=== PATIENT | male | born 1970 | race Caucasian/White ===

== ENCOUNTER 2019-06-22 22:39 | Emergency (ER) | payer MEDICAID, OTHER ==
[~2019-06-22] VITALS: Ht 180.3 cm; Wt 101.6 kg
[2019-06-22] MEDS ORDERED: LISI10TA2 (23:06)
[2019-06-22] MEDS ORDERED: FURO40TA4 (23:06)
[2019-06-22] MEDS ORDERED: WARF4TAB70 (23:06)
[2019-06-22] MEDS ORDERED: RT-ALBUINH (23:06)
[2019-06-22] MEDS ORDERED: NITR0.4T42 (23:06)
[2019-06-22] MEDS ORDERED: BUPR100T8 (23:06)
[2019-06-22] MEDS ORDERED: GABA-488 (23:06)
[2019-06-22] MEDS ORDERED: ATOR40TA70 (23:06)
[2019-06-22] MEDS ORDERED: fentaNYL INJECTION 100 MCG/2 ML AMP IVP ONE (23:30)
[2019-06-22 23:42] LABS: BILIRUBIN,URINE NEGATIVE (NEGATIVE); CLARITY,URINE VERY CLOUDY; COLOR,URINE YELLOW; GLUCOSE, URINE (UA) 2+ (NEGATIVE); KETONES,URINE 1+ (NEGATIVE); LEUKOCYTE ESTERASE ,URINE 2+ (NEGATIVE); NITRITE,URINE POSITIVE (NEGATIVE); PH,URINE 7 (5-9); PROTEIN,URINE 2+ (NEGATIVE); UROBILINOGEN,URINE NORMAL (NORMAL)
[2019-06-22 23:51] LABS: BACTERIA,URINE LARGE /HPF; RBC,URINE 25-50 /HPF; TRIPLE PHOSPHATE CRYSTAL,UR MODERATE /LPF; WBC,URINE TNTC /HPF
[2019-06-22 23:53] LABS: BASOPHILS % (AUTO) 0 % (0-10); EOSINOPHILS # (AUTO) 0.3 10^3/uL (0.0-0.3); EOSINOPHILS % (AUTO) 3 % (0-10); HEMATOCRIT 43 % (40-54); HEMOGLOBIN 13.9 G/DL (13.3-17.7); LYMPHOCYTES # (AUTO) 1.3 X 10^3 (1.0-4.0); LYMPHOCYTES % (AUTO) 14 % (12-44); MEAN CORPUSCULAR HEMOGLOBIN 32 PG (25-34); MEAN CORPUSCULAR HGB CONC 32 G/DL (32-36); MEAN CORPUSCULAR VOLUME 98 FL (80-99); MEAN PLATELET VOLUME 9.2 FL (7.4-10.4); MONOCYTES # (AUTO) 1.1 X 10^3 (0.0-1.0); MONOCYTES % (AUTO) 12 % (0-12); NEUTROPHILS # (AUTO) 6.7 X 10^3 (1.8-7.8); NEUTROPHILS % (AUTO) 71 % (42-75); PLATELET COUNT 327 10^3/uL (130-400); RED CELL DISTRIBUTION WIDTH 14.8 % (10.0-14.5); WHITE BLOOD COUNT 9.4 10^3/uL (4.3-11.0)
[2019-06-22 23:55] LABS: AMPHETAMINE SCREEN, URINE POSITIVE (NEGATIVE); BARBITURATE SCREEN URINE NEGATIVE (NEGATIVE); BENZODIAZEPINES SCREEN URINE NEGATIVE (NEGATIVE); CANNABINOID SCREEN, URINE NEGATIVE (NEGATIVE); COCAINE SCREEN URINE NEGATIVE (NEGATIVE); METHADONE STAT NEGATIVE (NEGATIVE); METHAMPHETAMINE SCREEN URINE S POSITIVE (NEGATIVE); OPIATE SCREEN URINE NEGATIVE (NEGATIVE); OXYCODONE STAT NEGATIVE (NEGATIVE); PROPOXYPHENE STAT NEGATIVE (NEGATIVE); TRICYCLIC ANTIDEPRESSANTS SCRE NEGATIVE (NEGATIVE)
[2019-06-22 23:57] LABS: INR 1.9 (0.8-1.4)
[2019-06-23 00:04] LABS: ALANINE AMINOTRANSFERASE 23 U/L (0-55); ALKALINE PHOSPHATASE 50 U/L (40-136); BILIRUBIN,TOTAL 0.4 MG/DL (0.1-1.0); BUN/CREATININE RATIO 15; CALCIUM 9.1 MG/DL (8.5-10.1); CARBON DIOXIDE 25 MMOL/L (21-32); CHLORIDE 105 MMOL/L (98-107); CREATININE SERUM 1.26 MG/DL (0.60-1.30); GFR ESTIMATED > 60; GLUCOSE 87 MG/DL (70-105); MAGNESIUM 2.3 MG/DL (1.8-2.4); POTASSIUM 4.2 MMOL/L (3.6-5.0); SODIUM 139 MMOL/L (135-145); TOTAL PROTEIN 7.2 GM/DL (6.4-8.2)
[2019-06-23] MEDS ORDERED: CEPH-507 PO (00:59)
--- NOTE | 2019-06-23 00:59 | ED General ---
General Chief Complaint: Lower Extremity Stated Complaint: R LEG PAIN Nursing Triage Note: right knee pain, no injury Nursing Sepsis Screen: No Definite Risk Source of Information: Patient Exam Limitations: No Limitations History of Present Illness Date Seen by Provider: Jun 22, 2019 Time Seen by Provider: 23:10 Initial Comments This 49-year-old man presents to the emergency room with complaints of pain in the right knee and leg. He has swelling inferior to the right knee. He reports falling earlier today. He is not exactly sure how he fell or if he had a syncopal episode. He reports having a history of syncopal episodes in the past. The incident happened around 18:00. Patient is anticoagulated on warfarin due to mechanical valve. His primary care provider is Todd Henley at [facility] in [facility]. His silver holloware assembler is Dr. Adan Leslie in [place]. Patient denies chest pain or shortness of breath. Patient denies any drug or alcohol use. Allergies and Home Medications Allergies Coded Allergies: No Known Drug Allergies (Unverified , 06/22/19) Home Medications Cephalexin 500 Mg Capsule, 500 MG PO TID Prescribed by: SAYRA GUY on 06/23/19 0059 Patient Home Medication List Home Medication List Reviewed: Yes Review of Systems Review of Systems Constitutional: no symptoms reported EENTM: no symptoms reported Respiratory: no symptoms reported Cardiovascular: see HPI Gastrointestinal: no symptoms reported Genitourinary: no symptoms reported Musculoskeletal: see HPI Skin: no symptoms reported Psychiatric/Neurological: See HPI Hematologic/Lymphatic: No Symptoms Reported Immunological/Allergic: no symptoms reported Past Ykjjded-Oyqwal-Behhfg Hx Patient Social History Alcohol Use: Denies Use Recreational Drug Use: No Smoking Status: Current Everyday Smoker Type Used: Cigarettes 2nd Hand Smoke Exposure: Yes Recent Foreign Travel: No Contact w/Someone Who Travel: No Recent Infectious Disease Expo: No Recent Hopitalizations: No Physical Abuse: No Sexual Abuse: No Mistreated: No Fear: No Immunizations Up To Date Tetanus Booster (TDap): Unknown Seasonal Allergies Seasonal Allergies: No Past Medical History Surgeries: Yes (mitral valve replacement) Cardiac Respiratory: Yes Asthma Cardiac: Yes High Cholesterol, Hypertension Neurological: No Genitourinary: No Gastrointestinal: No Musculoskeletal: Yes Arthritis Endocrine: No HEENT: No Cancer: No Psychosocial: No Integumentary: No Blood Disorders: No Physical Exam Vital Signs Vital Signs - First Documented 06/22/19 22:58 Temp 97.1 Pulse 95 Resp 16 B/P (MAP) 143/94 (110) Pulse Ox 98 O2 Delivery Room Air Capillary Refill : Less Than 3 Seconds Height, Weight, BMI Height: 5'11.00" Weight: 224lbs. oz. [id number]; BMI Method:Stated General Appearance: No Apparent Distress, WD/WN HEENT: PERRL/EOMI, Normal ENT Inspection Neck: Normal Inspection Respiratory: Lungs Clear, Normal Breath Sounds, No Accessory Muscle Use, No Respiratory Distress Cardiovascular: Regular Rate, Rhythm, No Edema, Diastolic Murmur, Other (mechanical valve clicking) Gastrointestinal: Normal Bowel Sounds, Non Tender, Soft Extremity: Other (right lower extremity mildly swollen from the knee to the ankle. There is a very tender area of marketed swelling over the tibial plateau suggestive of hematoma. Pedal pulse, sensation, and capillary refill intact.) Neurologic/Psychiatric: Alert, Oriented x3, No Motor/Sensory Deficits, Normal Mood/Affect Skin: Warm/Dry, Other (scattered excoriations over the lower extremities) Progress/Results/Core Measures Suspected Sepsis Recent Fever Within 48 Hours: No Infection Criteria Present: None New/Unexplained Altered Menta: No Sepsis Screen: No Definite Risk SIRS Temperature:97.1 Pulse: 95 Respiratory Rate: 16 Laboratory Tests 06/22/19 23:35: White Blood Count 9.4 Blood Pressure 143 /94 Mean: 110 Laboratory Tests 06/22/19 23:35: Creatinine 1.26, INR Comment 1.9H, Platelet Count 327, Total Bilirubin 0.4 Results/Orders Lab Results Laboratory Tests Test 06/22/19 23:30 06/22/19 23:35 Range/Units Urine Color YELLOW Urine Clarity VERY CLOUDY H Urine pH 7 5-9 Urine Specific [place] 1.015 L 1.016-1.022 Urine Protein 2+ H NEGATIVE Urine Glucose (UA) 2+ H NEGATIVE Urine Ketones 1+ H NEGATIVE Urine Nitrite POSITIVE H NEGATIVE Urine Bilirubin NEGATIVE NEGATIVE Urine Urobilinogen NORMAL NORMAL MG/DL Urine Leukocyte Esterase 2+ H NEGATIVE Urine RBC (Auto) 3+ H NEGATIVE Urine RBC 25-50 H /HPF Urine WBC TNTC H /HPF Urine Crystals NONE /LPF Urine Triple Phosphate Crystals MODERATE H /LPF Urine Bacteria LARGE H /HPF Urine Casts NONE /LPF Urine Mucus NEGATIVE /LPF Urine Culture Indicated YES Urine Opiates Screen NEGATIVE NEGATIVE Urine Oxycodone Screen NEGATIVE NEGATIVE Urine Methadone Screen NEGATIVE NEGATIVE Urine Propoxyphene Screen NEGATIVE NEGATIVE Urine Barbiturates Screen NEGATIVE NEGATIVE Ur Tricyclic Antidepressants Screen NEGATIVE NEGATIVE Urine Phencyclidine Screen NEGATIVE NEGATIVE Urine Amphetamines Screen POSITIVE H NEGATIVE Urine Methamphetamines Screen POSITIVE H NEGATIVE Urine Benzodiazepines Screen NEGATIVE NEGATIVE Urine Cocaine Screen NEGATIVE NEGATIVE Urine Cannabinoids Screen NEGATIVE NEGATIVE White Blood Count 9.4 4.3-11.0 10^3/uL Red Blood Count 4.41 4.35-5.85 10^6/uL Hemoglobin 13.9 13.3-17.7 G/DL Hematocrit 43 40-54 % Mean Corpuscular Volume 98 80-99 FL Mean Corpuscular Hemoglobin 32 25-34 PG Mean Corpuscular Hemoglobin Concent 32 32-36 G/DL Red Cell Distribution Width 14.8 H 10.0-14.5 % Platelet Count 327 130-400 10^3/uL Mean Platelet Volume 9.2 7.4-10.4 FL Neutrophils (%) (Auto) 71 42-75 % Lymphocytes (%) (Auto) 14 12-44 % Monocytes (%) (Auto) 12 0-12 % Eosinophils (%) (Auto) 3 0-10 % Basophils (%) (Auto) 0 0-10 % Neutrophils # (Auto) 6.7 1.8-7.8 X 10^3 Lymphocytes # (Auto) 1.3 1.0-4.0 X 10^3 Monocytes # (Auto) 1.1 H 0.0-1.0 X 10^3 Eosinophils # (Auto) 0.3 0.0-0.3 10^3/uL Basophils # (Auto) 0.0 0.0-0.1 10^3/uL Prothrombin Time 23.0 H 12.2-14.7 SEC INR Comment 1.9 H 0.8-1.4 Activated Partial Thromboplast Time 36 H 24-35 SEC Sodium Level 139 135-145 MMOL/L Potassium Level 4.2 3.6-5.0 MMOL/L Chloride Level 105 98-107 MMOL/L Carbon Dioxide Level 25 21-32 MMOL/L Anion Gap 9 5-14 MMOL/L Blood Urea Nitrogen 19 H 7-18 MG/DL Creatinine 1.26 0.60-1.30 MG/DL Estimat Glomerular Filtration Rate > 60 BUN/Creatinine Ratio 15 Glucose Level 87 70-105 MG/DL Calcium Level 9.1 8.5-10.1 MG/DL Corrected Calcium 9.1 8.5-10.1 MG/DL Magnesium Level 2.3 1.8-2.4 MG/DL Total Bilirubin 0.4 0.1-1.0 MG/DL Aspartate Amino Transf (AST/SGOT) 21 5-34 U/L Alanine Aminotransferase (ALT/SGPT) 23 0-55 U/L Alkaline Phosphatase 50 40-136 U/L Total Protein 7.2 6.4-8.2 GM/DL Albumin 4.0 3.2-4.5 GM/DL Serum Alcohol < 10 <10 MG/DL My Orders Orders - SAYRA CRAIG MD Alcohol (06/22/19 23:19) Cbc With Automated Diff (06/22/19:19) Comprehensive Metabolic Panel (06/22/19 23:19) Drug Screen Stat (Urine) (06/22/19:19) Magnesium (06/22/19:19) Protime With Inr (06/22/19:) Partial Thromboplastin Time (06/22/19 23:19) Ua Culture If Indicated (06/22/19 23:19) Ed Iv/Invasive Line Start (06/22/19 23:19) Chest 1 View, Ap/Pa Only (06/22/19 23:19) Tibia/Fibula, Right, 2 Views (06/22/19 23:19) Knee, Right, 3 Views (06/22/19 23:19) Ankle, Right, 3 Views (06/22/19 23:19) Fentanyl Injection (Sublimaze Injection (06/22/19 23:30) Ekg Tracing (06/22/19:19) Monitor-Rhythm Ecg Trace Only (06/22/19 23:19) Urine Culture (06/22/19 23:30) Chlamydia Trachomatis Urine (06/23/19 00:51) Neis Jameson Dna Urine Test (06/23/19 00:51) Ceftriaxone For Iv Use (Rocephin For I (06/23/19 01:00) Oxycodone/Apap 5/325mg Tablet (Percocet (06/23/19 01:00) Medications Given in ED Current Medications Medications Dose Ordered Sig/Keely Route Start Time Stop Time Status Last Admin Dose Admin Ceftriaxone Sodium 1000 mg/ Sterile Water 10 ml @ 200 mls/hr ONCE ONCE IV 06/23/19 01:00 06/23/19 01:02 DC 06/23/19 00:59 200 MLS/HR Fentanyl Citrate 50 mcg ONCE ONCE IVP 06/22/19 23:30 06/22/19 23:31 DC 06/22/19 23:34 50 MCG Oxycodone/ Acetaminophen 1 tab ONCE ONCE PO 06/23/19 01:00 06/23/19 01:01 DC 06/23/19 00:59 1 TAB Vital Signs/I&O 06/22/19 06/23/19 06/23/19 22:58 00:59 01:15 Temp 97.1 97.1 97.0 Pulse 95 92 Resp 16 16 B/P (MAP) 143/94 (110) 126/101 (109) Pulse Ox 98 97 O2 Delivery Room Air Room Air Capillary Refill : Less Than 3 Seconds Blood Pressure Mean: 110 Progress Note : Time: 00:56 Progress Note Patient was found to have a urinary tract infection which is being treated with Rocephin. Patient states his urine has sometimes had a milky cloudy appearance. GC and chlamydia urine test were added. Patient's INR is slightly low for her artificial valve therapy. No adjustments to his warfarin are being made at this time as he is starting antibiotics and INR is likely to rise. I advised that he have his INR checked again in a couple of days. Pain was initially treated with fentanyl. Percocet is being given to help him get through the night. He is to discuss further pain management with his primary care provider. The swelling over the right tibial plateau is likely a hematoma. He states it was not present to any extent prior to him falling. X-rays were unremarkable. Patient had a positive drug screen for methamphetamines. He adamantly denies use of methamphetamines. 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 Patient is uncertain if he actually had a syncopal episode or not when he fell. He reports he has had multiple syncopal episodes in the past. His silver holloware assembler is aware of this and he has worn a heart monitor in the past. ECG Initial ECG Impression Date: Jun 23, 2019 Initial ECG Impression Time: 00:05 Initial ECG Rate: 81 Initial ECG Rhythm: Normal Sinus Comment Sinus rhythm with no ST elevation or depression. LVH noted. No abnormal intervals. Diagnostic Imaging Diagonstic Imaging: Xray Plain Films/CT/US/NM/MRI: chest Comments Chest x-ray viewed by me. Report not yet available. No acute abnormalities appreciated. Diagonstic Imaging: Xray Plain Films/CT/US/NM/MRI: leg Comments X-ray of the right tib-fib view by me and report not yet available. No acute abnormalities appreciated. Diagonstic Imaging: Xray Plain Films/CT/US/NM/MRI: other (foot) Comments X-ray of the right foot viewed by me. Report negative available. No acute abnormalities appreciated. Diagonstic Imaging: Xray Plain Films/CT/US/NM/MRI: ankle Comments Right ankle x-ray viewed by me. Report yet available. No acute abnormalities appreciated. Departure Impression Primary Impression: Urinary tract infection Qualified Codes: N39.0 - Urinary tract infection, site not specified Additional Impressions: Fall on same level Qualified Codes: W18.30XA - Fall on same level, unspecified, initial encounter Traumatic hematoma of right knee Qualified Codes: S80.01XA - Contusion of right knee, initial encounter Anticoagulated on warfarin Positive urine drug screen Disposition: HOME, SELF-CARE Condition: Improved Departure-Patient Inst. Decision time for Depature: 00:55 Referrals: NO,LOCAL PHYSICIAN (PCP/Family) Primary Care Physician Patient Instructions: HEMATOMA, Urinary Tract Infections in Adults Add. Discharge Instructions: You may apply ice in 20 minute intervals to your knee to help with pain and s welling. Your INR was 1.9. Please call your primary care provider and discuss warfarin dosing based on this INR. Keep in mind antibiotic use may increase your INR. He should have your INR checked again in a couple of days. Complete your antibiotics as prescribed. Check on urine culture results with your primary care provider in 2 or 3 days. Follow-up with your primary care provider and your silver holloware assembler as soon as possible, preferably within the next 48 hours. Please call tomorrow morning to schedule follow-up appointments. Return to care if you have worsening symptoms. All discharge instructions reviewed with patient and/or family. Voiced understanding. Scripts Cephalexin (Keflex) 500 Mg Capsule 500 MG PO TID, #20 CAP Prov: SAYRA CRAIG MD 06/23/19 Copy Copies To 1: MORE SIMPSON JOSHUA T MD Jun 23, 2019 00:59
[2019-06-23] MEDS ORDERED: oxyCODONE/APAP 5/325MG (PERCOCET 5) TABLET PO ONE (01:00)
[2019-06-23] MEDS ORDERED: cefTRIAXone FOR IV USE 1,000 MG in WATER (STERILE) FOR INJECTION 10 ML IV ONE (01:00)
[2019-06-23 01:15] VITALS: BP 126/101
--- OUTSIDE RECORDS SUMMARY | 2019-06-23 02:23 | XMS REPORT ---
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 Name Role Phone ROSELINE SINGH Unavailable PROBLEMS Type Condition ICD9-CM Code KGA59-PY Code Onset Dates Condition Status SNOMED Code Problem Encounter for therapeutic drug monitoring V58.83 Active 436583428 Problem snf 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.01 Active 396124032 Problem Lumbago with sciatica, right side M54.41 Active 351167809 Problem Hyperlipidemia, unspecified hyperlipidemia type E78.5 Active 51636560 Problem Anxiety F41.9 Active 16090719 Problem Other chronic pain G89.29 Active 26025464 Problem Attention-deficit hyperactivity disorder, predominantly hyperactive type F90.1 Active 294277032 Problem Chronic congestive heart failure, unspecified congestive heart failure type I50.9 Active 84711105 Problem Chronic obstructive pulmonary disease, unspecified COPD type J44.9 Active 04549760 ALLERGIES No Known Allergies ENCOUNTERS Encounter Location Date Diagnosis [id number] [place] [address] [id number] Jan, Chronic congestive heart failure, unspecified congestive heart failure type I50.9 ; Chronic obstructive pulmonary disease, unspecified COPD type J44.9 ; Anxiety F41.9 and Hyperlipidemia, unspecified hyperlipidemia type E78.[address] [place] [address] [id number] Jan, snf 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.[address] [place] [address] [id number] Aug, 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 ; Chronic obstructive pulmonary disease, unspecified COPD type J44.9 ; Hyperlipidemia, unspecified hyperlipidemia type E78.5 ; Anxiety F41.9 ; Exposure to hepatitis C Z20.5 ; Chronic congestive heart failure, unspecified congestive heart failure type I50.9 and Lumbago with sciatica, right side M54.41 [facility] [place] [address] [id number] [id number] Jun, snf 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.01 [place] [id number] [id number] April, Anxiety F41.9 ; 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 [address] [place] [address] [id number] Oct, Other chronic pain G89.29 [address] [id number] Sep, [address] [place] [address] [id number] Aug, [place] [id number] [place] [address] [id number] Aug, Other chronic pain G89.29 ; Chronic obstructive pulmonary disease, unspecified COPD type J44.9 ; Encounter for immunization Z23 and 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 [facility] [place] [id number] [id number] Aug, Anxiety F41.9 ; Hyperlipidemia, unspecified hyperlipidemia type E78.5 and Lumbago with sciatica, right side M54.41 [facility] [place] [address]00565100[place] [id number] Jul, [facility] [place] [id number] [place] [address] [id number] Jul, Chronic obstructive pulmonary disease, unspecified COPD type J44.9 ; Anxiety F41.9 ; Lumbago with sciatica, right side M54.41 and snf 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.01 [facility] [place] [id number] [place] [address] [id number] Jul, 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 [facility] [address] [place] [address] [id number] Jun, Lumbago with sciatica, right side M54.41 ; Chronic obstructive pulmonary disease, unspecified COPD type J44.9 ; Anxiety F41.9 and Encounter for immunization Z23 [facility] [address] [id number] [place] [address] Jun, Lumbago with sciatica, right side M54.41 [facility] [address] [place] [address] [id number] Jun, 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 [facility] [address]65100[place] [id number] May, [facility] [address] [place] [address] [id number] May, Lumbago with sciatica, right side M54.41 [facility] [address] [place] [address] [id number] May, Abscess L02.91 [facility] [address]00565100[place] [address] April, Chronic obstructive pulmonary disease, unspecified COPD type J44.9 [facility] [address] [place] [address] [id number] April, Chronic obstructive pulmonary disease, unspecified COPD type J44.9 ; Lumbago with sciatica, right side M54.41 ; Chronic congestive heart failure, unspecified congestive heart failure type I50.9 ; Anxiety F41.9 and 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 [facility] [id number][place] [id number] April, Lumbago with sciatica, right side M54.41 [facility] [address] [place] [id number] [place] [address] [id number] Mar, snf 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.01 ; Chronic obstructive pulmonary disease, unspecified COPD type J44.9 ; Chronic congestive heart failure, unspecified congestive heart failure type I50.9 ; Lumbago with sciatica, right side M54.41 ; Acute upper respiratory infection, unspecified J06.9 and Hyperlipidemia, unspecified hyperlipidemia type E78.5 [facility] [address] [place] [address] [id number] Mar, [facility] [address] [place] [id number] [place] [address] [id number] Jan, 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 ; Lumbago with sciatica, right side M54.41 ; Anxiety F41.9 ; Hyperlipidemia, unspecified hyperlipidemia type E78.5 and Chronic congestive heart failure, unspecified congestive heart failure type I50.9 [facility] [address]65100[place] [id number] Dec, Anxiety F41.9 and snf 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.01 [facility] [address]00565100[place] [address] Dec, [facility] [address]00565100[place] [id number] Dec, [address] [place] [address] [id number] Nov, Chronic obstructive pulmonary disease, unspecified COPD type J44.9 [address]100[place] [id number] Nov, 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 ; Lumbago with sciatica, right side M54.41 and Anxiety F41.9 [facility] [place] [address] [place] [id number] [place] [address] [id number] Nov, [facility] [place] [address] [place] [id number] [place] [address] [id number] Oct, [facility] [place] [address] [place] [id number] [place] [address] [id number] Oct, snf 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.01 [facility] [place] [address] [place] [id number] [place] [address] [id number] Sep, Hyperlipidemia, unspecified hyperlipidemia type E78.5 ; 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 and Lumbago with sciatica, right side M54.41 [facility] [address] [place] [id number] [place] [address] [id number] Aug, [place] [address] [place] [id number] [place] [address] [id number] Aug, snf 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.01 [facility] [place] [address] [place] [id number] [place] [address] [id number] Aug, snf 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.01 [facility] [place] [address] [address] [place] [id number] [place] [address] [id number] Aug, [facility] [place] [address] [place] [id number] [place] [address] [id number] Aug, [facility] [address] [place] [id number] [place] [address] [id number] Jun, Lumbago with sciatica, right side M54.41 ; Chronic obstructive pulmonary disease, unspecified COPD type J44.9 ; Attention-deficit hyperactivity disorder, predominantly hyperactive type F90.1 and snf 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.01 [facility] [place] [id number] [place] [address] [id number] Jun, [facility] [place] [address] [place] [id number] [place] [address] [id number] May, Lumbago with sciatica, right side M54.41 ; Hyperlipidemia, unspecified hyperlipidemia type E78.5 and 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 [place] [id number] [place] [address] [id number] May, Hyperlipidemia, unspecified hyperlipidemia type E78.[address] [id number] April, Chronic congestive heart failure, unspecified congestive heart failure type I50.9 ; Lumbago with sciatica, right side M54.41 ; Other chronic pain G89.29 ; Chronic obstructive pulmonary disease, unspecified COPD type J44.9 ; Attention- deficit hyperactivity disorder, predominantly hyperactive type F90.1 and snf 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.01 [place] [id number] [place] [address] [id number] Mar, [address] [id number] Mar, snf 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.[address] [id number] Jan, 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 [id number] Jan, Other chronic pain G89.[address] [id number] Jan, snf 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.01 and Other chronic pain G89.29 [place] [address] [place] [address] [id number] Dec, [address] [id number] Dec, snf 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.01 [place] [address] [place] [address] [id number] Nov, Other chronic pain G89.[address] [id number] Nov, Other chronic pain G89.29 ; Hx of mechanical aortic valve replacement Z95.2 ; 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 helper (current) use of 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s Z79.01 and Long-term use of high-risk medication Z79.[address] [place] [id number] Oct, Other chronic pain G89.29 ; snf 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.01 ; Bronchitis J40 and Penile discharge R36.9 [place] [id number] [place] [address] [id number] Sep, [place] [id number] [place] [address] [id number] Sep, [address] [id number] Sep, snf 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.01 [place] [id number] [place] [address] [id number] Aug, 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 therapy V58.61 [facility] [id number] [id number] Aug, [facility] [address] [id number] [id number] Aug, [place] [id number] [place] [address] [id number] Aug, 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 therapy V58.61 [place] [id number] [place] [address] [id number] Jul, snf 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 therapy V58.61 [place] [id number] [place] [address] [id number] Jul, Congestive heart failure, unspecified 428.0 [place] [address] [place] [address] [id number] Jul, 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 therapy V58.61 [place] [id number] [place] [address] [id number] Jun, Other chronic pain 338.29 and Encounter for therapeutic drug monitoring V58.83 [place] [id number] [place] [address] [id number] May, Congestive heart failure, unspecified 428.0 and Encounter for long-term (current) use of other medications V58.69 [place] [id number] [place] [address] [id number] May, Congestive heart failure, unspecified 428.0 [facility] [place] [id number], [place] [id number] April, Congestive heart failure, unspecified 428.0 [facility] [place] [id number], [place] [id number] April, Congestive heart failure, unspecified 428.0 ; Other chronic pain 338.29 and Encounter for long-term (current) use of other medications V58.69 [facility] [place] [id number], [place] [id number] April, [facility] [address]005[address], [place] [address] Mar, [facility] [place] [facility] [address] [place] [id number] [place] [address] Mar, [facility] [address] [place] [id number] [place] [address] Jan, [facility] [place] [id number], [place] [id number] Jan, [facility] [place] [facility] [address] [place] [id number], [place] [address] Jan, [facility] [place] [facility] [address] [place] [id number], [place] [address] Jan, [facility] [place] [id number], [place] [id number] Jan, [facility] [place] [facility] [address]005[address], [place] [address] Jan, [facility] [place] [facility] [address], [place] [address] Dec, [facility] [place] [facility] [address] [place] [id number], [place] [address] Dec, [facility] [place] [address] [place] [id number], [place] [id number] Dec, [facility] [address] [id number] Nov, [facility] [address] [id number] [place] [address] Nov, [facility] [place] [facility] [address] [id number] [place] [address] Nov, [facility] [place] [facility] [address] [facility] [id number] [place] [address] Nov, [facility] [place] [facility] [address] [facility] [id number] [place] [address] Oct, [facility] [address] [id number] [place] [id number] Oct, [facility] [address] [facility] [id number] [place] [id number] Oct, [facility] [place] [facility] [address] [facility] [id number] [place] [address] Oct, [facility] [place] [facility] [address] [place] [id number] [address] Sep, [facility] [address] [facility] [id number][place] [id number] Sep, [facility] [place] [facility] [address] [facility] [id number], [place] [address] Sep, [facility] [address] [facility] [id number] [id number] Aug, [facility] [place] [facility] [address] [facility] [id number][place] [address] Aug, [facility] [place] [facility] [address] [facility] [id number], [place] [address] Aug, [facility] [place] [address] [facility] [id number] [id number] Aug, [facility] [place] [facility] [address] [facility] [id number], [place] [address] Aug, [facility] [place] [facility] [address] [facility] [id number], [place] [address] Aug, [facility] [place] [facility] [address] [place] [id number], [place] [address] Aug, [facility] [address]005[address], [place] [address] Aug, [facility] [id number], [place] [id number] Jul, [facility] [address]00565100[place], [place] [address] Jul, [facility] [id number], [place] [id number] Jun, [facility] [address]00565100[place], [place] [address] Jun, [facility] [id number], [place] [id number] May, [facility] [address], [place] [address] May, [facility] [address]100[place], [place] [id number] May, [facility] [address] [place] [id number], [place] [address] May, IMMUNIZATIONS No Known Immunizations SOCIAL HISTORY Never Assessed REASON FOR VISIT Med follow up Veronica OTERO PLAN OF CARE Activity Details Follow Up ,,4 Weeks,,6 Months Reason:INR, COPD VITAL SIGNS Height 71 in 2019-01-27 Weight 204 lbs 2019-01-27 Temperature 98.3 degrees Fahrenheit 2019-01-27 Heart Rate 98 bpm 2019-01-27 Respiratory Rate 18 2019-01-27 BMI 28.45 kg/m2 2019-01-27 Blood pressure systolic 134 mmHg 2019-01-27 Blood pressure diastolic 88 mmHg 2019-01-27 MEDICATIONS Medication Instructions Dosage Frequency Start Date End Date Duration Status Lisinopril 10 mg 1 tablet Once a day Orally 30 Active Furosemide 40 mg 1 tablet Once a day Orally 30 Active TENS Unit device Use as directed Jun, Active BuPROPion HCl ER (SR) 100 mg TAKE ONE TABLET BY MOUTH TWICE DAILY Active Spiriva HandiHaler 18 MCG Inhalation Once a day 1 capsule 24h May, Active Warfarin Sodium 4 MG Orally Once a day 2 tab qod 2.5 tab qod 24h April, Active Atorvastatin Calcium 40 MG by oral route Once a day TAKE 1 TABLET 24h 30 Active Oxygen 2 L/NC Active Albuterol Sulfate HFA 108 (90 Base) mcg/act Inhalation every 4 hrs 2 puffs as needed 4h Active Aspir-81 81 MG Orally Once a day 1 tablet 24h Active Serevent Diskus 50 MCG/DOSE Inhalation Twice a day 1 puff 12h May, Active Gabapentin 300 mg Orally 2 times a day 1 capsule 12h 0 days Active Nitroglycerin 0.4 MG Sublingual PRN 1 tab prn cp q 5 m x 3 if needed 7 Active RESULTS No Results PROCEDURES No Known procedures INSTRUCTIONS MEDICATIONS ADMINISTERED No Known Medications MEDICAL (GENERAL) HISTORY Type Description Date Medical History attention deficit hyperactivity disorder Medical History depression Medical History Congestive heart failure, unspecified Medical History COPD, on oxygen Medical History chronic lumbar pain s/p fall off roof 2007 Surgical History mitral valve replacement s/p bacterial endocarditis 03/2013 Hospitalization History surgery 2012 Hospitalization History [facility] for [facility] pains 03/11/17
--- OUTSIDE RECORDS SUMMARY | 2019-06-23 02:24 | XMS REPORT ---
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 Name Role Phone APOLONIA Manning Unavailable PROBLEMS Type Condition ICD9-CM Code PYV90-BA Code Onset Dates Condition Status SNOMED Code Problem Encounter for therapeutic drug monitoring V58.83 Active 847467238 Problem FDC 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.01 Active 608729685 Problem Lumbago with sciatica, right side M54.41 Active 873875255 Problem Hyperlipidemia, unspecified hyperlipidemia type E78.5 Active 26198653 Problem Anxiety F41.9 Active 80333844 Problem Other chronic pain G89.29 Active 88509479 Problem Attention-deficit hyperactivity disorder, predominantly hyperactive type F90.1 Active 308596304 Problem Chronic congestive heart failure, unspecified congestive heart failure type I50.9 Active 50664744 Problem Chronic obstructive pulmonary disease, unspecified COPD type J44.9 Active 75054390 ALLERGIES No Information ENCOUNTERS Encounter Location Date Diagnosis [id number] [place] [address] [id number] Jan, Chronic congestive heart failure, unspecified congestive heart failure type I50.9 ; Chronic obstructive pulmonary disease, unspecified COPD type J44.9 ; Anxiety F41.9 and Hyperlipidemia, unspecified hyperlipidemia type E78.5 [address] [place] [address] [id number] Jan, FDC 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.01 [address] [place] [address] [id number] Aug, FDC 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.01 ; Chronic obstructive pulmonary disease, unspecified COPD type J44.9 ; Hyperlipidemia, unspecified hyperlipidemia type E78.5 ; Anxiety F41.9 ; Exposure to hepatitis C Z20.5 ; Chronic congestive heart failure, unspecified congestive heart failure type I50.9 and Lumbago with sciatica, right side M54.41 [facility] [address] [id number] [place] [id number] Jun, FDC 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.01 [facility] [place] [id number] [place] [address] [id number] April, Anxiety F41.9 ; FDC 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.01 ; Chronic obstructive pulmonary disease, unspecified COPD type J44.9 ; Chronic congestive heart failure, unspecified congestive heart failure type I50.9 and Other chronic pain G89.29 [facility] [address] [place] [address] [id number] Mar, Closed fracture of right hand, initial encounter S62.91XA ; Chronic obstructive pulmonary disease, unspecified COPD type J44.9 ; FDC 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.01 and Other chronic pain G89.29 [facility] [address] [id number] [place] [id number] Mar, Other chronic pain G89.29 ; Chronic obstructive pulmonary disease, unspecified COPD type J44.9 and Anxiety F41.9 [address] [place] [address] [id number] Nov, Chronic obstructive pulmonary disease, unspecified COPD type J44.9 [facility] [address] [place] [address] [id number] Nov, FDC 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.01 [facility] [address] [place] [address] [id number] Oct, Other chronic pain G89.29 [facility] [address] [place] [address] [id number] Sep, [facility] [place] [id number] [place] [address] [id number] Aug, [facility] [place] [id number] [place] [address] [id number] Aug, Other chronic pain G89.29 ; Chronic obstructive pulmonary disease, unspecified COPD type J44.9 ; Encounter for immunization Z23 and 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 card tender 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.01 [facility] [place] [id number][place] [id number] Aug, Anxiety F41.9 ; Hyperlipidemia, unspecified hyperlipidemia type E78.5 and Lumbago with sciatica, right side M54.41 [facility] [id number], [place] [id number] Jul, [facility] [place] [address] [place] [id number] [place] [address] [id number] Jul, Chronic obstructive pulmonary disease, unspecified COPD type J44.9 ; Anxiety F41.9 ; Lumbago with sciatica, right side M54.41 and 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 card tender 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.01 [facility] [place] [address] [address] [place] [id number] [place] [address] [id number] Jul, FDC 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.01 [facility] [address] [place] [address] [id number] Jun, Lumbago with sciatica, right side M54.41 ; Chronic obstructive pulmonary disease, unspecified COPD type J44.9 ; Anxiety F41.9 and Encounter for immunization Z23 [facility] [id number] [address] Jun, Lumbago with sciatica, right side M54.41 [facility] [address] [place] [address] [id number] Jun, FDC 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.01 [facility] [id number][place] [id number] May, [facility] [address] [place] [address] [id number] May, Lumbago with sciatica, right side M54.41 [facility] [address] [place] [address] [id number] May, Abscess L02.91 [facility] [address]00565[address] [address] April, Chronic obstructive pulmonary disease, unspecified COPD type J44.9 [facility] [place] [id number] [place] [address] [id number] April, Chronic obstructive pulmonary disease, unspecified COPD type J44.9 ; Lumbago with sciatica, right side M54.41 ; Chronic congestive heart failure, unspecified congestive heart failure type I50.9 ; Anxiety F41.9 and 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 card tender 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.01 [facility] [id number], [place] [id number] April, Lumbago with sciatica, right side M54.41 [place] [address] [id number] [place] [address] [id number] Mar, FDC 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.01 ; Chronic obstructive pulmonary disease, unspecified COPD type J44.9 ; Chronic congestive heart failure, unspecified congestive heart failure type I50.9 ; Lumbago with sciatica, right side M54.41 ; Acute upper respiratory infection, unspecified J06.9 and Hyperlipidemia, unspecified hyperlipidemia type E78.5 [address] [place] [address] [id number] Mar, [facility] [address] [place] [address] [id number] Jan, FDC 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.01 ; Lumbago with sciatica, right side M54.41 ; Anxiety F41.9 ; Hyperlipidemia, unspecified hyperlipidemia type E78.5 and Chronic congestive heart failure, unspecified congestive heart failure type I50.9 [facility] [address] [id number] Dec, Anxiety F41.9 and FDC 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.01 [facility] [address]00565100[place] [address] Dec, [address]005[address]100[place] [id number] Dec, [address] [place] [address] [id number] Nov, Chronic obstructive pulmonary disease, unspecified COPD type J44.9 [address]00565100[place] [id number] Nov, 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 card tender 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.01 ; Lumbago with sciatica, right side M54.41 and Anxiety F41.9 [facility] [id number] [place] [address] [id number] Nov, [facility] [address] [id number] [place] [id number] Oct, [facility] [address] [id number] [place] [id number] Oct, [facility]DC 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.01 [facility] [id number] [place] [address] [id number] Sep, Hyperlipidemia, unspecified hyperlipidemia type E78.5 ; FDC 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.01 and Lumbago with sciatica, right side M54.41 [facility] [id number] [place] [address] [id number] Aug, [facility] [address] [id number] [place] [id number] Aug, FDC 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.01 [facility] [id number] [place] [address] [id number] Aug, 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 card tender 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.01 [facility] [address] [id number] [place] [id number] Aug, [facility] [id number] [place] [address] [id number] Aug, [facility] [address] [id number] [place] [id number] Jun, Lumbago with sciatica, right side M54.41 ; Chronic obstructive pulmonary disease, unspecified COPD type J44.9 ; Attention-deficit hyperactivity disorder, predominantly hyperactive type F90.1 and 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 card tender 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.01 [facility] [address] [id number] [place] [id number] Jun, [facility] [address] [id number] [place] [id number] May, Lumbago with sciatica, right side M54.41 ; Hyperlipidemia, unspecified hyperlipidemia type E78.5 and FDC 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.01 [place] [id number] [place] [address] [id number] May, Hyperlipidemia, unspecified hyperlipidemia type E78.5 [place] [id number] [place] [address] [id number] April, Chronic congestive heart failure, unspecified congestive heart failure type I50.9 ; Lumbago with sciatica, right side M54.41 ; Other chronic pain G89.29 ; Chronic obstructive pulmonary disease, unspecified COPD type J44.9 ; Attention- deficit hyperactivity disorder, predominantly hyperactive type F90.1 and FDC 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.01 [place] [address] [place] [id number] [place] [address] [id number] Mar, [address] [id number] Mar, 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 card tender 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.01 [place] [id number] [place] [address] [id number] Jan, 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 card tender 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.01 [place] [address] [place] [id number] [place] [address] [id number] Jan, Other chronic pain G89.29 [place] [id number] [place] [address] [id number] Jan, FDC 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.01 and Other chronic pain G89.29 [place] [id number] [place] [address] [id number] Dec, [place] [id number] [place] [address] [id number] Dec, FDC 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.01 [place] [id number] [place] [address] [id number] Nov, Other chronic pain G89.29 [place] [id number] [place] [address] [id number] Nov, Other chronic pain G89.29 ; Hx of mechanical aortic valve replacement Z95.2 ; 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 card tender (current) use of 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s Z79.01 and Long-term use of high-risk medication Z79.899 [address] [id number] Oct, Other chronic pain G89.29 ; 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 card tender 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.01 ; Bronchitis J40 and Penile discharge R36.9 [place] [id number] [place] [address] [id number] Sep, [place] [id number] [place] [address] [id number] Sep, [place] [id number] [place] [address] [id number] Sep, 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 card tender 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.01 [place] [id number] [place] [address] [id number] Aug, 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 card tender 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 therapy V58.61 [facility] [address] [id number] [place] [id number] Aug, [facility] [address] [id number] [place] [id number] Aug, [address] [place] [address] [id number] Aug, FDC 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 therapy V58.61 [place] [id number] [place] [address] [id number] Jul, 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 card tender 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 therapy V58.61 [address] [place] [address] [id number] Jul, Congestive heart failure, unspecified 428.0 [address] [place] [address] [id number] Jul, [facility]DC 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 therapy V58.61 [address] [place] [address] [id number] Jun, Other chronic pain 338.29 and Encounter for therapeutic drug monitoring V58.83 [place] [id number] [place] [address] [id number] May, Congestive heart failure, unspecified 428.0 and Encounter for long-term (current) use of other medications V58.69 [place] [id number] [place] [address] [place] [id number] May, Congestive heart failure, unspecified 428.0 [facility] [place] [id number][place] [id number] April, Congestive heart failure, unspecified 428.0 [facility] [id number], [place] [id number] April, Congestive heart failure, unspecified 428.0 ; Other chronic pain 338.29 and Encounter for long-term (current) use of other medications V58.69 [facility] [id number], [place] [id number] April, [facility] [address] [address] Mar, [facility] [place] [address] [place] [id number] [place] [address] Mar, [facility] [address] [place] [id number] [address] Jan, [facility] [place] [id number], [place] [id number] Jan, [facility] [address]005[address]100[place] [address] Jan, [facility] [address]005[address]100[place] [address] Jan, [facility] [address] [place] [id number], [place] [id number] Jan, [facility] [place] [facility] [address]005[address]100[place] [address] Jan, [facility] [address]00565100[place] [address] Dec, [facility] [address]005[address] [address] Dec, [facility] [address] [place] [id number][place] [id number] Dec, [facility] [address]00565100[place], [place] [id number] Nov, [facility] [address] [facility] [id number] [place] [address] Nov, [facility] [address] [facility] [id number] [address] Nov, [facility] [address] [facility] [id number] [place] [address] Nov, [facility] [place] [facility] [address] [facility] [id number] [place] [address] Oct, [facility] [address] [facility] [id number][place] [id number] Oct, [facility] [address] [facility] [id number], [place] [id number] Oct, [facility] [address] [facility] [id number] [place] [address] Oct, [facility] [place] [facility] [address] [facility] [id number] [place] [address] Sep, [facility] [address] [facility] [id number], [place] [id number] Sep, [facility] [place] [facility] [address] [facility] [id number] [place] [address] Sep, [facility] [address] [facility] [id number], [place] [id number] Aug, [facility] [place] [facility] [address] [facility] [id number] [place] [address] Aug, [facility] [place] [facility] [address] [facility] [id number] [place] [address] Aug, [facility] [address] [facility] [id number], [place] [id number] Aug, [facility] [place] [facility] [address] [facility] [id number] [place] [address] Aug, [facility] [place] [facility] [address] [facility] [id number] [place] [address] Aug, [facility] [place] [facility] [address] [facility] [id number] [place] [address] Aug, [facility] [address] [facility] [id number] [place] [address] Aug, [facility] [address] [facility] [id number], [place] [id number] Jul, [facility] [address] [facility] [id number] [place] [address] Jul, [facility] [address] [facility] [id number], [place] [id number] Jun, [facility] [address] [facility] [id number] [place] [address] Jun, [facility] [address] [place] [id number], [place] [id number] May, [facility] [address] [facility] [id number] [place] [address] May, [facility] 120 [facility] [id number][place] [id number] May, [facility] [address] [facility] [id number] [place] [address] May, IMMUNIZATIONS No Known Immunizations SOCIAL HISTORY Never Assessed REASON FOR VISIT PLAN OF CARE VITAL SIGNS Height 71 in 2014-12-22 Weight 222 lbs 2014-12-22 Temperature 98.2 degrees Fahrenheit 2014-12-22 Heart Rate 74 bpm 2014-12-22 Respiratory Rate 20 2014-12-22 Blood pressure systolic 150 mmHg 2014-12-22 Blood pressure diastolic 110 mmHg 2014-12-22 MEDICATIONS No Known Medications RESULTS No Results PROCEDURES Procedure Date Ordered Result Body Site MEASURE BLOOD OXYGEN LEVEL Dec 22, 2014 CHYLMD TRACH, DNA, AMP PROBE Dec 22, 2014 URINALYSIS, AUTO W/SCOPE Dec 22, 2014 URINALYSIS, AUTO, W/O SCOPE Dec 22, 2014 INSTRUCTIONS MEDICATIONS ADMINISTERED No Known Medications MEDICAL (GENERAL) HISTORY Type Description Date Medical History attention deficit hyperactivity disorder Medical History depression Medical History Congestive heart failure, unspecified Medical History COPD, on oxygen Medical History chronic lumbar pain s/p fall off roof 2007 Surgical History mitral valve replacement 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
--- OUTSIDE RECORDS SUMMARY | 2019-06-23 02:24 | XMS REPORT ---
Author Author APOLONIA Manning [facility] Address [address] [place] [address] Care Team Providers Care Hand Button Splitter Name Role Phone APOLONIA Manning Unavailable PROBLEMS Type Condition ICD9-CM Code BIZ26-MJ Code Onset Dates Condition Status SNOMED Code Problem Encounter for therapeutic drug monitoring V58.83 Active 862721797 Problem prison 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.01 Active 795263442 Problem Lumbago with sciatica, right side M54.41 Active 371396799 Problem Hyperlipidemia, unspecified hyperlipidemia type E78.5 Active 59845748 Problem Anxiety F41.9 Active 42189896 Problem Other chronic pain G89.29 Active 91758422 Problem Attention-deficit hyperactivity disorder, predominantly hyperactive type F90.1 Active 871739438 Problem Chronic congestive heart failure, unspecified congestive heart failure type I50.9 Active 10878351 Problem Chronic obstructive pulmonary disease, unspecified COPD type J44.9 Active 05512897 ALLERGIES No Information ENCOUNTERS Encounter Location Date Diagnosis [id number] [place] [address] [id number] Jan, Chronic congestive heart failure, unspecified congestive heart failure type I50.9 ; Chronic obstructive pulmonary disease, unspecified COPD type J44.9 ; Anxiety F41.9 and Hyperlipidemia, unspecified hyperlipidemia type E78.5 [address] [place] [address] [id number] Jan, prison 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.01 [address] [place] [address] [id number] Aug, prison 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.01 ; Chronic obstructive pulmonary disease, unspecified COPD type J44.9 ; Hyperlipidemia, unspecified hyperlipidemia type E78.5 ; Anxiety F41.9 ; Exposure to hepatitis C Z20.5 ; Chronic congestive heart failure, unspecified congestive heart failure type I50.9 and Lumbago with sciatica, right side M54.41 [facility] [address] [facility] [address] [id number] [id number] Jun, prison 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.01 [facility] [place] [address] [id number] [place] [address] [id number] April, Anxiety F41.9 ; prison 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.01 ; Chronic obstructive pulmonary disease, unspecified COPD type J44.9 ; Chronic congestive heart failure, unspecified congestive heart failure type I50.9 and Other chronic pain G89.29 [facility] [address] [place] [address] [id number] Mar, Closed fracture of right hand, initial encounter S62.91XA ; Chronic obstructive pulmonary disease, unspecified COPD type J44.9 ; prison 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.01 and Other chronic pain G89.29 [facility] [address] [id number] [id number] Mar, Other chronic pain G89.29 ; Chronic obstructive pulmonary disease, unspecified COPD type J44.9 and Anxiety F41.9 [address] [place] [address] [id number] Nov, Chronic obstructive pulmonary disease, unspecified COPD type J44.9 [facility] [address] [place] [address] [id number] Nov, prison 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.01 [facility] [address] [place] [address] [id number] Oct, Other chronic pain G89.29 [facility] [address] [place] [address] [id number] Sep, [facility] [place] [id number] [place] [address] [id number] Aug, [facility] [place] [id number] [place] [address] [id number] Aug, Other chronic pain G89.29 ; Chronic obstructive pulmonary disease, unspecified COPD type J44.9 ; Encounter for immunization Z23 and car sander 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.01 [facility] [place] [id number] [place] [id number] Aug, Anxiety F41.9 ; Hyperlipidemia, unspecified hyperlipidemia type E78.5 and Lumbago with sciatica, right side M54.41 [facility] [id number] [place] [id number] Jul, [facility] [place] [address] [place] [id number] [place] [address] [id number] Jul, Chronic obstructive pulmonary disease, unspecified COPD type J44.9 ; Anxiety F41.9 ; Lumbago with sciatica, right side M54.41 and car sander 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.01 [facility] [place] [address] [address] [place] [id number] [place] [address] [id number] Jul, prison 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.01 [facility] [address] [place] [address] [id number] Jun, Lumbago with sciatica, right side M54.41 ; Chronic obstructive pulmonary disease, unspecified COPD type J44.9 ; Anxiety F41.9 and Encounter for immunization Z23 [facility] [id number] [address] Jun, Lumbago with sciatica, right side M54.41 [facility] [address] [place] [address] [id number] Jun, prison 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.01 [facility] [place] [id number] [place] [id number] May, [facility] [place] [address] [place] [address] [id number] May, Lumbago with sciatica, right side M54.41 [facility] [address] [place] [address] [id number] May, Abscess L02.91 [facility] [address]00565100[place] [address] April, Chronic obstructive pulmonary disease, unspecified COPD type J44.9 [facility] [place] [id number] [place] [address] [id number] April, Chronic obstructive pulmonary disease, unspecified COPD type J44.9 ; Lumbago with sciatica, right side M54.41 ; Chronic congestive heart failure, unspecified congestive heart failure type I50.9 ; Anxiety F41.9 and car sander 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.01 [facility] [id number] [place] [id number] April, Lumbago with sciatica, right side M54.41 [place] [address] [id number] [place] [address] [id number] Mar, prison 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.01 ; Chronic obstructive pulmonary disease, unspecified COPD type J44.9 ; Chronic congestive heart failure, unspecified congestive heart failure type I50.9 ; Lumbago with sciatica, right side M54.41 ; Acute upper respiratory infection, unspecified J06.9 and Hyperlipidemia, unspecified hyperlipidemia type E78.5 [address] [place] [address] [id number] Mar, [facility] [address] [place] [address] [id number] Jan, car sander 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.01 ; Lumbago with sciatica, right side M54.41 ; Anxiety F41.9 ; Hyperlipidemia, unspecified hyperlipidemia type E78.5 and Chronic congestive heart failure, unspecified congestive heart failure type I50.9 [facility] [address]00565100[place] [id number] Dec, Anxiety F41.9 and prison 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.01 [facility] [address]00565100[place] [address] Dec, [address]005[address]100[place] [id number] Dec, [address] [place] [address] [id number] Nov, Chronic obstructive pulmonary disease, unspecified COPD type J44.9 [address]005[address]100[place] [id number] Nov, car sander 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.01 ; Lumbago with sciatica, right side M54.41 and Anxiety F41.9 [facility] [place] [id number] [place] [address] [id number] Nov, [facility] [place] [address] [id number] [place] [id number] Oct, [facility] [place] [address] [id number] [place] [id number] Oct, prison 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.01 [facility] [place] [id number] [place] [address] [id number] Sep, Hyperlipidemia, unspecified hyperlipidemia type E78.5 ; prison 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.01 and Lumbago with sciatica, right side M54.41 [facility] [place] [id number] [place] [address] [id number] Aug, [facility] [address] [id number] [place] [id number] Aug, prison 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.01 [facility] [place] [id number] [place] [address] [id number] Aug, car sander 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.01 [facility] [address] [id number] [place] [id number] Aug, [facility] [place] [id number] [place] [address] [id number] Aug, [facility] [place] [address] [id number] [place] [id number] Jun, Lumbago with sciatica, right side M54.41 ; Chronic obstructive pulmonary disease, unspecified COPD type J44.9 ; Attention-deficit hyperactivity disorder, predominantly hyperactive type F90.1 and car sander 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.01 [facility] [place] [address] [id number] [place] [id number] Jun, [facility] [place] [address] [id number] [place] [id number] May, Lumbago with sciatica, right side M54.41 ; Hyperlipidemia, unspecified hyperlipidemia type E78.5 and prison 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.01 [place] [address] [id number] [place] [address] [id number] May, Hyperlipidemia, unspecified hyperlipidemia type E78.5 [place] [id number] [place] [address] [id number] April, Chronic congestive heart failure, unspecified congestive heart failure type I50.9 ; Lumbago with sciatica, right side M54.41 ; Other chronic pain G89.29 ; Chronic obstructive pulmonary disease, unspecified COPD type J44.9 ; Attention- deficit hyperactivity disorder, predominantly hyperactive type F90.1 and prison 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.01 [place] [address] [address] [place] [id number] [place] [address] [id number] Mar, [address] [id number] Mar, car sander 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.01 [place] [id number] [place] [address] [id number] Jan, car sander 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.01 [place] [address] [address] [place] [id number] [place] [address] [id number] Jan, Other chronic pain G89.29 [place] [id number] [place] [address] [id number] Jan, prison 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.01 and Other chronic pain G89.29 [place] [id number] [place] [address] [id number] Dec, [place] [id number] [place] [address] [id number] Dec, prison 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.01 [place] [id number] [place] [address] [id number] Nov, Other chronic pain G89.29 [place] [address] [place] [address] [id number] Nov, Other chronic pain G89.29 ; Hx of mechanical aortic valve replacement Z95.2 ; car sander (current) use of 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s Z79.01 and Long-term use of high-risk medication Z79.899 [address]005[address] [id number] Oct, Other chronic pain G89.29 ; car sander 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.01 ; Bronchitis J40 and Penile discharge R36.9 [place] [address] [id number] [place] [address] [id number] Sep, [place] [id number] [place] [address] [id number] Sep, [place] [address] [place] [address] [id number] Sep, car sander 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.01 [place] [id number] [place] [address] [id number] Aug, car sander 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 therapy V58.61 [facility] [address] [id number] [id number] Aug, [facility] [address] [id number] [id number] Aug, [address] [place] [address] [id number] Aug, prison 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 therapy V58.61 [place] [id number] [place] [address] [id number] Jul, car sander 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 therapy V58.61 [address] [place] [address] [id number] Jul, Congestive heart failure, unspecified 428.0 [address] [place] [address] [id number] Jul, prison 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 therapy V58.61 [address] [place] [address] [id number] Jun, Other chronic pain 338.29 and Encounter for therapeutic drug monitoring V58.83 [place] [id number] [place] [address] [id number] May, Congestive heart failure, unspecified 428.0 and Encounter for long-term (current) use of other medications V58.69 [place] [id number] [place] [address] [place] [id number] May, Congestive heart failure, unspecified 428.0 [facility] [place] [id number] [place] [id number] April, Congestive heart failure, unspecified 428.0 [facility] [place] [id number] [place] [id number] April, Congestive heart failure, unspecified 428.0 ; Other chronic pain 338.29 and Encounter for long-term (current) use of other medications V58.69 [facility] [place] [id number] [place] [id number] April, [facility] [address]00565100[place] [address] Mar, [facility] [address] [place] [id number] [place] [address] Mar, [facility] [address] [place] [id number] [address] Jan, [facility] [place] [id number] [place] [id number] Jan, [facility] [address]00565100[place] [address] Jan, [facility] [address]00565100[place] [address] Jan, [facility] [place] [address] [place] [id number] [place] [id number] Jan, [facility] [place] [facility] [address]00565100[place] [address] Jan, [facility] [address]00565100[place] [address] Dec, [facility] [address]00565100[place] [address] Dec, [facility] [place] [address] [place] [id number] [place] [id number] Dec, [facility] [place] [address]00565100[place] [id number] Nov, [facility] [address] [facility] [id number] [place] [address] Nov, [facility] [address] [facility] [id number] [place] [address] Nov, [facility] [address] [facility] [id number] [place] [address] Nov, [facility] [place] [facility] [address] [facility] [id number] [place] [address] Oct, [facility] [address] [facility] [id number] [place] [id number] Oct, [facility] [address] [facility] [id number] [place] [id number] Oct, [facility] [address] [facility] [id number] [place] [address] Oct, [facility] [place] [facility] [address] [facility] [id number] [place] [address] Sep, [facility] [address] [facility] [id number] [place] [id number] Sep, [facility] [place] [facility] [address] [facility] [id number] [place] [address] Sep, [facility] [address] [facility] [id number] [place] [id number] Aug, [facility] [place] [facility] [address] [facility] [id number] [place] [address] Aug, [facility] [place] [facility] [address] [facility] [id number] [place] [address] Aug, [facility] [address] [facility] [id number] [place] [id number] Aug, [facility] [place] [facility] [address] [facility] [id number] [place] [address] Aug, [facility] [place] [facility] [address] [facility] [id number] [place] [address] Aug, [facility] [place] [facility] [address] [facility] [id number] [place] [address] Aug, [facility] [address] [facility] [id number] [place] [address] Aug, [facility] [address] [facility] [id number] [place] [id number] Jul, [facility] [address] [facility] [id number] [place] [address] Jul, [facility] [address] [facility] [id number] [place] [id number] Jun, [facility] [address] [facility] [id number] [place] [address] Jun, [facility] [address] [facility] [id number] [place] [id number] May, [facility] [address] [facility] [id number] [place] [address] May, [facility] [address] [facility] [id number] [place] [id number] May, [facility] [address] [facility] [id number] [place] [address] May, IMMUNIZATIONS No Known Immunizations SOCIAL HISTORY Never Assessed REASON FOR VISIT PLAN OF CARE VITAL SIGNS Height 71 in 2015-02-02 Weight 223 lbs 2015-02-02 Temperature 98.6 degrees Fahrenheit 2015-02-02 Heart Rate 96 bpm 2015-02-02 Respiratory Rate 20 2015-02-02 Blood pressure systolic 128 mmHg 2015-02-02 Blood pressure diastolic 70 mmHg 2015-02-02 MEDICATIONS No Known Medications RESULTS No Results PROCEDURES Procedure Date Ordered Result Body Site URINE CULTURE/COLONY COUNT February 02, 2015 PROTHROMBIN TIME February 02, 2015 URINALYSIS, AUTO, W/O SCOPE February 02, 2015 INSTRUCTIONS MEDICATIONS ADMINISTERED No Known Medications MEDICAL (GENERAL) HISTORY Type Description Date Medical History attention deficit hyperactivity disorder Medical History depression Medical History Congestive heart failure, unspecified Medical History COPD, on oxygen Medical History chronic lumbar pain s/p fall off roof 2007 Surgical History mitral valve replacement s/p 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
--- OUTSIDE RECORDS SUMMARY | 2019-06-23 02:24 | XMS REPORT ---
Author Author APOLONIA Manning [facility] Address [address] [place] [address] Care Team Providers Care Investigator Fraud Name Role Phone APOLONIA Manning Unavailable PROBLEMS Type Condition ICD9-CM Code WPW89-NM Code Onset Dates Condition Status SNOMED Code Problem Encounter for therapeutic drug monitoring V58.83 Active 928531870 Problem group home 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.01 Active 644258493 Problem Lumbago with sciatica, right side M54.41 Active 823813151 Problem Hyperlipidemia, unspecified hyperlipidemia type E78.5 Active 43872501 Problem Anxiety F41.9 Active 83814576 Problem Other chronic pain G89.29 Active 31778781 Problem Attention-deficit hyperactivity disorder, predominantly hyperactive type F90.1 Active 077744310 Problem Chronic congestive heart failure, unspecified congestive heart failure type I50.9 Active 09760939 Problem Chronic obstructive pulmonary disease, unspecified COPD type J44.9 Active 92648637 ALLERGIES No Information ENCOUNTERS Encounter Location Date Diagnosis [id number] [place] [address] [id number] Jan, Chronic congestive heart failure, unspecified congestive heart failure type I50.9 ; Chronic obstructive pulmonary disease, unspecified COPD type J44.9 ; Anxiety F41.9 and Hyperlipidemia, unspecified hyperlipidemia type E78.[address] [place] [address] [id number] Jan, group home 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.[address] [place] [address] [id number] Aug, group home 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.01 ; Chronic obstructive pulmonary disease, unspecified COPD type J44.9 ; Hyperlipidemia, unspecified hyperlipidemia type E78.5 ; Anxiety F41.9 ; Exposure to hepatitis C Z20.5 ; Chronic congestive heart failure, unspecified congestive heart failure type I50.9 and Lumbago with sciatica, right side M54.41 [facility] [address] [id number][place] [id number] Jun, group home 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.01 [facility] [place] [id number] [place] [address] [id number] April, Anxiety F41.9 ; group home 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.01 ; Chronic obstructive pulmonary disease, unspecified COPD type J44.9 ; Chronic congestive heart failure, unspecified congestive heart failure type I50.9 and Other chronic pain G89.29 [facility] [address] [place] [address] [id number] Mar, Closed fracture of right hand, initial encounter S62.91XA ; Chronic obstructive pulmonary disease, unspecified COPD type J44.9 ; group home 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.01 and Other chronic pain G89.29 [facility] SystemsTER [address] [id number][place] [id number] Mar, Other chronic pain G89.29 ; Chronic obstructive pulmonary disease, unspecified COPD type J44.9 and Anxiety F41.9 [address] [place] [address] [id number] Nov, Chronic obstructive pulmonary disease, unspecified COPD type J44.9 [facility] [address] [place] [address] [id number] Nov, group home 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.01 [facility] [address] [place] [address] [id number] Oct, Other chronic pain G89.29 [facility] [address] [place] [address] [id number] Sep, [facility] [place] [id number] [place] [address] [id number] Aug, [facility] [place] [id number] [place] [address] [id number] Aug, Other chronic pain G89.29 ; Chronic obstructive pulmonary disease, unspecified COPD type J44.9 ; Encounter for immunization Z23 and buttermaker 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.01 [facility] [place] [id number], [place] [id number] Aug, Anxiety F41.9 ; Hyperlipidemia, unspecified hyperlipidemia type E78.5 and Lumbago with sciatica, right side M54.41 [facility] [id number], [place] [id number] Jul, [facility] [place] [address] [place] [id number] [place] [address] [id number] Jul, Chronic obstructive pulmonary disease, unspecified COPD type J44.9 ; Anxiety F41.9 ; Lumbago with sciatica, right side M54.41 and buttermaker 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.01 [facility] [place] [address] [address] [place] [id number] [place] [address] [id number] Jul, group home 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.01 [facility] [address] [place] [address] [id number] Jun, Lumbago with sciatica, right side M54.41 ; Chronic obstructive pulmonary disease, unspecified COPD type J44.9 ; Anxiety F41.9 and Encounter for immunization Z23 [facility] [place] [id number] [address] Jun, Lumbago with sciatica, right side M54.41 [facility] [address] [place] [address] [id number] Jun, group home 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.01 [facility] [place] [id number], [place] [id number] May, [facility] [place] [address] [place] [address] [id number] May, Lumbago with sciatica, right side M54.41 [facility] [address] [place] [address] [id number] May, Abscess L02.91 [facility] [address]005[address]100[place] [address] April, Chronic obstructive pulmonary disease, unspecified COPD type J44.9 [facility] [place] [id number] [place] [address] [id number] April, Chronic obstructive pulmonary disease, unspecified COPD type J44.9 ; Lumbago with sciatica, right side M54.41 ; Chronic congestive heart failure, unspecified congestive heart failure type I50.9 ; Anxiety F41.9 and buttermaker 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.01 [facility] [id number], [place] [id number] April, Lumbago with sciatica, right side M54.41 [place] [id number] [place] [address] [id number] Mar, group home 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.01 ; Chronic obstructive pulmonary disease, unspecified COPD type J44.9 ; Chronic congestive heart failure, unspecified congestive heart failure type I50.9 ; Lumbago with sciatica, right side M54.41 ; Acute upper respiratory infection, unspecified J06.9 and Hyperlipidemia, unspecified hyperlipidemia type E78.5 [address] [place] [address] [id number] Mar, [facility] [address] [place] [address] [id number] Jan, group home 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.01 ; Lumbago with sciatica, right side M54.41 ; Anxiety F41.9 ; Hyperlipidemia, unspecified hyperlipidemia type E78.5 and Chronic congestive heart failure, unspecified congestive heart failure type I50.9 [facility] [address]00565100[place] [id number] Dec, Anxiety F41.9 and group home 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.01 [facility] [address]00565100[place] [address] Dec, [address] [id number] Dec, [address] [place] [address] [id number] Nov, Chronic obstructive pulmonary disease, unspecified COPD type J44.9 [address]100[place] [id number] Nov, buttermaker 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.01 ; Lumbago with sciatica, right side M54.41 and Anxiety F41.9 [facility] [place] [id number] [place] [address] [id number] Nov, [facility] [place] [address] [id number] [place] [id number] Oct, [facility] [place] [address] [id number] [place] [id number] Oct, group home 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.01 [facility] [place] [id number] [place] [address] [id number] Sep, Hyperlipidemia, unspecified hyperlipidemia type E78.5 ; group home 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.01 and Lumbago with sciatica, right side M54.41 [facility] [place] [id number] [place] [address] [id number] Aug, [facility] [place] [address] [id number] [place] [id number] Aug, group home 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.01 [facility] [place] [id number] [place] [address] [id number] Aug, buttermaker 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.01 [facility] [place] [address] [id number] [place] [id number] Aug, [facility] [place] [id number] [place] [address] [id number] Aug, [facility] [place] [address] [id number] [place] [id number] Jun, Lumbago with sciatica, right side M54.41 ; Chronic obstructive pulmonary disease, unspecified COPD type J44.9 ; Attention-deficit hyperactivity disorder, predominantly hyperactive type F90.1 and buttermaker 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.01 [facility] [place] [address] [id number] [place] [id number] Jun, [facility] [place] [address] [id number] [place] [id number] May, Lumbago with sciatica, right side M54.41 ; Hyperlipidemia, unspecified hyperlipidemia type E78.5 and group home 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.01 [place] [id number] [place] [address] [id number] May, Hyperlipidemia, unspecified hyperlipidemia type E78.5 [place] [id number] [place] [address] [id number] April, Chronic congestive heart failure, unspecified congestive heart failure type I50.9 ; Lumbago with sciatica, right side M54.41 ; Other chronic pain G89.29 ; Chronic obstructive pulmonary disease, unspecified COPD type J44.9 ; Attention- deficit hyperactivity disorder, predominantly hyperactive type F90.1 and group home 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.01 [place] [address] [place] [id number] [place] [address] [id number] Mar, [address] [id number] Mar, buttermaker 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.01 [place] [id number] [place] [address] [id number] Jan, buttermaker 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.01 [place] [address] [place] [id number] [place] [address] [id number] Jan, Other chronic pain G89.29 [place] [address] [place] [address] [id number] Jan, group home 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.01 and Other chronic pain G89.29 [place] [address] [place] [address] [id number] Dec, [place] [id number] [place] [address] [id number] Dec, group home 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.01 [place] [id number] [place] [address] [id number] Nov, Other chronic pain G89.29 [place] [address] [place] [address] [id number] Nov, Other chronic pain G89.29 ; Hx of mechanical aortic valve replacement Z95.2 ; buttermaker (current) use of 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s Z79.01 and Long-term use of high-risk medication Z79.899 [address] [id number] Oct, Other chronic pain G89.29 ; buttermaker 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.01 ; Bronchitis J40 and Penile discharge R36.9 [place] [id number] [place] [address] [id number] Sep, [place] [id number] [place] [address] [id number] Sep, [place] [address] [place] [address] [id number] Sep, buttermaker 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.01 [place] [id number] [place] [address] [id number] Aug, buttermaker 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 therapy V58.[address] [facility] [address] [id number], [place] [id number] Aug, [facility] [address] [id number][place] [id number] Aug, [address] [place] [address] [id number] Aug, group home 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 therapy V58.61 [place] [id number] [place] [address] [id number] Jul, buttermaker 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 therapy V58.61 [address] [place] [address] [id number] Jul, Congestive heart failure, unspecified 428.[address] [place] [address] [id number] Jul, group home 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 therapy V58.61 [address] [place] [address] [id number] Jun, Other chronic pain 338.29 and Encounter for therapeutic drug monitoring V58.83 [place] [id number] [place] [address] [id number] May, Congestive heart failure, unspecified 428.0 and Encounter for long-term (current) use of other medications V58.69 [place] [id number] [place] [address] [place] [id number] May, Congestive heart failure, unspecified 428.0 [facility] [place] [id number], [place] [id number] April, Congestive heart failure, unspecified 428.0 [facility] [place] [id number], [place] [id number] April, Congestive heart failure, unspecified 428.0 ; Other chronic pain 338.29 and Encounter for long-term (current) use of other medications V58.69 [facility] [place] [id number], [place] [id number] April, [facility] [address]005[address]100[place] [address] Mar, [facility] [address] [place] [id number] [place] [address] Mar, [facility] [address] [place] [id number] [address] Jan, [facility] [place] [id number], [place] [id number] Jan, [facility] [address]00565100[place] [address] Jan, [facility] [address]005[address] [address] Jan, [facility] [place] [address] [place] [id number], [place] [id number] Jan, [facility] [place] [facility] [address]00565100[place] [address] Jan, [facility] [address]005[address]100[place] [address] Dec, [facility] [address]005[address]100[place] [address] Dec, [facility] [place] [address] [place] [id number], [place] [id number] Dec, [facility] [place] [address]00565100[place], [place] [id number] Nov, [facility] [address] [facility] [id number] [place] [address] Nov, [facility] [address] [facility] [id number] [place] [address] Nov, [facility] [address] [facility] [id number] [place] [address] Nov, [facility] [place] [facility] [address] [facility] [id number] [place] [address] Oct, [facility] [address] [facility] [id number], [place] [id number] Oct, [facility] [address] [facility] [id number], [place] [id number] Oct, [facility] [address] [facility] [id number] [place] [address] Oct, [facility] [place] [facility] [address] [facility] [id number] [place] [address] Sep, [facility] [address] [facility] [id number], [place] [id number] Sep, [facility] [place] [facility] [address] [facility] [id number] [place] [address] Sep, [facility] [address] [facility] [id number], [place] [id number] Aug, [facility] [place] [facility] [address] [facility] [id number] [place] [address] Aug, [facility] [place] [facility] [address] [facility] [id number] [place] [address] Aug, [facility] [address] [facility] [id number], [place] [id number] Aug, [facility] [place] [facility] [address] [facility] [id number] [place] [address] Aug, [facility] [place] [facility] [address] [facility] [id number] [place] [address] Aug, [facility] [place] [facility] [address] [facility] [id number] [place] [address] Aug, [facility] [address] [facility] [id number] [place] [address] Aug, [facility] [address] [facility] [id number], [place] [id number] Jul, [facility] [address] [facility] [id number] [place] [address] Jul, [facility] [address] [facility] [id number], [place] [id number] Jun, [facility] [address] [facility] [id number] [place] [address] Jun, [facility] [address] [place] [id number], [place] [id number] May, [facility] [address] [facility] [id number] [place] [address] May, [facility] [address] [place] [id number], [place] [id number] May, [facility] [address] [facility] [id number] [place] [address] May, IMMUNIZATIONS No Known Immunizations SOCIAL HISTORY Never Assessed REASON FOR VISIT PLAN OF CARE VITAL SIGNS MEDICATIONS No Known Medications RESULTS No Results PROCEDURES No Known procedures [...] History surgery 2012 Hospitalization History [facility] for chest pains 03/11/17
--- OUTSIDE RECORDS SUMMARY | 2019-06-23 02:25 | XMS REPORT ---
Author Author ROSELINE SINGH [facility] Address [address] [place] [address] Care Team Providers Care Cash Posting Specialist Name Role Phone ROSELINE SINGH Unavailable PROBLEMS Type Condition ICD9-CM Code KXI99-AE Code Onset Dates Condition Status SNOMED Code Problem Encounter for therapeutic drug monitoring V58.83 Active 724038851 Problem USP 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.01 Active 532735640 Problem Lumbago with sciatica, right side M54.41 Active 001230929 Problem Hyperlipidemia, unspecified hyperlipidemia type E78.5 Active 28501458 Problem Anxiety F41.9 Active 39140427 Problem Other chronic pain G89.29 Active 13614818 Problem Attention-deficit hyperactivity disorder, predominantly hyperactive type F90.1 Active 637206917 Problem Chronic congestive heart failure, unspecified congestive heart failure type I50.9 Active 03248405 Problem Chronic obstructive pulmonary disease, unspecified COPD type J44.9 Active 87385484 ALLERGIES No Information ENCOUNTERS Encounter Location Date Diagnosis [id number] [place] [address] [id number] Jan, Chronic congestive heart failure, unspecified congestive heart failure type I50.9 ; Chronic obstructive pulmonary disease, unspecified COPD type J44.9 ; Anxiety F41.9 and Hyperlipidemia, unspecified hyperlipidemia type E78.[address] [place] [address] [id number] Jan, 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 [place] [address] [id number] Aug, USP 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.01 ; Chronic obstructive pulmonary disease, unspecified COPD type J44.9 ; Hyperlipidemia, unspecified hyperlipidemia type E78.5 ; Anxiety F41.9 ; Exposure to hepatitis C Z20.5 ; Chronic congestive heart failure, unspecified congestive heart failure type I50.9 and Lumbago with sciatica, right side M54.41 [facility] [address] [id number] [place] [id number] Jun, 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 [place] [id number] [id number] April, Anxiety F41.9 ; USP 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.01 ; Chronic obstructive pulmonary disease, unspecified COPD type J44.9 ; Chronic congestive heart failure, unspecified congestive heart failure type I50.9 and Other chronic pain G89.29 [address] [place] [address] [id number] Mar, Closed fracture of right hand, initial encounter S62.91XA ; Chronic obstructive pulmonary disease, unspecified COPD type J44.9 ; USP 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.01 and Other chronic pain G89.29 [facility] [address] [id number] [place] [id number] Mar, Other chronic pain G89.29 ; Chronic obstructive pulmonary disease, unspecified COPD type J44.9 and Anxiety F41.[address] [place] [address] [id number] Nov, Chronic obstructive pulmonary disease, unspecified COPD type J44.9 [address] [place] [address] [id number] Nov, USP 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.01 [address] [place] [address] [id number] Oct, Other chronic pain G89.29 [facility] [address] [id number] Sep, [address] [place] [address] [id number] Aug, [facility] [place] [id number] [place] [address] [id number] Aug, Other chronic pain G89.29 ; Chronic obstructive pulmonary disease, unspecified COPD type J44.9 ; Encounter for immunization Z23 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 [facility] [place] [id number][place] [id number] Aug, Anxiety F41.9 ; Hyperlipidemia, unspecified hyperlipidemia type E78.5 and Lumbago with sciatica, right side M54.41 [facility] [id number], [place] [id number] Jul, [facility] [place] [id number] [place] [address] [id number] Jul, Chronic obstructive pulmonary disease, unspecified COPD type J44.9 ; Anxiety F41.9 ; Lumbago with sciatica, right side M54.41 and USP 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.01 [facility] [place] [id number] [place] [address] [id number] Jul, 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 [facility] [place] [id number] [place] [address] [id number] Jun, Lumbago with sciatica, right side M54.41 ; Chronic obstructive pulmonary disease, unspecified COPD type J44.9 ; Anxiety F41.9 and Encounter for immunization Z23 [facility] [id number] [address] Jun, Lumbago with sciatica, right side M54.41 [facility] [address] [place] [address] [id number] Jun, 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 [facility] [address]005[address] [id number] May, [facility] [place] [id number] [place] [address] [id number] May, Lumbago with sciatica, right side M54.41 [facility] [address] [place] [address] [id number] May, Abscess L02.91 [facility] [address]00565100[place], [place] [address] April, Chronic obstructive pulmonary disease, unspecified COPD type J44.9 [facility] [address] [place] [address] [id number] April, Chronic obstructive pulmonary disease, unspecified COPD type J44.9 ; Lumbago with sciatica, right side M54.41 ; Chronic congestive heart failure, unspecified congestive heart failure type I50.9 ; Anxiety F41.9 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 [facility] [id number], [place] [id number] April, Lumbago with sciatica, right side M54.41 [facility] [address] [place] [id number] [place] [address] [id number] Mar, USP 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.01 ; Chronic obstructive pulmonary disease, unspecified COPD type J44.9 ; Chronic congestive heart failure, unspecified congestive heart failure type I50.9 ; Lumbago with sciatica, right side M54.41 ; Acute upper respiratory infection, unspecified J06.9 and Hyperlipidemia, unspecified hyperlipidemia type E78.5 [address] [place] [address] [id number] Mar, [place] [id number] [place] [address] [id number] Jan, USP 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.01 ; Lumbago with sciatica, right side M54.41 ; Anxiety F41.9 ; Hyperlipidemia, unspecified hyperlipidemia type E78.5 and Chronic congestive heart failure, unspecified congestive heart failure type I50.9 [facility] [address]00565100[place] [id number] Dec, Anxiety F41.9 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 [facility] [address]00565100[place], [place] [address] Dec, [facility] [address]00565100[place], [place] [id number] Dec, [address] [place] [address] [id number] Nov, Chronic obstructive pulmonary disease, unspecified COPD type J44.9 [address]65100[place] [id number] Nov, USP 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.01 ; Lumbago with sciatica, right side M54.41 and Anxiety F41.9 [facility] [place] [id number] [place] [address] [id number] Nov, [facility] [place] [address] [place] [id number] [place] [address] [id number] Oct, [facility] [place] [address] [place] [id number] [place] [address] [id number] Oct, USP 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.01 [facility] [place] [address] [place] [id number] [place] [address] [id number] Sep, Hyperlipidemia, unspecified hyperlipidemia type E78.5 ; 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 and Lumbago with sciatica, right side M54.41 [facility] [address] [place] [id number] [place] [address] [id number] Aug, [facility] [place] [address] [place] [id number] [place] [address] [id number] Aug, 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 [facility] [place] [address] [place] [id number] [place] [address] [id number] Aug, 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 [facility] [place] [address] [place] [id number] [place] [address] [id number] Aug, [facility] [place] [address] [place] [id number] [place] [address] [id number] Aug, [facility] [address] [place] [id number] [place] [address] [id number] Jun, Lumbago with sciatica, right side M54.41 ; Chronic obstructive pulmonary disease, unspecified COPD type J44.9 ; Attention-deficit hyperactivity disorder, predominantly hyperactive type F90.1 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 [facility] [address] [id number] [id number] Jun, [facility] [place] [address] [place] [id number] [place] [address] [id number] May, Lumbago with sciatica, right side M54.41 ; Hyperlipidemia, unspecified hyperlipidemia type E78.5 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 [facility] [id number] [place] [address] [id number] May, Hyperlipidemia, unspecified hyperlipidemia type E78.[address] [id number] April, Chronic congestive heart failure, unspecified congestive heart failure type I50.9 ; Lumbago with sciatica, right side M54.41 ; Other chronic pain G89.29 ; Chronic obstructive pulmonary disease, unspecified COPD type J44.9 ; Attention- deficit hyperactivity disorder, predominantly hyperactive type F90.1 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 [place] [id number] [place] [address] [id number] Mar, [address] [id number] Mar, USP 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.[address] [id number] Jan, USP 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.01 [place] [id number] [place] [address] [id number] Jan, Other chronic pain G89.29 [place] [id number] [place] [address] [id number] Jan, USP 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.01 and Other chronic pain G89.29 [place] [id number] [place] [address] [id number] Dec, [place] [id number] [place] [address] [id number] Dec, USP 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.01 [address] [place] [address] [id number] Nov, Other chronic pain G89.[address] [id number] Nov, Other chronic pain G89.29 ; Hx of mechanical aortic valve replacement Z95.2 ; 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 Z79.01 and Long-term use of high-risk medication Z79.[address] [id number] Oct, Other chronic pain G89.29 ; 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 ; Bronchitis J40 and Penile discharge R36.9 [address] [place] [address] [id number] Sep, [place] [id number] [place] [address] [id number] Sep, [address] [id number] Sep, 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 [place] [id number] [place] [address] [id number] Aug, USP 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 therapy V58.61 [facility] [address] [id number] [place] [id number] Aug, [facility] [address] [id number] [place] [id number] Aug, [place] [id number] [place] [address] [id number] Aug, 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 [place] [id number] [place] [address] [id number] Jul, 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 [place] [id number] [place] [address] [id number] Jul, Congestive heart failure, unspecified 428.0 [place] [id number] [place] [address] [id number] Jul, USP 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 therapy V58.61 [address] [place] [address] [id number] Jun, Other chronic pain 338.29 and Encounter for therapeutic drug monitoring V58.83 [place] [id number] [place] [address] [id number] May, Congestive heart failure, unspecified 428.0 and Encounter for long-term (current) use of other medications V58.69 [place] [id number] [place] [address] [id number] May, Congestive heart failure, unspecified 428.0 [facility] [id number], [place] [id number] April, Congestive heart failure, unspecified 428.0 [facility] [id number], [place] [id number] April, Congestive heart failure, unspecified 428.0 ; Other chronic pain 338.29 and Encounter for long-term (current) use of other medications V58.69 [facility] [id number], [place] [id number] April, [facility] [address]00565100[place], [place] [address] Mar, [facility] [place] [facility] [address] [place] [id number] [place] [address] Mar, [facility] [place] [facility] [address] [place] [id number] [place] [address] Jan, [facility] [id number], [place] [id number] Jan, [facility] [place] [facility] [address]00565100[place], [place] [address] Jan, [facility] [place] [facility] [address]00565100[place], [place] [address] Jan, [facility] [address] [place] [id number], [place] [id number] Jan, [facility] [place] [facility] [address]00565100[place], [place] [address] Jan, [facility] [place] [facility] [address]00565100[place], [place] [address] Dec, [facility] [place] [facility] [address] [place] [id number], [place] [address] Dec, [facility] [address] [place] [id number], [place] [id number] Dec, [facility] [address]00565100[place] [id number] Nov, [facility] [address] [id number], [place] [address] Nov, [facility] [place] [facility] [address] [id number] [place] [address] Nov, [facility] [address] [facility] [id number] [place] [address] Nov, [facility] [place] [facility] [address] [id number], [place] [address] Oct, [facility] [address] [id number], [place] [id number] Oct, [facility] [address] [facility] [address] [id number] [place] [id number] Oct, [facility] [address] [facility] [id number], [place] [address] Oct, [facility] [place] [facility] [address] [place] [id number], [place] [address] Sep, [facility] [address] [facility] [id number][place] [id number] Sep, [facility] [place] [facility] [address] [facility] [id number], [place] [address] Sep, [facility] [address] [facility] [id number][place] [id number] Aug, [facility] [place] [facility] [address] [facility] [id number], [place] [address] Aug, [facility] [place] [facility] [address] [id number], [place] [address] Aug, [facility] [address] [facility] [id number], [place] [id number] Aug, [facility] [place] [facility] [address] [facility] [id number], [place] [address] Aug, [facility] [place] [facility] [address] [facility] [id number], [place] [address] Aug, [facility] [place] [facility] [address] [facility] [id number], [place] [address] Aug, [facility] [address] [facility] [id number], [place] [address] Aug, [facility] [address] [place] [id number][place] [id number] Jul, [facility] [address] [place] [id number], [place] [address] Jul, [facility] [address] [place] [id number], [place] [id number] Jun, [facility] [address]00565100[place], [place] [address] Jun, [facility] [address] [place] [id number], [place] [id number] May, [facility] [address] [place] [id number], [place] [address] May, [facility] [address] [place] [id number], [place] [id number] May, [facility] [address] [facility] [id number], [place] [address] May, IMMUNIZATIONS No Known Immunizations SOCIAL HISTORY Never Assessed REASON FOR VISIT INR Veronica OTERO PLAN OF CARE VITAL SIGNS MEDICATIONS No Known Medications RESULTS Name Result Date Reference Range INR (IN HOUSE) 2019-01-22 INR 2.0 1.10 - 3.30 PREVIOUS INR 3.7 CURRENT COUMADIN DOSE 8mg/10mg every other day NEW COUMADIN DOSE continue Lot # [id number] Exp date 03/01/20 PROCEDURES Procedure Date Ordered Result Body Site PROTHROMBIN TIME Jan 22, 2019 INSTRUCTIONS MEDICATIONS ADMINISTERED No Known Medications MEDICAL (GENERAL) HISTORY Type Description Date Medical History attention deficit hyperactivity disorder Medical History depression Medical History Congestive heart failure, unspecified Medical History COPD, on oxygen Medical History chronic lumbar pain s/p fall off roof 2007 Surgical History mitral valve replacement 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
--- OUTSIDE RECORDS SUMMARY | 2019-06-23 02:25 | XMS REPORT ---
Author Author Migration, Doctor Organization [facility] Address Unknown Phone Unavailable Care Team Providers Care Time Study Technologist Name Role Phone Migration, Doctor Unavailable Unavailable PROBLEMS Type Condition ICD9-CM Code RTV76-PD Code Onset Dates Condition Status SNOMED Code Problem Encounter for therapeutic drug monitoring V58.83 Active 061558507 Problem assisted 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.01 Active 671892668 Problem Lumbago with sciatica, right side M54.41 Active 630909421 Problem Hyperlipidemia, unspecified hyperlipidemia type E78.5 Active 52316561 Problem Anxiety F41.9 Active 13495700 Problem Other chronic pain G89.29 Active 00151058 Problem Attention-deficit hyperactivity disorder, predominantly hyperactive type F90.1 Active 958278885 Problem Chronic congestive heart failure, unspecified congestive heart failure type I50.9 Active 26549826 Problem Chronic obstructive pulmonary disease, unspecified COPD type J44.9 Active 54668596 ALLERGIES No Information ENCOUNTERS Encounter Location Date Diagnosis [address] [id number] [place] [id number] Jan, Chronic congestive heart failure, unspecified congestive heart failure type I50.9 ; Chronic obstructive pulmonary disease, unspecified COPD type J44.9 ; Anxiety F41.9 and Hyperlipidemia, unspecified hyperlipidemia type E78.[address] [id number] [place] [id number] Jan, assisted 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.[address] [id number] [place] [id number] Aug, assisted 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.01 ; Chronic obstructive pulmonary disease, unspecified COPD type J44.9 ; Hyperlipidemia, unspecified hyperlipidemia type E78.5 ; Anxiety F41.9 ; Exposure to hepatitis C Z20.5 ; Chronic congestive heart failure, unspecified congestive heart failure type I50.9 and Lumbago with sciatica, right side M54.[address] [facility] [address] [id number] [id number] Jun, assisted 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.01 [facility] [address] [place] [address] [id number] April, Anxiety F41.9 ; assisted 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.01 ; Chronic obstructive pulmonary disease, unspecified COPD type J44.9 ; Chronic congestive heart failure, unspecified congestive heart failure type I50.9 and Other chronic pain G89.29 [facility] [place] [id number] [place] [address] [id number] Mar, Closed fracture of right hand, initial encounter S62.91XA ; Chronic obstructive pulmonary disease, unspecified COPD type J44.9 ; terminal gauger 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.01 and Other chronic pain G89.29 [facility] [address] [id number][place] [id number] Mar, Other chronic pain G89.29 ; Chronic obstructive pulmonary disease, unspecified COPD type J44.9 and Anxiety F41.9 [facility] [address] [place] [address] [id number] Nov, Chronic obstructive pulmonary disease, unspecified COPD type J44.9 [facility] [place] [id number] [place] [address] [id number] Nov, assisted 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.01 [facility] [address] [place] [address] [id number] 14 Oct, 2017 Other chronic pain G89.29 [facility] [address] [place] [address] [id number] Sep, [facility] [address] [place] [address] [id number] Aug, [facility] [place] [id number] [place] [address] [id number] Aug, Other chronic pain G89.29 ; Chronic obstructive pulmonary disease, unspecified COPD type J44.9 ; Encounter for immunization Z23 and assisted 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.01 [facility] [address] [place] [address] [id number] Aug, Anxiety F41.9 ; Hyperlipidemia, unspecified hyperlipidemia type E78.5 and Lumbago with sciatica, right side M54.41 [facility] [address] [place] [address] [id number] Jul, [facility] [place] [id number] [place] [address] [id number] Jul, Chronic obstructive pulmonary disease, unspecified COPD type J44.9 ; Anxiety F41.9 ; Lumbago with sciatica, right side M54.41 and assisted 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.01 [facility] [place] [id number] [place] [address] [id number] Jul, terminal gauger 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.01 [facility] [place] [id number] [place] [address] [id number] Jun, Lumbago with sciatica, right side M54.41 ; Chronic obstructive pulmonary disease, unspecified COPD type J44.9 ; Anxiety F41.9 and Encounter for immunization Z23 [facility] [address] [id number] [place] [address] Jun, Lumbago with sciatica, right side M54.41 [address] [place] [address] [id number] Jun, assisted 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.01 [address] [place] [address] [id number] May, [facility] [address] [place] [address] [id number] May, Lumbago with sciatica, right side M54.41 [facility] [address]100[place] [id number] May, Abscess L02.91 [facility] [address]00565100[place] [address] April, Chronic obstructive pulmonary disease, unspecified COPD type J44.9 [facility] [address] [place] [address] [id number] April, Chronic obstructive pulmonary disease, unspecified COPD type J44.9 ; Lumbago with sciatica, right side M54.41 ; Chronic congestive heart failure, unspecified congestive heart failure type I50.9 ; Anxiety F41.9 and terminal gauger 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.01 [facility] [id number] [place] [id number] April, Lumbago with sciatica, right side M54.41 [facility] [id number] [place] [id number] Mar, assisted 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.01 ; Chronic obstructive pulmonary disease, unspecified COPD type J44.9 ; Chronic congestive heart failure, unspecified congestive heart failure type I50.9 ; Lumbago with sciatica, right side M54.41 ; Acute upper respiratory infection, unspecified J06.9 and Hyperlipidemia, unspecified hyperlipidemia type E78.5 [facility] [id number] [place] [id number] Mar, [facility] [address] [place] [id number] [place] [address] [id number] Jan, assisted 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.01 ; Lumbago with sciatica, right side M54.41 ; Anxiety F41.9 ; Hyperlipidemia, unspecified hyperlipidemia type E78.5 and Chronic congestive heart failure, unspecified congestive heart failure type I50.9 [facility] [id number] [place] [id number] Dec, Anxiety F41.9 and terminal gauger 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.01 [facility] [address]00565100[place], [place] [address] Dec, [facility] [id number] [place] [id number] Dec, [facility] [id number] [place] [id number] Nov, Chronic obstructive pulmonary disease, unspecified COPD type J44.9 [facility] [id number] [place] [id number] Nov, assisted 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.01 ; Lumbago with sciatica, right side M54.41 and Anxiety F41.9 [facility] [address] [id number] [place] [id number] Nov, [facility] [place] [id number] [place] [address] [id number] Oct, [facility] [id number] [place] [address] [id number] Oct, terminal gauger 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.01 [facility] [place] [address] [id number] [place] [address] [id number] Sep, Hyperlipidemia, unspecified hyperlipidemia type E78.5 ; terminal gauger 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.01 and Lumbago with sciatica, right side M54.41 [facility] [id number] [place] [address] [id number] Aug, [facility] [address] [id number] [place] [address] [id number] Aug, assisted 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.01 [facility] [place] [address] [place] [id number] [place] [address] [id number] Aug, assisted 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.01 [facility] [place] [id number] [place] [address] [id number] Aug, [facility] [address] [place] [id number] [place] [address] [id number] Aug, [facility] [id number] [place] [address] [id number] Jun, Lumbago with sciatica, right side M54.41 ; Chronic obstructive pulmonary disease, unspecified COPD type J44.9 ; Attention-deficit hyperactivity disorder, predominantly hyperactive type F90.1 and terminal gauger 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.01 [facility] [address] [id number] [place] [id number] Jun, [facility] [address] [place] [id number] [place] [address] [id number] May, Lumbago with sciatica, right side M54.41 ; Hyperlipidemia, unspecified hyperlipidemia type E78.5 and assisted 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.01 [facility] [id number] [place] [address] [id number] May, Hyperlipidemia, unspecified hyperlipidemia type E78.5 [address] [place] [address] [id number] April, Chronic congestive heart failure, unspecified congestive heart failure type I50.9 ; Lumbago with sciatica, right side M54.41 ; Other chronic pain G89.29 ; Chronic obstructive pulmonary disease, unspecified COPD type J44.9 ; Attention- deficit hyperactivity disorder, predominantly hyperactive type F90.1 and terminal gauger 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.01 [place] [id number] [place] [address] [id number] Mar, [address] [id number] Mar, terminal gauger 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.[address] [id number] Jan, assisted 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.[address] [id number] Jan, Other chronic pain G89.[address] [id number] Jan, terminal gauger 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.01 and Other chronic pain G89.29 [place] [id number] [place] [address] [id number] Dec, [address] [id number] Dec, terminal gauger 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.01 [place] [id number] [place] [address] [id number] Nov, Other chronic pain G89.[address] [id number] Nov, Other chronic pain G89.29 ; Hx of mechanical aortic valve replacement Z95.2 ; assisted (current) use of 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s Z79.01 and Long-term use of high-risk medication Z79.899 [place] [id number] [place] [address] [id number] Oct, Other chronic pain G89.29 ; terminal gauger 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.01 ; Bronchitis J40 and Penile discharge R36.9 [address] [place] [address] [id number] Sep, [place] [id number] [place] [address] [id number] Sep, [place] [id number] [place] [address] [id number] Sep, terminal gauger 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.01 [place] [id number] [place] [address] [id number] Aug, assisted 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 therapy V58.[address] [facility] [address] [id number], [place] [id number] Aug, [facility] [id number] [place] [address] [id number] Aug, [place] [id number] [place] [address] [id number] Aug, assisted 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 therapy V58.61 [place] [id number] [place] [address] [id number] Jul, assisted 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 therapy V58.61 [place] [id number] [place] [address] [id number] Jul, Congestive heart failure, unspecified 428.0 [place] [id number] [place] [address] [id number] Jul, assisted 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 therapy V58.61 [place] [id number] [place] [address] [id number] Jun, Other chronic pain 338.29 and Encounter for therapeutic drug monitoring V58.83 [place] [id number] [place] [address] [id number] May, Congestive heart failure, unspecified 428.0 and Encounter for long-term (current) use of other medications V58.69 [address] [place] [address] [id number] May, Congestive heart failure, unspecified 428.0 [place] [id number] [id number] April, Congestive heart failure, unspecified 428.0 [facility] [place] [id number] [place] [address] [id number] April, Congestive heart failure, unspecified 428.0 ; Other chronic pain 338.29 and Encounter for long-term (current) use of other medications V58.69 [facility] [place] [id number] [place] [id number] April, [facility] [address] [place] [id number], [place] [address] Mar, [facility] [address] [place] [id number] [place] [address] Mar, [facility] [address] [place] [id number] [place] [address] Jan, [facility] [id number] [place] [id number] Jan, [facility] [address] [place] [id number], [place] [address] Jan, [facility] [address] [place] [id number] [place] [address] Jan, [facility] [place] [id number] [place] [id number] Jan, [facility] [address]00565100[place], [place] [address] Jan, [facility] [address]00565100[place], [place] [address] Dec, [facility] [address]00565100[place], [place] [address] Dec, [facility] [place] [address]00565100[place] [id number] Dec, [facility] [place] [address] [place] [id number] [place] [id number] Nov, [facility] [address] [place] [id number], [place] [address] Nov, [facility] [address] [facility] [id number], [place] [address] Nov, [facility] [address] [facility] [id number], [place] [address] Nov, [facility] [address] [facility] [id number], [place] [address] Oct, [facility] [address] [facility] [id number] [place] [id number] Oct, [facility] [address] [facility] [id number] [place] [id number] Oct, [facility] [address] [facility] [id number], [place] [address] Oct, [facility] [address] [facility] [id number], [place] [address] Sep, [facility] [address] [facility] [id number] [place] [id number] Sep, [facility] [address] [facility] [id number], [place] [address] Sep, [facility] [address] [facility] [id number] [place] [id number] Aug, [facility] [address] [facility] [id number], [place] [address] Aug, [facility] [address] [facility] [id number], [place] [address] Aug, [facility] [address] [facility] [id number] [place] [id number] Aug, [facility] [address] [facility] [id number], [place] [address] Aug, [facility] [address] [facility] [id number], [place] [address] Aug, [facility] [address] [facility] [id number], [place] [address] Aug, [facility] [address] [place] [id number], [place] [address] Aug, [facility] [address] [place] [id number] [place] [id number] Jul, [facility] [address]00565100[place], [place] [address] Jul, [facility] [address] [place] [id number] [place] [id number] Jun, [facility] [address]00565100[place], [place] [address] Jun, [facility] [address]00565100[place] [id number] May, [facility] [address]00565100[place], [place] [address] May, [facility] [address] [place] [id number] [place] [id number] May, [facility] [address] [place] [id number], [place] [address] May, IMMUNIZATIONS No Known Immunizations SOCIAL HISTORY Never Assessed REASON FOR VISIT [place] [place] VITAL SIGNS MEDICATIONS No [...] 03/2013 Hospitalization History surgery 2012 [address]ization History [facility] for chest pains 03/11/17
--- OUTSIDE RECORDS SUMMARY | 2019-06-23 02:26 | XMS REPORT ---
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 Name Role Phone Migration, Doctor Unavailable Unavailable PROBLEMS Type Condition ICD9-CM Code SVV33-NA Code Onset Dates Condition Status SNOMED Code Problem Encounter for therapeutic drug monitoring V58.83 Active 602154745 Problem senior living 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.01 Active 972558034 Problem Lumbago with sciatica, right side M54.41 Active 011846068 Problem Hyperlipidemia, unspecified hyperlipidemia type E78.5 Active 90282526 Problem Anxiety F41.9 Active 34270970 Problem Other chronic pain G89.29 Active 96456589 Problem Attention-deficit hyperactivity disorder, predominantly hyperactive type F90.1 Active 664372078 Problem Chronic congestive heart failure, unspecified congestive heart failure type I50.9 Active 72743829 Problem Chronic obstructive pulmonary disease, unspecified COPD type J44.9 Active 33866482 ALLERGIES No Information ENCOUNTERS Encounter Location Date Diagnosis [address] [id number] [id number] Jan, Chronic congestive heart failure, unspecified congestive heart failure type I50.9 ; Chronic obstructive pulmonary disease, unspecified COPD type J44.9 ; Anxiety F41.9 and Hyperlipidemia, unspecified hyperlipidemia type E78.[address] [id number], [place] [id number] Jan, senior living 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.[address] [id number], [place] [id number] Aug, senior living 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.01 ; Chronic obstructive pulmonary disease, unspecified COPD type J44.9 ; Hyperlipidemia, unspecified hyperlipidemia type E78.5 ; Anxiety F41.9 ; Exposure to hepatitis C Z20.5 ; Chronic congestive heart failure, unspecified congestive heart failure type I50.9 and Lumbago with sciatica, right side M54.[address] [facility] [address] [id number] [id number] Jun, senior living 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.01 [facility] [address] [place] [address] [id number] April, Anxiety F41.9 ; senior living 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.01 ; Chronic obstructive pulmonary disease, unspecified COPD type J44.9 ; Chronic congestive heart failure, unspecified congestive heart failure type I50.9 and Other chronic pain G89.29 [facility] [place] [address] [id number] [place] [address] [id number] Mar, Closed fracture of right hand, initial encounter S62.91XA ; Chronic obstructive pulmonary disease, unspecified COPD type J44.9 ; 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 and Other chronic pain G89.29 [facility] [address] [facility] [address] [id number][place] [id number] Mar, Other chronic pain G89.29 ; Chronic obstructive pulmonary disease, unspecified COPD type J44.9 and Anxiety F41.9 [facility] [address] [place] [address] [id number] Nov, Chronic obstructive pulmonary disease, unspecified COPD type J44.9 [facility] [place] [id number] [place] [address] [id number] Nov, senior living 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.01 [facility] [id number] [place] [address] [id number] 14 Oct, 2017 Other chronic pain G89.29 [facility] [address] [place] [address] [id number] Sep, [facility] [address] [place] [address] [id number] Aug, [facility] [place] [id number] [place] [address] [id number] Aug, Other chronic pain G89.29 ; Chronic obstructive pulmonary disease, unspecified COPD type J44.9 ; Encounter for immunization Z23 and senior living 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.01 [facility] [address] [place] [address] [id number] Aug, Anxiety F41.9 ; Hyperlipidemia, unspecified hyperlipidemia type E78.5 and Lumbago with sciatica, right side M54.41 [facility] [address] [place] [address] [id number] Jul, [facility] [place] [id number] [place] [address] [id number] Jul, Chronic obstructive pulmonary disease, unspecified COPD type J44.9 ; Anxiety F41.9 ; Lumbago with sciatica, right side M54.41 and senior living 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.01 [facility] [place] [address] [id number] [place] [address] [id number] Jul, 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 [facility] [place] [id number] [place] [address] [id number] Jun, Lumbago with sciatica, right side M54.41 ; Chronic obstructive pulmonary disease, unspecified COPD type J44.9 ; Anxiety F41.9 and Encounter for immunization Z23 [facility] [address] [id number] [place] [address] Jun, Lumbago with sciatica, right side M54.41 [address] [place] [address] [id number] Jun, senior living 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.[address] [place] [address] [id number] May, [facility] [address] [place] [address] [id number] May, Lumbago with sciatica, right side M54.41 [facility] [address] [id number] May, Abscess L02.91 [facility] [address] [address] April, Chronic obstructive pulmonary disease, unspecified COPD type J44.9 [facility] [address] [place] [address] [id number] April, Chronic obstructive pulmonary disease, unspecified COPD type J44.9 ; Lumbago with sciatica, right side M54.41 ; Chronic congestive heart failure, unspecified congestive heart failure type I50.9 ; Anxiety F41.9 and 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 [facility] [id number], [place] [id number] April, Lumbago with sciatica, right side M54.41 [facility] [id number], [place] [id number] Mar, senior living 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.01 ; Chronic obstructive pulmonary disease, unspecified COPD type J44.9 ; Chronic congestive heart failure, unspecified congestive heart failure type I50.9 ; Lumbago with sciatica, right side M54.41 ; Acute upper respiratory infection, unspecified J06.9 and Hyperlipidemia, unspecified hyperlipidemia type E78.5 [facility] [id number], [place] [id number] Mar, [facility] [address] [place] [id number] [place] [address] [id number] Jan, senior living 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.01 ; Lumbago with sciatica, right side M54.41 ; Anxiety F41.9 ; Hyperlipidemia, unspecified hyperlipidemia type E78.5 and Chronic congestive heart failure, unspecified congestive heart failure type I50.9 [facility] [id number], [place] [id number] Dec, Anxiety F41.9 and 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 [facility] [address] [address] Dec, [facility] [id number], [place] [id number] Dec, [facility] [id number], [place] [id number] Nov, Chronic obstructive pulmonary disease, unspecified COPD type J44.9 [facility] [id number], [place] [id number] Nov, senior living 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.01 ; Lumbago with sciatica, right side M54.41 and Anxiety F41.9 [facility] [address] [id number], [place] [id number] Nov, [facility] [place] [id number] [place] [address] [id number] Oct, [facility] [place] [id number] [place] [address] [id number] Oct, 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 [facility] [place] [id number] [place] [address] [id number] Sep, Hyperlipidemia, unspecified hyperlipidemia type E78.5 ; 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 and Lumbago with sciatica, right side M54.41 [facility] [place] [id number] [place] [address] [id number] Aug, [facility] [place] [id number] [place] [address] [id number] Aug, senior living 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.01 [facility] [place] [address] [place] [id number] [place] [address] [id number] Aug, senior living 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.01 [facility] [place] [id number] [place] [address] [id number] Aug, [facility] [place] [address] [place] [id number] [place] [address] [id number] Aug, [facility] [id number] [place] [address] [id number] Jun, Lumbago with sciatica, right side M54.41 ; Chronic obstructive pulmonary disease, unspecified COPD type J44.9 ; Attention-deficit hyperactivity disorder, predominantly hyperactive type F90.1 and 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 [facility] [address] [id number], [place] [id number] Jun, [facility] [address] [place] [id number] [place] [address] [id number] May, Lumbago with sciatica, right side M54.41 ; Hyperlipidemia, unspecified hyperlipidemia type E78.5 and senior living 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.01 [facility] [id number] [place] [address] [id number] May, Hyperlipidemia, unspecified hyperlipidemia type E78.5 [address] [place] [address] [id number] April, Chronic congestive heart failure, unspecified congestive heart failure type I50.9 ; Lumbago with sciatica, right side M54.41 ; Other chronic pain G89.29 ; Chronic obstructive pulmonary disease, unspecified COPD type J44.9 ; Attention- deficit hyperactivity disorder, predominantly hyperactive type F90.1 and 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 [place] [id number] [place] [address] [id number] Mar, [address] [id number] Mar, 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 [id number] Jan, senior living 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.[address] [id number] Jan, Other chronic pain G89.[address] [id number] Jan, 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 and Other chronic pain G89.29 [place] [id number] [place] [address] [id number] Dec, [address] [id number] Dec, 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 [place] [id number] [place] [address] [id number] Nov, Other chronic pain G89.[address] [id number] Nov, Other chronic pain G89.29 ; Hx of mechanical aortic valve replacement Z95.2 ; senior living (current) use of anticoagulants Z79.01 and Long-term use of high-risk medication Z79.899 [place] [id number] [place] [address] [id number] Oct, Other chronic pain G89.29 ; 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 ; Bronchitis J40 and Penile discharge R36.9 [address] [place] [address] [id number] Sep, [place] [id number] [place] [address] [id number] Sep, [place] [id number] [place] [address] [id number] Sep, 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 [place] [id number] [place] [address] [id number] Aug, senior living current use of anticoagulant therapy V58.[address] [facility] [address] [id number], [place] [id number] Aug, [facility] [address] [id number] [place] [address] [id number] Aug, [place] [id number] [place] [address] [id number] Aug, senior living current use of anticoagulant therapy V58.61 [place] [id number] [place] [address] [id number] Jul, senior living current use of anticoagulant therapy V58.61 [place] [id number] [place] [address] [id number] Jul, Congestive heart failure, unspecified 428.0 [place] [id number] [place] [address] [id number] Jul, senior living current use of anticoagulant therapy V58.61 [place] [id number] [place] [address] [id number] Jun, Other chronic pain 338.29 and Encounter for therapeutic drug monitoring V58.83 [place] [id number] [place] [address] [id number] May, Congestive heart failure, unspecified 428.0 and Encounter for long-term (current) use of other medications V58.69 [address] [place] [address] [id number] May, Congestive heart failure, unspecified 428.0 [id number] [id number] April, Congestive heart failure, unspecified 428.0 [facility] [place] [id number] [place] [address] [id number] April, Congestive heart failure, unspecified 428.0 ; Other chronic pain 338.29 and Encounter for long-term (current) use of other medications V58.69 [facility] [place] [id number], [place] [id number] April, [facility] [address] [place] [id number] [address] Mar, [facility] [address] [place] [id number] [place] [address] Mar, [facility] [address] [place] [id number] [place] [address] Jan, [facility] [id number], [place] [id number] Jan, [facility] [address] [place] [id number] [address] Jan, [facility] [address] [place] [id number] [place] [address] Jan, [facility] [place] [id number], [place] [id number] Jan, [facility] [address]00565100[place] [address] Jan, [facility] [address]00565100[place], [place] [address] Dec, [facility] [address]00565100[place], [place] [address] Dec, [facility] [place] [address]00565100[place], [place] [id number] Dec, [facility] [place] [address] [place] [id number], [place] [id number] Nov, [facility] [address] [place] [id number] [address] Nov, [facility] [address] [facility] [id number], [place] [address] Nov, [facility] [address] [facility] [id number], [place] [address] Nov, [facility] [address] [facility] [id number], [place] [address] Oct, [facility] [address] [facility] [id number], [place] [id number] Oct, [facility] [address] [facility] [id number], [place] [id number] Oct, [facility] [address] [facility] [id number], [place] [address] Oct, [facility] [address] [facility] [id number], [place] [address] Sep, [facility] [address] [facility] [id number], [place] [id number] Sep, [facility] [address] [facility] [id number], [place] [address] Sep, [facility] [address] [facility] [id number], [place] [id number] Aug, [facility] [address] [facility] [id number], [place] [address] Aug, [facility] [address] [facility] [id number], [place] [address] Aug, [facility] [address] [facility] [id number], [place] [id number] Aug, [facility] [address] [facility] [id number], [place] [address] Aug, [facility] [address] [facility] [id number], [place] [address] Aug, [facility] [address] [facility] [id number], [place] [address] Aug, [facility] [address] [place] [address] [id number] [address] Aug, [facility] [address] [place] [id number], [place] [id number] Jul, [facility] [address]00565[address], [place] [address] Jul, [facility] [address] [place] [id number], [place] [id number] Jun, [facility] [address]005[address], [place] [address] Jun, [facility] [address]65100[place], [place] [id number] May, [facility] [address]005[address]100[place], [place] [address] May, [facility] [address] [place] [id number], [place] [id number] May, [facility] [address] [place] [address] [id number], [place] [address] May, IMMUNIZATIONS No Known Immunizations SOCIAL HISTORY Never Assessed [place]AS[place] [place] VITAL SIGNS MEDICATIONS No [...] 03/2013 Hospitalization History surgery 2012 Hospitalization History [facility] for chest pains 03/11/17
--- OUTSIDE RECORDS SUMMARY | 2019-06-23 02:26 | XMS REPORT ---
Author Author Migration, Doctor Organization [facility] Address Unknown Phone Unavailable Care Team Providers Care Public Opinion Survey Taker Name Role Phone Migration, Doctor Unavailable Unavailable PROBLEMS Type Condition ICD9-CM Code KVP68-SD Code Onset Dates Condition Status SNOMED Code Problem Encounter for therapeutic drug monitoring V58.83 Active 502545966 Problem retirement current use of anticoagulant Z79.01 Active 560789241 Problem Lumbago with sciatica, right side M54.41 Active 919051398 Problem Hyperlipidemia, unspecified hyperlipidemia type E78.5 Active 69863680 Problem Anxiety F41.9 Active 38995164 Problem Other chronic pain G89.29 Active 47723347 Problem Attention-deficit hyperactivity disorder, predominantly hyperactive type F90.1 Active 153258555 Problem Chronic congestive heart failure, unspecified congestive heart failure type I50.9 Active 16978669 Problem Chronic obstructive pulmonary disease, unspecified COPD type J44.9 Active 68017272 ALLERGIES No Information ENCOUNTERS Encounter Location Date Diagnosis [address] [id number] [id number] Jan, Chronic congestive heart failure, unspecified congestive heart failure type I50.9 ; Chronic obstructive pulmonary disease, unspecified COPD type J44.9 ; Anxiety F41.9 and Hyperlipidemia, unspecified hyperlipidemia type E78.[address] [id number] [id number] Jan, retirement current use of anticoagulant Z79.[address] [id number] [id number] Aug, retirement current use of anticoagulant Z79.01 ; Chronic obstructive pulmonary disease, unspecified COPD type J44.9 ; Hyperlipidemia, unspecified hyperlipidemia type E78.5 ; Anxiety F41.9 ; Exposure to hepatitis C Z20.5 ; Chronic congestive heart failure, unspecified congestive heart failure type I50.9 and Lumbago with sciatica, right side M54.41 [facility] [address] [id number] [id number] Jun, retirement current use of anticoagulant Z79.01 [facility] [address] [place] [address] [id number] April, Anxiety F41.9 ; retirement current use of anticoagulant Z79.01 ; Chronic obstructive pulmonary disease, unspecified COPD type J44.9 ; Chronic congestive heart failure, unspecified congestive heart failure type I50.9 and Other chronic pain G89.29 [facility] [place] [id number] [place] [address] [id number] Mar, Closed fracture of right hand, initial encounter S62.91XA ; Chronic obstructive pulmonary disease, unspecified COPD type J44.9 ; manager terminal current use of anticoagulant Z79.01 and Other chronic pain G89.29 [facility] [place] [address] [facility] [address] [id number] [id number] Mar, Other chronic pain G89.29 ; Chronic obstructive pulmonary disease, unspecified COPD type J44.9 and Anxiety F41.9 [facility] [address] [place] [address] [id number] Nov, Chronic obstructive pulmonary disease, unspecified COPD type J44.9 [facility] [place] [id number] [place] [address] [id number] Nov, retirement current use of anticoagulant Z79.01 [facility] [id number] [place] [address] [id number] 14 Oct, 2017 Other chronic pain G89.29 [facility] [address] [place] [address] [id number] Sep, [facility] [address] [place] [address] [id number] Aug, [facility] [place] [id number] [place] [address] [id number] Aug, Other chronic pain G89.29 ; Chronic obstructive pulmonary disease, unspecified COPD type J44.9 ; Encounter for immunization Z23 and retirement current use of anticoagulant Z79.01 [facility] [address] [place] [address] [id number] Aug, Anxiety F41.9 ; Hyperlipidemia, unspecified hyperlipidemia type E78.5 and Lumbago with sciatica, right side M54.41 [facility] [address] [place] [address] [id number] Jul, [facility] [place] [id number] [place] [address] [id number] Jul, Chronic obstructive pulmonary disease, unspecified COPD type J44.9 ; Anxiety F41.9 ; Lumbago with sciatica, right side M54.41 and retirement current use of anticoagulant Z79.01 [facility] [place] [id number] [place] [address] [id number] Jul, manager terminal current use of anticoagulant Z79.01 [facility] [place] [id number] [place] [address] [id number] Jun, Lumbago with sciatica, right side M54.41 ; Chronic obstructive pulmonary disease, unspecified COPD type J44.9 ; Anxiety F41.9 and Encounter for immunization Z23 [facility] [address] [id number] [place] [address] Jun, Lumbago with sciatica, right side M54.41 [address] [place] [address] [id number] Jun, retirement current use of anticoagulant Z79.01 [address] [place] [address] [id number] May, [facility] [address] [place] [address] [id number] May, Lumbago with sciatica, right side M54.41 [facility] [address] [id number] May, Abscess L02.91 [facility] [address]00565100[place] [address] April, Chronic obstructive pulmonary disease, unspecified COPD type J44.9 [facility] [address] [place] [address] [id number] April, Chronic obstructive pulmonary disease, unspecified COPD type J44.9 ; Lumbago with sciatica, right side M54.41 ; Chronic congestive heart failure, unspecified congestive heart failure type I50.9 ; Anxiety F41.9 and manager terminal current use of anticoagulant Z79.01 [facility] [id number] [id number] April, Lumbago with sciatica, right side M54.41 [facility] [id number], [place] [id number] Mar, retirement current use of anticoagulant Z79.01 ; Chronic obstructive pulmonary disease, unspecified COPD type J44.9 ; Chronic congestive heart failure, unspecified congestive heart failure type I50.9 ; Lumbago with sciatica, right side M54.41 ; Acute upper respiratory infection, unspecified J06.9 and Hyperlipidemia, unspecified hyperlipidemia type E78.5 [facility] [id number], [place] [id number] Mar, [facility] [address] [place] [id number] [place] [address] [id number] Jan, retirement current use of anticoagulant Z79.01 ; Lumbago with sciatica, right side M54.41 ; Anxiety F41.9 ; Hyperlipidemia, unspecified hyperlipidemia type E78.5 and Chronic congestive heart failure, unspecified congestive heart failure type I50.9 [facility] [id number], [place] [id number] Dec, Anxiety F41.9 and manager terminal current use of anticoagulant Z79.01 [facility] [address]100[place] [address] Dec, [facility] [id number], [place] [id number] Dec, [facility] [id number], [place] [id number] Nov, Chronic obstructive pulmonary disease, unspecified COPD type J44.9 [facility] [id number], [place] [id number] Nov, retirement current use of anticoagulant Z79.01 ; Lumbago with sciatica, right side M54.41 and Anxiety F41.9 [facility] [address] [id number][place] [id number] Nov, [facility] [place] [id number] [place] [address] [id number] Oct, [facility] [id number] [place] [address] [id number] Oct, manager terminal current use of anticoagulant Z79.01 [facility] [place] [id number] [place] [address] [id number] Sep, Hyperlipidemia, unspecified hyperlipidemia type E78.5 ; manager terminal current use of anticoagulant Z79.01 and Lumbago with sciatica, right side M54.41 [facility] [id number] [place] [address] [id number] Aug, [facility] [address] [id number] [place] [address] [id number] Aug, retirement current use of anticoagulant Z79.01 [facility] [place] [address] [place] [id number] [place] [address] [id number] Aug, retirement current use of anticoagulant Z79.01 [facility] [place] [id number] [place] [address] [id number] Aug, [facility] [place] [address] [place] [id number] [place] [address] [id number] Aug, [facility] [id number] [place] [address] [id number] Jun, Lumbago with sciatica, right side M54.41 ; Chronic obstructive pulmonary disease, unspecified COPD type J44.9 ; Attention-deficit hyperactivity disorder, predominantly hyperactive type F90.1 and manager terminal current use of anticoagulant Z79.01 [facility] [address] [id number][place] [id number] Jun, [facility] [address] [place] [id number] [place] [address] [id number] May, Lumbago with sciatica, right side M54.41 ; Hyperlipidemia, unspecified hyperlipidemia type E78.5 and retirement current use of anticoagulant Z79.01 [facility] [id number] [place] [address] [id number] May, Hyperlipidemia, unspecified hyperlipidemia type E78.5 [address] [place] [address] [id number] April, Chronic congestive heart failure, unspecified congestive heart failure type I50.9 ; Lumbago with sciatica, right side M54.41 ; Other chronic pain G89.29 ; Chronic obstructive pulmonary disease, unspecified COPD type J44.9 ; Attention- deficit hyperactivity disorder, predominantly hyperactive type F90.1 and manager terminal current use of anticoagulant Z79.01 [place] [id number] [place] [address] [id number] Mar, [address] [id number] Mar, manager terminal current use of anticoagulant Z79.[address] [id number] Jan, retirement current use of anticoagulant Z79.[address] [id number] Jan, Other chronic pain G89.[address] [id number] Jan, manager terminal current use of anticoagulant Z79.01 and Other chronic pain G89.29 [place] [id number] [place] [address] [id number] Dec, [address] [id number] Dec, manager terminal current use of anticoagulant Z79.01 [place] [id number] [place] [address] [id number] Nov, Other chronic pain G89.[address] [id number] Nov, Other chronic pain G89.29 ; Hx of mechanical aortic valve replacement Z95.2 ; retirement (current) use of anticoagulants Z79.01 and Long-term use of high-risk medication Z79.899 [place] [id number] [place] [address] [id number] Oct, Other chronic pain G89.29 ; manager terminal current use of anticoagulant Z79.01 ; Bronchitis J40 and Penile discharge R36.9 [address] [place] [address] [id number] Sep, [place] [id number] [place] [address] [id number] Sep, [place] [id number] [place] [address] [id number] Sep, manager terminal current use of anticoagulant Z79.01 [place] [id number] [place] [address] [id number] Aug, retirement current use of anticoagulant therapy V58.[address] [facility] [address] [id number] [place] [id number] Aug, [facility] [id number] [place] [address] [id number] Aug, [place] [id number] [place] [address] [id number] Aug, retirement current use of anticoagulant therapy V58.61 [place] [id number] [place] [address] [id number] Jul, retirement current use of anticoagulant therapy V58.61 [place] [id number] [place] [address] [id number] Jul, Congestive heart failure, unspecified 428.0 [place] [id number] [place] [address] [id number] Jul, retirement current use of anticoagulant therapy V58.61 [place] [id number] [place] [address] [id number] Jun, Other chronic pain 338.29 and Encounter for therapeutic drug monitoring V58.83 [place] [id number] [place] [address] [id number] May, Congestive heart failure, unspecified 428.0 and Encounter for long-term (current) use of other medications V58.69 [address] [place] [address] [id number] May, Congestive heart failure, unspecified 428.0 [place] [id number] [id number] April, Congestive heart failure, unspecified 428.0 [facility] [place] [id number] [place] [address] [id number] April, Congestive heart failure, unspecified 428.0 ; Other chronic pain 338.29 and Encounter for long-term (current) use of other medications V58.69 [facility] [place] [id number], [place] [id number] April, [facility] [address] [place] [id number] [address] Mar, [facility] [address] [place] [id number] [place] [phone] Mar, [facility] [address] [place] [id number] [place] [phone] Jan, [facility] [id number], [place] [id number] Jan, [facility] [address] [place] [id number] [address] Jan, [facility] [address] [place] [id number] [place] [phone] Jan, [facility] [place] [id number], [place] [id number] Jan, [facility] [address]00565100[place] [address] Jan, [facility] [address]00565100[place] [address] Dec, [facility] [address]00565100[place] [address] Dec, [facility] [place] [address]00565100[place] [id number] Dec, [facility] [place] [address] [place] [id number], [place] [id number] Nov, [facility] [address] [place] [id number] [address] Nov, [facility] [address] [facility] [id number] [place] [address] Nov, [facility] [address] [facility] [id number] [place] [address] Nov, [facility] [address] [facility] [id number] [place] [address] Oct, [facility] [address] [facility] [id number][place] [id number] Oct, [facility] [address] [facility] [id number][place] [id number] Oct, [facility] [address] [facility] [id number] [place] [address] Oct, [facility] [address] [facility] [id number] [place] [address] Sep, [facility] [address] [facility] [id number][place] [id number] Sep, [facility] [address] [facility] [id number] [place] [address] Sep, [facility] [address] [facility] [id number], [place] [id number] Aug, [facility] [address] [facility] [id number] [place] [address] Aug, [facility] [address] [facility] [id number] [place] [address] Aug, [facility] [address] [facility] [id number], [place] [id number] Aug, [facility] [address] [facility] [id number] [place] [address] Aug, [facility] [address] [facility] [id number] [place] [address] Aug, [facility] [address] [facility] [id number] [place] [address] Aug, [facility] [address] [place] [id number] [address] Aug, [facility] [address] [place] [id number], [place] [id number] Jul, [facility] [address]00565100[place] [address] Jul, [facility] [address] [place] [id number], [place] [id number] Jun, [facility] [address]00565100[place] [address] Jun, [facility] [address]100[place] [id number] May, [facility] [address]00565100[place] [address] May, [facility] [address] [place] [id number], [place] [id number] May, [facility] [address] [place] [id number] [address] May, IMMUNIZATIONS No Known Immunizations SOCIAL HISTORY Never Assessed REASON FOR VISIT EMR-[facility] PLAN OF CARE VITAL SIGNS MEDICATIONS No [...] 03/2013 Hospitalization History surgery 2012 Hospitalization History [facility] for chest pains 03/11/17
--- OUTSIDE RECORDS SUMMARY | 2019-06-23 02:26 | XMS REPORT ---
Author Author Migration, Doctor Organization [facility] Address Unknown Phone Unavailable Care Team Providers Care Glaze Sprayer Name Role Phone Migration, Doctor Unavailable Unavailable PROBLEMS Type Condition ICD9-CM Code TWM12-UD Code Onset Dates Condition Status SNOMED Code Problem Encounter for therapeutic drug monitoring V58.83 Active 467329653 Problem FPC current use of anticoagulant Z79.01 Active 439029539 Problem Lumbago with sciatica, right side M54.41 Active 124775054 Problem Hyperlipidemia, unspecified hyperlipidemia type E78.5 Active 15042050 Problem Anxiety F41.9 Active 78079249 Problem Other chronic pain G89.29 Active 38231428 Problem Attention-deficit hyperactivity disorder, predominantly hyperactive type F90.1 Active 161892368 Problem Chronic congestive heart failure, unspecified congestive heart failure type I50.9 Active 18340251 Problem Chronic obstructive pulmonary disease, unspecified COPD type J44.9 Active 35480281 ALLERGIES No Information ENCOUNTERS Encounter Location Date Diagnosis [address] [id number] [id number] Jan, Chronic congestive heart failure, unspecified congestive heart failure type I50.9 ; Chronic obstructive pulmonary disease, unspecified COPD type J44.9 ; Anxiety F41.9 and Hyperlipidemia, unspecified hyperlipidemia type E78.[address] [id number], [place] [id number] Jan, FPC current use of anticoagulant Z79.[address] [id number], [place] [id number] Aug, FPC current use of anticoagulant Z79.01 ; Chronic obstructive pulmonary disease, unspecified COPD type J44.9 ; Hyperlipidemia, unspecified hyperlipidemia type E78.5 ; Anxiety F41.9 ; Exposure to hepatitis C Z20.5 ; Chronic congestive heart failure, unspecified congestive heart failure type I50.9 and Lumbago with sciatica, right side M54.41 [facility] [address] [id number][place] [id number] Jun, FPC current use of anticoagulant Z79.01 [facility] [address] [place] [address] [id number] April, Anxiety F41.9 ; FPC current use of anticoagulant Z79.01 ; Chronic obstructive pulmonary disease, unspecified COPD type J44.9 ; Chronic congestive heart failure, unspecified congestive heart failure type I50.9 and Other chronic pain G89.29 [facility] [place] [id number] [place] [address] [id number] Mar, Closed fracture of right hand, initial encounter S62.91XA ; Chronic obstructive pulmonary disease, unspecified COPD type J44.9 ; 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.01 and Other chronic pain G89.29 [facility] [address] [address] [id number][place] [id number] Mar, Other chronic pain G89.29 ; Chronic obstructive pulmonary disease, unspecified COPD type J44.9 and Anxiety F41.9 [facility] [address] [place] [address] [id number] Nov, Chronic obstructive pulmonary disease, unspecified COPD type J44.9 [facility] [place] [id number] [place] [address] [id number] Nov, FPC current use of anticoagulant Z79.01 [facility] [address] [place] [address] [id number] 14 Oct, 2017 Other chronic pain G89.29 [facility] [address] [place] [address] [id number] Sep, [facility] [address] [place] [address] [id number] Aug, [facility] [place] [id number] [place] [address] [id number] Aug, Other chronic pain G89.29 ; Chronic obstructive pulmonary disease, unspecified COPD type J44.9 ; Encounter for immunization Z23 and FPC current use of anticoagulant Z79.01 [facility] [address] [place] [address] [id number] Aug, Anxiety F41.9 ; Hyperlipidemia, unspecified hyperlipidemia type E78.5 and Lumbago with sciatica, right side M54.41 [facility] [address] [place] [address] [id number] Jul, [facility] [place] [id number] [place] [address] [id number] Jul, Chronic obstructive pulmonary disease, unspecified COPD type J44.9 ; Anxiety F41.9 ; Lumbago with sciatica, right side M54.41 and FPC current use of anticoagulant Z79.01 [facility] [place] [id number] [place] [address] [id number] Jul, 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.01 [facility] [place] [id number] [place] [address] [id number] Jun, Lumbago with sciatica, right side M54.41 ; Chronic obstructive pulmonary disease, unspecified COPD type J44.9 ; Anxiety F41.9 and Encounter for immunization Z23 [facility] [address] [id number] [place] [address] Jun, Lumbago with sciatica, right side M54.41 [address] [place] [address] [id number] Jun, FPC current use of anticoagulant Z79.01 [address] [place] [address] [id number] May, [facility] [address] [place] [address] [id number] May, Lumbago with sciatica, right side M54.41 [facility] [address] [id number] May, Abscess L02.91 [facility] [address]00565100[place] [address] April, Chronic obstructive pulmonary disease, unspecified COPD type J44.9 [facility] [address] [place] [address] [id number] April, Chronic obstructive pulmonary disease, unspecified COPD type J44.9 ; Lumbago with sciatica, right side M54.41 ; Chronic congestive heart failure, unspecified congestive heart failure type I50.9 ; Anxiety F41.9 and 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.01 [facility] [id number], [place] [id number] April, Lumbago with sciatica, right side M54.41 [facility] [id number], [place] [id number] Mar, FPC current use of anticoagulant Z79.01 ; Chronic obstructive pulmonary disease, unspecified COPD type J44.9 ; Chronic congestive heart failure, unspecified congestive heart failure type I50.9 ; Lumbago with sciatica, right side M54.41 ; Acute upper respiratory infection, unspecified J06.9 and Hyperlipidemia, unspecified hyperlipidemia type E78.5 [facility] [id number], [place] [id number] Mar, [facility] [address] [place] [id number] [place] [address] [id number] Jan, FPC current use of anticoagulant Z79.01 ; Lumbago with sciatica, right side M54.41 ; Anxiety F41.9 ; Hyperlipidemia, unspecified hyperlipidemia type E78.5 and Chronic congestive heart failure, unspecified congestive heart failure type I50.9 [facility] [id number], [place] [id number] Dec, Anxiety F41.9 and 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.01 [facility] [address]00565100[place] [address] Dec, [facility] [id number], [place] [id number] Dec, [facility] [id number], [place] [id number] Nov, Chronic obstructive pulmonary disease, unspecified COPD type J44.9 [facility] [id number], [place] [id number] Nov, FPC current use of anticoagulant Z79.01 ; Lumbago with sciatica, right side M54.41 and Anxiety F41.9 [facility] [address] [id number], [place] [id number] Nov, [facility] [id number] [place] [address] [id number] Oct, [facility] [id number] [place] [address] [id number] Oct, 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.01 [facility] [place] [id number] [place] [address] [id number] Sep, Hyperlipidemia, unspecified hyperlipidemia type E78.5 ; 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.01 and Lumbago with sciatica, right side M54.41 [facility] [id number] [place] [address] [id number] Aug, [facility] [id number] [place] [address] [id number] Aug, [facility]PC current use of anticoagulant Z79.01 [facility] [place] [address] [place] [id number] [place] [address] [id number] Aug, FPC current use of anticoagulant Z79.01 [facility] [place] [id number] [place] [address] [id number] Aug, [facility] [address] [place] [id number] [place] [address] [id number] Aug, [facility] [id number] [place] [address] [id number] Jun, Lumbago with sciatica, right side M54.41 ; Chronic obstructive pulmonary disease, unspecified COPD type J44.9 ; Attention-deficit hyperactivity disorder, predominantly hyperactive type F90.1 and 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.01 [facility] [address] [id number], [place] [id number] Jun, [facility] [address] [place] [id number] [place] [address] [id number] May, Lumbago with sciatica, right side M54.41 ; Hyperlipidemia, unspecified hyperlipidemia type E78.5 and FPC current use of anticoagulant Z79.01 [facility] [id number] [place] [address] [id number] May, Hyperlipidemia, unspecified hyperlipidemia type E78.5 [address] [place] [address] [id number] April, Chronic congestive heart failure, unspecified congestive heart failure type I50.9 ; Lumbago with sciatica, right side M54.41 ; Other chronic pain G89.29 ; Chronic obstructive pulmonary disease, unspecified COPD type J44.9 ; Attention- deficit hyperactivity disorder, predominantly hyperactive type F90.1 and 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.01 [place] [id number] [place] [address] [id number] Mar, [address] [id number] Mar, 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.[address] [id number] Jan, FPC current use of anticoagulant Z79.[address] [id number] Jan, Other chronic pain G89.[address] [id number] Jan, 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.01 and Other chronic pain G89.29 [place] [id number] [place] [address] [id number] Dec, [address] [id number] Dec, 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.01 [place] [id number] [place] [address] [id number] Nov, Other chronic pain G89.[address] [id number] Nov, Other chronic pain G89.29 ; Hx of mechanical aortic valve replacement Z95.2 ; FPC (current) use of anticoagulants Z79.01 and Long-term use of high-risk medication Z79.899 [place] [id number] [place] [address] [id number] Oct, Other chronic pain G89.29 ; 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.01 ; Bronchitis J40 and Penile discharge R36.9 [address] [place] [address] [id number] Sep, [place] [id number] [place] [address] [id number] Sep, [place] [id number] [place] [address] [id number] Sep, 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.01 [place] [id number] [place] [address] [id number] Aug, FPC current use of anticoagulant therapy V58.61 [facility] [address] [id number], [place] [id number] Aug, [facility] [id number] [place] [address] [id number] Aug, [place] [id number] [place] [address] [id number] Aug, FPC current use of anticoagulant therapy V58.61 [place] [id number] [place] [address] [id number] Jul, FPC current use of anticoagulant therapy V58.61 [place] [id number] [place] [address] [id number] Jul, Congestive heart failure, unspecified 428.0 [place] [address] [place] [address] [id number] Jul, FPC current use of anticoagulant therapy V58.61 [place] [id number] [place] [address] [id number] Jun, Other chronic pain 338.29 and Encounter for therapeutic drug monitoring V58.83 [place] [id number] [place] [address] [id number] May, Congestive heart failure, unspecified 428.0 and Encounter for long-term (current) use of other medications V58.69 [address] [place] [address] [id number] May, Congestive heart failure, unspecified 428.0 [place] [id number] [id number] April, Congestive heart failure, unspecified 428.0 [facility] [place] [id number] [place] [address] [id number] April, Congestive heart failure, unspecified 428.0 ; Other chronic pain 338.29 and Encounter for long-term (current) use of other medications V58.69 [facility] [place] [id number], [place] [id number] April, [facility] [address] [place] [id number] [address] Mar, [facility] [address] [place] [id number] [place] [address] Mar, [facility] [address] [place] [id number] [place] [address] Jan, [facility] [id number], [place] [id number] Jan, [facility] [address] [place] [id number] [address] Jan, [facility] [address] [place] [id number] [place] [address] Jan, [facility] [place] [id number], [place] [id number] Jan, [facility] [address]00565100[place] [address] Jan, [facility] [address]00565100[place] [address] Dec, [facility] [address]00565100[place] [address] Dec, [facility] [place] [address]00565100[place], [place] [id number] Dec, [facility] [place] [address] [place] [id number], [place] [id number] Nov, [facility] [address] [place] [id number] [address] Nov, [facility] [address] [facility] [id number] [address] Nov, [facility] [address] [facility] [id number] [place] [address] Nov, [facility] [address] [facility] [id number] [place] [address] Oct, [facility] [address] [facility] [id number][place] [id number] Oct, [facility] [address] [facility] [id number], [place] [id number] Oct, [facility] [address] [facility] [id number] [place] [address] Oct, [facility] [address] [facility] [id number] [place] [address] Sep, [facility] [address] [facility] [id number], [place] [id number] Sep, [facility] [address] [facility] [id number] [place] [address] Sep, [facility] [address] [facility] [id number], [place] [id number] Aug, [facility] [address] [facility] [id number] [place] [address] Aug, [facility] [address] [facility] [id number] [place] [address] Aug, [facility] [address] [facility] [id number], [place] [id number] Aug, [facility] [address] [facility] [id number] [place] [address] Aug, [facility] [address] [facility] [id number] [place] [address] Aug, [facility] [address] [facility] [id number] [place] [address] Aug, [facility] [address] [facility] [id number] [place] [address] Aug, [facility] [id number], [place] [id number] Jul, [facility] [address]00565100[place] [address] Jul, [facility] [address] [place] [id number], [place] [id number] Jun, [facility] [address]00565100[place] [address] Jun, [facility] [address] [place] [address] [id number] May, [facility] [address]00565[address] [address] May, [facility] [address]00565100[place], [place] [id number] May, [facility] [address]00565100[place] [address] May, IMMUNIZATIONS No Known Immunizations SOCIAL HISTORY Never Assessed REASON FOR VISIT EMR-[facility] PLAN OF CARE VITAL SIGNS MEDICATIONS Medication Instructions Dosage Frequency Start Date End Date Duration Status Gabapentin 300 mg 1 capsule by Oral route 1 time per day at bedtime Sep, Active Nitroglycerin 0.[address] 1 tablet (0.4 mg) by buccal route at the first sign of an attack; no more than 3 tabs are recommended within a 15 minute period. May, Active Spironolactone 25 mg take 1 tablet (25 mg) by oral route once daily Nov, Active Omeprazole 20 mg take 1 capsules by Oral route before meals 2 times per day Aug, Active Furosemide 40 mg take 1 tablet (40 mg) by oral route once daily Nov, Active ProAir HFA 90 mcg/actuation inhale 2 puffs by Inhalation route every 4 hours as needed PRN shortness of breath/cough Dec, Active Potassium Chloride 10 mEq with food Jun, Active Nitrofurantoin Macrocrystal 100 mg 1 capsule by Oral route 2 times per day for 7 day(s) Aug, Active Azithromycin 250 mg 2 Tablet by Oral route on day 1 then take 1 daily for 4 days Dec, Active BuPROPion HCl 100 mg take 1 tablet (100 mg) by oral route 2 times per day Nov, Active Aspirin 81 mg 1 Tablet by Oral route 1 time per day May, Active Docusate Sodium 100 mg take 1 capsule (100 mg) by oral route once daily as needed Aug, Active Oxycodone-Acetaminophen 7.5-325 mg take 1 tablet by Oral route as needed 3 times per day PRN Jan, Active warfarin 5 mg take 2 tablets by Oral route 1 time per day 12.5mg Mon and 10mg all other days Jan, Active RESULTS No Results PROCEDURES No Known procedures INSTRUCTIONS MEDICATIONS ADMINISTERED No Known Medications MEDICAL (GENERAL) HISTORY Type Description Date Medical History attention deficit hyperactivity disorder Medical History depression Medical History Congestive heart failure, unspecified Medical History COPD, on oxygen Medical History chronic lumbar pain s/p fall off roof 2007 Surgical History mitral valve replacement 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
--- OUTSIDE RECORDS SUMMARY | 2019-06-23 02:27 | XMS REPORT ---
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.01 Active 021565557 Problem Anxiety F41.9 Active 12367091 Problem Hyperlipidemia, unspecified hyperlipidemia type E78.5 Active 98008370 Problem Attention-deficit hyperactivity disorder, predominantly hyperactive type F90.1 Active 823806240 Problem Other chronic pain G89.29 Active 11023673 Problem Chronic obstructive pulmonary disease, unspecified COPD type J44.9 Active 61797211 Problem Chronic congestive heart failure, unspecified congestive heart failure type I50.9 Active 54144630 ALLERGIES No Information ENCOUNTERS Encounter Location Date Diagnosis [address] [id number] Aug, [address] [id number] [id number] Jun, 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 Z79.[address] [place] [address] [id number] April, Anxiety F41.9 ; 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 Z79.01 ; Chronic obstructive pulmonary disease, unspecified COPD type J44.9 ; Chronic congestive heart failure, unspecified congestive heart failure type I50.9 and Other chronic pain G89.[address] [id number], [place] [id number] Mar, Closed fracture of right hand, initial encounter S62.91XA ; Chronic obstructive pulmonary disease, unspecified COPD type J44.9 ; USP current use of anticoagulant Z79.01 and Other chronic pain G89.29 [facility] [address] [id number] [facility] [id number] [id number] Mar, Other chronic pain G89.29 ; Chronic obstructive pulmonary disease, unspecified COPD type J44.9 and Anxiety F41.9 [facility] [id number] [id number] Nov, Chronic obstructive pulmonary disease, unspecified COPD type J44.9 [facility] [place] [id number] [place] [address] [id number] Nov, 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 Z79.01 [facility] [place] [id number] [place] [address] [id number] Oct, Other chronic pain G89.29 [facility] [place] [id number][place] [id number] Sep, [facility] [place] [id number] [place] [address] [id number] Aug, [facility] [place] [id number] [place] [address] [id number] Aug, Other chronic pain G89.29 ; Chronic obstructive pulmonary disease, unspecified COPD type J44.9 ; Encounter for immunization Z23 and 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 Z79.01 [facility] [id number], [place] [id number] Aug, Anxiety F41.9 ; Hyperlipidemia, unspecified hyperlipidemia type E78.5 and Lumbago with sciatica, right side M54.41 [facility] [place] [address] [id number], [place] [id number] Jul, [facility] [place] [id number], [place] [id number] Jul, Chronic obstructive pulmonary disease, unspecified COPD type J44.9 ; Anxiety F41.9 ; Lumbago with sciatica, right side M54.41 and 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 Z79.01 [facility] [place] [id number], [place] [id number] Jul, 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 Z79.01 [facility] [address]00565100[place] [id number] Jun, Lumbago with sciatica, right side M54.41 ; Chronic obstructive pulmonary disease, unspecified COPD type J44.9 ; Anxiety F41.9 and Encounter for immunization Z23 [facility] [address] [id number] [place] [address] Jun, Lumbago with sciatica, right side M54.41 [facility] [address]00565100[place] [id number] Jun, 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 [address]00565100[place], [place] [address] April, Chronic obstructive pulmonary disease, unspecified COPD type J44.9 [address]100[place], [place] [id number] April, Chronic obstructive pulmonary disease, unspecified COPD type J44.9 ; Lumbago with sciatica, right side M54.41 ; Chronic congestive heart failure, unspecified congestive heart failure type I50.9 ; Anxiety F41.9 and USP current use of anticoagulant Z79.01 [facility] [place] [address]00565100[place], [place] [id number] April, Lumbago with sciatica, right side M54.41 [address]00565100[place] [id number] Mar, 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 Z79.01 ; Chronic obstructive pulmonary disease, unspecified COPD type J44.9 ; Chronic congestive heart failure, unspecified congestive heart failure type I50.9 ; Lumbago with sciatica, right side M54.41 ; Acute upper respiratory infection, unspecified J06.9 and Hyperlipidemia, unspecified hyperlipidemia type E78.5 [facility] [id number], [place] [id number] Mar, [place] [id number] [place] [address] [id number] Jan, USP current use of anticoagulant Z79.01 ; Lumbago with sciatica, right side M54.41 ; Anxiety F41.9 ; Hyperlipidemia, unspecified hyperlipidemia type E78.5 and Chronic congestive heart failure, unspecified congestive heart failure type I50.9 [facility] [address]00565100[place], [place] [id number] Dec, Anxiety F41.9 and USP current use of anticoagulant Z79.01 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 Z79.01 ; Lumbago with sciatica, right side M54.41 and Anxiety F41.9 [address]00565100[place] [id number] Nov, [address] [place] [address] [id number] Oct, [address] [place] [address] [id number] Oct, 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 Z79.01 [place] [id number] [place] [address] [id number] Sep, Hyperlipidemia, unspecified hyperlipidemia type E78.5 ; USP current use of anticoagulant Z79.01 and Lumbago with sciatica, right side M54.41 [address] [place] [address] [id number] Aug, [facility] [id number], [place] [id number] Aug, USP current use of anticoagulant Z79.01 [facility] [place] [id number] [place] [address] [id number] Aug, USP current use of anticoagulant Z79.01 [facility] [place] [address] [id number], [place] [id number] Aug, [facility] [place] [id number] [place] [address] [id number] Aug, [facility] [id number] [place] [address] [id number] Jun, Lumbago with sciatica, right side M54.41 ; Chronic obstructive pulmonary disease, unspecified COPD type J44.9 ; Attention-deficit hyperactivity disorder, predominantly hyperactive type F90.1 and 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 Z79.01 [facility] [id number], [place] [id number] Jun, [facility] [id number] [place] [address] [id number] May, Lumbago with sciatica, right side M54.41 ; Hyperlipidemia, unspecified hyperlipidemia type E78.5 and USP current use of anticoagulant Z79.01 [facility] [id number], [place] [id number] May, Hyperlipidemia, unspecified hyperlipidemia type E78.5 [place] [id number], [place] [id number] April, Chronic congestive heart failure, unspecified congestive heart failure type I50.9 ; Lumbago with sciatica, right side M54.41 ; Other chronic pain G89.29 ; Chronic obstructive pulmonary disease, unspecified COPD type J44.9 ; Attention- deficit hyperactivity disorder, predominantly hyperactive type F90.1 and 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 Z79.01 [facility] [place] [address] [id number], [place] [id number] Mar, [facility] [address] [id number], [place] [id number] Mar, USP current use of anticoagulant Z79.01 [place] [id number], [place] [id number] Jan, USP current use of anticoagulant Z79.01 [place] [id number] [place] [address] [id number] Jan, Other chronic pain G89.29 [place] [id number] [place] [address] [id number] Jan, USP current use of anticoagulant Z79.01 and Other chronic pain G89.29 [place] [id number] [place] [address] [id number] Dec, [address] [id number] Dec, 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 Z79.01 [place] [id number] [place] [address] [id number] Nov, Other chronic pain G89.[address] [id number] Nov, Other chronic pain G89.29 ; Hx of mechanical aortic valve replacement Z95.2 ; 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 (current) use of anticoagulants Z79.01 and Long-term use of high-risk medication Z79.899 [place] [address] [place] [address] [id number] Oct, Other chronic pain G89.29 ; 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 Z79.01 ; Bronchitis J40 and Penile discharge R36.9 [address] [place] [address] [id number] Sep, [address] [place] [address] [id number] Sep, [address] [place] [address] [id number] Sep, 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 Z79.[address] [place] [address] [id number] Aug, USP current use of anticoagulant therapy V58.61 [facility] [id number] [place] [address] [id number] Aug, [facility] [address] [id number], [place] [id number] Aug, [facility] [id number] [place] [address] [id number] Aug, USP current use of anticoagulant therapy V58.61 [facility] [id number] [place] [address] [id number] Jul, USP current use of anticoagulant therapy V58.61 [facility] [place] [id number] [place] [address] [id number] Jul, Congestive heart failure, unspecified 428.0 [place] [id number] [place] [address] [id number] Jul, 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 therapy V58.61 [facility] [id number] [place] [address] [id number] Jun, Other chronic pain 338.29 and Encounter for therapeutic drug monitoring V58.83 [facility] [place] [id number] [place] [address] [id number] May, Congestive heart failure, unspecified 428.0 and Encounter for long-term (current) use of other medications V58.69 [facility] [place] [id number] [place] [address] [id number] May, Congestive heart failure, unspecified 428.0 [facility] [id number] [place] [address] [id number] April, Congestive heart failure, unspecified 428.0 [facility] [address] [place] [address] [id number] April, Congestive heart failure, unspecified 428.0 ; Other chronic pain 338.29 and Encounter for long-term (current) use of other medications V58.69 [facility] [address] [place] [address] [id number] April, [facility] [id number] [place] [address] Mar, [facility] [id number] [place] [address] Mar, [facility] [place] [facility] [address] [id number] [place] [address] Jan, [facility] [address] [id number], [place] [id number] Jan, [facility] [place] [facility] [address] [facility] [id number] [place] [address] Jan, [facility] [place] [facility] [address] [id number], [place] [address] Jan, [facility] [address] [id number] [place] [id number] Jan, [facility] [place] [facility] [address] [id number] [place] [address] Jan, [facility] [place] [facility] [address] [facility] [id number], [place] [address] Dec, [facility] [place] [facility] [address] [facility] [id number], [place] [address] Dec, [facility] [address] [id number], [place] [phone] Dec, [facility] [address] [facility] [id number], [place] [id number] Nov, [facility] [place] [facility] [address] [facility] [id number], [place] [address] Nov, [facility] [place] [facility] [address] [facility] [id number], [place] [address] Nov, [facility] [place] [facility] [address] [facility] [id number], [place] [address] Nov, [facility] [place] [facility] [address] [id number], [place] [address] Oct, [facility] [address] [id number], [place] [id number] Oct, [facility] [address] [facility] [id number], [place] [id number] Oct, [facility] [place] [facility] [address] [facility] [id number], [place] [address] Oct, [facility] [place] [facility] [address] [facility] [id number] [place] [address] Sep, [facility] [address] [facility] [id number], [place] [id number] Sep, [facility] [place] [facility] [address] [facility] [id number], [place] [address] Sep, [facility] [address] [facility] [id number], [place] [id number] Aug, [facility] [place] [facility] [address] [facility] [id number] [place] [address] Aug, [facility] [place] [facility] [address] [facility] [id number] [place] [address] Aug, [facility] [address] [facility] [id number], [place] [id number] Aug, [facility] [place] [facility] [address] [facility] [id number], [place] [address] Aug, [facility] [place] [facility] [address] [facility] [id number] [place] [address] Aug, [facility] [place] [facility] [address] [facility] [id number] [place] [address] Aug, [facility] [place] [facility] [address] [facility] [id number], [place] [address] Aug, [facility] [address] [facility] [id number], [place] [id number] Jul, [facility] [place] [facility] [address] [facility] [id number] [place] [address] Jul, [facility] [address] [facility] [id number], [place] [id number] Jun, [facility] [place] [facility] [address] [facility] [id number], [place] [address] Jun, [facility] [address] [facility] [id number], [place] [id number] May, [facility] [address] [facility] [id number] [place] [address] May, [facility] [address] [facility] [id number] [place] [id number] May, [facility] [address] [facility] [id number] [place] [address] May, IMMUNIZATIONS No Known Immunizations SOCIAL HISTORY Never Assessed REASON FOR VISIT Lab (walk-in). INR. Ellie soriano PLAN OF CARE VITAL SIGNS MEDICATIONS Unknown Medications RESULTS Name Result Date Reference Range INR (IN HOUSE) 2018-06-16 INR 3.7 1.10 - 3.30 PREVIOUS INR 2.5 CURRENT COUMADIN DOSE 8mg/10mg every other day NEW COUMADIN DOSE Lot # [id number] Exp date 05/01/2019 PROCEDURES Procedure Date Ordered Result Body Site PROTHROMBIN TIME June 16, 2018 INSTRUCTIONS MEDICATIONS ADMINISTERED No Known Medications MEDICAL (GENERAL) HISTORY Type Description Date Medical History attention deficit hyperactivity disorder Medical History depression Medical History Congestive heart failure, unspecified Medical History COPD, on oxygen Medical History chronic lumbar pain s/p fall off roof 2007 Surgical History mitral valve replacement 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
--- OUTSIDE RECORDS SUMMARY | 2019-06-23 02:27 | XMS REPORT ---
Author Author ROSELINE SINGH [facility] Address [address] [place] [address] Care Team Providers Care Piano Technician Name Role Phone ROSELINE SINGH Unavailable PROBLEMS Type Condition ICD9-CM Code VVA84-FC Code Onset Dates Condition Status SNOMED Code Problem Encounter for therapeutic drug monitoring V58.83 Active 970491694 Problem Lumbago with sciatica, right side M54.41 Active 203653748 Problem long term care social worker current use of anticoagulant Z79.01 Active 638979567 Problem Anxiety F41.9 Active 56138506 Problem Hyperlipidemia, unspecified hyperlipidemia type E78.5 Active 31382669 Problem Attention-deficit hyperactivity disorder, predominantly hyperactive type F90.1 Active 122146034 Problem Other chronic pain G89.29 Active 95324950 Problem Chronic obstructive pulmonary disease, unspecified COPD type J44.9 Active 45134458 Problem Chronic congestive heart failure, unspecified congestive heart failure type I50.9 Active 45397123 ALLERGIES No Known Allergies ENCOUNTERS Encounter Location Date Diagnosis [address] [id number] [phone] Aug, group home current use of anticoagulant Z79.01 ; Chronic obstructive pulmonary disease, unspecified COPD type J44.9 ; Hyperlipidemia, unspecified hyperlipidemia type E78.5 ; Anxiety F41.9 ; Exposure to hepatitis C Z20.5 ; Chronic congestive heart failure, unspecified congestive heart failure type I50.9 and Lumbago with sciatica, right side M54.41 [facility] [id number] [place] [id number] Jun, long term care social worker current use of anticoagulant Z79.[address] [id number] [id number] April, Anxiety F41.9 ; long term care social worker current use of anticoagulant Z79.01 ; Chronic obstructive pulmonary disease, unspecified COPD type J44.9 ; Chronic congestive heart failure, unspecified congestive heart failure type I50.9 and Other chronic pain G89.29 [facility] [place] [id number] [place] [address] [id number] Mar, Closed fracture of right hand, initial encounter S62.91XA ; Chronic obstructive pulmonary disease, unspecified COPD type J44.9 ; long term care social worker current use of anticoagulant Z79.01 and Other chronic pain G89.29 [facility] [address] [id number] Mar, Other chronic pain G89.29 ; Chronic obstructive pulmonary disease, unspecified COPD type J44.9 and Anxiety F41.9 [facility] [place] [id number] [place] [address] [id number] Nov, Chronic obstructive pulmonary disease, unspecified COPD type J44.9 [facility] [id number] [place] [address] [id number] Nov, long term care social worker current use of anticoagulant Z79.01 [place] [id number] [place] [address] [id number] Oct, Other chronic pain G89.29 [facility] [id number] [place] [address] [id number] Sep, [facility] [place] [id number] [place] [address] [id number] Aug, [facility] [place] [id number] [place] [address] [id number] Aug, Other chronic pain G89.29 ; Chronic obstructive pulmonary disease, unspecified COPD type J44.9 ; Encounter for immunization Z23 and long term care social worker current use of anticoagulant Z79.01 [facility] [place] [id number] [place] [address] [id number] Aug, Anxiety F41.9 ; Hyperlipidemia, unspecified hyperlipidemia type E78.5 and Lumbago with sciatica, right side M54.41 [facility] [place] [id number] [place] [address] [id number] Jul, [facility] [id number] [place] [address] [id number] Jul, Chronic obstructive pulmonary disease, unspecified COPD type J44.9 ; Anxiety F41.9 ; Lumbago with sciatica, right side M54.41 and group home current use of anticoagulant Z79.01 [facility] [address] [id number] [place] [address] [id number] Jul, group home current use of anticoagulant Z79.01 [facility] [address] [place] [address] [id number] Jun, Lumbago with sciatica, right side M54.41 ; Chronic obstructive pulmonary disease, unspecified COPD type J44.9 ; Anxiety F41.9 and Encounter for immunization Z23 [facility] [id number] [place] [address] Jun, Lumbago with sciatica, right side M54.41 [facility] [address] [place] [address] [id number] Jun, long term care social worker current use of anticoagulant Z79.01 [facility] [place] [id number] [place] [address] [id number] May, [facility] [place] [id number] [place] [address] [id number] May, Lumbago with sciatica, right side M54.41 [facility] [place] [id number] [place] [address] [id number] May, Abscess L02.91 [facility] [address] [id number], [place] [address] April, Chronic obstructive pulmonary disease, unspecified COPD type J44.9 [facility] [place] [id number] [place] [address] [id number] April, Chronic obstructive pulmonary disease, unspecified COPD type J44.9 ; Lumbago with sciatica, right side M54.41 ; Chronic congestive heart failure, unspecified congestive heart failure type I50.9 ; Anxiety F41.9 and long term care social worker current use of anticoagulant Z79.01 [facility] [place] [id number][place] [id number] April, Lumbago with sciatica, right side M54.41 [facility] [address] [address] [id number] [place] [address] [id number] Mar, long term care social worker current use of anticoagulant Z79.01 ; Chronic obstructive pulmonary disease, unspecified COPD type J44.9 ; Chronic congestive heart failure, unspecified congestive heart failure type I50.9 ; Lumbago with sciatica, right side M54.41 ; Acute upper respiratory infection, unspecified J06.9 and Hyperlipidemia, unspecified hyperlipidemia type E78.5 [facility] [id number] [place] [address] [id number] Mar, [facility] [id number] [place] [address] [id number] Jan, group home current use of anticoagulant Z79.01 ; Lumbago with sciatica, right side M54.41 ; Anxiety F41.9 ; Hyperlipidemia, unspecified hyperlipidemia type E78.5 and Chronic congestive heart failure, unspecified congestive heart failure type I50.9 [address] [place] [address] [id number] Dec, Anxiety F41.9 and group home current use of anticoagulant Z79.01 [facility] [address] [id number], [place] [address] Dec, [facility] [address] [place] [address] [id number] Dec, [place] [id number] [place] [address] [id number] Nov, Chronic obstructive pulmonary disease, unspecified COPD type J44.9 [address] [place] [address] [id number] Nov, long term care social worker current use of anticoagulant Z79.01 ; Lumbago with sciatica, right side M54.41 and Anxiety F41.9 [place] [id number] [place] [address] [id number] Nov, [facility] [id number] [place] [address] [id number] Oct, [place] [id number] [place] [address] [id number] Oct, group home current use of anticoagulant Z79.01 [facility] [address] [id number] [id number] Sep, Hyperlipidemia, unspecified hyperlipidemia type E78.5 ; long term care social worker current use of anticoagulant Z79.01 and Lumbago with sciatica, right side M54.41 [facility] [place] [id number] [place] [address] [id number] Aug, [facility] [id number] [place] [address] [id number] Aug, group home current use of anticoagulant Z79.01 [facility] [place] [address] [id number] [place] [id number] Aug, long term care social worker current use of anticoagulant Z79.01 [facility] [place] [address] [id number] [place] [id number] Aug, [facility] [id number] [place] [address] [id number] Aug, [facility] [place] [address] [id number] [place] [address] [id number] Jun, Lumbago with sciatica, right side M54.41 ; Chronic obstructive pulmonary disease, unspecified COPD type J44.9 ; Attention-deficit hyperactivity disorder, predominantly hyperactive type F90.1 and group home current use of anticoagulant Z79.01 [facility] [place] [id number] [place] [address] [id number] Jun, [facility] [place] [id number] [place] [address] [id number] May, Lumbago with sciatica, right side M54.41 ; Hyperlipidemia, unspecified hyperlipidemia type E78.5 and group home current use of anticoagulant Z79.01 [facility] [place] [address] [id number][place] [id number] May, Hyperlipidemia, unspecified hyperlipidemia type E78.5 [facility] [id number] [place] [address] [id number] April, Chronic congestive heart failure, unspecified congestive heart failure type I50.9 ; Lumbago with sciatica, right side M54.41 ; Other chronic pain G89.29 ; Chronic obstructive pulmonary disease, unspecified COPD type J44.9 ; Attention- deficit hyperactivity disorder, predominantly hyperactive type F90.1 and group home current use of anticoagulant Z79.01 [place] [id number] [place] [address] [id number] Mar, [address] [id number] Mar, group home current use of anticoagulant Z79.[address] [id number] Jan, group home current use of anticoagulant Z79.[address] [id number] Jan, Other chronic pain G89.[address] [id number] Jan, long term care social worker current use of anticoagulant Z79.01 and Other chronic pain G89.[address] [id number] Dec, [address] [id number] Dec, long term care social worker current use of anticoagulant Z79.01 [place] [id number] [place] [address] [id number] Nov, Other chronic pain G89.[address] [id number] Nov, Other chronic pain G89.29 ; Hx of mechanical aortic valve replacement Z95.2 ; group home (current) use of anticoagulants Z79.01 and Long-term use of high-risk medication Z79.899 [address] [id number] [place] [address] [id number] Oct, Other chronic pain G89.29 ; long term care social worker current use of anticoagulant Z79.01 ; Bronchitis J40 and Penile discharge R36.[address] [id number] Sep, [address] [id number] Sep, [address] [id number] Sep, group home current use of anticoagulant Z79.01 [facility] [place] [id number][place] [id number] Aug, long term care social worker current use of anticoagulant therapy V58.61 [facility] [address] [id number] [id number] Aug, [facility] [address] [id number] [id number] Aug, [facility] [id number][place] [id number] Aug, long term care social worker current use of anticoagulant therapy V58.61 [facility] [place] [id number] [place] [address] [id number] Jul, long term care social worker current use of anticoagulant therapy V58.61 [facility] [place] [id number] [place] [address] [id number] Jul, Congestive heart failure, unspecified 428.0 [facility] [place] [id number] [place] [address] [id number] Jul, long term care social worker current use of anticoagulant therapy V58.61 [facility] [place] [id number] [place] [address] [id number] Jun, Other chronic pain 338.29 and Encounter for therapeutic drug monitoring V58.83 [facility] [id number] [place] [address] [id number] May, Congestive heart failure, unspecified 428.0 and Encounter for long-term (current) use of other medications V58.69 [facility] [address] [id number][place] [id number] May, Congestive heart failure, unspecified 428.0 [facility] [place] [id number] [place] [address] [id number] April, Congestive heart failure, unspecified 428.0 [facility] [place] [id number] [place] [address] [id number] April, Congestive heart failure, unspecified 428.0 ; Other chronic pain 338.29 and Encounter for long-term (current) use of other medications V58.69 [facility] [address] [id number][place] [id number] April, [facility] [address] [id number] [place] [address] Mar, [facility] [place] [facility] [address] [facility] [id number] [place] [address] Mar, [facility] [place] [facility] [address] [facility] [id number] [place] [address] Jan, [facility] [place] [address] [facility] [id number], [place] [id number] Jan, [facility] [address] [facility] [id number] [place] [address] Jan, [facility] [place] [facility] [address] [facility] [id number] [place] [address] Jan, [facility] [place] [address] [facility] [id number][place] [id number] Jan, [facility] [place] [facility] [address] [facility] [id number], [place] [address] Jan, [facility] [place] [facility] [address] [facility] [id number], [place] [address] Dec, [facility] [place] [facility] [address] [facility] [id number], [place] [address] Dec, [facility] [place] [address] [facility] [id number], [place] [id number] Dec, [facility] [place] [address] [facility] [id number][place] [id number] Nov, [facility] [place] [facility] [address] [facility] [id number] [place] [address] Nov, [facility] [place] [facility] [address] [facility] [id number] [place] [address] Nov, [facility] [place] [facility] [address] [facility] [id number] [place] [address] Nov, [facility] [place] [facility] [address] [facility] [id number], [place] [address] Oct, [facility] [address] [id number] [place] [id number] Oct, [facility] [address] [facility] [id number] [place] [id number] Oct, [facility] [place] [facility] [address] [facility] [id number] [place] [address] Oct, [facility] [place] [facility] [address] [facility] [id number] [place] [address] Sep, [facility] [address] [facility] [id number] [place] [id number] Sep, [facility] [place] [facility] [address] [facility] [id number], [place] [address] Sep, [facility] [address] [facility] [id number] [place] [id number] Aug, [facility] [place] [facility] [address] [facility] [id number], [place] [address] Aug, [facility] [place] [facility] [address] [facility] [id number], [place] [address] Aug, [facility] [address] [facility] [id number], [place] [id number] Aug, [facility] [place] [facility] [address] [facility] [id number], [place] [address] Aug, [facility] [place] [facility] [address] [facility] [id number], [place] [address] Aug, [facility] [place] [facility] [address] [facility] [id number], [place] [address] Aug, [facility] [place] [facility] [address] [facility] [id number], [place] [address] Aug, [facility] [address] [facility] [id number] [place] [id number] Jul, [facility] [place] [facility] [address] [facility] [id number], [place] [address] Jul, [facility] [address] [facility] [id number], [place] [id number] Jun, [facility] [address]005[address]100[place], [place] [address] Jun, [facility] [address] [id number], [place] [id number] May, [facility] [address] [facility] [id number], [place] [address] May, [facility] [address] [id number], [place] [id number] May, [facility] [address] [facility] [id number], [place] [address] May, IMMUNIZATIONS No Known Immunizations SOCIAL HISTORY Never Assessed REASON FOR VISIT COPD Veronica OTERO PLAN OF CARE Activity Details Follow Up 1 Week Reason:lab results inr VITAL SIGNS Height 71 in 2018-08-26 Weight 210.6 lbs 2018-08-26 Temperature 97.7 degrees Fahrenheit 2018-08-26 Heart Rate 86 bpm 2018-08-26 Respiratory Rate 18 2018-08-26 BMI 29.37 kg/m2 2018-08-26 Blood pressure systolic 122 mmHg 2018-08-26 Blood pressure diastolic 70 mmHg 2018-08-26 MEDICATIONS Medication Instructions Dosage Frequency Start Date End Date Duration Status Atorvastatin Calcium 20 mg 1 tablet Once a day Orally Active Furosemide 40 mg 1 tablet Once a day Orally Active Nitroglycerin 0.4 MG Sublingual PRN 1 tab prn cp q 5 m x 3 if needed Active Oxygen 2 L/NC Active BuPROPion HCl ER (SR) 100 mg TAKE ONE TABLET BY MOUTH TWICE DAILY Active TENS Unit device Use as directed Jun, Active Serevent Diskus 50 MCG/DOSE Inhalation Twice a day 1 puff 12h May, Active Warfarin Sodium 4 MG Orally Once a day 2 tab qod 2.5 tab qod 24h April, Active Albuterol Sulfate HFA 108 (90 Base) mcg/act Inhalation every 4 hrs 2 puffs as needed 4h Active Aspir-81 81 MG Orally Once a day 1 tablet 24h Active Lisinopril 10 mg 1 tablet Once a day Orally Active Gabapentin 300 mg Orally 2 times a day 1 capsule 12h 0 days Active Spiriva HandiHaler 18 MCG Inhalation Once a day 1 capsule 24h May, Active RESULTS No Results PROCEDURES Procedure Date Ordered Result Body Site PROTHROMBIN TIME Aug 26, 2018 LAB NOT BILLED BY [facility] Aug 26, 2018 VENIPUNCT, ROUTINE* Aug 26, 2018 INSTRUCTIONS MEDICATIONS ADMINISTERED No Known Medications MEDICAL (GENERAL) HISTORY Type Description Date Medical History attention deficit hyperactivity disorder Medical History depression Medical History Congestive heart failure, unspecified Medical History COPD, on oxygen Medical History chronic lumbar pain s/p fall off roof 2007 Surgical History mitral valve replacement 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
--- OUTSIDE RECORDS SUMMARY | 2019-06-23 02:27 | XMS REPORT ---
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 Active 933373626 Problem Anxiety F41.9 Active 58143727 Problem Hyperlipidemia, unspecified hyperlipidemia type E78.5 Active 16249677 Problem Attention-deficit hyperactivity disorder, predominantly hyperactive type F90.1 Active 667533788 Problem Other chronic pain G89.29 Active 03193909 Problem Chronic obstructive pulmonary disease, unspecified COPD type J44.9 Active 62866201 Problem Chronic congestive heart failure, unspecified congestive heart failure type I50.9 Active 62191310 ALLERGIES No Known Allergies ENCOUNTERS Encounter Location Date Diagnosis [facility] [place] [address] [id number] [place] [id number] Jun, detention current use of anticoagulant Z79.[address] [id number] [place] [id number] April, Anxiety F41.9 ; 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 ; Chronic obstructive pulmonary disease, unspecified COPD type J44.9 ; Chronic congestive heart failure, unspecified congestive heart failure type I50.9 and Other chronic pain G89.[address] [id number] [place]INGS[place] [id number] Mar, Closed fracture of right hand, initial encounter S62.91XA ; Chronic obstructive pulmonary disease, unspecified COPD type J44.9 ; detention current use of anticoagulant Z79.01 and Other chronic pain G89.29 [place] [address] [place] [address] [id number] [id number] Mar, Other chronic pain G89.29 ; Chronic obstructive pulmonary disease, unspecified COPD type J44.9 and Anxiety F41.9 [address]00565100[place] [id number] Nov, Chronic obstructive pulmonary disease, unspecified COPD type J44.9 [address]00565100[place] [id number] Nov, 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 [facility] [place] [id number] [place] [id number] Oct, Other chronic pain G89.29 [address] [place] [address] [id number] Sep, [address]00565100[place] [id number] Aug, [place] [id number] [place] [address] [id number] Aug, Other chronic pain G89.29 ; Chronic obstructive pulmonary disease, unspecified COPD type J44.9 ; Encounter for immunization Z23 and 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 [place] [address] [id number] Aug, Anxiety F41.9 ; Hyperlipidemia, unspecified hyperlipidemia type E78.5 and Lumbago with sciatica, right side M54.41 [address]00565100[place] [id number] Jul, [address]00565100[place] [id number] Jul, Chronic obstructive pulmonary disease, unspecified COPD type J44.9 ; Anxiety F41.9 ; Lumbago with sciatica, right side M54.41 and 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 [facility] [place] [id number] [place] [id number] Jul, detention current use of anticoagulant Z79.01 [place] [id number] [place] [id number] Jun, Lumbago with sciatica, right side M54.41 ; Chronic obstructive pulmonary disease, unspecified COPD type J44.9 ; Anxiety F41.9 and Encounter for immunization Z23 [facility] [address] [id number] [place] [address] Jun, Lumbago with sciatica, right side M54.41 [facility] [address]00565100[place] [id number] Jun, detention current use of anticoagulant Z79.01 [facility] [place] [address]00565100[place] [id number] May, [facility] [address] [place] [address] [id number] May, Lumbago with sciatica, right side M54.41 [address] [place] [address] [id number] May, Abscess L02.91 [facility] [address]00565100[place], [place] [address] April, Chronic obstructive pulmonary disease, unspecified COPD type J44.9 [address]00565100[place] [id number] April, Chronic obstructive pulmonary disease, unspecified COPD type J44.9 ; Lumbago with sciatica, right side M54.41 ; Chronic congestive heart failure, unspecified congestive heart failure type I50.9 ; Anxiety F41.9 and detention current use of anticoagulant Z79.01 [facility] [address]00565100[place] [id number] April, Lumbago with sciatica, right side M54.41 [facility] [address]00565100[place] [id number] Mar, detention current use of anticoagulant Z79.01 ; Chronic obstructive pulmonary disease, unspecified COPD type J44.9 ; Chronic congestive heart failure, unspecified congestive heart failure type I50.9 ; Lumbago with sciatica, right side M54.41 ; Acute upper respiratory infection, unspecified J06.9 and Hyperlipidemia, unspecified hyperlipidemia type E78.5 [facility] [address]00565100[place] [id number] Mar, [facility] [id number] [place] [id number] Jan, 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 ; Lumbago with sciatica, right side M54.41 ; Anxiety F41.9 ; Hyperlipidemia, unspecified hyperlipidemia type E78.5 and Chronic congestive heart failure, unspecified congestive heart failure type I50.9 [facility] [place] [address] [place] [id number] [place] [address] [id number] Dec, Anxiety F41.9 and detention current use of anticoagulant Z79.01 [facility] [address] [id number], [place] [address] Dec, [facility] [address] [id number] [place] [address] [id number] Dec, [facility] [address] [place] [id number] [place] [address] [id number] Nov, Chronic obstructive pulmonary disease, unspecified COPD type J44.9 [facility] [id number] [place] [address] [id number] Nov, 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 ; Lumbago with sciatica, right side M54.41 and Anxiety F41.9 [facility] [place] [id number] [place] [id number] Nov, [facility] [place] [id number] [place] [id number] Oct, [facility] [place] [address] [place] [id number] [place] [address] [id number] Oct, detention current use of anticoagulant Z79.01 [facility] [place] [id number] [place] [address] Sep, Hyperlipidemia, unspecified hyperlipidemia type E78.5 ; detention current use of anticoagulant Z79.01 and Lumbago with sciatica, right side M54.41 [facility] [place] [id number] [place] [id number] Aug, [facility] [place] [address] [place] [id number] [place] [address] [id number] Aug, 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 [facility] [place] [address] [id number] SPR[place] [id number] Aug, detention current use of anticoagulant Z79.01 [facility] [place] [id number] [place] [address] [id number] Aug, [facility] [place] [id number] [place] [address] [id number] Aug, [facility] [place] [id number] [place] [address] [id number] Jun, Lumbago with sciatica, right side M54.41 ; Chronic obstructive pulmonary disease, unspecified COPD type J44.9 ; Attention-deficit hyperactivity disorder, predominantly hyperactive type F90.1 and detention current use of anticoagulant Z79.01 [facility] [place] [id number] [place] [address] [id number] Jun, [facility] [place] [address] [place] [id number] [place] [address] [id number] May, Lumbago with sciatica, right side M54.41 ; Hyperlipidemia, unspecified hyperlipidemia type E78.5 and detention current use of anticoagulant Z79.01 [facility] [place] [id number] [place] [address] [id number] May, Hyperlipidemia, unspecified hyperlipidemia type E78.5 [facility] [place] [id number] [place] [address] [id number] April, Chronic congestive heart failure, unspecified congestive heart failure type I50.9 ; Lumbago with sciatica, right side M54.41 ; Other chronic pain G89.29 ; Chronic obstructive pulmonary disease, unspecified COPD type J44.9 ; Attention- deficit hyperactivity disorder, predominantly hyperactive type F90.1 and 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 [facility] [place] [id number] [place] [address] [id number] Mar, [facility] [place] [id number] [place] [address] [id number] Mar, detention current use of anticoagulant Z79.01 [facility] [place] [id number] [place] [address] [id number] Jan, detention current use of anticoagulant Z79.01 [place] [id number] [place] [id number] Jan, Other chronic pain G89.29 [place] [address] [place] [id number] [place] [address] [id number] Jan, detention current use of anticoagulant Z79.01 and Other chronic pain G89.29 [place] [id number] [place] [address] [id number] Dec, [place] [id number] [place] [address] [id number] Dec, detention current use of anticoagulant Z79.01 [place] [id number] [place] [address] [id number] Nov, Other chronic pain G89.29 [place] [id number] [place] [address] [id number] Nov, Other chronic pain G89.29 ; Hx of mechanical aortic valve replacement Z95.2 ; detention (current) use of anticoagulants Z79.01 and Long-term use of high-risk medication Z79.899 [place] [id number] [place] [address] [id number] Oct, Other chronic pain G89.29 ; detention current use of anticoagulant Z79.01 ; Bronchitis J40 and Penile discharge R36.[address] [place] [address] [id number] Sep, [address] [place] [address] [id number] Sep, [address]00565100[place] [id number] Sep, detention current use of anticoagulant Z79.01 [place] [id number] [place] [address] [id number] Aug, 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 therapy V58.61 [facility] [address] [id number], [place] [id number] Aug, [facility] [address] [id number], [place] [id number] Aug, [facility] [place] [address] [place] [id number] [place] [id number] Aug, detention current use of anticoagulant therapy V58.61 [facility] [place] [id number] [place] [id number] Jul, 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 therapy V58.61 [facility] [place] [id number] [place] [id number] Jul, Congestive heart failure, unspecified 428.0 [facility] [place] [id number] [place] [address] [id number] Jul, detention current use of anticoagulant therapy V58.61 [facility] [place] [id number] [place] [address] [id number] Jun, Other chronic pain 338.29 and Encounter for therapeutic drug monitoring V58.83 [facility] [id number] [place] [address] [id number] May, Congestive heart failure, unspecified 428.0 and Encounter for long-term (current) use of other medications V58.69 [facility] [place] [id number] [place] [id number] May, Congestive heart failure, unspecified 428.0 [facility] [place] [id number] [place] [address] [id number] April, Congestive heart failure, unspecified 428.0 [facility] [place] [id number] [place] [id number] April, Congestive heart failure, unspecified 428.0 ; Other chronic pain 338.29 and Encounter for long-term (current) use of other medications V58.69 [facility] [address] [place] [id number] [place] [id number] April, [facility] [address] [id number] [place] [address] Mar, [facility] [address]00565100[place], [place] [address] Mar, [facility] [address] [place] [address] [id number] [place] [address] [place] [address] Jan, [facility] [address] [facility] [id number] [place] [id number] Jan, [facility] [place] [facility] [address] [facility] [id number], [place] [address] Jan, [facility] [place] [facility] [address] [facility] [id number], [place] [address] Jan, [facility] [address] [facility] [id number] [place] [id number] Jan, [facility] [place] [facility] [address] [id number] [place] [address] Jan, [facility] [place] [facility] [address] [facility] [id number] [place] [address] Dec, [facility] [place] [facility] [address] [place] [id number], [place] [address] Dec, [facility] [address] [facility] [id number] [place] [id number] Dec, [facility] [address] [facility] [id number] [place] [id number] Nov, [facility] [place] [facility] [address] [facility] [id number], [place] [address] Nov, [facility] [place] [facility] [address] [facility] [id number], [place] [address] Nov, [facility] [place] [facility] [address] [facility] [id number], [place] [address] Nov, [facility] [place] [facility] [address] [id number], [place] [address] Oct, [facility] [address] [facility] [id number] [place] [id number] Oct, [facility] [address] [facility] [id number] [place] [id number] Oct, [facility] [place] [facility] [address] [facility] [id number], [place] [address] Oct, [facility] [place] [facility] [address] [facility] [id number], [place] [address] Sep, [facility] [address] [facility] [id number] [place] [id number] Sep, [facility] [place] [facility] [address] [facility] [id number], [place] [address] Sep, [facility] [address] [facility] [id number] [place] [id number] Aug, [facility] [place] [facility] [address] [facility] [id number], [place] [address] Aug, [facility] [place] [facility] [address] [facility] [id number], [place] [address] Aug, [facility] [address] [facility] [id number] [place] [id number] Aug, [facility] [place] [facility] [address]00565100[place], [place] [address] Aug, [facility] [place] [facility] [address] [facility] [id number], [place] [address] Aug, [facility] [place] [facility] [address] [facility] [id number], [place] [address] Aug, [facility] [place] [facility] [address] [facility] [id number], [place] [address] Aug, [facility] [address] [facility] [id number] [place] [id number] Jul, [facility] [place] [facility] [address] [facility] [id number], [place] [address] Jul, [facility] [address] [facility] [id number] [place] [id number] Jun, [facility] [place] [facility] [address] [facility] [id number], [place] [address] Jun, [facility] [address] [facility] [id number] [place]INGS[place] [id number] May, [facility] [place] [facility] [address] [facility] [id number], [place] [address] May, [facility] [address] [id number] [place] [id number] May, [facility] [address] [facility] [id number] [place] [address] May, IMMUNIZATIONS No Known Immunizations SOCIAL HISTORY Never Assessed REASON FOR VISIT htn copd Veronica RN PLAN OF CARE Activity Details Follow Up 3 Months Reason:copd VITAL SIGNS Height 71 in 2018-04-17 Weight 212.4 lbs 2018-04-17 Temperature 97.6 degrees Fahrenheit 2018-04-17 Heart Rate 70 bpm 2018-04-17 Respiratory Rate 18 2018-04-17 BMI 29.62 kg/m2 2018-04-17 Blood pressure systolic 120 mmHg 2018-04-17 Blood pressure diastolic 80 mmHg 2018-04-17 MEDICATIONS Medication Instructions Dosage Frequency Start Date End Date Duration Status Warfarin Sodium 4 MG Orally Once a day 2 tab qod 2.5 tab qod 24h April, Active TENS Unit device Use as directed Jun, Active Oxygen 2 L/NC Active Albuterol Sulfate HFA 108 (90 Base) mcg/act Inhalation every 4 hrs 2 puffs as needed 4h Active Atorvastatin Calcium 20 mg 1 tablet Once a day Orally Active Aspir-81 81 MG Orally Once a day 1 tablet 24h Active BuPROPion HCl ER (SR) 100 mg TAKE ONE TABLET BY MOUTH TWICE DAILY 30 Active Spiriva HandiHaler 18 MCG Inhalation Once a day 1 capsule 24h May, Active Serevent Diskus 50 MCG/DOSE Inhalation Twice a day 1 puff 12h May, Active Furosemide 40 mg 1 tablet Once a day Orally Active Nitroglycerin 0.4 MG Sublingual PRN 1 tab prn cp q 5 m x 3 if needed Active Gabapentin 300 mg Orally 2 times a day 1 capsule 12h 0 days Active Lisinopril 10 mg .5-1 tablet Once a day Orally Active RESULTS Name Result Date Reference Range INR (IN HOUSE) 2018-04-17 INR 2.5 1.10 - 3.30 PREVIOUS INR 2.8 CURRENT COUMADIN DOSE 8mg/10mg every other day NEW COUMADIN DOSE same dose recheck in 1 month Lot # [id number] Exp date 03/01/19 PROCEDURES Procedure Date Ordered Result Body Site PROTHROMBIN TIME April 17, 2018 INSTRUCTIONS MEDICATIONS ADMINISTERED No Known Medications MEDICAL (GENERAL) HISTORY Type Description Date Medical History attention deficit hyperactivity disorder Medical History depression Medical History Congestive heart failure, unspecified Medical History COPD, on oxygen Medical History chronic lumbar pain s/p fall off roof 2007 Surgical History mitral valve replacement 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
--- OUTSIDE RECORDS SUMMARY | 2019-06-23 02:28 | XMS REPORT ---
Author Author APOLONIA LOPEZ [facility] Address Unknown Phone Unavailable Care Team Providers Care Gis Programmer Name Role Phone APOLONIA LOPEZ CP Unavailable Allergies, Adverse Reactions, Alerts Substance Reaction Event Type N.K.D.A. 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 Z79.01 Active Problem Other chronic pain 338.29 Active Assessment Other chronic pain G89.29 Active Medications Medication Code System Code Instructions Start Date End Date Status Dosage Oxycodone-Acetaminophen [facility] [address]-26 7.5-325 MG Orally 3 times a day take 1 tablet Furosemide [facility] [address]-92 40 MG Orally Once a day 1 tablet Warfarin Sodium [facility] [address]-04 5 MG Orally Once a day 1 tablet Spironolactone [facility] [address]-59 25 MG Orally Once a day 1 tablet Doc-Q-Lace NDC 0 orally Once a day 1 capsule Warfarin Sodium [facility] [address]-54 4 MG Orally Once a day 1 tablet Procedures Procedure Coding System Code Date PROTHROMBIN TIME CPT-4 78301 Nov 02, 2015 Office Visit, Est Pt., Level 3 CPT-4 51078 Nov 02, 2015 Vital Signs Date/Time: Nov 02, 2015 Temperature 98.5 F Weight 214.2 lbs Height 71 in BMI 29.87 Index Blood Pressure Diastolic 90 mmHg Blood Pressure Systolic 130 mmHg Cardiac Monitoring Heart Rate 80 bpm Results No Known Results Summary Purpose eClinicalWorks Submission
--- OUTSIDE RECORDS SUMMARY | 2019-06-23 02:28 | XMS REPORT ---
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 659350689 Problem Anxiety F41.9 Active 72871401 Problem Hyperlipidemia, unspecified hyperlipidemia type E78.5 Active 28920232 Problem Attention-deficit hyperactivity disorder, predominantly hyperactive type F90.1 Active 813489308 Problem Other chronic pain G89.29 Active 01951870 Problem Chronic obstructive pulmonary disease, unspecified COPD type J44.9 Active 76759100 Problem Chronic congestive heart failure, unspecified congestive heart failure type I50.9 Active 08795201 ALLERGIES No Known Allergies ENCOUNTERS Encounter Location Date Diagnosis [facility] [place] [address] [id number] [id number] Jun, nursing home current use of anticoagulant Z79.[address] [id number][place] [id number] April, Anxiety F41.9 ; 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 ; Chronic obstructive pulmonary disease, unspecified COPD type J44.9 ; Chronic congestive heart failure, unspecified congestive heart failure type I50.9 and Other chronic pain G89.[address] [id number][place] [id number] Mar, Closed fracture of right hand, initial encounter S62.91XA ; Chronic obstructive pulmonary disease, unspecified COPD type J44.9 ; nursing home current use of anticoagulant Z79.01 and Other chronic pain G89.29 [place] [id number] [place] [address] [id number] [id number] Mar, Other chronic pain G89.29 ; Chronic obstructive pulmonary disease, unspecified COPD type J44.9 and Anxiety F41.9 [address] [id number] Nov, Chronic obstructive pulmonary disease, unspecified COPD type J44.9 [address]65100[place] [id number] Nov, 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 [facility] [place] [id number], [place] [id number] Oct, Other chronic pain G89.29 [address] [place] [id number] Sep, [address]65100[place] [id number] Aug, [place] [id number] [place] [address] [id number] Aug, Other chronic pain G89.29 ; Chronic obstructive pulmonary disease, unspecified COPD type J44.9 ; Encounter for immunization Z23 and 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 [place] [address] [id number] Aug, Anxiety F41.9 ; Hyperlipidemia, unspecified hyperlipidemia type E78.5 and Lumbago with sciatica, right side M54.41 [address]65[address] [id number] Jul, [address]100[place] [id number] Jul, Chronic obstructive pulmonary disease, unspecified COPD type J44.9 ; Anxiety F41.9 ; Lumbago with sciatica, right side M54.41 and 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 [facility] [place] [id number], [place] [id number] Jul, nursing home current use of anticoagulant Z79.01 [place] [id number], [place] [id number] Jun, Lumbago with sciatica, right side M54.41 ; Chronic obstructive pulmonary disease, unspecified COPD type J44.9 ; Anxiety F41.9 and Encounter for immunization Z23 [facility] [address] [id number] [place] [address] Jun, Lumbago with sciatica, right side M54.41 [facility] [address]00565100[place] [id number] Jun, nursing home current use of anticoagulant Z79.01 [facility] [address]00565100[place] [id number] May, [facility] [address] [place] [address] [id number] May, Lumbago with sciatica, right side M54.41 [address] [place] [address] [id number] May, Abscess L02.91 [facility] [address]00565100[place] [address] April, Chronic obstructive pulmonary disease, unspecified COPD type J44.9 [address]100[place] [id number] April, Chronic obstructive pulmonary disease, unspecified COPD type J44.9 ; Lumbago with sciatica, right side M54.41 ; Chronic congestive heart failure, unspecified congestive heart failure type I50.9 ; Anxiety F41.9 and nursing home current use of anticoagulant Z79.01 [facility] [address]00565100[place] [id number] April, Lumbago with sciatica, right side M54.41 [facility] [address]005[address]100[place] [id number] Mar, nursing home current use of anticoagulant Z79.01 ; Chronic obstructive pulmonary disease, unspecified COPD type J44.9 ; Chronic congestive heart failure, unspecified congestive heart failure type I50.9 ; Lumbago with sciatica, right side M54.41 ; Acute upper respiratory infection, unspecified J06.9 and Hyperlipidemia, unspecified hyperlipidemia type E78.5 [facility] [address]00565100[place] [id number] Mar, [facility] [id number], [place] [id number] Jan, 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 ; Lumbago with sciatica, right side M54.41 ; Anxiety F41.9 ; Hyperlipidemia, unspecified hyperlipidemia type E78.5 and Chronic congestive heart failure, unspecified congestive heart failure type I50.9 [facility] [id number] [place] [id number] Dec, Anxiety F41.9 and nursing home current use of anticoagulant Z79.01 [facility] [address] [id number] [address] Dec, [facility] [id number] [place] [address] [id number] Dec, [facility] [address] [address] [id number] [place] [address] [id number] Nov, Chronic obstructive pulmonary disease, unspecified COPD type J44.9 [facility] [id number] [place] [address] [id number] Nov, 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 ; Lumbago with sciatica, right side M54.41 and Anxiety F41.9 [facility] [id number], [place] [id number] Nov, [facility] [id number], [place] [id number] Oct, [facility] [address] [place] [id number] [place] [address] [id number] Oct, nursing home current use of anticoagulant Z79.01 [facility] [id number], [place] [id number] Sep, Hyperlipidemia, unspecified hyperlipidemia type E78.5 ; nursing home current use of anticoagulant Z79.01 and Lumbago with sciatica, right side M54.41 [facility] [id number], [place] [id number] Aug, [facility] [address] [place] [id number] [place] [address] [phone] Aug, 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 [facility] [address] [id number][place] [id number] Aug, nursing home current use of anticoagulant Z79.01 [facility] [id number] [place] [address] [id number] Aug, [facility] [id number] [place] [address] [id number] Aug, [facility] [id number] [place] [address] [id number] Jun, Lumbago with sciatica, right side M54.41 ; Chronic obstructive pulmonary disease, unspecified COPD type J44.9 ; Attention-deficit hyperactivity disorder, predominantly hyperactive type F90.1 and nursing home current use of anticoagulant Z79.01 [facility] [id number] [place] [address] [id number] Jun, [facility] [place] [address] [place] [id number] [place] [address] [id number] May, Lumbago with sciatica, right side M54.41 ; Hyperlipidemia, unspecified hyperlipidemia type E78.5 and nursing home current use of anticoagulant Z79.01 [facility] [place] [id number] [place] [address] [id number] May, Hyperlipidemia, unspecified hyperlipidemia type E78.5 [facility] [address] [id number] [place] [address] [id number] April, Chronic congestive heart failure, unspecified congestive heart failure type I50.9 ; Lumbago with sciatica, right side M54.41 ; Other chronic pain G89.29 ; Chronic obstructive pulmonary disease, unspecified COPD type J44.9 ; Attention- deficit hyperactivity disorder, predominantly hyperactive type F90.1 and 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 [facility] [id number] [place] [address] [phone] Mar, [facility] [address] [id number] [place] [address] [id number] Mar, nursing home current use of anticoagulant Z79.01 [facility] [id number] [place] [address] [id number] Jan, nursing home current use of anticoagulant Z79.01 [place] [id number], [place] [id number] Jan, Other chronic pain G89.29 [place] [address] [place] [id number] [place] [address] [id number] Jan, nursing home current use of anticoagulant Z79.01 and Other chronic pain G89.29 [place] [id number] [place] [address] [id number] Dec, [place] [id number] [place] [address] [id number] Dec, nursing home current use of anticoagulant Z79.01 [place] [id number] [place] [address] [id number] Nov, Other chronic pain G89.29 [place] [id number] [place] [address] [id number] Nov, Other chronic pain G89.29 ; Hx of mechanical aortic valve replacement Z95.2 ; nursing home (current) use of anticoagulants Z79.01 and Long-term use of high-risk medication Z79.899 [place] [id number] [place] [address] [id number] Oct, Other chronic pain G89.29 ; nursing home current use of anticoagulant Z79.01 ; Bronchitis J40 and Penile discharge R36.[address] [place] [address] [id number] Sep, [address] [place] [address] [id number] Sep, [address]00565100[place], [place] [id number] Sep, nursing home current use of anticoagulant Z79.01 [place] [id number] [place] [address] [phone] Aug, 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 [facility] [address] [id number] [place] [id number] Aug, [facility] [address] [id number] [place] [id number] Aug, [facility] [address] [place] [id number] [id number] Aug, nursing home current use of anticoagulant therapy V58.61 [facility] [id number], [place] [id number] Jul, 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 [facility] [id number], [place] [id number] Jul, Congestive heart failure, unspecified 428.0 [facility] [id number] [place] [address] [id number] Jul, nursing home current use of anticoagulant therapy V58.61 [facility] [id number] [place] [address] [id number] Jun, Other chronic pain 338.29 and Encounter for therapeutic drug monitoring V58.83 [facility] [id number] [place] [address] [id number] May, Congestive heart failure, unspecified 428.0 and Encounter for long-term (current) use of other medications V58.69 [facility] [id number], [place] [id number] May, Congestive heart failure, unspecified 428.0 [facility] [id number] [place] [address] [id number] April, Congestive heart failure, unspecified 428.0 [facility] [id number], [place] [id number] April, Congestive heart failure, unspecified 428.0 ; Other chronic pain 338.29 and Encounter for long-term (current) use of other medications V58.69 [facility] [address] [place] [id number], [place] [id number] April, [facility] [address] [place] [id number] [place] [address] Mar, [facility] [address]00565100[place], [place] [address] Mar, [facility] [address] [place] [id number] [place] [address] [place] [address] Jan, [facility] [address] [facility][1] [id number] [place] [id number] Jan, [facility] [place] [facility] [address] [facility] [id number] [address] Jan, [facility] [place] [facility] [address] [facility] [id number], [place] [address] Jan, [facility] [address] [facility][1] [id number] [id number] Jan, [facility] [place] [facility] [address] [id number] [place] [address] Jan, [facility] [place] [facility] [address] [facility] [id number] [place] [address] Dec, [facility] [place] [facility] [address] [place] [id number], [place] [address] Dec, [facility] [address] [facility][1] [id number], [place] [id number] Dec, [facility] [address] [facility][1] [id number], [place] [id number] Nov, [facility] [place] [facility] [address] [facility] [id number] [address] Nov, [facility] [place] [facility] [address] [facility] [id number][place] [address] Nov, [facility] [place] [facility] [address] [facility] [id number][place] [address] Nov, [facility] [place] [facility] [address] [id number][place] [address] Oct, [facility] [address] [facility][1] [id number], [place] [id number] Oct, [facility] [address] [facility][1] [id number], [place] [id number] Oct, [facility] [place] [facility] [address] [facility] [id number][place] [address] Oct, [facility] [place] [facility] [address] [facility] [id number][place] [address] Sep, [facility] [address] [facility][1] [id number], [place] [id number] Sep, [facility] [place] [facility] [address] [facility] [id number], [place] [address] Sep, [facility] [address] [facility][1] [id number], [place] [id number] Aug, [facility] [place] [facility] [address] [facility] [id number][place] [address] Aug, [facility] [place] [facility] [address] [facility] [id number], [place] [address] Aug, [facility] [address] [facility][1] [id number], [place] [id number] Aug, [facility] [place] [facility] [address]00565100[place], [place] [address] Aug, [facility] [place] [facility] [address] [facility] [id number][place] [address] Aug, [facility] [place] [facility] [address] [facility] [id number][place] [address] Aug, [facility] [place] [facility] [address] [facility] [id number][place] [address] Aug, [facility] [address] [facility][1] [id number], [place] [id number] Jul, [facility] [place] [facility] [address] [facility] [id number][place] [address] Jul, [facility] [address] [facility][1] [id number], [place] [id number] Jun, [facility] [place] [facility] [address] [facility] [id number][place] [address] Jun, [facility] [address] [facility][1] [id number], [place] [id number] May, [facility] [place] [facility] [address] [facility] [id number][place] [address] May, [facility] [address] [facility][1] [id number] [place] [id number] May, [facility] [address] [facility] [id number] [place] [address] May, IMMUNIZATIONS No Known Immunizations SOCIAL HISTORY Never Assessed REASON FOR VISIT Medication Follow up Whit NIELSON PLAN OF CARE Activity Details Follow Up 4 Weeks Reason:htn copd VITAL SIGNS Height 71 in 2018-03-20 Weight 213.1 lbs 2018-03-20 Temperature 98.5 degrees Fahrenheit 2018-03-20 Heart Rate 90 bpm 2018-03-20 Respiratory Rate 16 2018-03-20 BMI 29.72 kg/m2 2018-03-20 Blood pressure systolic 122 mmHg 2018-03-20 Blood pressure diastolic 68 mmHg 2018-03-20 MEDICATIONS Medication Instructions Dosage Frequency Start Date End Date Duration Status Gabapentin 300 mg Orally 2 times a day 1 capsule 12h 0 days Active Spiriva HandiHaler 18 MCG Inhalation Once a day 1 capsule 24h May, Active Serevent Diskus 50 MCG/DOSE Inhalation Twice a day 1 puff 12h May, Active Albuterol Sulfate HFA 108 (90 Base) mcg/act Inhalation every 4 hrs 2 puffs as needed 4h Active Furosemide 40 mg 1 tablet Once a day Orally Active TENS Unit device Use as directed Jun, Active Warfarin Sodium 4 MG Orally Once a day 2 tablets 24h Active Oxygen 2 L/NC Active Lisinopril 10 mg .5-1 tablet Once a day Orally Active Nitroglycerin 0.4 MG Sublingual PRN 1 tab prn cp q 5 m x 3 if needed Active BuPROPion HCl ER (SR) 100 MG TAKE ONE TABLET BY MOUTH TWICE DAILY 30 Active Atorvastatin Calcium 20 mg 1 tablet Once a day Orally Active RESULTS Name Result Date Reference Range INR (IN HOUSE) 2018-03-20 INR 2.8 1.10 - 3.30 PREVIOUS INR 2.4 CURRENT COUMADIN DOSE NEW COUMADIN DOSE 8mg 3 days a week and 10mg AOD Lot # [id number] Exp date 08/31/2018 PROCEDURES Procedure Date Ordered Result Body Site SPLINT SHORT ARM 2018-03-20 N/A PROTHROMBIN TIME March 20, 2018 APPLY FOREARM SPLINT March 20, 2018 INSTRUCTIONS MEDICATIONS ADMINISTERED No Known Medications MEDICAL (GENERAL) HISTORY Type Description Date Medical History attention deficit hyperactivity disorder Medical History depression Medical History Congestive heart failure, unspecified Medical History COPD, on oxygen Medical History chronic lumbar pain s/p fall off roof 2007 Surgical History mitral valve replacement s/p 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
--- OUTSIDE RECORDS SUMMARY | 2019-06-23 02:28 | XMS REPORT ---
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 Active 378493034 Problem Anxiety F41.9 Active 90151721 Problem Hyperlipidemia, unspecified hyperlipidemia type E78.5 Active 00455686 Problem Attention-deficit hyperactivity disorder, predominantly hyperactive type F90.1 Active 492242844 Problem Other chronic pain G89.29 Active 98018622 Problem Chronic obstructive pulmonary disease, unspecified COPD type J44.9 Active 55680849 Problem Chronic congestive heart failure, unspecified congestive heart failure type I50.9 Active 36886831 ALLERGIES No Information ENCOUNTERS Encounter Location Date Diagnosis [facility] [address] [id number] [place] [id number] Jun, longterm current use of anticoagulant Z79.[address] [id number] [id number] April, Anxiety F41.9 ; longterm current use of anticoagulant Z79.01 ; Chronic obstructive pulmonary disease, unspecified COPD type J44.9 ; Chronic congestive heart failure, unspecified congestive heart failure type I50.9 and Other chronic pain G89.[address] [id number], [place] [id number] Mar, Closed fracture of right hand, initial encounter S62.91XA ; Chronic obstructive pulmonary disease, unspecified COPD type J44.9 ; 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 and Other chronic pain G89.29 [facility] [address] [id number] [place] [id number] Mar, Other chronic pain G89.29 ; Chronic obstructive pulmonary disease, unspecified COPD type J44.9 and Anxiety F41.9 [facility] [place] [id number], [place] [id number] Nov, Chronic obstructive pulmonary disease, unspecified COPD type J44.9 [address]005[address] [id number] Nov, 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 [facility] [place] [id number], [place] [id number] Oct, Other chronic pain G89.29 [address] [place] [id number] Sep, [address]00565100[place] [id number] Aug, [address] [place] [address] [id number] Aug, Other chronic pain G89.29 ; Chronic obstructive pulmonary disease, unspecified COPD type J44.9 ; Encounter for immunization Z23 and 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 [place] [address] [id number] Aug, Anxiety F41.9 ; Hyperlipidemia, unspecified hyperlipidemia type E78.5 and Lumbago with sciatica, right side M54.41 [address]00565100[place] [address] Jul, [address]00565100[place] [id number] Jul, Chronic obstructive pulmonary disease, unspecified COPD type J44.9 ; Anxiety F41.9 ; Lumbago with sciatica, right side M54.41 and 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 [facility] [place] [address] [id number], [place] [id number] Jul, 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 [facility] [place] [address] [id number], [place] [id number] Jun, Lumbago with sciatica, right side M54.41 ; Chronic obstructive pulmonary disease, unspecified COPD type J44.9 ; Anxiety F41.9 and Encounter for immunization Z23 [facility] [address] [id number] [place] [address] Jun, Lumbago with sciatica, right side M54.41 [facility] [address]00565100[place] [id number] Jun, 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 [facility] [address]00565100[place] [id number] May, [facility] [address] [place] [address] [id number] May, Lumbago with sciatica, right side M54.41 [address] [place] [address] [id number] May, Abscess L02.91 [facility] [address]00565100[place], [place] [address] April, Chronic obstructive pulmonary disease, unspecified COPD type J44.9 [address]00565100[place] [id number] April, Chronic obstructive pulmonary disease, unspecified COPD type J44.9 ; Lumbago with sciatica, right side M54.41 ; Chronic congestive heart failure, unspecified congestive heart failure type I50.9 ; Anxiety F41.9 and longterm current use of anticoagulant Z79.01 [facility] [address]00565100[place] [id number] April, Lumbago with sciatica, right side M54.41 [facility] [place] [id number] [id number] Mar, 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 ; Chronic obstructive pulmonary disease, unspecified COPD type J44.9 ; Chronic congestive heart failure, unspecified congestive heart failure type I50.9 ; Lumbago with sciatica, right side M54.41 ; Acute upper respiratory infection, unspecified J06.9 and Hyperlipidemia, unspecified hyperlipidemia type E78.5 [facility] [address]00565100[place] [id number] Mar, [facility] [place] [id number], [place] [id number] Jan, longterm current use of anticoagulant Z79.01 ; Lumbago with sciatica, right side M54.41 ; Anxiety F41.9 ; Hyperlipidemia, unspecified hyperlipidemia type E78.5 and Chronic congestive heart failure, unspecified congestive heart failure type I50.9 [facility] [place] [address] [place] [id number] [place] [id number] Dec, Anxiety F41.9 and 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 [facility] [address] [id number] [place] [address] Dec, [facility] [place] [address] [place] [address] [id number] [place] [address] [id number] Dec, [facility] [address] [place] [address] [id number] [place] [address] [id number] Nov, Chronic obstructive pulmonary disease, unspecified COPD type J44.9 [facility] [place] [address] [place] [id number] [place] [address] [id number] Nov, 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 ; Lumbago with sciatica, right side M54.41 and Anxiety F41.9 [facility] [place] [id number], [place] [id number] Nov, [facility] [place] [id number], [place] [id number] Oct, [facility] [place] [address] [place] [id number] [place] [address] [id number] Oct, 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 [facility] [place] [id number], [place] [id number] Sep, Hyperlipidemia, unspecified hyperlipidemia type E78.5 ; longterm current use of anticoagulant Z79.01 and Lumbago with sciatica, right side M54.41 [facility] [id number], [place] [id number] Aug, [facility] [place] [address] [place] [id number] [place] [address] [id number] Aug, longterm current use of anticoagulant Z79.01 [facility] [place] [id number], [place] [id number] Aug, 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 [facility] [place] [address] [place] [id number] [place] [address] [id number] Aug, [facility] [place] [id number] [place] [address] [id number] Aug, [facility] [place] [address] [place] [id number] [place] [address] [id number] Jun, Lumbago with sciatica, right side M54.41 ; Chronic obstructive pulmonary disease, unspecified COPD type J44.9 ; Attention-deficit hyperactivity disorder, predominantly hyperactive type F90.1 and 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 [facility] [place] [address] [place] [id number] [place] [address] [id number] Jun, [facility] [place] [address] [address] [place] [id number] [place] [address] [id number] May, Lumbago with sciatica, right side M54.41 ; Hyperlipidemia, unspecified hyperlipidemia type E78.5 and longterm current use of anticoagulant Z79.01 [facility] [place] [address] [id number] [place] [address] [id number] May, Hyperlipidemia, unspecified hyperlipidemia type E78.5 [facility] [place] [id number] [place] [address] [id number] April, Chronic congestive heart failure, unspecified congestive heart failure type I50.9 ; Lumbago with sciatica, right side M54.41 ; Other chronic pain G89.29 ; Chronic obstructive pulmonary disease, unspecified COPD type J44.9 ; Attention- deficit hyperactivity disorder, predominantly hyperactive type F90.1 and 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 [facility] [place] [id number] [place] [address] [id number] Mar, [facility] [place] [address] [place] [id number] [place] [address] [id number] Mar, 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 [facility] [place] [id number] [place] [address] [id number] Jan, longterm current use of anticoagulant Z79.01 [place] [address] [id number], [place] [id number] Jan, Other chronic pain G89.29 [place] [address] [id number] [place] [address] [id number] Jan, longterm current use of anticoagulant Z79.01 and Other chronic pain G89.29 [place] [id number] [place] [address] [id number] Dec, [place] [id number] [place] [address] [id number] Dec, 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 [place] [id number] [place] [address] [id number] Nov, Other chronic pain G89.29 [place] [id number] [place] [address] [id number] Nov, Other chronic pain G89.29 ; Hx of mechanical aortic valve replacement Z95.2 ; 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 accountant (current) use of anticoagulants Z79.01 and Long-term use of high-risk medication Z79.899 [place] [id number] [place] [address] [id number] Oct, Other chronic pain G89.29 ; longterm current use of anticoagulant Z79.01 ; Bronchitis J40 and Penile discharge R36.9 [address] [place] [address] [id number] Sep, [address] [place] [address] [id number] Sep, [address]00565100[place] [id number] Sep, 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 [place] [id number] [place] [address] [id number] Aug, longterm current use of anticoagulant therapy V58.61 [facility] [address] [id number], [place] [id number] Aug, [facility] [address] [id number], [place] [id number] Aug, [facility] [id number], [place] [id number] Aug, 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 accountant current use of anticoagulant therapy V58.61 [facility] [place] [id number], [place] [id number] Jul, longterm current use of anticoagulant therapy V58.61 [facility] [id number], [place] [id number] Jul, Congestive heart failure, unspecified 428.0 [facility] [place] [id number] [place] [address] [id number] Jul, longterm current use of anticoagulant therapy V58.61 [facility] [place] [id number] [place] [address] [id number] Jun, Other chronic pain 338.29 and Encounter for therapeutic drug monitoring V58.83 [facility] [place] [id number] [place] [address] [id number] May, Congestive heart failure, unspecified 428.0 and Encounter for long-term (current) use of other medications V58.69 [facility] [place] [id number], [place] [id number] May, Congestive heart failure, unspecified 428.0 [facility] [place] [id number] [place] [address] [id number] April, Congestive heart failure, unspecified 428.0 [facility] [place] [id number], [place] [id number] April, Congestive heart failure, unspecified 428.0 ; Other chronic pain 338.29 and Encounter for long-term (current) use of other medications V58.69 [facility] [id number], [place] [id number] April, [facility] [address] [id number] [place] [address] Mar, [facility] [address]00565100[place], [place] [address] Mar, [facility] [address] [id number] [place] [address] Jan, [facility] [address] [facility] [id number] [place] [id number] Jan, [facility] [place] [facility] [address] [facility] [id number] [place] [address] Jan, [facility] [place] [facility] [address] [facility] [id number], [place] [address] Jan, [facility] [address] [facility] [id number], [place] [id number] Jan, [facility] [place] [facility] [address] [facility] [id number] [place] [address] Jan, [facility] [place] [facility] [address] [facility] [id number] [place] [address] Dec, [facility] [place] [facility] [address] [place] [id number] [address] Dec, [facility] [address] [place] [id number], [place] [id number] Dec, [facility] [address] [place] [id number], [place] [id number] Nov, [facility] [place] [facility] [address] [place] [id number], [place] [address] Nov, [facility] [place] [facility] [address] [facility] [id number], [place] [address] Nov, [facility] [place] [facility] [address] [facility] [id number], [place] [address] Nov, [facility] [place] [facility] [address] [facility] [id number], [place] [address] Oct, [facility] [address] [facility] [id number], [place] [id number] Oct, [facility] [address] [facility] [id number], [place] [id number] Oct, [facility] [place] [facility] [address] [facility] [id number], [place] [address] Oct, [facility] [place] [facility] [address] [facility] [id number], [place] [address] Sep, [facility] [address] [facility] [id number] [place] [id number] Sep, [facility] [place] [facility] [address] [facility] [id number] [place] [address] Sep, [facility] [address] [facility] [id number] [place] [id number] Aug, [facility] [place] [facility] [address] [facility] [id number], [place] [address] Aug, [facility] [place] [facility] [address] [facility] [id number], [place] [address] Aug, [facility] [address] [facility] [id number], [place] [id number] Aug, [facility] [place] [facility] [address]00565100[place], [place] [address] Aug, [facility] [place] [facility] [address] [facility] [id number], [place] [address] Aug, [facility] [place] [facility] [address]00565100[place], [place] [address] Aug, [facility] [place] [facility] [address] [facility] [id number], [place] [address] Aug, [facility] [address] [facility] [id number], [place] [id number] Jul, [facility] [place] [facility] [address] [facility] [id number], [place] [address] Jul, [facility] [address] [facility] [id number], [place] [id number] Jun, [facility] [place] [facility] [address] [facility] [id number], [place] [address] Jun, [facility] [address] [facility] [id number], [place] [id number] May, [facility] [place] [facility] [address] [facility] [id number], [place] [address] May, [facility] [address] [id number] [place] [id number] May, [facility] [address] [facility] [id number] [place] [address] May, IMMUNIZATIONS No Known Immunizations SOCIAL HISTORY Never Assessed REASON FOR VISIT med refill PLAN OF CARE VITAL SIGNS MEDICATIONS Medication Instructions Dosage Frequency Start Date End Date Duration Status Gabapentin 300 mg Orally 2 times a day 1 capsule 12h 0 days Active Atorvastatin Calcium 20 mg 1 tablet Once a day Orally Active Spiriva HandiHaler 18 MCG Inhalation Once a day 1 capsule 24h May, Active Wellbutrin 100 mg Orally Twice a day 1 tablet 12h Active Lisinopril 10 mg .5-1 tablet Once a day Orally Active Furosemide 40 mg 1 tablet Once a day Orally Active RESULTS No Results PROCEDURES No Known [...]
--- OUTSIDE RECORDS SUMMARY | 2019-06-23 02:29 | XMS REPORT ---
Author Author ROSELINE SINGH [facility] Address [address] [place] [address] Care Team Providers Care Exhaust Equipment Operator Name Role Phone ROSELINE SINGH Unavailable PROBLEMS Type Condition ICD9-CM Code ERA33-RI Code Onset Dates Condition Status SNOMED Code Problem Congestive heart failure, unspecified 428.0 Active 82361936 Problem snf current use of anticoagulant Z79.01 Active 647474228 Problem Encounter for therapeutic drug monitoring V58.83 Active 113362520 Problem Other chronic pain 338.29 Active 56834029 Problem Encounter for long-term (current) use of other medications V58.69 Active 934134714 Problem Hyperlipidemia, unspecified hyperlipidemia type E78.5 Active 80458223 Problem Chronic congestive heart failure, unspecified congestive heart failure type I50.9 Active 00197158 Problem Chronic obstructive pulmonary disease, unspecified COPD type J44.9 Active 96844730 Problem Attention-deficit hyperactivity disorder, predominantly hyperactive type F90.1 Active 013379326 Problem Lumbago with sciatica, right side M54.41 Active 667524077 Problem Other chronic pain G89.29 Active 41872725 ALLERGIES Unknown Allergies SOCIAL HISTORY No smoking Hx information available PLAN OF CARE VITAL SIGNS MEDICATIONS Medication Instructions Dosage Frequency Start Date End Date Duration Status Warfarin Sodium 4 MG Orally Once a day 2 tablets 24h Active RESULTS No Results PROCEDURES No Known procedures IMMUNIZATIONS No Known Immunizations
--- OUTSIDE RECORDS SUMMARY | 2019-06-23 02:29 | XMS REPORT ---
Author Author ROSELINE SINGH Organization [employer] Address Unknown Phone Unavailable Care Team Providers Care Ventilating Equipment Installer Name Role Phone ROSELINE SINGH CP Unavailable Allergies No Known Allergies Problems Problem Type Condition Code Onset Dates Condition Status Problem Encounter for long-term (current) use of other medications V58.69 Active Problem Encounter for therapeutic drug monitoring V58.83 Active Problem Congestive heart failure, unspecified 428.0 Active Problem Other chronic pain 338.29 Active Problem Chronic congestive heart failure, unspecified congestive heart failure type I50.9 Active Problem Lumbago with sciatica, right side M54.41 Active Problem Hyperlipidemia, unspecified hyperlipidemia type E78.5 Active Problem Attention-deficit hyperactivity disorder, predominantly hyperactive type F90.1 Active 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
--- OUTSIDE RECORDS SUMMARY | 2019-06-23 02:29 | XMS REPORT ---
Author Author ROSELINE SINGH [facility] [place] eClinicalWorks Address Unknown Phone Unavailable Care Team Providers Care Head Of History Name Role Phone ROSELINE SINGH CP Unavailable Allergies, Adverse Reactions, Alerts Substance Reaction Event Type N.K.D.A. Info Not Available Non Drug Allergy Problems Problem Type Condition Code Onset Dates Condition Status Problem Encounter for long-term (current) use of other medications V58.69 Active Problem Encounter for therapeutic drug monitoring V58.83 Active Problem Congestive heart failure, unspecified 428.0 Active Problem Chronic congestive heart failure, unspecified congestive heart failure type I50.9 Active Problem Lumbago with sciatica, right side M54.41 Active Problem Hyperlipidemia, unspecified hyperlipidemia type E78.5 Active Problem Attention-deficit hyperactivity disorder, predominantly hyperactive type F90.1 Active 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.01 Active Problem Other chronic pain G89.29 Active Problem Chronic obstructive pulmonary disease, unspecified COPD type J44.9 Active Assessment Attention-deficit hyperactivity disorder, predominantly hyperactive type F90.1 Active Assessment Chronic obstructive pulmonary disease, unspecified COPD type J44.9 Active Assessment Lumbago with sciatica, right side M54.41 Active Assessment correction current use of anticoagulant Z79.01 Active Problem Other chronic pain 338.29 Active Medications Medication Code System Code Instructions Start Date End Date Status Dosage Doc-Q-Lace NDC 0 orally Once a day 1 capsule Stiolto Respimat [facility] [address]-80 2.5-2.5 MCG/ACT Inhalation Once a day 2 puffs Warfarin Sodium [facility] [address]-64 5 MG Orally Once a day 1 tablet Furosemide [facility] [address]-70 40 MG Orally Once a day 1 tablet Nitroglycerin [facility] [address]-77 0.4 MG Sublingual not defined Wellbutrin [facility] [address]-12 100 MG Orally Twice a day 1 tablet Albuterol Sulfate HFA [facility] [address]-19 108 (90 Base) MCG/ACT Inhalation every 4 hrs 2 puffs as needed Oxycodone-Acetaminophen [facility] [address]-86 7.5-325 MG Orally 3 times a day take 1 tablet Spironolactone [facility] [address]-88 25 MG Orally Once a day 1 tablet Oxygen ND 0 2 L/NC not defined Warfarin Sodium [facility] [address]-30 4 MG Orally Once a day 2 tablets Atorvastatin Calcium [facility] [address]-40 20 mg Orally Once a day May 03, 2016 1 tablet Procedures Procedure Coding System Code Date PROTHROMBIN TIME CPT-4 06210 June 20, 2016 Office Visit, Est Pt., Level 3 CPT-4 78280 June 20, 2016 Vital Signs Date/Time: June 20, 2016 Cardiac Monitoring Heart Rate 76 bpm Weight 207 lbs Height 71 in BMI 28.87 Index Blood Pressure Diastolic 80 mmHg Blood Pressure Systolic 146 mmHg Results No Known Results Summary Purpose eClinicalWorks Submission
--- OUTSIDE RECORDS SUMMARY | 2019-06-23 02:29 | XMS REPORT ---
Author Author APOLONIA LOPEZ [facility] eClinicalWorks Address Unknown Phone Unavailable Care Team Providers Care Lpn Cma Name Role Phone APOLONIA LOPEZ Unavailable Allergies No Known Allergies Problems Problem Type Condition ICD-9 Code Onset Dates Condition Status Problem Congestive heart failure, unspecified 428.0 Active Problem Encounter for long-term (current) use of other medications V58.69 Active Problem Encounter for therapeutic drug monitoring V58.83 Active Problem Other chronic pain 338.29 Active Assessment alf current use of anticoagulant therapy V58.61 Active Medications No Known Medications Procedures Procedure Coding System Code Date PROTHROMBIN TIME CPT-4 77401 Jul 22, 2015 Results Name Result Date Reference Range Unit Abnormality Flag INR (IN HOUSE) Summary Purpose eClinicalWorks Submission
--- OUTSIDE RECORDS SUMMARY | 2019-06-23 02:29 | XMS REPORT ---
Author Author APOLONIA LOPEZ eClinicalWorks Address Unknown Phone Unavailable Care Team Providers Care Pressroom Foreman Name Role Phone APOLONIA LOPEZ Unavailable Allergies No Known Allergies Problems Problem Type Condition Code Onset Dates Condition Status Problem Encounter for therapeutic drug monitoring V58.83 Active Problem Congestive heart failure, unspecified 428.0 Active Problem shelter current use of anticoagulant Z79.01 Active Assessment shelter current use of anticoagulant Z79.01 Active Problem Encounter for long-term (current) use of other medications V58.69 Active Problem Other chronic pain 338.29 Active Medications Medication Code System Code Instructions Start Date End Date Status Dosage Spironolactone [facility] [address]-97 25 MG Orally Once a day 1 tablet Oxycodone-Acetaminophen [facility] [address]-91 7.5-325 MG Orally 3 times a day take 1 tablet Oxygen NDC 0 2 L/NC not defined Warfarin Sodium [facility] [address]-85 5 MG Orally Once a day 1 tablet Furosemide [facility] [address]-42 40 MG Orally Once a day 1 tablet Warfarin Sodium [facility] [address]-60 4 MG Orally Once a day 2 tablets Doc-Q-Lace NDC 0 orally Once a day 1 capsule Procedures Procedure Coding System Code Date PROTHROMBIN TIME CPT-4 91067 Dec 21, 2015 Results Name Result Date Reference Range Unit Abnormality Flag INR (IN HOUSE) ----Exp date 20151221 ----Lot # [id number] 20151221 ----INR 2.8 20151221 1.10 - 3.30 ----PREVIOUS INR 2.4 20151221 ----CURRENT COUMADIN DOSE 9mg Mon and Thurs, 8mg AOD 20151221 ----NEW COUMADIN DOSE no change 20151221 Summary Purpose eClinicalWorks Submission
--- OUTSIDE RECORDS SUMMARY | 2019-06-23 02:29 | XMS REPORT ---
Author Author APOLONIA LOPEZ [facility] eClinicalWorks Address Unknown Phone Unavailable Care Team Providers Care Leather Patcher Name Role Phone APOLONIA LOPEZ Unavailable Allergies No Known Allergies Problems Problem Type Condition Code Onset Dates Condition Status Problem Congestive heart failure, unspecified 428.0 Active Problem Encounter for long-term (current) use of other medications V58.69 Active Problem Encounter for therapeutic drug monitoring V58.83 Active Problem Other chronic pain 338.29 Active Medications No Known Medications Results No Known Results Summary Purpose eClinicalWorks Submission
--- OUTSIDE RECORDS SUMMARY | 2019-06-23 02:29 | XMS REPORT ---
Author Author APOLONIA LOPEZ [facility] eClinicalWorks Address Unknown Phone Unavailable Care Team Providers Care Automat Watcher Name Role Phone APOLONIA LOPEZ CP Unavailable Allergies, Adverse Reactions, Alerts Substance Reaction Event Type N.K.D.A. 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 Z79.01 Active Assessment Bronchitis J40 Active Problem Other chronic pain 338.29 Active Assessment Other chronic pain G89.29 Active Medications Medication Code System Code Instructions Start Date End Date Status Dosage Warfarin Sodium [facility] [address]-53 5 MG Orally Once a day 1 tablet Warfarin Sodium [facility] [address]-05 4 MG Orally Once a day 1 tablet Azithromycin [facility] [address]-21 250 MG Orally Once a day 2 tablets on the first day, then 1 tablet daily for 4 days Oxycodone-Acetaminophen [facility] [address]-71 7.5-325 MG Orally 3 times a day take 1 tablet Procedures Procedure Coding System Code Date CULTURE, BACTERIA, OTHER CPT-4 31019 Oct 03, 2015 URINE CULTURE/COLONY COUNT CPT-4 85156 Oct 03, 2015 PROTHROMBIN TIME CPT-4 07498 Oct 03, 2015 Office Visit, Est Pt., Level 3 CPT-4 98835 Oct 03, 2015 URINALYSIS, AUTO W/SCOPE CPT-4 23853 Oct 03, 2015 Vital Signs Date/Time: Oct 03, 2015 Temperature 97 F Weight 220 lbs Height 71 in BMI 30.68 Index Blood Pressure Diastolic 70 mmHg Blood Pressure Systolic 130 mmHg Cardiac Monitoring Heart Rate 80 bpm Results No Known Results Summary Purpose eClinicalWorks Submission
--- OUTSIDE RECORDS SUMMARY | 2019-06-23 02:29 | XMS REPORT ---
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 Z79.01 Active 291160914 Problem Anxiety F41.9 Active 88546697 Problem Hyperlipidemia, unspecified hyperlipidemia type E78.5 Active 70517365 Problem Attention-deficit hyperactivity disorder, predominantly hyperactive type F90.1 Active 848061698 Problem Other chronic pain G89.29 Active 37708272 Problem Chronic obstructive pulmonary disease, unspecified COPD type J44.9 Active 83196244 Problem Chronic congestive heart failure, unspecified congestive heart failure type I50.9 Active 13071416 ALLERGIES No Known Allergies ENCOUNTERS Encounter Location Date Diagnosis [id number] [place] [address] [id number] Nov, Chronic obstructive pulmonary disease, unspecified COPD type J44.[id number] [place] [address] [id number] Nov, terminal gauger current use of anticoagulant Z79.[id number] [place] [address] [id number] Oct, Other chronic pain G89.29 [id number] [place] [address] [id number] Sep, [place] [id number] [place] [address] [id number] Aug, [id number] [place] [address] [id number] Aug, Other chronic pain G89.29 ; Chronic obstructive pulmonary disease, unspecified COPD type J44.9 ; Encounter for immunization Z23 and 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 current use of anticoagulant Z79.01 [facility] [address] [place] [address] [id number] Aug, Anxiety F41.9 ; Hyperlipidemia, unspecified hyperlipidemia type E78.5 and Lumbago with sciatica, right side M54.41 [facility] [id number] [place] [address] [id number] Jul, [facility] [place] [id number] [place] [address] [id number] Jul, Chronic obstructive pulmonary disease, unspecified COPD type J44.9 ; Anxiety F41.9 ; Lumbago with sciatica, right side M54.41 and terminal gauger current use of anticoagulant Z79.01 [facility] [address] [place] [address] [id number] Jul, terminal gauger current use of anticoagulant Z79.01 [facility] [place] [id number] [place] [address] [id number] Jun, Lumbago with sciatica, right side M54.41 ; Chronic obstructive pulmonary disease, unspecified COPD type J44.9 ; Anxiety F41.9 and Encounter for immunization Z23 [facility] [address] [id number] [address] Jun, Lumbago with sciatica, right side M54.41 [address] [id number] Jun, terminal gauger current use of anticoagulant Z79.01 [facility] [address] [place] [address] [id number] May, [facility] [address] [place] [address] [id number] May, Lumbago with sciatica, right side M54.41 [address] [place] [address] [id number] May, Abscess L02.91 [facility] [place] [address] [address] April, Chronic obstructive pulmonary disease, unspecified COPD type J44.9 [facility] [id number] [id number] April, Chronic obstructive pulmonary disease, unspecified COPD type J44.9 ; Lumbago with sciatica, right side M54.41 ; Chronic congestive heart failure, unspecified congestive heart failure type I50.9 ; Anxiety F41.9 and terminal gauger current use of anticoagulant Z79.01 [facility] [id number] [place] [address] [id number] April, Lumbago with sciatica, right side M54.41 [facility] [id number] [id number] Mar, 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 current use of anticoagulant Z79.01 ; Chronic obstructive pulmonary disease, unspecified COPD type J44.9 ; Chronic congestive heart failure, unspecified congestive heart failure type I50.9 ; Lumbago with sciatica, right side M54.41 ; Acute upper respiratory infection, unspecified J06.9 and Hyperlipidemia, unspecified hyperlipidemia type E78.5 [facility] [address] [place] [address] [id number] Mar, [address] [place] [address] [id number] Jan, terminal gauger current use of anticoagulant Z79.01 ; Lumbago with sciatica, right side M54.41 ; Anxiety F41.9 ; Hyperlipidemia, unspecified hyperlipidemia type E78.5 and Chronic congestive heart failure, unspecified congestive heart failure type I50.9 [facility] [address] [id number] Dec, Anxiety F41.9 and 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 current use of anticoagulant Z79.01 [facility] [place] [address] [address] Dec, [id number] [place] [address] [id number] Dec, [id number] [place] [address] [id number] Nov, Chronic obstructive pulmonary disease, unspecified COPD type J44.9 [place] [id number] [place] [address] [id number] Nov, 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 current use of anticoagulant Z79.01 ; Lumbago with sciatica, right side M54.41 and Anxiety F41.9 [facility] [place] [id number] [place] [address] [id number] Nov, [facility] [address] [place] [id number] [place] [address] [id number] Oct, [facility] [address] [place] [address] [id number] Oct, terminal gauger current use of anticoagulant Z79.01 [facility] [place] [id number] [place] [address] [id number] Sep, Hyperlipidemia, unspecified hyperlipidemia type E78.5 ; 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 current use of anticoagulant Z79.01 and Lumbago with sciatica, right side M54.41 [facility] [id number] [place] [address] [id number] Aug, [facility] [id number] [place] [address] [id number] Aug, terminal gauger current use of anticoagulant Z79.01 [facility] [id number] [place] [address] [id number] Aug, 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 current use of anticoagulant Z79.01 [facility] [id number] [place] [address] [id number] Aug, [facility] [id number] [place] [address] [id number] Aug, [facility] [id number] [place] [address] [id number] Jun, Lumbago with sciatica, right side M54.41 ; Chronic obstructive pulmonary disease, unspecified COPD type J44.9 ; Attention-deficit hyperactivity disorder, predominantly hyperactive type F90.1 and 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 current use of anticoagulant Z79.01 [facility] [place] [id number] [place] [address] [id number] Jun, [facility] [id number] [place] [address] [id number] May, Lumbago with sciatica, right side M54.41 ; Hyperlipidemia, unspecified hyperlipidemia type E78.5 and terminal gauger current use of anticoagulant Z79.01 [facility] [id number] [place] [address] [id number] May, Hyperlipidemia, unspecified hyperlipidemia type E78.5 [facility] [id number] [place] [address] [id number] April, Chronic congestive heart failure, unspecified congestive heart failure type I50.9 ; Lumbago with sciatica, right side M54.41 ; Other chronic pain G89.29 ; Chronic obstructive pulmonary disease, unspecified COPD type J44.9 ; Attention- deficit hyperactivity disorder, predominantly hyperactive type F90.1 and terminal gauger current use of anticoagulant Z79.01 [place] [address] [id number] Mar, [place] [address] [id number] Mar, terminal gauger current use of anticoagulant Z79.[address] [id number] Jan, 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 current use of anticoagulant Z79.01 [place] [address] [address] [id number] [place] [address] [id number] Jan, Other chronic pain G89.29 [facility] [place] [address] [id number] Jan, 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 current use of anticoagulant Z79.01 and Other chronic pain G89.29 [place] [id number] [place] [address] [id number] Dec, [facility] [place] [address] [id number] Dec, 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 current use of anticoagulant Z79.[address] [id number] Nov, Other chronic pain G89.29 [facility] [address] [id number] Nov, Other chronic pain G89.29 ; Hx of mechanical aortic valve replacement Z95.2 ; terminal gauger (current) use of anticoagulants Z79.01 and Long-term use of high-risk medication Z79.899 [address] [place] [address] [id number] Oct, Other chronic pain G89.29 ; 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 current use of anticoagulant Z79.01 ; Bronchitis J40 and Penile discharge R36.9 [id number] [place] [address] [id number] Sep, [place] [id number] [place] [address] [id number] Sep, [place] [id number] [place] [address] [id number] Sep, 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 current use of anticoagulant Z79.01 [place] [id number] [place] [address] [id number] Aug, 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 current use of anticoagulant therapy V58.[address] [facility] [address] [id number] [phone] Aug, [facility] [address] [id number] [phone] Aug, [id number] [place] [address] [id number] Aug, terminal gauger current use of anticoagulant therapy V58.61 [address] [place] [address] [id number] Jul, terminal gauger current use of anticoagulant therapy V58.61 [address] [place] [address] [id number] Jul, Congestive heart failure, unspecified 428.[address] [place] [address] [id number] Jul, terminal gauger current use of anticoagulant therapy V58.61 [place] [id number] [place] [address] [id number] Jun, Other chronic pain 338.29 and Encounter for therapeutic drug monitoring V58.83 [address] [place] [address] [id number] May, Congestive heart failure, unspecified 428.0 and Encounter for long-term (current) use of other medications V58.69 [facility] [address] [facility] [id number] [id number] May, Congestive heart failure, unspecified 428.0 [facility] [address] [facility] [id number][place] [id number] April, Congestive heart failure, unspecified 428.0 [facility] [place] [id number] [id number] April, Congestive heart failure, unspecified 428.0 ; Other chronic pain 338.29 and Encounter for long-term (current) use of other medications V58.69 [facility] [id number], [place] [id number] April, [facility] [address] [place] [id number] [place] [address] Mar, [facility] [id number], [place] [address] Mar, [facility] [address] [place] [id number] [place] [phone] Jan, [facility] [id number], [place] [id number] Jan, [facility] [address] [place] [address] Jan, [facility] [address], [place] [address] Jan, [facility] [id number], [place] [id number] Jan, [facility] [place] [facility] [address], [place] [address] Jan, [facility] [place] [facility] [address] [place] [id number] [place] [address] Dec, [facility] [place] [facility] [address] [place] [id number], [place] [address] Dec, [facility] [id number], [place] [id number] Dec, [facility] [address] [id number] [phone] Nov, [facility] [place] [facility] [address] [facility] [id number] [place] [address] Nov, [facility] [place] [facility] [address] [facility] [id number], [place] [address] Nov, [facility] [place] [facility] [address] [place] [id number] [place] [address] Nov, [facility] [place] [facility] [address] [facility] [id number], [place] [address] Oct, [facility] [address] [id number] [place] [id number] Oct, [facility] [address] [facility] [id number][place] [id number] Oct, [facility] [place] [facility] [address], [place] [address] Oct, [facility] [place] [facility] [address] [facility] [id number], [place] [address] Sep, [facility] [address] [facility] [id number], [place] [id number] Sep, [facility] [place] [facility] [address], [place] [address] Sep, [facility] [id number], [place] [id number] Aug, [facility] [place] [facility] [address] [facility] [id number], [place] [address] Aug, [facility] [place] [facility] [address] [facility] [id number], [place] [address] Aug, [facility] [address] [facility] [id number], [place] [id number] Aug, [facility] [place] [facility] [address], [place] [address] Aug, [facility] [place] [facility] [address], [place] [address] Aug, [facility] [place] [address], [place] [address] Aug, [facility] [place] [address], [place] [address] Aug, [facility] [id number], [place] [id number] Jul, [facility] [place] [address], [place] [address] Jul, [facility] [address] [place] [address] [id number] Jun, [facility] [place] [address], [place] [address] Jun, [facility] [address] [place] [address] [id number] May, [facility] [place] [address], [place] [address] May, [facility] [address] [id number] May, [facility] [place] [address], [place] [address] May, IMMUNIZATIONS No Known Immunizations SOCIAL HISTORY Never Assessed REASON FOR VISIT Pain management (chronic) and INR [facility] PLAN OF CARE Activity Details Follow Up 4 Weeks Reason:htn VITAL SIGNS Height 71 in 2017-04-30 Weight 206.4 lbs 2017-04-30 Temperature 98.9 degrees Fahrenheit 2017-04-30 Heart Rate 90 bpm 2017-04-30 Respiratory Rate 18 2017-04-30 BMI 28.78 kg/m2 2017-04-30 Blood pressure systolic 138 mmHg 2017-04-30 Blood pressure diastolic 80 mmHg 2017-04-30 MEDICATIONS Medication Instructions Dosage Frequency Start Date End Date Duration Status Lisinopril 10 mg Orally Once a day .5-1 tablet 24h Active Albuterol Sulfate HFA 108 (90 Base) MCG/ACT Inhalation every 4 hrs 2 puffs as needed 4h 0 days Active Nitroglycerin 0.4 MG Sublingual PRN 1 tab prn cp q 5 m x 3 if needed Active Furosemide 40 mg Orally Once a day 1 tablet 24h Active Gabapentin 300 mg Orally 2 times a day 1 tablet 12h 0 days Active Doc-Q-Lace orally Once a day 1 capsule 24h Active Oxycodone-Acetaminophen 7.5-325 MG Orally 3 times a day, must last one month take 1 -2 tablet Active Spironolactone 25 MG Orally Once a day 1 tablet 24h Active Warfarin Sodium 4 MG Orally Once a day 2 tablets 24h Active Stiolto Respimat 2.5-2.5 MCG/ACT Inhalation Once a day 2 puffs 24h Active Oxygen 2 L/NC Active Wellbutrin 100 mg Orally Twice a day 1 tablet 12h Active Atorvastatin Calcium 20 mg Orally Once a day 1 tablet 24h May, Active RESULTS Name Result Date Reference Range INR (IN HOUSE) 2017-04-30 INR 2.9 1.10 - 3.30 PREVIOUS INR 2.9 CURRENT COUMADIN DOSE 8mg daily NEW COUMADIN DOSE no change, recheck in 1 month Lot # [id number] Exp date 12/2017 PROCEDURES Procedure Date Ordered Result Body Site PROTHROMBIN TIME April 30, 2017 INSTRUCTIONS MEDICATIONS ADMINISTERED No Known Medications MEDICAL (GENERAL) HISTORY Type Description Date Medical History attention deficit hyperactivity disorder Medical History depression Medical History Congestive heart failure, unspecified Medical History COPD, on oxygen Medical History chronic lumbar pain s/p fall off roof 2007 Surgical History mitral valve replacement 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
--- OUTSIDE RECORDS SUMMARY | 2019-06-23 02:29 | XMS REPORT ---
Author Author ROSELINE SINGH [facility] Address [address] [place] [address] Care Team Providers Care Rack Pusher Name Role Phone ROSELINE SINGH Unavailable PROBLEMS Type Condition ICD9-CM Code [id number] Code Onset Dates Condition Status SNOMED Code Problem Congestive heart failure, unspecified 428.0 Active 02144432 Problem group home current use of anticoagulant Z79.01 Active 718327076 Problem Encounter for therapeutic drug monitoring V58.83 Active 366104028 Problem Other chronic pain 338.29 Active 71051682 Problem Encounter for long-term (current) use of other medications V58.69 Active 795228151 Problem Hyperlipidemia, unspecified hyperlipidemia type E78.5 Active 93377315 Problem Chronic congestive heart failure, unspecified congestive heart failure type I50.9 Active 07272307 Problem Chronic obstructive pulmonary disease, unspecified COPD type J44.9 Active 53745367 Problem Attention-deficit hyperactivity disorder, predominantly hyperactive type F90.1 Active 917233217 Problem Lumbago with sciatica, right side M54.41 Active 167672156 Problem Other chronic pain G89.29 Active 01101556 ALLERGIES Unknown Allergies SOCIAL HISTORY No smoking Hx information available PLAN OF CARE VITAL SIGNS MEDICATIONS Medication Instructions Dosage Frequency Start Date End Date Duration Status Warfarin Sodium 5 mg Orally Once a day 1 tablet 24h Active Atorvastatin Calcium 20 mg Orally Once a day 1 tablet 24h May, Active RESULTS No Results PROCEDURES No Known procedures IMMUNIZATIONS No Known Immunizations
--- OUTSIDE RECORDS SUMMARY | 2019-06-23 02:30 | XMS REPORT ---
Author Author APOLONIA LOPEZ [facility] [place] [employer] Address Unknown Phone Unavailable Care Team Providers Care Manager Retention Name Role Phone APOLONIA LOPEZ Unavailable Allergies [...]
--- OUTSIDE RECORDS SUMMARY | 2019-06-23 02:30 | XMS REPORT ---
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.01 Active 642223339 Problem Anxiety F41.9 Active 97844319 Problem Hyperlipidemia, unspecified hyperlipidemia type E78.5 Active 47382828 Problem Attention-deficit hyperactivity disorder, predominantly hyperactive type F90.1 Active 327330462 Problem Other chronic pain G89.29 Active 44585665 Problem Chronic obstructive pulmonary disease, unspecified COPD type J44.9 Active 02549552 Problem Chronic congestive heart failure, unspecified congestive heart failure type I50.9 Active 50877215 ALLERGIES No Known Allergies SOCIAL HISTORY Never Assessed PLAN OF CARE Activity Details Follow Up 4 Weeks Reason:back pain VITAL SIGNS Height 71 in 2017-01-07 Weight 216.2 lbs 2017-01-07 Temperature 97.5 degrees Fahrenheit 2017-01-07 Heart Rate 82 bpm 2017-01-07 Respiratory Rate 16 2017-01-07 BMI 30.15 kg/m2 2017-01-07 Blood pressure systolic 122 mmHg 2017-01-07 Blood pressure diastolic 70 mmHg 2017-01-07 MEDICATIONS Medication Instructions Dosage Frequency Start Date End Date Duration Status Furosemide 40 mg Orally Once a day 1 tablet 24h Active Oxygen 2 L/NC Active Oxycodone-Acetaminophen 7.5-325 MG Orally 3 times a day, must last one month DO NOT FILL TILL 12/07/16 take 1 -2 tablet Active Lisinopril 2.5 MG Orally Once a day 1 tablet 24h Active Atorvastatin Calcium 20 mg Orally Once a day 1 tablet 24h May, Active Warfarin Sodium 5 mg Orally Once a day 1 tablet 24h Active Gabapentin 300 MG Orally Once a day at bedtime 1 tablet 0 days Active Spironolactone 25 MG Orally Once a day 1 tablet 24h Active Stiolto Respimat 2.5-2.5 MCG/ACT Inhalation Once a day 2 puffs 24h Active Doc-Q-Lace orally Once a day 1 capsule 24h Active Albuterol Sulfate HFA 108 (90 Base) MCG/ACT Inhalation every 4 hrs 2 puffs as needed 4h 0 days Active Warfarin Sodium 4 MG Orally Once a day 2 tablets 24h Active Nitroglycerin 0.4 MG Active Wellbutrin 100 MG Orally Twice a day 1 tablet 12h Active RESULTS Name Result Date Reference Range INR (IN HOUSE) 2017-01-07 INR 2.9 1.10 - 3.30 PREVIOUS INR 2.5 CURRENT COUMADIN DOSE 6mg wed, 8mg all other days NEW COUMADIN DOSE 6mg wed, 8mg all other days recheck in 2 weeks Lot # [id number] Exp date 08/20 [employer] 2017-01-07 PROCEDURES Procedure Date Ordered Result Body Site PROTHROMBIN TIME Jan 07, 2017 No Charge Jan 07, 2017 IMMUNIZATIONS No Known Immunizations MEDICAL (GENERAL) HISTORY Type Description Date Medical History attention deficit hyperactivity disorder Medical History depression Medical History Congestive heart failure, unspecified Medical History COPD, on oxygen Medical History chronic lumbar pain s/p fall off roof 2007 Surgical History mitral valve replacement 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
--- OUTSIDE RECORDS SUMMARY | 2019-06-23 02:30 | XMS REPORT ---
Author Author ROSELINE SINGH [facility] Address [address] [place] [address] Care Team Providers Care Seo Team Lead Name Role Phone ROSELINE SINGH Unavailable PROBLEMS Type Condition ICD9-CM Code KDE38-KG Code Onset Dates Condition Status SNOMED Code Problem Encounter for therapeutic drug monitoring V58.83 Active 650607087 Problem Lumbago with sciatica, right side M54.41 Active 871188209 Problem assisted current use of anticoagulant Z79.01 Active 791979175 Problem Anxiety F41.9 Active 62082090 Problem Hyperlipidemia, unspecified hyperlipidemia type E78.5 Active 78220111 Problem Attention-deficit hyperactivity disorder, predominantly hyperactive type F90.1 Active 241376793 Problem Other chronic pain G89.29 Active 69757743 Problem Chronic obstructive pulmonary disease, unspecified COPD type J44.9 Active 01636017 Problem Chronic congestive heart failure, unspecified congestive heart failure type I50.9 Active 01964557 ALLERGIES Unknown Allergies SOCIAL HISTORY No smoking Hx information available PLAN OF CARE VITAL SIGNS MEDICATIONS Unknown Medications RESULTS No Results PROCEDURES No Known procedures IMMUNIZATIONS No Known Immunizations
--- OUTSIDE RECORDS SUMMARY | 2019-06-23 02:30 | XMS REPORT ---
Author Author APOLONIA LOPEZ [facility] eClinicalWorks Address Unknown Phone Unavailable Care Team Providers Care Nuclear Equipment Sales Engineer Name Role Phone APOLONIA LOPEZ Unavailable Allergies [...]
--- OUTSIDE RECORDS SUMMARY | 2019-06-23 02:30 | XMS REPORT ---
Author Author ROSELINE SINGH [facility] Address [address] [place] [address] Care Team Providers Care Inverform Machine Operator Name Role Phone ROSELINE SINGH Unavailable PROBLEMS Type Condition ICD9-CM Code EET02-XO Code Onset Dates Condition Status SNOMED Code Problem Congestive heart failure, unspecified 428.0 Active 27383605 Problem long-term current use of anticoagulant Z79.01 Active 131177780 Problem Encounter for therapeutic drug monitoring V58.83 Active 833084471 Problem Other chronic pain 338.29 Active 62622454 Problem Encounter for long-term (current) use of other medications V58.69 Active 447947960 Problem Hyperlipidemia, unspecified hyperlipidemia type E78.5 Active 34307759 Problem Chronic congestive heart failure, unspecified congestive heart failure type I50.9 Active 15517241 Problem Chronic obstructive pulmonary disease, unspecified COPD type J44.9 Active 53892729 Problem Attention-deficit hyperactivity disorder, predominantly hyperactive type F90.1 Active 804795684 Problem Lumbago with sciatica, right side M54.41 Active 308675148 Problem Other chronic pain G89.29 Active 05369101 ALLERGIES Unknown Allergies SOCIAL HISTORY No smoking Hx information available PLAN OF CARE VITAL SIGNS MEDICATIONS Medication Instructions Dosage Frequency Start Date End Date Duration Status Oxycodone-Acetaminophen 7.5-325 MG Orally 3 times a day take 1 tablet 8h Active RESULTS No Results PROCEDURES No Known procedures IMMUNIZATIONS No Known Immunizations
--- OUTSIDE RECORDS SUMMARY | 2019-06-23 02:30 | XMS REPORT ---
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 Active 625765198 Problem Anxiety F41.9 Active 28478206 Problem Hyperlipidemia, unspecified hyperlipidemia type E78.5 Active 31817698 Problem Attention-deficit hyperactivity disorder, predominantly hyperactive type F90.1 Active 428382442 Problem Other chronic pain G89.29 Active 11923798 Problem Chronic obstructive pulmonary disease, unspecified COPD type J44.9 Active 33810693 Problem Chronic congestive heart failure, unspecified congestive heart failure type I50.9 Active 15262953 ALLERGIES No Known Allergies SOCIAL HISTORY Never Assessed PLAN OF CARE Activity Details Follow Up 4 Weeks Reason:chronic pain VITAL SIGNS Height 71 in 2017-03-22 Weight 209.2 lbs 2017-03-22 Temperature 98.2 degrees Fahrenheit 2017-03-22 Heart Rate 78 bpm 2017-03-22 Respiratory Rate 18 2017-03-22 BMI 29.17 kg/m2 2017-03-22 Blood pressure systolic 110 mmHg 2017-03-22 Blood pressure diastolic 62 mmHg 2017-03-22 MEDICATIONS Medication Instructions Dosage Frequency Start Date End Date Duration Status Oxycodone-Acetaminophen 7.5-325 MG Orally 3 times a day, must last one month DO NOT FILL TILL 12/07/16 take 1 -2 tablet Active Lisinopril 2.5 MG Orally Once a day 1 tablet 24h Active Doc-Q-Lace orally Once a day 1 capsule 24h Active Wellbutrin 100 MG Orally Twice a day 1 tablet 12h Active Nitroglycerin 0.4 MG Active Albuterol Sulfate HFA 108 (90 Base) MCG/ACT Inhalation every 4 hrs 2 puffs as needed 4h 0 days Active Spironolactone 25 MG Orally Once a day 1 tablet 24h Active Warfarin Sodium 4 MG Orally Once a day 2 tablets 24h Active Atorvastatin Calcium 20 mg Orally Once a day 1 tablet 24h May, Active Oxygen 2 L/NC Active Furosemide 40 mg Orally Once a day 1 tablet 24h Active Gabapentin 300 mg Orally 2 times a day 1 tablet 12h 0 days Active Stiolto Respimat 2.5-2.5 MCG/ACT Inhalation Once a day 2 puffs 24h Active RESULTS No Results PROCEDURES Procedure Date Ordered Result Body Site PROTHROMBIN TIME March 22, 2017 IMMUNIZATIONS No Known Immunizations MEDICAL (GENERAL) HISTORY Type Description Date Medical History attention deficit hyperactivity disorder Medical History depression Medical History Congestive heart failure, unspecified Medical History COPD, on oxygen Medical History chronic lumbar pain s/p fall off roof 2007 Surgical History mitral valve replacement s/p bacterial endocarditis 03/2013 Hospitalization History surgery 2012 Hospitalization History [facility] for chest pains 03/11/17
--- OUTSIDE RECORDS SUMMARY | 2019-06-23 02:30 | XMS REPORT ---
Author Author ROSELINE SINGH [facility] Address [address] [place] [address] Care Team Providers Care Trap Puller Name Role Phone FRANCISCO ROSELINE Unavailable PROBLEMS Type Condition ICD9-CM Code [id number]-AQ Code Onset Dates Condition Status SNOMED Code Problem Congestive heart failure, unspecified 428.0 Active 42065803 Problem halfway current use of anticoagulant Z79.01 Active 865466093 Problem Encounter for therapeutic drug monitoring V58.83 Active 475740630 Assessment halfway current use of anticoagulant Z79.01 Aug, Active 826080778 Problem Other chronic pain 338.29 Active 34993066 Problem Encounter for long-term (current) use of other medications V58.69 Active 995346936 Problem Hyperlipidemia, unspecified hyperlipidemia type E78.5 Active 19860959 Problem Chronic congestive heart failure, unspecified congestive heart failure type I50.9 Active 93982959 Problem Chronic obstructive pulmonary disease, unspecified COPD type J44.9 Active 23306988 Problem Attention-deficit hyperactivity disorder, predominantly hyperactive type F90.1 Active 839895541 Problem Lumbago with sciatica, right side M54.41 Active 220036363 Problem Other chronic pain G89.29 Active 91943804 ALLERGIES Unknown Allergies SOCIAL HISTORY No smoking Hx information available PLAN OF CARE VITAL SIGNS MEDICATIONS Unknown Medications RESULTS Name Result Date Reference Range INR (IN HOUSE) 2016-08-16 INR 3.4 1.10 - 3.30 PREVIOUS INR 3.1 CURRENT COUMADIN DOSE 9 mg on Mon & Th, 8 mg AOD NEW COUMADIN DOSE change to 9 mg on & 8 mg AOD Lot # [id number] Exp date 02/15 PROCEDURES Procedure Date Ordered Related Diagnosis Body Site PROTHROMBIN TIME Aug 16, 2016 IMMUNIZATIONS No Known Immunizations
--- OUTSIDE RECORDS SUMMARY | 2019-06-23 02:30 | XMS REPORT ---
Author Author APOLONIA LOPEZ [facility] eClinicalWorks Address Unknown Phone Unavailable Care Team Providers Care General Merchandise Salesperson Name Role Phone APOLONIA LOPEZ Unavailable Allergies [...] Date End Date Status Dosage Warfarin Sodium [facility] [place] [address]-40 4 MG Orally Once a day 2 tablets Oxycodone-Acetaminophen [facility] [address]-04 7.5-325 MG Orally 3 times a day take 1 tablet Results No Known Results Summary Purpose eClinicalWorks Submission
--- OUTSIDE RECORDS SUMMARY | 2019-06-23 02:30 | XMS REPORT ---
Author Author ROSELINE SINGH Organization [employer] Address Unknown Phone Unavailable Care Team Providers Care Auto Engine Mechanic Name Role Phone ROSELINE SINGH CP Unavailable Allergies No Known Allergies Problems Problem Type Condition Code Onset Dates Condition Status Problem Encounter for long-term (current) use of other medications V58.69 Active Problem Encounter for therapeutic drug monitoring V58.83 Active Problem Congestive heart failure, unspecified 428.0 Active Assessment [facility] current use of anticoagulant Z79.01 Active Problem Other chronic pain 338.29 Active Problem Chronic congestive heart failure, unspecified congestive heart failure type I50.9 Active Problem Lumbago with sciatica, right side M54.41 Active Problem Hyperlipidemia, unspecified hyperlipidemia type E78.5 Active Problem Attention-deficit hyperactivity disorder, predominantly hyperactive type F90.1 Active 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
--- OUTSIDE RECORDS SUMMARY | 2019-06-23 02:30 | XMS REPORT ---
Author Author APOLONIA LOPEZ [facility] eClinicalWorks Address Unknown Phone Unavailable Care Team Providers Care Stucco Mason Name Role Phone APOLONIA LOPEZ Unavailable Allergies No Known Allergies Problems Problem Type Condition ICD-9 Code Onset Dates Condition Status Problem Congestive heart failure, unspecified 428.0 Active Problem Encounter for long-term (current) use of other medications V58.69 Active Problem Encounter for therapeutic drug monitoring V58.83 Active Problem Other chronic pain 338.29 Active Assessment [facility] current use of anticoagulant therapy V58.61 Active Medications Medication Code System Code Instructions Start Date End Date Status Dosage Warfarin Sodium [facility] [address]-30 4 MG Orally Once a day Aug 04, 2015 1-2 tablets Results No Known Results Summary Purpose eClinicalWorks Submission
--- OUTSIDE RECORDS SUMMARY | 2019-06-23 02:30 | XMS REPORT ---
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 Aug, Active 079713048 Problem Other chronic pain 338.29 Active 87523089 Problem Encounter for long-term (current) use of other medications V58.69 Active 818400134 Problem Hyperlipidemia, unspecified hyperlipidemia type E78.5 Active 37702782 Problem Chronic congestive heart failure, unspecified congestive heart failure type I50.9 Active 90333624 Problem Chronic obstructive pulmonary disease, unspecified COPD type J44.9 Active 40305388 Problem Attention-deficit hyperactivity disorder, predominantly hyperactive type F90.1 Active 581244151 Problem Lumbago with sciatica, right side M54.41 Active 118184353 Problem Other chronic pain G89.29 Active 96253150 ALLERGIES Unknown Allergies SOCIAL HISTORY No smoking Hx information available PLAN OF CARE VITAL SIGNS MEDICATIONS Unknown Medications RESULTS Name Result Date Reference Range INR (IN HOUSE) 2016-08-29 INR 3.1 1.10 - 3.30 PREVIOUS INR 3.4 CURRENT COUMADIN DOSE 9mg Mon, 8mg all other days NEW COUMADIN DOSE No change, rpt 1 mo Lot # [id number] Exp date 02/15 PROCEDURES Procedure Date Ordered Related Diagnosis Body Site PROTHROMBIN TIME Aug 29, 2016 IMMUNIZATIONS No Known Immunizations
--- OUTSIDE RECORDS SUMMARY | 2019-06-23 02:30 | XMS REPORT ---
Author Author APOLONIA LOPEZ [employer] Address Unknown Phone Unavailable Care Team Providers Care Hat Brim And Crown Laminating Operator Name Role Phone APOLONIA LOPEZ Unavailable Allergies No Known Allergies Problems Problem Type Condition Code Onset Dates Condition Status Problem Encounter for therapeutic drug monitoring V58.83 Active Problem Congestive heart failure, unspecified 428.0 Active Problem residential current use of anticoagulant Z79.01 Active Assessment residential current use of anticoagulant Z79.01 Active Problem Encounter for long-term (current) use of other medications V58.69 Active Problem Other chronic pain 338.29 Active Medications No Known Medications Procedures Procedure Coding System Code Date PROTHROMBIN TIME CPT-4 05651 March 15, 2016 Results Name Result Date Reference Range Unit Abnormality Flag INR (IN HOUSE) ----Exp date [id number] ----Lot # [id number] ----INR 3.0 20160315 1.10 - 3.30 ----PREVIOUS INR 2.4 20160315 ----CURRENT COUMADIN DOSE 9 mg Sat, Thur, 8 mg AOD 20160315 ----NEW COUMADIN DOSE no change, recheck in 1 month [id number] Summary Purpose eClinicalWorks Submission
--- OUTSIDE RECORDS SUMMARY | 2019-06-23 02:30 | XMS REPORT ---
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 Active 898253635 Problem Anxiety F41.9 Active 73176152 Problem Hyperlipidemia, unspecified hyperlipidemia type E78.5 Active 40149331 Problem Attention-deficit hyperactivity disorder, predominantly hyperactive type F90.1 Active 900858452 Problem Other chronic pain G89.29 Active 82971061 Problem Chronic obstructive pulmonary disease, unspecified COPD type J44.9 Active 37586763 Problem Chronic congestive heart failure, unspecified congestive heart failure type I50.9 Active 55056771 ALLERGIES No Information ENCOUNTERS Encounter Location Date Diagnosis [address] [id number] [id number] April, Anxiety F41.9 ; 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 ; Chronic obstructive pulmonary disease, unspecified COPD type J44.9 ; Chronic congestive heart failure, unspecified congestive heart failure type I50.9 and Other chronic pain G89.[address] [id number] [place] [id number] Mar, Closed fracture of right hand, initial encounter S62.91XA ; Chronic obstructive pulmonary disease, unspecified COPD type J44.9 ; [facility] current use of anticoagulant Z79.01 and Other chronic pain G89.29 [facility] [address] [id number] [place] [id number] Mar, Other chronic pain G89.29 ; Chronic obstructive pulmonary disease, unspecified COPD type J44.9 and Anxiety F41.9 [facility] [id number] [place] [id number] Nov, Chronic obstructive pulmonary disease, unspecified COPD type J44.9 [facility] [id number] [place]REEK[place] [id number] Nov, 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 [facility] [place] [id number] [place] [address] [id number] Oct, Other chronic pain G89.29 [facility] [id number] [place] [address] [id number] Sep, [facility] [place] [id number] [place] [address] [id number] Aug, [facility] [place] [id number] [place] [address] [id number] Aug, Other chronic pain G89.29 ; Chronic obstructive pulmonary disease, unspecified COPD type J44.9 ; Encounter for immunization Z23 and 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 [facility] [address]00565100[place] [id number] Aug, Anxiety F41.9 ; Hyperlipidemia, unspecified hyperlipidemia type E78.5 and Lumbago with sciatica, right side M54.41 [facility] [address]00565100[place] [id number] Jul, [facility] [address] [place] [address] [id number] Jul, Chronic obstructive pulmonary disease, unspecified COPD type J44.9 ; Anxiety F41.9 ; Lumbago with sciatica, right side M54.41 and 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 [facility] [place] [address] [place] [id number] [place] [id number] Jul, 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 [facility] [place] [id number] [place]REEK[place] [id number] Jun, Lumbago with sciatica, right side M54.41 ; Chronic obstructive pulmonary disease, unspecified COPD type J44.9 ; Anxiety F41.9 and Encounter for immunization Z23 [facility] [address] [id number] [place] [address] Jun, Lumbago with sciatica, right side M54.41 [address]00565100[place] [id number] Jun, [facility] current use of anticoagulant Z79.01 [place] [id number] [id number] May, [place] [id number] [place] [address] [id number] May, Lumbago with sciatica, right side M54.41 [address]00565100[place] [id number] May, Abscess L02.91 [facility] [address]00565100[place] [address] April, Chronic obstructive pulmonary disease, unspecified COPD type J44.9 [address]00565100[place] [id number] April, Chronic obstructive pulmonary disease, unspecified COPD type J44.9 ; Lumbago with sciatica, right side M54.41 ; Chronic congestive heart failure, unspecified congestive heart failure type I50.9 ; Anxiety F41.9 and [facility] current use of anticoagulant Z79.01 [address]00565100[place] [id number] April, Lumbago with sciatica, right side M54.41 [address]00565100[place] [id number] Mar, [facility] current use of anticoagulant Z79.01 ; Chronic obstructive pulmonary disease, unspecified COPD type J44.9 ; Chronic congestive heart failure, unspecified congestive heart failure type I50.9 ; Lumbago with sciatica, right side M54.41 ; Acute upper respiratory infection, unspecified J06.9 and Hyperlipidemia, unspecified hyperlipidemia type E78.5 [address]00565100[place] [id number] Mar, [address]00565100[place] [id number] Jan, 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 ; Lumbago with sciatica, right side M54.41 ; Anxiety F41.9 ; Hyperlipidemia, unspecified hyperlipidemia type E78.5 and Chronic congestive heart failure, unspecified congestive heart failure type I50.9 [facility] [id number] [place] [id number] Dec, Anxiety F41.9 and [facility] current use of anticoagulant Z79.01 [facility] [address] [place] [id number] [address] Dec, [facility] [id number] [place] [address] [id number] Dec, [facility] [address] [place] [id number] [place] [address] [id number] Nov, Chronic obstructive pulmonary disease, unspecified COPD type J44.9 [facility] [address] [place] [id number] [place] [address] [id number] Nov, 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 ; Lumbago with sciatica, right side M54.41 and Anxiety F41.9 [facility] [id number] [place] [id number] Nov, [facility] [address] [place] [id number] [place] [address] [id number] Oct, [facility] [address] [place] [address] [id number] [place] [address] [id number] Oct, [facility] current use of anticoagulant Z79.01 [facility] [id number] [place] [address] [id number] Sep, Hyperlipidemia, unspecified hyperlipidemia type E78.5 ; [facility] current use of anticoagulant Z79.01 and Lumbago with sciatica, right side M54.41 [facility] [id number] [place] [address] [id number] Aug, [facility] [place] [address] [place] [id number] [place] [address] [id number] Aug, 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 [facility] [address] [place] [address] [id number] [place] [address] [id number] Aug, [facility] current use of anticoagulant Z79.01 [facility] [place] [address] [id number] [place] [phone] Aug, [facility] [id number] [place] [address] [phone] Aug, [facility] [address] [id number] [place]REEK[place] [phone] Jun, Lumbago with sciatica, right side M54.41 ; Chronic obstructive pulmonary disease, unspecified COPD type J44.9 ; Attention-deficit hyperactivity disorder, predominantly hyperactive type F90.1 and 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 [facility] [id number] [place] [address] [id number] Jun, [facility] [address] [place] [id number] [place] [address] [id number] May, Lumbago with sciatica, right side M54.41 ; Hyperlipidemia, unspecified hyperlipidemia type E78.5 and [facility] current use of anticoagulant Z79.01 [facility] [place] [address] [id number] [place] [id number] May, Hyperlipidemia, unspecified hyperlipidemia type E78.5 [facility] [id number] [place] [address] [id number] April, Chronic congestive heart failure, unspecified congestive heart failure type I50.9 ; Lumbago with sciatica, right side M54.41 ; Other chronic pain G89.29 ; Chronic obstructive pulmonary disease, unspecified COPD type J44.9 ; Attention- deficit hyperactivity disorder, predominantly hyperactive type F90.1 and 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 [facility] [address] [id number] [place] [id number] Mar, [facility] [address] [id number] [place] [address] [id number] Mar, [facility] current use of anticoagulant Z79.01 [facility] [place] [address] [id number] [place] [address] [id number] Jan, 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 [facility] [address] [place] [address] [id number] [place] [address] [id number] Jan, Other chronic pain G89.29 [address]00565100[place] [id number] Jan, [facility] current use of anticoagulant Z79.01 and Other chronic pain G89.29 [address] [place] [address] [id number] Dec, [place] [id number] [place] [address] [id number] Dec, [facility] current use of anticoagulant Z79.01 [place] [id number] [place] [address] [id number] Nov, Other chronic pain G89.[address] [id number] Nov, Other chronic pain G89.29 ; Hx of mechanical aortic valve replacement Z95.2 ; [facility] (current) use of anticoagulants Z79.01 and Long-term use of high-risk medication Z79.899 [place] [id number] [place] [address] [phone] Oct, Other chronic pain G89.29 ; [facility] current use of anticoagulant Z79.01 ; Bronchitis J40 and Penile discharge R36.9 [place] [id number] [place] [address] [id number] Sep, [place] [id number] [place] [address] [id number] Sep, [address] [place] [address] [id number] Sep, [facility] current use of anticoagulant Z79.01 [address] [place] [address] [id number] Aug, [facility] current use of anticoagulant therapy V58.61 [facility] [address] [id number] [place] [id number] Aug, [facility] [address] [id number] [place] [id number] Aug, [place] [id number] [place] [address] [phone] Aug, 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 V58.61 [facility] [place] [id number] [place] [id number] Jul, 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 V58.61 [facility] [place] [address] [place] [id number] [place] [id number] Jul, Congestive heart failure, unspecified 428.0 [facility] [place] [address] [place] [id number] [place] [address] [id number] Jul, [facility] current use of anticoagulant therapy V58.61 [facility] [id number] [place] [address] [phone] Jun, Other chronic pain 338.29 and Encounter for therapeutic drug monitoring V58.83 [facility] [address] [place] [address] [id number] [place] [address] [id number] May, Congestive heart failure, unspecified 428.0 and Encounter for long-term (current) use of other medications V58.69 [facility] [place] [id number] [place] [address] [id number] May, Congestive heart failure, unspecified 428.0 [facility] [place] [id number] [place] [address] [id number] April, Congestive heart failure, unspecified 428.0 [facility] [address] [place] [id number] [place] [address] [id number] April, Congestive heart failure, unspecified 428.0 ; Other chronic pain 338.29 and Encounter for long-term (current) use of other medications V58.69 [facility] [id number] [place] [id number] April, [facility] [address] [place] [id number] [place] [address] Mar, [facility] [address] [place] [id number] [place] [address] Mar, [facility] [address] [place] [address] Jan, [facility] [address] [place] [address] [phone] Jan, [facility] [place] [facility] [address] [id number] [place] [address] Jan, [facility] [place] [facility] [address] [id number] [place] [address] Jan, [facility] [address] [id number] [place] [id number] Jan, [facility] [place] [facility] [address] [id number] [place] [address] Jan, [facility] [place] [facility] [address] [id number] [place] [address] Dec, [facility] [place] [facility] [address] [id number] [place] [address] Dec, [facility] [address] [id number] [place] [id number] Dec, [facility] [address] [id number] [place] [id number] Nov, [facility] [place] [facility] [address] [id number] [place] [address] Nov, [facility] [place] [facility] [address] [id number] [place] [address] Nov, [facility] [place] [facility] [address] [facility] [id number] [place] [address] Nov, [facility] [place] [facility] [address] [id number] [place] [address] Oct, [facility] [address] [id number] [place] [id number] Oct, [facility] [address] [id number] [place] [phone] Oct, [facility] [place] [facility] [address] [id number] [place] [address] Oct, [facility] [place] [facility] [address] [id number] [place] [address] Sep, [facility] [address] [id number] [place] [id number] Sep, [facility] [place] [facility] [address] [id number] [place] [address] Sep, [facility] [address] [facility] [id number] [place] [id number] Aug, [facility] [place] [facility] [address] [facility] [id number] [address] Aug, [facility] [place] [facility] [address] [id number], [place] [address] Aug, [facility] [address] [facility] [id number] [place] [id number] Aug, [facility] [place] [facility] [address] [facility] [id number], [place] [address] Aug, [facility] [place] [facility] [address]00565100[place], [place] [address] Aug, [facility] [place] [facility] [address] [facility] [id number], [place] [address] Aug, [facility] [place] [facility] [address] [facility] [id number], [place] [address] Aug, [facility] [address] [facility] [id number] [place] [id number] Jul, [facility] [place] [facility] [address] [facility] [id number], [place] [address] Jul, [facility] [address] [facility] [id number] [place] [id number] Jun, [facility] [place] [facility] [address] [facility] [id number], [place] [address] Jun, [facility] [address] [facility] [id number] [place] [id number] May, [facility] [place] [facility] [address] [id number], [place] [address] May, [facility] [address] [facility] [id number] [place] [id number] May, [facility] [place] [facility] [address] [facility] [id number] [place] [address] May, IMMUNIZATIONS No Known Immunizations SOCIAL HISTORY Never Assessed REASON FOR VISIT Lab (walk-in) Whit NIELSON PLAN OF CARE VITAL SIGNS MEDICATIONS No Known Medications RESULTS Name Result Date Reference Range INR (IN HOUSE) 2017-11-05 INR 2.4 1.10 - 3.30 PREVIOUS INR 2.2 CURRENT COUMADIN DOSE 10mg 4 days a week and 8mg 3 days a week, changed by ER NEW COUMADIN DOSE no change to dose, recheck in 2 weeks Lot # [id number] Exp date 01/29/2018 PROCEDURES Procedure Date Ordered Result Body Site PROTHROMBIN TIME Nov 05, 2017 INSTRUCTIONS MEDICATIONS ADMINISTERED No Known Medications MEDICAL (GENERAL) HISTORY Type Description Date Medical History attention deficit hyperactivity disorder Medical History depression Medical History Congestive heart failure, unspecified Medical History COPD, on oxygen Medical History chronic lumbar pain s/p fall off roof 2007 Surgical History mitral valve replacement 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
--- OUTSIDE RECORDS SUMMARY | 2019-06-23 02:31 | XMS REPORT ---
Author Author APOLONIA LOPEZ [facility] eClinical[employer] Address Unknown Phone Unavailable Care Team Providers Care Data Entry Coordinator Name Role Phone APOLONIA LOPEZ Unavailable Allergies [...] Date End Date Status Dosage Warfarin Sodium [facility] [address]-66 4 MG Orally Once a day Aug 04, 2015 1 tablet Oxycodone-Acetaminophen [facility] [address]-21 7.5-325 MG Orally 3 times a day take 1 tablet Procedures Procedure Coding System Code Date PROTHROMBIN TIME CPT-4 08880 Aug 04, 2015 Results Name Result Date Reference Range Unit Abnormality Flag INR (IN HOUSE) Summary Purpose eClinicalWorks Submission
--- OUTSIDE RECORDS SUMMARY | 2019-06-23 02:31 | XMS REPORT ---
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 Z79.01 Active 858152074 Problem Anxiety F41.9 Active 67292481 Problem Hyperlipidemia, unspecified hyperlipidemia type E78.5 Active 44949284 Problem Attention-deficit hyperactivity disorder, predominantly hyperactive type F90.1 Active 113502919 Problem Other chronic pain G89.29 Active 73076512 Problem Chronic obstructive pulmonary disease, unspecified COPD type J44.9 Active 87322020 Problem Chronic congestive heart failure, unspecified congestive heart failure type I50.9 Active 12037519 ALLERGIES Unknown Allergies SOCIAL HISTORY No smoking Hx information available PLAN OF CARE VITAL SIGNS MEDICATIONS Medication Instructions Dosage Frequency Start Date End Date Duration Status Warfarin Sodium 4 MG Orally Once a day 2 tablets 24h Active Clonazepam 0.5 MG Orally Twice a day if needed for anxiety .5-1 tablet Nov, 0 days Active Oxycodone-Acetaminophen 7.5-325 MG Orally 3 times a day, must last one month DO NOT FILL TILL 12/07/16 take 1 -2 tablet Active Albuterol Sulfate HFA 108 (90 Base) MCG/ACT Inhalation every 4 hrs 2 puffs as needed 4h 0 days Active Spironolactone 25 MG Orally Once a day 1 tablet 24h Active Stiolto Respimat 2.5-2.5 MCG/ACT Inhalation Once a day 2 puffs 24h Active Oxygen 2 L/NC Active Lisinopril 2.5 MG Orally Once a day 1 tablet 24h Active Gabapentin 300 MG Orally Once a day at bedtime 1 tablet 0 days Active Furosemide 40 MG Orally Once a day 1 tablet 24h Active Doc-Q-Lace orally Once a day 1 capsule 24h Active Warfarin Sodium 5 mg Orally Once a day 1 tablet 24h Active Atorvastatin Calcium 20 mg Orally Once a day 1 tablet 24h May, Active Wellbutrin 100 MG Orally Twice a day 1 tablet 12h Active Nitroglycerin 0.4 MG Active RESULTS Name Result Date Reference Range INR (IN HOUSE) 2016-12-24 INR 2.5 1.10 - 3.30 PREVIOUS INR 3.1 CURRENT COUMADIN DOSE 6mg wed. 8mg rest of days NEW COUMADIN DOSE same dose recheck in 2 weeks Lot # [id number] Exp date 08/20 PROCEDURES Procedure Date Ordered Related Diagnosis Body Site PROTHROMBIN TIME Dec 24, 2016 IMMUNIZATIONS No Known Immunizations
--- OUTSIDE RECORDS SUMMARY | 2019-06-23 02:31 | XMS REPORT ---
Author Author APOLONIA LOPEZ [facility] eClinicalWorks Address Unknown Phone Unavailable Care Team Providers Care Criminal Intelligence Specialist Name Role Phone APOLONIA LOPEZ Unavailable Allergies No Known Allergies Problems Problem Type Condition Code Onset Dates Condition Status Problem Encounter for therapeutic drug monitoring V58.83 Active Problem Congestive heart failure, unspecified 428.0 Active Problem [facility] current use of anticoagulant Z79.01 Active Problem Encounter for long-term (current) use of other medications V58.69 Active Problem Other chronic pain 338.29 Active Medications Medication Code System Code Instructions Start Date End Date Status Dosage Oxycodone-Acetaminophen [facility] [address]-29 7.5-325 MG Orally 3 times a day ( may not fill until 03/30/16) take 1 tablet Results No Known Results Summary Purpose eClinicalWorks Submission
--- OUTSIDE RECORDS SUMMARY | 2019-06-23 02:31 | XMS REPORT ---
Author Author ROSELINE SINGH [facility] Address [address] [place] [address] Care Team Providers Care Black Topper Name Role Phone ROSELINE SINGH Unavailable PROBLEMS Type Condition ICD9-CM Code BRU88-LD Code Onset Dates Condition Status SNOMED Code Problem Congestive heart failure, unspecified 428.0 Active 82955179 Problem assisted current use of anticoagulant Z79.01 Active 340454966 Problem Encounter for therapeutic drug monitoring V58.83 Active 060361792 Problem Other chronic pain 338.29 Active 19007544 Problem Encounter for long-term (current) use of other medications V58.69 Active 414528855 Problem Hyperlipidemia, unspecified hyperlipidemia type E78.5 Active 13702189 Problem Chronic congestive heart failure, unspecified congestive heart failure type I50.9 Active 86094053 Problem Chronic obstructive pulmonary disease, unspecified COPD type J44.9 Active 36985632 Problem Attention-deficit hyperactivity disorder, predominantly hyperactive type F90.1 Active 248556182 Problem Lumbago with sciatica, right side M54.41 Active 511467374 Problem Other chronic pain G89.29 Active 21579073 ALLERGIES Unknown Allergies SOCIAL HISTORY No smoking Hx information available PLAN OF CARE VITAL SIGNS MEDICATIONS Medication Instructions Dosage Frequency Start Date End Date Duration Status Oxycodone-Acetaminophen 7.5-325 MG Orally 3 times a day, must last one month take 1 -2 tablet Active RESULTS No Results PROCEDURES No Known procedures IMMUNIZATIONS No Known Immunizations
--- OUTSIDE RECORDS SUMMARY | 2019-06-23 02:31 | XMS REPORT ---
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 Active 492513639 Problem Anxiety F41.9 Active 82975808 Problem Hyperlipidemia, unspecified hyperlipidemia type E78.5 Active 40832085 Problem Attention-deficit hyperactivity disorder, predominantly hyperactive type F90.1 Active 361553531 Problem Other chronic pain G89.29 Active 02821824 Problem Chronic obstructive pulmonary disease, unspecified COPD type J44.9 Active 17514854 Problem Chronic congestive heart failure, unspecified congestive heart failure type I50.9 Active 88982824 ALLERGIES No Information ENCOUNTERS Encounter Location Date Diagnosis [address] [id number] April, [address] [id number] Mar, Closed fracture of right hand, initial encounter S62.91XA ; Chronic obstructive pulmonary disease, unspecified COPD type J44.9 ; senior living current use of anticoagulant Z79.01 and Other chronic pain G89.29 [facility] [address] [id number] [id number] Mar, Other chronic pain G89.29 ; Chronic obstructive pulmonary disease, unspecified COPD type J44.9 and Anxiety F41.[address] [id number] [id number] Nov, Chronic obstructive pulmonary disease, unspecified COPD type J44.9 [address] [id number] Nov, senior living current use of anticoagulant Z79.01 [facility] [place] [id number], [place] [id number] 14 Oct, 2017 Other chronic pain G89.29 [facility] [place] [id number], [place] [id number] Sep, [facility] [place] [id number], [place] [id number] Aug, [facility] [place] [id number], [place] [id number] Aug, Other chronic pain G89.29 ; Chronic obstructive pulmonary disease, unspecified COPD type J44.9 ; Encounter for immunization Z23 and 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 [facility] [place] [id number], [place] [id number] Aug, Anxiety F41.9 ; Hyperlipidemia, unspecified hyperlipidemia type E78.5 and Lumbago with sciatica, right side M54.41 [facility] [place] [id number], [place] [id number] Jul, [facility] [place] [id number], [place] [id number] Jul, Chronic obstructive pulmonary disease, unspecified COPD type J44.9 ; Anxiety F41.9 ; Lumbago with sciatica, right side M54.41 and senior living current use of anticoagulant Z79.01 [facility] [place] [address] [place] [address] [id number], [place] [id number] Jul, senior living current use of anticoagulant Z79.01 [facility] [place] [address] [place] [id number], [place] [id number] Jun, Lumbago with sciatica, right side M54.41 ; Chronic obstructive pulmonary disease, unspecified COPD type J44.9 ; Anxiety F41.9 and Encounter for immunization Z23 [facility] [address] [id number] [place] [address] Jun, Lumbago with sciatica, right side M54.41 [facility] [place] [address] [place] [id number], [place] [id number] Jun, 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 [facility] [address] [place] [id number], [place] [id number] May, [address] [id number] May, Lumbago with sciatica, right side M54.41 [facility] [address], [place] [id number] May, Abscess L02.91 [facility] [place] [address]005[address]100[place] [address] April, Chronic obstructive pulmonary disease, unspecified COPD type J44.9 [address] [place] [id number] April, Chronic obstructive pulmonary disease, unspecified COPD type J44.9 ; Lumbago with sciatica, right side M54.41 ; Chronic congestive heart failure, unspecified congestive heart failure type I50.9 ; Anxiety F41.9 and 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 [place] [id number] [id number] April, Lumbago with sciatica, right side M54.41 [address] [id number] Mar, 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 ; Chronic obstructive pulmonary disease, unspecified COPD type J44.9 ; Chronic congestive heart failure, unspecified congestive heart failure type I50.9 ; Lumbago with sciatica, right side M54.41 ; Acute upper respiratory infection, unspecified J06.9 and Hyperlipidemia, unspecified hyperlipidemia type E78.5 [place] [id number] [id number] Mar, [address] [id number] Jan, senior living current use of anticoagulant Z79.01 ; Lumbago with sciatica, right side M54.41 ; Anxiety F41.9 ; Hyperlipidemia, unspecified hyperlipidemia type E78.5 and Chronic congestive heart failure, unspecified congestive heart failure type I50.9 [facility] [id number], [place] [id number] Dec, Anxiety F41.9 and senior living current use of anticoagulant Z79.01 [facility] [place] [address]005[address] [address] Dec, [facility] [id number] [place] [address] [id number] Dec, [facility] [address] [place] [id number] [place] [address] [id number] Nov, Chronic obstructive pulmonary disease, unspecified COPD type J44.9 [facility] [address] [place] [id number] [place] [address] [id number] Nov, 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 ; Lumbago with sciatica, right side M54.41 and Anxiety F41.9 [facility] [address] [place] [address] [id number] Nov, [facility] [address] [place] [id number] [place] [address] [id number] Oct, [facility] [address] [place] [id number] [place] [address] [id number] Oct, senior living current use of anticoagulant Z79.01 [place] [address] [place] [id number] [place] [address] [id number] Sep, Hyperlipidemia, unspecified hyperlipidemia type E78.5 ; senior living current use of anticoagulant Z79.01 and Lumbago with sciatica, right side M54.41 [facility] [id number], [place] [id number] Aug, [facility] [id number], [place] [id number] Aug, 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 [facility] [place] [id number] [place] [id number] Aug, senior living current use of anticoagulant Z79.01 [facility] [id number], [place] [id number] Aug, [facility] [address] [place] [id number] [place] [address] [id number] Aug, [facility] [id number], [place] [id number] Jun, Lumbago with sciatica, right side M54.41 ; Chronic obstructive pulmonary disease, unspecified COPD type J44.9 ; Attention-deficit hyperactivity disorder, predominantly hyperactive type F90.1 and senior living current use of anticoagulant Z79.01 [facility] [address] [place] [id number] [place] [address] [id number] Jun, [facility] [address] [place] [id number] [place] [address] [id number] May, Lumbago with sciatica, right side M54.41 ; Hyperlipidemia, unspecified hyperlipidemia type E78.5 and senior living current use of anticoagulant Z79.01 [place] [id number] [place] [address] [id number] May, Hyperlipidemia, unspecified hyperlipidemia type E78.5 [place] [id number] [place] [address] [id number] April, Chronic congestive heart failure, unspecified congestive heart failure type I50.9 ; Lumbago with sciatica, right side M54.41 ; Other chronic pain G89.29 ; Chronic obstructive pulmonary disease, unspecified COPD type J44.9 ; Attention- deficit hyperactivity disorder, predominantly hyperactive type F90.1 and senior living current use of anticoagulant Z79.01 [place] [id number] [place] [address] [id number] Mar, [place] [address] [place] [id number] [place] [address] [id number] Mar, 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 [place] [id number] [place] [address] [id number] Jan, 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 [place] [address] [place] [id number] [place] [address] [id number] Jan, Other chronic pain G89.29 [address] [place] [address] [id number] Jan, 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 and Other chronic pain G89.29 [address] [id number] Dec, [place] [id number] [place] [address] [id number] Dec, 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 [place] [id number] [place] [address] [id number] Nov, Other chronic pain G89.[address] [id number] Nov, Other chronic pain G89.29 ; Hx of mechanical aortic valve replacement Z95.2 ; salvage determiner (current) use of anticoagulants Z79.01 and Long-term use of high-risk medication Z79.899 [place] [id number] [place] [address] [id number] Oct, Other chronic pain G89.29 ; 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 ; Bronchitis J40 and Penile discharge R36.9 [place] [id number] [place] [address] [id number] Sep, [place] [id number] [place] [id number] Sep, [address] [id number] Sep, 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 [place] [id number] [place] [address] [id number] Aug, senior living current use of anticoagulant therapy V58.61 [facility] [address] [id number] [id number] Aug, [facility] [address] [id number][place] [id number] Aug, [place] [id number] [place] [address] [id number] Aug, 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 therapy V58.61 [address] [place] [address] [id number] Jul, 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 therapy V58.61 [place] [id number] [id number] Jul, Congestive heart failure, unspecified 428.0 [facility] [place] [id number] [place] [address] [id number] Jul, senior living current use of anticoagulant therapy V58.61 [facility] [place] [id number], [place] [id number] Jun, Other chronic pain 338.29 and Encounter for therapeutic drug monitoring V58.83 [facility] [place] [id number] [place] [address] [id number] May, Congestive heart failure, unspecified 428.0 and Encounter for long-term (current) use of other medications V58.69 [facility] [place] [id number] [place] [address] [id number] May, Congestive heart failure, unspecified 428.0 [facility] [place] [address] [place] [id number] [place] [address] [id number] April, Congestive heart failure, unspecified 428.0 [facility] [place] [address] [place] [id number] [place] [address] [id number] April, Congestive heart failure, unspecified 428.0 ; Other chronic pain 338.29 and Encounter for long-term (current) use of other medications V58.69 [facility] [place] [id number] [place] [address] [id number] April, [facility] [place] [address] [place] [id number] [place] [address] Mar, [facility] [place] [address] [place] [id number] [place] [address] Mar, [facility] [place] [address] [place] [id number] [place] [address] Jan, [facility] [address] [place] [address] [id number] Jan, [facility] [place] [address] [place] [id number] [place] [address] Jan, [facility] [place] [address] [place] [id number] [place] [address] Jan, [facility] [address] [id number] [place] [id number] Jan, [facility] [place] [facility] [address] [id number] [address] Jan, [facility] [place] [facility] [address] [facility] [id number] [address] Dec, [facility] [place] [facility] [address] [id number] [place] [address] Dec, [facility] [address] [id number] [place] [phone] Dec, [facility] [address] [facility] [id number] [place] [id number] Nov, [facility] [place] [facility] [address] [facility] [id number] [place] [address] Nov, [facility] [place] [facility] [address] [facility] [id number] [place] [address] Nov, [facility] [place] [facility] [address] [facility] [id number] [place] [address] Nov, [facility] [place] [facility] [address] [facility] [id number] [place] [address] Oct, [facility] [address] [facility] [id number], [place] [id number] Oct, [facility] [address] [facility] [id number], [place] [id number] Oct, [facility] [place] [facility] [address] [facility] [id number] [place] [address] Oct, [facility] [place] [facility] [address] [facility] [id number] [place] [address] Sep, [facility] [address] [facility] [id number], [place] [id number] Sep, [facility] [place] [facility] [address] [facility] [id number] [place] [address] Sep, [facility] [address] [facility] [id number], [place] [id number] Aug, [facility] [place] [address] [facility] [id number] [place] [address] Aug, [facility] [place] [address] [facility] [id number] [place] [address] Aug, [facility] [address] [place] [id number], [place] [id number] Aug, [facility] [place] [address] [facility] [id number] [place] [address] Aug, [facility] [place] [address] [facility] [id number] [place] [address] Aug, [facility] [place] [address] [place] [id number] [address] Aug, [facility] [place] [address]00565100[place] [address] Aug, [facility] [id number], [place] [id number] Jul, [facility] [place] [address]00565100[place] [address] Jul, [facility] [id number], [place] [id number] Jun, [facility] [place] [address] [place] [id number] [address] Jun, [facility] [id number], [place] [id number] May, [facility] [place] [address] [facility] [id number] [place] [address] May, [facility] [id number], [place] [id number] May, [facility] [place] [address] [facility] [id number] [place] [address] May, IMMUNIZATIONS No Known Immunizations SOCIAL HISTORY Never Assessed REASON FOR VISIT RX-Clonazepam and Oxycodone refills PLAN OF CARE VITAL SIGNS MEDICATIONS Medication Instructions Dosage Frequency Start Date End Date Duration Status Oxycodone-Acetaminophen 7.5-325 MG Orally 3 times a day must last 1 month 1 tablet as needed Jul, Active Clonazepam 0.5 MG Orally at bedtime as needed 1/2 -1 tablet Jun, Active RESULTS No Results PROCEDURES No Known [...] 03/2013 Hospitalization History surgery 2012 Hospitalization History [facility] for chest pains 03/11/17
--- OUTSIDE RECORDS SUMMARY | 2019-06-23 02:31 | XMS REPORT ---
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 Unknown Non Drug Allergy Nov, Unknown SOCIAL HISTORY No smoking Hx information available PLAN OF CARE Activity Details Follow Up 6 Weeks Reason:CHRONIC PAIN VITAL SIGNS Height 71 in 2016-11-19 Weight 213.8 lbs 2016-11-19 Temperature 98.1 degrees Fahrenheit 2016-11-19 Heart Rate 78 bpm 2016-11-19 Respiratory Rate 18 2016-11-19 BMI 29.82 kg/m2 2016-11-19 Blood pressure systolic 136 mmHg 2016-11-19 Blood pressure diastolic 78 mmHg 2016-11-19 MEDICATIONS Medication Instructions Dosage Frequency Start Date End Date Duration Status Wellbutrin 100 MG Orally Twice a day 1 tablet 12h Active Nitroglycerin 0.4 MG Active Spironolactone 25 MG Orally Once a day 1 tablet 24h Active Stiolto Respimat 2.5-2.5 MCG/ACT Inhalation Once a day 2 puffs 24h Active Furosemide 40 MG Orally Once a day 1 tablet 24h Active Gabapentin 300 MG Active Doc-Q-Lace orally Once a day 1 capsule 24h Active Atorvastatin Calcium 20 mg Orally Once a day 1 tablet 24h May, Active Albuterol Sulfate HFA 108 (90 Base) MCG/ACT Inhalation every 4 hrs 2 puffs as needed 4h Active Clonazepam 0.5 MG Orally Twice a day if needed for anxiety .5-1 tablet Nov, Active Oxygen 2 L/NC Active Warfarin Sodium 4 MG Orally Once a day 2 tablets 24h Active Oxycodone-Acetaminophen 7.5-325 MG Orally 3 times a day, must last one month DO NOT FILL TILL 12/07/16 take 1 -2 tablet Active RESULTS Name Result Date Reference Range INR (IN HOUSE) 2016-11-19 INR 3.1 1.10 - 3.30 PREVIOUS INR 3.1 CURRENT COUMADIN DOSE 8mg daily NEW COUMADIN DOSE 6mg on sat, 8mg all the other days, repeat in 2 months Lot # [id number] Exp date 08/20 PROCEDURES Procedure Date Ordered Related Diagnosis Body Site PROTHROMBIN TIME Nov 19, 2016 Office Visit, Est Pt., Level 3 Nov 19, 2016 IMMUNIZATIONS No Known Immunizations
--- OUTSIDE RECORDS SUMMARY | 2019-06-23 02:31 | XMS REPORT ---
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 Name Role Phone KANDI LO Unavailable PROBLEMS Type Condition ICD9-CM Code ENQ64-PD Code Onset Dates Condition Status SNOMED Code Problem Encounter for therapeutic drug monitoring V58.83 Active 224034158 Problem Lumbago with sciatica, right side M54.41 Active 942578306 Problem senior care current use of anticoagulant Z79.01 Active 886354970 Problem Anxiety F41.9 Active 54677609 Problem Hyperlipidemia, unspecified hyperlipidemia type E78.5 Active 96086860 Problem Attention-deficit hyperactivity disorder, predominantly hyperactive type F90.1 Active 526451538 Problem Other chronic pain G89.29 Active 82771565 Problem Chronic obstructive pulmonary disease, unspecified COPD type J44.9 Active 85636691 Problem Chronic congestive heart failure, unspecified congestive heart failure type I50.9 Active 57545873 ALLERGIES No Information SOCIAL HISTORY Never Assessed PLAN OF CARE VITAL SIGNS MEDICATIONS Medication Instructions Dosage Frequency Start Date End Date Duration Status Oxycodone-Acetaminophen 7.5-325 MG Orally 3 times a day, must last one month take 1 -2 tablet April, 0 days Active RESULTS No Results PROCEDURES No Known procedures IMMUNIZATIONS No Known Immunizations MEDICAL (GENERAL) HISTORY Type Description Date Medical History attention deficit hyperactivity disorder Medical History depression Medical History Congestive heart failure, unspecified Medical History COPD, on oxygen Medical History chronic lumbar pain s/p fall off roof 2007 Surgical History mitral valve replacement 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
--- OUTSIDE RECORDS SUMMARY | 2019-06-23 02:32 | XMS REPORT ---
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 Z79.01 Active 053270443 Problem Anxiety F41.9 Active 38500784 Problem Hyperlipidemia, unspecified hyperlipidemia type E78.5 Active 94381391 Problem Attention-deficit hyperactivity disorder, predominantly hyperactive type F90.1 Active 897884586 Problem Other chronic pain G89.29 Active 37483396 Problem Chronic obstructive pulmonary disease, unspecified COPD type J44.9 Active 83078517 Problem Chronic congestive heart failure, unspecified congestive heart failure type I50.9 Active 89362978 ALLERGIES No Information ENCOUNTERS Encounter Location Date Diagnosis [id number] [place] [address] [id number] Nov, Chronic obstructive pulmonary disease, unspecified COPD type J44.9 [address] [place] [address] [id number] Nov, shelter current use of anticoagulant Z79.01 [address] [place] [address] [id number] Oct, Other chronic pain G89.29 [address] [place] [address] [id number] Sep, [place] [id number] [place] [address] [id number] Aug, [address] [place] [address] [id number] Aug, Other chronic pain G89.29 ; Chronic obstructive pulmonary disease, unspecified COPD type J44.9 ; Encounter for immunization Z23 and shelter current use of anticoagulant Z79.01 [facility] [address] [place] [address] [id number] Aug, Anxiety F41.9 ; Hyperlipidemia, unspecified hyperlipidemia type E78.5 and Lumbago with sciatica, right side M54.41 [facility] [address] [id number] Jul, [facility] [place] [id number] [place] [address] [id number] Jul, Chronic obstructive pulmonary disease, unspecified COPD type J44.9 ; Anxiety F41.9 ; Lumbago with sciatica, right side M54.41 and 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 manager current use of anticoagulant Z79.01 [facility] [place] [id number] [place] [address] [id number] Jul, shelter current use of anticoagulant Z79.01 [facility] [place] [id number] [place] [address] [id number] Jun, Lumbago with sciatica, right side M54.41 ; Chronic obstructive pulmonary disease, unspecified COPD type J44.9 ; Anxiety F41.9 and Encounter for immunization Z23 [facility] [address] [id number] [place] [address] Jun, Lumbago with sciatica, right side M54.41 [address] [id number] Jun, 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 manager current use of anticoagulant Z79.01 [facility] [address] [place] [address] [id number] May, [facility] [address] [id number] May, Lumbago with sciatica, right side M54.41 [facility] [address] [place] [address] [id number] May, Abscess L02.91 [facility] [address], [place] [address] April, Chronic obstructive pulmonary disease, unspecified COPD type J44.9 [facility] [id number] [id number] April, Chronic obstructive pulmonary disease, unspecified COPD type J44.9 ; Lumbago with sciatica, right side M54.41 ; Chronic congestive heart failure, unspecified congestive heart failure type I50.9 ; Anxiety F41.9 and shelter current use of anticoagulant Z79.01 [facility] [place] [id number] [place] [address] [id number] April, Lumbago with sciatica, right side M54.41 [facility] [place] [id number] [place] [address] [id number] Mar, 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 manager current 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 of 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 Z79.01 ; Chronic obstructive pulmonary disease, unspecified COPD type J44.9 ; Chronic congestive heart failure, unspecified congestive heart failure type I50.9 ; Lumbago with sciatica, right side M54.41 ; Acute upper respiratory infection, unspecified J06.9 and Hyperlipidemia, unspecified hyperlipidemia type E78.5 [facility] [id number] [place] [address] [id number] Mar, [facility] [address] [id number] [place] [address] [id number] Jan, shelter current use of anticoagulant Z79.01 ; Lumbago with sciatica, right side M54.41 ; Anxiety F41.9 ; Hyperlipidemia, unspecified hyperlipidemia type E78.5 and Chronic congestive heart failure, unspecified congestive heart failure type I50.9 [facility] [address] [id number] Dec, Anxiety F41.9 and 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 manager current use of anticoagulant Z79.01 [facility] [address], [place] [address] Dec, [address] [place] [address] [id number] Dec, [address] [place] [address] [id number] Nov, Chronic obstructive pulmonary disease, unspecified COPD type J44.9 [place] [id number] [place] [address] [id number] Nov, shelter current use of anticoagulant Z79.01 ; Lumbago with sciatica, right side M54.41 and Anxiety F41.9 [facility] [place] [id number] [place] [address] [id number] Nov, [facility] [place] [id number] [place] [address] [id number] Oct, [facility] [place] [id number] [place] [address] [id number] Oct, 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 manager current use of anticoagulant Z79.01 [facility] [place] [id number] [place] [address] [id number] Sep, Hyperlipidemia, unspecified hyperlipidemia type E78.5 ; 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 manager current use of anticoagulant Z79.01 and Lumbago with sciatica, right side M54.41 [facility] [place] [id number] [place] [address] [id number] Aug, [facility] [place] [id number] [place] [address] [id number] Aug, shelter current use of anticoagulant Z79.01 [facility] [place] [id number] [place] [address] [id number] Aug, shelter current use of anticoagulant Z79.01 [facility] [place] [id number] [place] [address] [id number] Aug, [facility] [place] [id number] [place] [address] [id number] Aug, [facility] [place] [id number] [place] [address] [id number] Jun, Lumbago with sciatica, right side M54.41 ; Chronic obstructive pulmonary disease, unspecified COPD type J44.9 ; Attention-deficit hyperactivity disorder, predominantly hyperactive type F90.1 and shelter current use of anticoagulant Z79.01 [facility] [place] [id number] [place] [address] [id number] Jun, [facility] [place] [id number] [place] [address] [id number] May, Lumbago with sciatica, right side M54.41 ; Hyperlipidemia, unspecified hyperlipidemia type E78.5 and 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 manager current use of anticoagulant Z79.01 [facility] [address] [id number] [place] [address] [id number] May, Hyperlipidemia, unspecified hyperlipidemia type E78.5 [facility] [address] [id number] April, Chronic congestive heart failure, unspecified congestive heart failure type I50.9 ; Lumbago with sciatica, right side M54.41 ; Other chronic pain G89.29 ; Chronic obstructive pulmonary disease, unspecified COPD type J44.9 ; Attention- deficit hyperactivity disorder, predominantly hyperactive type F90.1 and 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 manager current use of anticoagulant Z79.01 [place] [address] [id number] Mar, [address] [id number] Mar, shelter current use of anticoagulant Z79.[address] [id number] Jan, 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 manager current use of anticoagulant Z79.01 [place] [address] [id number] Jan, Other chronic pain G89.29 [facility] [place] [address] [id number] Jan, shelter current use of anticoagulant Z79.01 and Other chronic pain G89.29 [place] [id number] [place] [address] [id number] Dec, [facility] [place] [address] [id number] Dec, shelter current use of anticoagulant Z79.01 [place] [address] [id number] Nov, Other chronic pain G89.29 [facility] [address] [id number] Nov, Other chronic pain G89.29 ; Hx of mechanical aortic valve replacement Z95.2 ; 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 manager (current) use of anticoagulants Z79.01 and Long-term use of high-risk medication Z79.899 [address] [place] [address] [id number] Oct, Other chronic pain G89.29 ; shelter current use of anticoagulant Z79.01 ; Bronchitis J40 and Penile discharge R36.9 [address] [place] [address] [id number] Sep, [place] [id number] [place] [address] [id number] Sep, [place] [id number] [place] [address] [id number] Sep, shelter current use of anticoagulant Z79.01 [place] [id number] [place] [address] [id number] Aug, shelter current use of anticoagulant therapy V58.61 [facility] [address] [id number] [id number] Aug, [facility] [address] [id number] [place] [id number] Aug, [address] [place] [address] [id number] Aug, 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 manager current use of anticoagulant therapy V58.61 [place] [id number] [place] [address] [id number] Jul, 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 manager current use of anticoagulant therapy V58.61 [address] [place] [address] [id number] Jul, Congestive heart failure, unspecified 428.0 [address] [place] [address] [id number] Jul, 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 manager current use of anticoagulant therapy V58.61 [place] [id number] [place] [address] [id number] Jun, Other chronic pain 338.29 and Encounter for therapeutic drug monitoring V58.83 [address] [place] [address] [id number] May, Congestive heart failure, unspecified 428.0 and Encounter for long-term (current) use of other medications V58.69 [facility] [address] [facility] [id number] [id number] May, Congestive heart failure, unspecified 428.0 [facility] [address] [facility] [id number] [id number] April, Congestive heart failure, unspecified 428.0 [facility] [place] [address] [place] [id number] [id number] April, Congestive heart failure, unspecified 428.0 ; Other chronic pain 338.29 and Encounter for long-term (current) use of other medications V58.69 [facility] [address] [place] [id number][place] [id number] April, [facility] [address] [place] [address] Mar, [facility] [address] [place] [address] [id number], [place] [address] Mar, [facility] [address] [id number], [place] [address] Jan, [facility] [id number], [place] [id number] Jan, [facility] [address], [place] [address] Jan, [facility] [address], [place] [address] Jan, [facility] [address] [place] [id number] [id number] Jan, [facility] [place] [facility] [address] [address] [id number], [place] [address] Jan, [facility] [place] [facility] [address] [id number], [place] [address] Dec, [facility] [address] [address] [id number], [place] [address] Dec, [facility] [address] [place] [id number], [place] [id number] Dec, [facility] [address] [facility] [id number][place] [id number] Nov, [facility] [place] [facility] [address] [facility] [id number] [place] [address] Nov, [facility] [place] [facility] [address] [facility] [address] [id number], [place] [address] Nov, [facility] [place] [facility] [address] [place] [id number] [place] [address] Nov, [facility] [place] [facility] [address] [facility] [address] [id number], [place] [address] Oct, [facility] [address] [facility] [id number] [place] [address] [id number] Oct, [facility] [address] [facility] [id number][place] [id number] Oct, [facility] [place] [facility] [address] [id number], [place] [address] Oct, [facility] [place] [facility] [address] [facility] [address] [id number], [place] [address] Sep, [facility] [address] [facility] [id number], [place] [id number] Sep, [facility] [place] [facility] [address], [place] [address] Sep, [facility] [id number], [place] [id number] Aug, [facility] [place] [facility] [address] [facility] [address] [id number], [place] [address] Aug, [facility] [place] [facility] [address] [facility] [address] [id number], [place] [address] Aug, [facility] [address] [facility] [id number], [place] [id number] Aug, [facility] [place] [facility] [address], [place] [address] Aug, [facility] [place] [facility] [address] [address] [id number], [place] [address] Aug, [facility] [address] [id number], [place] [address] Aug, [facility] [address] [id number], [place] [address] Aug, [facility] [address] [id number], [place] [id number] Jul, [facility] [address] [facility] [address] [id number], [place] [address] Jul, [facility] [address] [place] [id number], [place] [id number] Jun, [facility] [address] [facility] [address] [id number], [place] [address] Jun, [facility] [address] [place] [address] [id number], [place] [id number] May, [facility] [address] [facility] [address] [id number], [place] [address] May, [facility] [address] [place] [id number], [place] [id number] May, [facility] [address] [facility] [address] [id number], [place] [address] May, IMMUNIZATIONS No Known Immunizations SOCIAL HISTORY Never Assessed REASON FOR VISIT RX-Oxycodone refill PLAN OF CARE VITAL SIGNS MEDICATIONS Medication Instructions Dosage Frequency Start Date End Date Duration Status Oxycodone-Acetaminophen 7.5-325 MG Orally 3 times a day, must last one month take 1 -2 tablet 0 days Active RESULTS No Results PROCEDURES [...] 03/2013 Hospitalization History surgery 2012 Hospitalization History [facility] for chest pains 03/11/17
--- OUTSIDE RECORDS SUMMARY | 2019-06-23 02:32 | XMS REPORT ---
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 Active 520448981 Problem Anxiety F41.9 Active 32992345 Problem Hyperlipidemia, unspecified hyperlipidemia type E78.5 Active 05211857 Problem Attention-deficit hyperactivity disorder, predominantly hyperactive type F90.1 Active 733707197 Problem Other chronic pain G89.29 Active 58394117 Problem Chronic obstructive pulmonary disease, unspecified COPD type J44.9 Active 01205017 Problem Chronic congestive heart failure, unspecified congestive heart failure type I50.9 Active 47716441 ALLERGIES No Known Allergies ENCOUNTERS Encounter Location Date Diagnosis [facility] [facility] [address] [id number] [id number] Mar, Other chronic pain G89.29 ; Chronic obstructive pulmonary disease, unspecified COPD type J44.9 and Anxiety F41.[address] [id number][place] [id number] Nov, Chronic obstructive pulmonary disease, unspecified COPD type J44.9 [facility] [address] 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 [facility] [id number] [place] [address] [id number] Aug, Anxiety F41.9 ; Hyperlipidemia, unspecified hyperlipidemia type E78.5 and Lumbago with sciatica, right side M54.41 [facility] [address] [place] [address] [id number] [place] [address] [id number] Jul, [facility] [id number] [place] [address] [id number] Jul, Chronic obstructive pulmonary disease, unspecified COPD type J44.9 ; Anxiety F41.9 ; Lumbago with sciatica, right side M54.41 and 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 [facility] [id number], [place] [id number] Jul, skilled nursing current use of anticoagulant Z79.01 [facility] [place] [address] [place] [place] [id number] [place] [address] [id number] Jun, Lumbago with sciatica, right side M54.41 ; Chronic obstructive pulmonary disease, unspecified COPD type J44.9 ; Anxiety F41.9 and Encounter for immunization Z23 [facility] [address] [id number] [address] Jun, Lumbago with sciatica, right side M54.41 [facility] [address] [facility] [id number], [place] [id number] Jun, 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 [facility] [id number], [place] [id number] May, [facility] [id number], [place] [id number] May, Lumbago with sciatica, right side M54.41 [facility] [id number] [place] [address] [id number] May, Abscess L02.91 [facility] [address] [place] [id number] [place] [address] April, Chronic obstructive pulmonary disease, unspecified COPD type J44.9 [place] [id number] [place] [address] [id number] April, Chronic obstructive pulmonary disease, unspecified COPD type J44.9 ; Lumbago with sciatica, right side M54.41 ; Chronic congestive heart failure, unspecified congestive heart failure type I50.9 ; Anxiety F41.9 and skilled nursing current use of anticoagulant Z79.01 [place] [id number] [place] [address] [id number] April, Lumbago with sciatica, right side M54.41 [place] [id number] [place] [address] [id number] Mar, skilled nursing current use of anticoagulant Z79.01 ; Chronic obstructive pulmonary disease, unspecified COPD type J44.9 ; Chronic congestive heart failure, unspecified congestive heart failure type I50.9 ; Lumbago with sciatica, right side M54.41 ; Acute upper respiratory infection, unspecified J06.9 and Hyperlipidemia, unspecified hyperlipidemia type E78.5 [place] [id number] [place] [address] [id number] Mar, [place] [id number] [place] [address] [id number] Jan, skilled nursing current use of anticoagulant Z79.01 ; Lumbago with sciatica, right side M54.41 ; Anxiety F41.9 ; Hyperlipidemia, unspecified hyperlipidemia type E78.5 and Chronic congestive heart failure, unspecified congestive heart failure type I50.9 [address] [place] [address] [id number] Dec, Anxiety F41.9 and skilled nursing current use of anticoagulant Z79.01 [facility] [address]00565100[place], [place] [address] Dec, [place] [id number] [place] [address] [id number] Dec, [facility] [id number], [place] [id number] Nov, Chronic obstructive pulmonary disease, unspecified COPD type J44.9 [facility] [address] [id number] [place] [address] [id number] Nov, skilled nursing current use of anticoagulant Z79.01 ; Lumbago with sciatica, right side M54.41 and Anxiety F41.9 [facility] [address] [id number] [place] [address] [id number] Nov, [facility] [address] [id number] [place] [address] [id number] Oct, [facility] [address] [id number] [place] [address] [id number] Oct, 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 [facility] [address] [place] [id number] [place] [address] [id number] Sep, Hyperlipidemia, unspecified hyperlipidemia type E78.5 ; 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 and Lumbago with sciatica, right side M54.41 [facility] [address] [place] [id number] [place] [address] [id number] Aug, [facility] [address] [place] [id number] [place] [address] [id number] Aug, skilled nursing current use of anticoagulant Z79.01 [facility] [place] [address] [place] [id number] [place] [address] [id number] Aug, skilled nursing current use of anticoagulant Z79.01 [facility] [id number], [place] [id number] Aug, [facility] [id number] [place] [address] [id number] Aug, [facility] [address] [id number] [place] [address] [id number] Jun, Lumbago with sciatica, right side M54.41 ; Chronic obstructive pulmonary disease, unspecified COPD type J44.9 ; Attention-deficit hyperactivity disorder, predominantly hyperactive type F90.1 and skilled nursing current use of anticoagulant Z79.01 [facility] [address] [id number] [place] [address] [id number] Jun, [facility] [id number] [place] [address] [id number] May, Lumbago with sciatica, right side M54.41 ; Hyperlipidemia, unspecified hyperlipidemia type E78.5 and skilled nursing current use of anticoagulant Z79.01 [facility] [id number] [place] [address] [id number] May, Hyperlipidemia, unspecified hyperlipidemia type E78.5 [place] [address] [place] [id number] [place] [address] [id number] April, Chronic congestive heart failure, unspecified congestive heart failure type I50.9 ; Lumbago with sciatica, right side M54.41 ; Other chronic pain G89.29 ; Chronic obstructive pulmonary disease, unspecified COPD type J44.9 ; Attention- deficit hyperactivity disorder, predominantly hyperactive type F90.1 and skilled nursing current use of anticoagulant Z79.01 [place] [address] [place] [id number] [place] [address] [id number] Mar, [place] [id number] [place] [address] [id number] Mar, 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 [place] [address] [place] [id number] [place] [address] [id number] Jan, 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 [place] [id number] [place] [address] [id number] Jan, Other chronic pain G89.29 [place] [address] [place] [id number] [place] [address] [id number] Jan, skilled nursing current use of anticoagulant Z79.01 and Other chronic pain G89.29 [facility] [place] [address] [place] [id number] [place] [address] [id number] Dec, [place] [address] [place] [id number] [place] [address] [id number] Dec, skilled nursing current use of anticoagulant Z79.01 [place] [id number] [place] [address] [id number] Nov, Other chronic pain G89.29 [address] [place] [address] [id number] Nov, Other chronic pain G89.29 ; Hx of mechanical aortic valve replacement Z95.2 ; termite inspector (current) use of anticoagulants Z79.01 and Long-term use of high-risk medication Z79.899 [place] [id number] [place] [address] [id number] Oct, Other chronic pain G89.29 ; skilled nursing current use of anticoagulant Z79.01 ; Bronchitis J40 and Penile discharge R36.9 [place] [id number] [place] [address] [id number] Sep, [address] [id number] Sep, [address] [id number] Sep, skilled nursing current use of anticoagulant Z79.[address] [id number] Aug, 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 therapy V58.[address] [facility] [address] [id number][place] [id number] Aug, [facility] [address] [id number], [place] [id number] Aug, [place] [id number] [place] [address] [id number] Aug, skilled nursing current use of anticoagulant therapy V58.61 [address] [place] [address] [id number] Jul, 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 therapy V58.61 [address] [place] [address] [id number] Jul, Congestive heart failure, unspecified 428.0 [place] [id number] [place] [address] [id number] Jul, skilled nursing current use of anticoagulant therapy V58.61 [address] [place] [address] [id number] Jun, Other chronic pain 338.29 and Encounter for therapeutic drug monitoring V58.83 [facility] [id number], [place] [id number] May, Congestive heart failure, unspecified 428.0 and Encounter for long-term (current) use of other medications V58.69 [facility] [id number] [place] [address] [id number] May, Congestive heart failure, unspecified 428.0 [facility] [address] [place] [id number] [place] [address] [id number] April, Congestive heart failure, unspecified 428.0 [facility] [id number] [place] [address] [id number] April, Congestive heart failure, unspecified 428.0 ; Other chronic pain 338.29 and Encounter for long-term (current) use of other medications V58.69 [facility] [id number] [place] [address] [id number] April, [facility] [address] [place] [id number] [place] [address] Mar, [facility] [address] [place] [id number] [place] [address] Mar, [facility] [address] [place] [id number] [place] [address] Jan, [facility] [id number] [place] [address] [id number] Jan, [facility] [address] [place] [id number] [place] [address] Jan, [facility] [address] [place] [id number] [place] [address] Jan, [facility] [address] [place] [place] [id number] [place] [address] [id number] Jan, [facility] [address] [place] [id number] [place] [address] Jan, [facility] [address] [place] [id number] [place] [address] Dec, [facility] [address] [facility] [id number], [place] [address] Dec, [facility] [address] [facility] [id number], [place] [id number] Dec, [facility] [address] [facility] [id number], [place] [id number] Nov, [facility] [address] [facility] [id number], [place] [address] Nov, [facility] [address] [facility] [id number], [place] [address] Nov, [facility] [address] [facility] [id number], [place] [address] Nov, [facility] [address] [facility] [id number], [place] [address] Oct, [facility] [address] [facility] [id number], [place] [id number] Oct, [facility] [address] [facility] [id number], [place] [id number] Oct, [facility] [address] [facility] [id number], [place] [address] Oct, [facility] [address] [place] [id number], [place] [address] Sep, [facility] [address] [facility] [id number], [place] [id number] Sep, [facility] [address] [facility] [id number], [place] [address] Sep, [facility] [address] [facility] [id number], [place] [id number] Aug, [facility] [address] [facility] [id number], [place] [address] Aug, [facility] [address] [facility] [id number], [place] [address] Aug, [facility] [address] [facility] [id number], [place] [id number] Aug, [facility] [address] [id number], [place] [address] Aug, [facility] [address] [facility] [id number], [place] [address] Aug, [facility] [address] [facility] [id number], [place] [address] Aug, [facility] [address] [place] [address] [id number], [place] [address] Aug, [facility] [id number], [place] [id number] Jul, [facility] [address]00565100[place], [place] [address] Jul, [facility] [address] [place] [address] [id number], [place] [id number] Jun, [facility] [address] [address] [id number], [place] [address] Jun, [facility] [address] [place] [address] [id number], [place] [id number] May, [facility] [address] [id number], [place] [address] May, [facility] [address] [place] [address] [id number], [place] [id number] May, [facility] [address] [place] [address] [id number], [place] [address] May, IMMUNIZATIONS No Known Immunizations SOCIAL HISTORY Never Assessed REASON FOR VISIT Pain management (chronic) Whit NIELSON PLAN OF CARE Activity Details Follow Up 4 Weeks Reason:back paon VITAL SIGNS Height 71 in 2017-06-26 Weight 212.1 lbs 2017-06-26 Temperature 98.2 degrees Fahrenheit 2017-06-26 Heart Rate 80 bpm 2017-06-26 Respiratory Rate 16 2017-06-26 BMI 29.58 kg/m2 2017-06-26 Blood pressure systolic 122 mmHg 2017-06-26 Blood pressure diastolic 70 mmHg 2017-06-26 MEDICATIONS Medication Instructions Dosage Frequency Start Date End Date Duration Status Atorvastatin Calcium 20 mg Orally Once a day 1 tablet 24h May, Active Serevent Diskus 50 MCG/DOSE Inhalation Twice a day 1 puff 12h May, Active Nitroglycerin 0.4 MG Sublingual PRN 1 tab prn cp q 5 m x 3 if needed Active Oxygen 2 L/NC Active Lisinopril 10 mg Orally Once a day .5-1 tablet 24h Active Spiriva HandiHaler 18 MCG Inhalation Once a day 1 capsule 24h May, Active Gabapentin 300 mg 1 tablet 2 times a day Orally 0 days Active Wellbutrin 100 mg Orally Twice a day 1 tablet 12h Active Albuterol Sulfate HFA 108 (90 Base) MCG/ACT Inhalation every 4 hrs 2 puffs as needed 4h Active Oxycodone-Acetaminophen 7.5-325 MG Orally 3 times a day, must last one month take 1 -2 tablet Active Doc-Q-Lace orally Once a day 1 capsule 24h Active Spironolactone 25 MG Orally Once a day 1 tablet 24h Active Furosemide 40 mg Orally Once a day 1 tablet 24h Active Warfarin Sodium 4 MG Orally Once a day 2 tablets 24h Active Clonazepam 0.5 MG Orally at bedtime as needed 1/2 -1 tablet Jun, Active TENS Unit device Use as directed Jun, Active RESULTS Name Result Date Reference Range INR (IN HOUSE) 2017-06-26 INR 2.6 1.10 - 3.30 PREVIOUS INR 2.9 CURRENT COUMADIN DOSE 8mg daily NEW COUMADIN DOSE no change, recheck in 1 month Lot # [id number] Exp date 01/29/2018 PROCEDURES Procedure Date Ordered Result Body Site PROTHROMBIN TIME June 26, 2017 INSTRUCTIONS MEDICATIONS ADMINISTERED No Known Medications MEDICAL (GENERAL) HISTORY Type Description Date Medical History attention deficit hyperactivity disorder Medical History depression Medical History Congestive heart failure, unspecified Medical History COPD, on oxygen Medical History chronic lumbar pain s/p fall off roof 2007 Surgical History mitral valve replacement 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 for chest pains 03/11/17
--- OUTSIDE RECORDS SUMMARY | 2019-06-23 02:32 | XMS REPORT ---
Author Author APOLONIA LOPEZ [facility] e[employer] Address Unknown Phone Unavailable Care Team Providers Care Certified Executive Chef Name Role Phone APOLONIA LOPEZ Unavailable Allergies [...] Start Date End Date Status Dosage Oxycodone-Acetaminophen [facility] [address]-16 7.5-325 MG Orally 3 times a day take 1 tablet Results No Known Results Summary Purpose eClinicalWorks Submission
--- OUTSIDE RECORDS SUMMARY | 2019-06-23 02:33 | XMS REPORT ---
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 462723736 Problem Anxiety F41.9 Active 47938114 Problem Hyperlipidemia, unspecified hyperlipidemia type E78.5 Active 26111768 Problem Other chronic pain G89.29 Active 35096762 Problem Chronic obstructive pulmonary disease, unspecified COPD type J44.9 Active 49054722 Problem Chronic congestive heart failure, unspecified congestive heart failure type I50.9 Active 95572362 Problem Lumbago with sciatica, right side M54.41 Active 527569069 ALLERGIES Unknown Allergies SOCIAL HISTORY No smoking Hx information available PLAN OF CARE VITAL SIGNS MEDICATIONS Medication Instructions Dosage Frequency Start Date End Date Duration Status Albuterol Sulfate HFA 108 (90 Base) MCG/ACT Inhalation every 4 hrs 2 puffs as needed 4h 0 days Active RESULTS No Results PROCEDURES No Known procedures IMMUNIZATIONS No Known Immunizations
--- OUTSIDE RECORDS SUMMARY | 2019-06-23 02:33 | XMS REPORT ---
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
--- OUTSIDE RECORDS SUMMARY | 2019-06-23 02:33 | XMS REPORT ---
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 Z79.01 Active 557678630 Problem Anxiety F41.9 Active 03172859 Problem Hyperlipidemia, unspecified hyperlipidemia type E78.5 Active 91184108 Problem Attention-deficit hyperactivity disorder, predominantly hyperactive type F90.1 Active 086707880 Problem Other chronic pain G89.29 Active 99203309 Problem Chronic obstructive pulmonary disease, unspecified COPD type J44.9 Active 21144221 Problem Chronic congestive heart failure, unspecified congestive heart failure type I50.9 Active 93154693 ALLERGIES No Information ENCOUNTERS Encounter Location Date Diagnosis [address] [id number] [id number] April, Anxiety F41.9 ; long term acute care registered nurse current use of anticoagulant Z79.01 ; Chronic obstructive pulmonary disease, unspecified COPD type J44.9 ; Chronic congestive heart failure, unspecified congestive heart failure type I50.9 and Other chronic pain G89.[address] [id number] [id number] Mar, Closed fracture of right hand, initial encounter S62.91XA ; Chronic obstructive pulmonary disease, unspecified COPD type J44.9 ; residential current use of anticoagulant Z79.01 and Other chronic pain G89.29 [facility] [address] [id number] [place] [id number] Mar, Other chronic pain G89.29 ; Chronic obstructive pulmonary disease, unspecified COPD type J44.9 and Anxiety F41.9 [facility] [place] [id number] [id number] Nov, Chronic obstructive pulmonary disease, unspecified COPD type J44.9 [facility] [id number][place] [id number] Nov, long term acute care registered nurse current use of anticoagulant Z79.01 [facility] [place] [id number] [place] [address] [id number] Oct, Other chronic pain G89.29 [facility] [id number] [place] [address] [id number] Sep, [facility] [place] [id number] [place] [address] [id number] Aug, [facility] [place] [id number] [place] [address] [id number] Aug, Other chronic pain G89.29 ; Chronic obstructive pulmonary disease, unspecified COPD type J44.9 ; Encounter for immunization Z23 and long term acute care registered nurse current use of anticoagulant Z79.01 [facility] [address]00565[address] [id number] Aug, Anxiety F41.9 ; Hyperlipidemia, unspecified hyperlipidemia type E78.5 and Lumbago with sciatica, right side M54.41 [facility] [address]00565100[place] [id number] Jul, [facility] [address] [place] [address] [id number] Jul, Chronic obstructive pulmonary disease, unspecified COPD type J44.9 ; Anxiety F41.9 ; Lumbago with sciatica, right side M54.41 and long term acute care registered nurse current use of anticoagulant Z79.01 [facility] [place] [address] [place] [id number] [id number] Jul, long term acute care registered nurse current use of anticoagulant Z79.01 [facility] [place] [id number], [place] [id number] Jun, Lumbago with sciatica, right side M54.41 ; Chronic obstructive pulmonary disease, unspecified COPD type J44.9 ; Anxiety F41.9 and Encounter for immunization Z23 [facility] [address] [id number] [place] [address] Jun, Lumbago with sciatica, right side M54.41 [address]65100[place] [id number] Jun, residential current use of anticoagulant Z79.01 [place] [id number] [id number] May, [place] [id number] [place] [address] [id number] May, Lumbago with sciatica, right side M54.41 [address]00565100[place], [place] [id number] May, Abscess L02.91 [facility] [address]00565100[place] [address] April, Chronic obstructive pulmonary disease, unspecified COPD type J44.9 [address]00565100[place] [id number] April, Chronic obstructive pulmonary disease, unspecified COPD type J44.9 ; Lumbago with sciatica, right side M54.41 ; Chronic congestive heart failure, unspecified congestive heart failure type I50.9 ; Anxiety F41.9 and residential current use of anticoagulant Z79.01 [address]65100[place] [id number] April, Lumbago with sciatica, right side M54.41 [address]00565100[place] [id number] Mar, residential current use of anticoagulant Z79.01 ; Chronic obstructive pulmonary disease, unspecified COPD type J44.9 ; Chronic congestive heart failure, unspecified congestive heart failure type I50.9 ; Lumbago with sciatica, right side M54.41 ; Acute upper respiratory infection, unspecified J06.9 and Hyperlipidemia, unspecified hyperlipidemia type E78.5 [address]00565100[place] [id number] Mar, [address]00565100[place] [id number] Jan, long term 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 care registered nurse current use of anticoagulant Z79.01 ; Lumbago with sciatica, right side M54.41 ; Anxiety F41.9 ; Hyperlipidemia, unspecified hyperlipidemia type E78.5 and Chronic congestive heart failure, unspecified congestive heart failure type I50.9 [facility] [id number], [place] [id number] Dec, Anxiety F41.9 and residential current use of anticoagulant Z79.01 [facility] [address] [place] [id number] [address] Dec, [facility] [id number] [place] [address] [id number] Dec, [facility] [address] [place] [address] [id number] [place] [address] [id number] Nov, Chronic obstructive pulmonary disease, unspecified COPD type J44.9 [facility] [address] [place] [id number] [place] [address] [id number] Nov, long term acute care registered nurse current use of anticoagulant Z79.01 ; Lumbago with sciatica, right side M54.41 and Anxiety F41.9 [facility] [id number], [place] [id number] Nov, [facility] [address] [place] [address] [id number] [place] [address] [id number] Oct, [facility] [address] [place] [id number] [place] [address] [id number] Oct, residential current use of anticoagulant Z79.01 [facility] [id number] [place] [address] [id number] Sep, Hyperlipidemia, unspecified hyperlipidemia type E78.5 ; residential current use of anticoagulant Z79.01 and Lumbago with sciatica, right side M54.41 [facility] [id number] [place] [address] [id number] Aug, [facility] [place] [address] [place] [id number] [place] [address] [id number] Aug, long term acute care registered nurse current use of anticoagulant Z79.01 [facility] [address] [place] [id number] [place] [address] [id number] Aug, residential current use of anticoagulant Z79.01 [facility] [place] [address] [id number], [place] [id number] Aug, [facility] [id number] [place] [address] [id number] Aug, [facility] [address] [id number], [place] [id number] Jun, Lumbago with sciatica, right side M54.41 ; Chronic obstructive pulmonary disease, unspecified COPD type J44.9 ; Attention-deficit hyperactivity disorder, predominantly hyperactive type F90.1 and long term acute care registered nurse current use of anticoagulant Z79.01 [facility] [id number] [place] [address] [id number] Jun, [facility] [address] [place] [id number] [place] [address] [id number] May, Lumbago with sciatica, right side M54.41 ; Hyperlipidemia, unspecified hyperlipidemia type E78.5 and residential current use of anticoagulant Z79.01 [facility] [place] [address] [id number][place] [id number] May, Hyperlipidemia, unspecified hyperlipidemia type E78.5 [facility] [id number] [place] [address] [id number] April, Chronic congestive heart failure, unspecified congestive heart failure type I50.9 ; Lumbago with sciatica, right side M54.41 ; Other chronic pain G89.29 ; Chronic obstructive pulmonary disease, unspecified COPD type J44.9 ; Attention- deficit hyperactivity disorder, predominantly hyperactive type F90.1 and long term acute care registered nurse current use of anticoagulant Z79.01 [facility] [address] [id number], [place] [id number] Mar, [facility] [id number] [place] [address] [id number] Mar, residential current use of anticoagulant Z79.01 [facility] [address] [id number] [place] [address] [id number] Jan, long term acute care registered nurse current use of anticoagulant Z79.01 [facility] [address] [place] [address] [id number] [place] [address] [id number] Jan, Other chronic pain G89.29 [address]65100[place], [place] [id number] Jan, residential current use of anticoagulant Z79.01 and Other chronic pain G89.[address] [place] [address] [id number] Dec, [place] [id number] [place] [address] [id number] Dec, residential current use of anticoagulant Z79.01 [place] [id number] [place] [address] [id number] Nov, Other chronic pain G89.[address] [id number] Nov, Other chronic pain G89.29 ; Hx of mechanical aortic valve replacement Z95.2 ; residential (current) use of anticoagulants Z79.01 and Long-term use of high-risk medication Z79.899 [place] [id number] [place] [address] [id number] Oct, Other chronic pain G89.29 ; residential current use of anticoagulant Z79.01 ; Bronchitis J40 and Penile discharge R36.9 [place] [id number] [place] [address] [id number] Sep, [place] [id number] [place] [address] [id number] Sep, [address] [place] [address] [id number] Sep, residential current use of anticoagulant Z79.[address] [place] [address] [id number] Aug, residential current use of anticoagulant therapy V58.61 [facility] [address] [id number] [place] [id number] Aug, [facility] [address] [id number] [place] [id number] Aug, [place] [id number] [place] [address] [id number] Aug, long term acute care registered nurse current use of anticoagulant therapy V58.61 [facility] [id number], [place] [id number] Jul, long term acute care registered nurse current use of anticoagulant therapy V58.61 [facility] [address] [place] [id number] [id number] Jul, Congestive heart failure, unspecified 428.0 [facility] [place] [address] [place] [address] [id number] [place] [address] [id number] Jul, residential current use of anticoagulant therapy V58.61 [facility] [id number] [place] [address] [id number] Jun, Other chronic pain 338.29 and Encounter for therapeutic drug monitoring V58.83 [facility] [address] [place] [id number] [place] [address] [id number] May, Congestive heart failure, unspecified 428.0 and Encounter for long-term (current) use of other medications V58.69 [facility] [place] [id number] [place] [address] [id number] May, Congestive heart failure, unspecified 428.0 [facility] [id number] [place] [address] [id number] April, Congestive heart failure, unspecified 428.0 [facility] [address] [place] [address] [id number] [place] [address] [id number] April, Congestive heart failure, unspecified 428.0 ; Other chronic pain 338.29 and Encounter for long-term (current) use of other medications V58.69 [facility] [id number], [place] [id number] April, [facility] [address] [place] [id number] [place] [address] Mar, [facility] [address] [place] [id number] [place] [address] Mar, [facility] [id number] [place] [address] Jan, [facility] [address] [place] [address] [id number] Jan, [facility] [place] [facility] [address] [id number] [place] [address] Jan, [facility] [place] [facility] [address] [id number] [place] [address] Jan, [facility] [address] [id number] [place] [id number] Jan, [facility] [place] [facility] [address] [id number] [place] [address] Jan, [facility] [place] [facility] [address] [id number] [place] [address] Dec, [facility] [place] [facility] [address] [id number] [place] [address] Dec, [facility] [address] [id number], [place] [id number] Dec, [facility] [address] [id number] [place] [id number] Nov, [facility] [place] [facility] [address] [id number] [place] [address] Nov, [facility] [place] [facility] [address] [id number] [place] [address] Nov, [facility] [place] [facility] [address] [facility] [id number] [place] [address] Nov, [facility] [place] [facility] [address] [id number] [place] [address] Oct, [facility] [address] [id number] [id number] Oct, [facility] [address] [id number] [id number] Oct, [facility] [place] [facility] [address] [id number] [place] [address] Oct, [facility] [place] [facility] [address] [id number] [place] [address] Sep, [facility] [address] [id number], [place] [id number] Sep, [facility] [place] [facility] [address] [id number] [place] [address] Sep, [facility] [address] [facility] [id number] [id number] Aug, [facility] [place] [facility] [address] [facility] [id number] [address] Aug, [facility] [place] [facility] [address] [id number] [address] Aug, [facility] [address] [facility] [id number] [place] [id number] Aug, [facility] [place] [facility] [address] [facility] [id number] [address] Aug, [facility] [place] [facility] [address]00565100[place] [address] Aug, [facility] [place] [facility] [address] [facility] [id number] [address] Aug, [facility] [place] [facility] [address] [facility] [id number] [address] Aug, [facility] [address] [facility] [id number][place] [id number] Jul, [facility] [place] [facility] [address] [facility] [id number][place] [address] Jul, [facility] [address] [facility] [id number], [place] [id number] Jun, [facility] [place] [facility] [address] [facility] [id number] [address] Jun, [facility] [address] [facility] [id number], [place] [id number] May, [facility] [place] [facility] [address] [id number], [place] [address] May, [facility] [address] [facility] [id number], [place] [id number] May, [facility] [place] [facility] [address] [facility] [id number] [place] [address] May, IMMUNIZATIONS No Known Immunizations SOCIAL HISTORY Never Assessed REASON FOR VISIT referral PLAN OF CARE VITAL SIGNS MEDICATIONS No [...] 03/2013 Hospitalization History surgery 2013 Hospitalization History [facility] for chest pains 03/11/17
--- OUTSIDE RECORDS SUMMARY | 2019-06-23 02:33 | XMS REPORT ---
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 Active 696635877 Problem Anxiety F41.9 Active 74382632 Problem Hyperlipidemia, unspecified hyperlipidemia type E78.5 Active 13767860 Problem Attention-deficit hyperactivity disorder, predominantly hyperactive type F90.1 Active 363249434 Problem Other chronic pain G89.29 Active 11992685 Problem Chronic obstructive pulmonary disease, unspecified COPD type J44.9 Active 88158369 Problem Chronic congestive heart failure, unspecified congestive heart failure type I50.9 Active 68978205 ALLERGIES No Information ENCOUNTERS Encounter Location Date Diagnosis [id number] [place] [address] [id number] Nov, Chronic obstructive pulmonary disease, unspecified COPD type J44.[address] [place] [address] [id number] Nov, penitentiary current use of anticoagulant Z79.[address] [place] [address] [id number] Oct, Other chronic pain G89.[address] [place] [address] [id number] Sep, [place] [id number] [place] [address] [id number] Aug, [address] [place] [address] [id number] Aug, Other chronic pain G89.29 ; Chronic obstructive pulmonary disease, unspecified COPD type J44.9 ; Encounter for immunization Z23 and penitentiary current use of anticoagulant Z79.01 [facility] [address] [place] [address] [id number] Aug, Anxiety F41.9 ; Hyperlipidemia, unspecified hyperlipidemia type E78.5 and Lumbago with sciatica, right side M54.41 [facility] [address] [id number] Jul, [facility] [place] [id number] [place] [address] [id number] Jul, Chronic obstructive pulmonary disease, unspecified COPD type J44.9 ; Anxiety F41.9 ; Lumbago with sciatica, right side M54.41 and 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 [place] [id number] [place] [address] [id number] Jul, penitentiary current use of anticoagulant Z79.01 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 [address] [place] [address] [id number] May, [facility] [address] [id number] May, Lumbago with sciatica, right side M54.41 [facility] [address] [place] [address] [id number] May, Abscess L02.91 [facility] [address], [place] [address] April, Chronic obstructive pulmonary disease, unspecified COPD type J44.9 [facility] [id number] [id number] April, Chronic obstructive pulmonary disease, unspecified COPD type J44.9 ; Lumbago with sciatica, right side M54.41 ; Chronic congestive heart failure, unspecified congestive heart failure type I50.9 ; Anxiety F41.9 and penitentiary current use of anticoagulant Z79.01 [facility] [id number] [place] [address] [id number] April, Lumbago with sciatica, right side M54.41 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 ; Chronic obstructive pulmonary disease, unspecified COPD type J44.9 ; Chronic congestive heart failure, unspecified congestive heart failure type I50.9 ; Lumbago with sciatica, right side M54.41 ; Acute upper respiratory infection, unspecified J06.9 and Hyperlipidemia, unspecified hyperlipidemia type E78.5 [facility] [id number] [place] [address] [id number] Mar, [facility] [address] [place] [id number] [place] [address] [id number] Jan, penitentiary current use of anticoagulant Z79.01 ; Lumbago with sciatica, right side M54.41 ; Anxiety F41.9 ; Hyperlipidemia, unspecified hyperlipidemia type E78.5 and Chronic congestive heart failure, unspecified congestive heart failure type I50.9 [facility] [address] [id number] Dec, Anxiety F41.9 and 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 [address], [place] [address] Dec, [address] [place] [address] [id number] Dec, [address] [place] [address] [id number] Nov, Chronic obstructive pulmonary disease, unspecified COPD type J44.9 [place] [id number] [place] [address] [id number] Nov, penitentiary current use of anticoagulant Z79.01 ; Lumbago with sciatica, right side M54.41 and Anxiety F41.9 [facility] [id number] [place] [address] [id number] Nov, [facility] [id number] [place] [address] [id number] Oct, [facility] [id number] [place] [address] [id number] Oct, 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 [address] [place] [id number] [place] [address] [id number] Aug, [facility] [address] [place] [id number] [place] [address] [id number] Aug, penitentiary current use of anticoagulant Z79.01 [facility] [id number] [place] [address] [id number] Aug, penitentiary current use of anticoagulant Z79.01 [facility] [address] [place] [id number] [place] [address] [id number] Aug, [facility] [address] [address] [id number] [place] [address] [id number] Aug, [facility] [address] [place] [address] [id number] [place] [address] [id number] Jun, Lumbago with sciatica, right side M54.41 ; Chronic obstructive pulmonary disease, unspecified COPD type J44.9 ; Attention-deficit hyperactivity disorder, predominantly hyperactive type F90.1 and penitentiary current use of anticoagulant Z79.01 [facility] [id number] [place] [address] [id number] Jun, [facility] [address] [id number] [place] [address] [id number] May, Lumbago with sciatica, right side M54.41 ; Hyperlipidemia, unspecified hyperlipidemia type E78.5 and 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 [facility] [address] [place] [id number] [place] [address] [id number] May, Hyperlipidemia, unspecified hyperlipidemia type E78.5 [facility] [address] [id number] April, Chronic congestive heart failure, unspecified congestive heart failure type I50.9 ; Lumbago with sciatica, right side M54.41 ; Other chronic pain G89.29 ; Chronic obstructive pulmonary disease, unspecified COPD type J44.9 ; Attention- deficit hyperactivity disorder, predominantly hyperactive type F90.1 and 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 [place] [address] [id number] Jan, penitentiary current use of anticoagulant Z79.01 and Other chronic pain G89.29 [place] [id number] [place] [address] [id number] Dec, [facility] [address] [id number] Dec, penitentiary current use of anticoagulant Z79.01 [place] [address] [id number] Nov, Other chronic pain G89.29 [facility] [address] [id number] Nov, Other chronic pain G89.29 ; Hx of mechanical aortic valve replacement Z95.2 ; superintendent container terminal (current) use of anticoagulants Z79.01 and Long-term use of high-risk medication Z79.899 [address] [place] [address] [id number] Oct, Other chronic pain G89.29 ; penitentiary current use of anticoagulant Z79.01 ; Bronchitis J40 and Penile discharge R36.[address] [place] [address] [id number] Sep, [place] [id number] [place] [address] [id number] Sep, [place] [id number] [place] [address] [id number] Sep, penitentiary current use of anticoagulant Z79.01 [place] [id number] [place] [address] [id number] Aug, penitentiary current use of anticoagulant therapy V58.61 [facility] [address] [id number] [id number] Aug, [facility] [address] [id number][place] [id number] Aug, [address] [place] [address] [id number] Aug, penitentiary current use of anticoagulant therapy V58.61 [place] [id number] [place] [address] [id number] Jul, superintendent container terminal current use of anticoagulant therapy V58.[address] [place] [address] [id number] Jul, Congestive heart failure, unspecified 428.[address] [place] [address] [id number] Jul, superintendent container terminal current use of anticoagulant therapy V58.61 [place] [id number] [place] [address] [id number] Jun, Other chronic pain 338.29 and Encounter for therapeutic drug monitoring V58.[address] [place] [address] [id number] May, Congestive heart failure, unspecified 428.0 and Encounter for long-term (current) use of other medications V58.69 [facility] [address] [facility] [id number] [place] [id number] May, Congestive heart failure, unspecified 428.0 [facility] [address] [facility] [id number] [place] [id number] April, Congestive heart failure, unspecified 428.0 [facility] [address] [place] [id number] [place] [id number] April, Congestive heart failure, unspecified 428.0 ; Other chronic pain 338.29 and Encounter for long-term (current) use of other medications V58.69 [facility] [address] [place] [id number] [place] [id number] April, [facility] [address] [place] [address] Mar, [facility] [address] [id number] [address] Mar, [facility] [address] [id number], [place] [address] Jan, [facility] [id number] [place] [id number] Jan, [facility] [address], [place] [address] Jan, [facility] [address], [place] [address] Jan, [facility] [address] [place] [id number] [place] [id number] Jan, [facility] [place] [facility] [address] [place] [id number], [place] [address] Jan, [facility] [place] [facility] [address] [id number], [place] [address] Dec, [facility] [address] [place] [id number], [place] [address] Dec, [facility] [address] [place] [id number] [place] [id number] Dec, [facility] [address] [facility] [id number] [place] [id number] Nov, [facility] [place] [facility] [address] [facility] [id number] [place] [address] Nov, [facility] [place] [facility] [address] [facility] [id number], [place] [address] Nov, [facility] [place] [facility] [address] [place] [address] [id number] [place] [address] Nov, [facility] [place] [facility] [address] [facility] [id number], [place] [address] Oct, [facility] [address] [facility] [id number] [place] [address] [id number] Oct, [facility] [address] [facility] [id number] [place] [id number] Oct, [facility] [place] [facility] [address] [address] [id number], [place] [address] Oct, [facility] [place] [facility] [address] [facility] [id number], [place] [address] Sep, [facility] [address] [facility] [id number] [place] [id number] Sep, [facility] [place] [facility] [address], [place] [address] Sep, [facility] [id number] [place] [id number] Aug, [facility] [place] [facility] [address] [facility] [id number], [place] [address] Aug, [facility] [place] [facility] [address] [facility] [id number], [place] [address] Aug, [facility] [address] [facility] [id number] [place] [id number] Aug, [facility] [place] [facility] [address], [place] [address] Aug, [facility] [place] [facility] [address] [id number], [place] [address] Aug, [facility] [address] [facility] [id number], [place] [address] Aug, [facility] [address] [facility] [id number], [place] [address] Aug, [facility] [address] [place] [address] [id number] [place] [id number] Jul, [facility] [address] [facility] [id number], [place] [address] Jul, [facility] [address] [place] [id number] [place] [id number] Jun, [facility] [address] [facility] [id number], [place] [address] Jun, [facility] [address] [place] [id number] [place] [id number] May, [facility] [address] [facility] [id number], [place] [address] May, [facility] 120 [facility] [id number] [place] [id number] May, [facility] [address] [facility] [id number], [place] [address] May, IMMUNIZATIONS No Known Immunizations SOCIAL HISTORY Never Assessed REASON FOR VISIT Stiolto note PLAN OF CARE VITAL SIGNS MEDICATIONS Medication Instructions Dosage Frequency Start Date End Date Duration Status Spiriva HandiHaler 18 MCG Inhalation Once a day 1 capsule 24h May, Active Serevent Diskus 50 MCG/DOSE Inhalation Twice a day 1 puff 12h May, Active RESULTS No Results PROCEDURES No [...] History surgery 2012 Hospitalization History [facility] for chest pains 03/11/17
--- OUTSIDE RECORDS SUMMARY | 2019-06-23 02:33 | XMS REPORT ---
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.01 Active 184224268 Problem Anxiety F41.9 Active 30810679 Problem Hyperlipidemia, unspecified hyperlipidemia type E78.5 Active 09463452 Problem Attention-deficit hyperactivity disorder, predominantly hyperactive type F90.1 Active 974835913 Problem Other chronic pain G89.29 Active 65049862 Problem Chronic obstructive pulmonary disease, unspecified COPD type J44.9 Active 19345329 Problem Chronic congestive heart failure, unspecified congestive heart failure type I50.9 Active 31012600 ALLERGIES No Known Allergies ENCOUNTERS Encounter Location Date Diagnosis [address] [place] [address] [id number] Nov, Chronic obstructive pulmonary disease, unspecified COPD type J44.[address] [place] [address] [id number] Nov, 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.[address] [place] [address] [id number] Oct, Other chronic pain G89.29 [address] [place] [address] [id number] Sep, [place] [id number] [place] [address] [id number] Aug, [address] [place] [address] [id number] Aug, Other chronic pain G89.29 ; Chronic obstructive pulmonary disease, unspecified COPD type J44.9 ; Encounter for immunization Z23 and jail current use of anticoagulant Z79.01 [facility] [address] [place] [address] [id number] Aug, Anxiety F41.9 ; Hyperlipidemia, unspecified hyperlipidemia type E78.5 and Lumbago with sciatica, right side M54.41 [facility] [address] [place] [address] [id number] Jul, [facility] [place] [id number] [place] [address] [id number] Jul, Chronic obstructive pulmonary disease, unspecified COPD type J44.9 ; Anxiety F41.9 ; Lumbago with sciatica, right side M54.41 and 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.01 [facility] [address] [place] [address] [id number] Jul, 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.01 [facility] [place] [id number] [place] [address] [id number] Jun, Lumbago with sciatica, right side M54.41 ; Chronic obstructive pulmonary disease, unspecified COPD type J44.9 ; Anxiety F41.9 and Encounter for immunization Z23 [facility] [address] [id number] [place] [address] Jun, Lumbago with sciatica, right side M54.41 [address] [phone] Jun, 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.01 [facility] [address] [place] [address] [id number] May, [facility] [address] [place] [address] [id number] May, Lumbago with sciatica, right side M54.41 [address] [place] [address] [id number] May, Abscess L02.91 [facility] [place] [address] [address] April, Chronic obstructive pulmonary disease, unspecified COPD type J44.9 [facility] [id number] [id number] April, Chronic obstructive pulmonary disease, unspecified COPD type J44.9 ; Lumbago with sciatica, right side M54.41 ; Chronic congestive heart failure, unspecified congestive heart failure type I50.9 ; Anxiety F41.9 and 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.01 [facility] [id number] [place] [address] [id number] April, Lumbago with sciatica, right side M54.41 [facility] [id number] [id number] Mar, jail current use of anticoagulant Z79.01 ; Chronic obstructive pulmonary disease, unspecified COPD type J44.9 ; Chronic congestive heart failure, unspecified congestive heart failure type I50.9 ; Lumbago with sciatica, right side M54.41 ; Acute upper respiratory infection, unspecified J06.9 and Hyperlipidemia, unspecified hyperlipidemia type E78.5 [facility] [address] [place] [address] [id number] Mar, [address] [place] [address] [id number] Jan, 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.01 ; Lumbago with sciatica, right side M54.41 ; Anxiety F41.9 ; Hyperlipidemia, unspecified hyperlipidemia type E78.5 and Chronic congestive heart failure, unspecified congestive heart failure type I50.9 [facility] [address] [id number] Dec, Anxiety F41.9 and jail current use of anticoagulant Z79.01 [facility] [place] [address] [address] Dec, [address] [place] [address] [id number] Dec, [address] [place] [address] [id number] Nov, Chronic obstructive pulmonary disease, unspecified COPD type J44.9 [place] [id number] [place] [address] [id number] Nov, jail current use of anticoagulant Z79.01 ; Lumbago with sciatica, right side M54.41 and Anxiety F41.9 [facility] [place] [id number] [place] [address] [id number] Nov, [facility] [id number] [place] [address] [phone] Oct, [facility] [address] [place] [address] [phone] Oct, 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.01 [facility] [place] [id number] [place] [address] [id number] Sep, Hyperlipidemia, unspecified hyperlipidemia type E78.5 ; jail current use of anticoagulant Z79.01 and Lumbago with sciatica, right side M54.41 [facility] [id number] [place] [address] [id number] Aug, [facility] [id number] [place] [address] [id number] Aug, 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.01 [facility] [id number] [place] [address] [id number] Aug, jail current use of anticoagulant Z79.01 [facility] [id number] [place] [address] [id number] Aug, [facility] [id number] [place] [address] [id number] Aug, [facility] [id number] [place] [address] [id number] Jun, Lumbago with sciatica, right side M54.41 ; Chronic obstructive pulmonary disease, unspecified COPD type J44.9 ; Attention-deficit hyperactivity disorder, predominantly hyperactive type F90.1 and 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.01 [facility] [place] [id number] [place] [address] [id number] Jun, [facility] [id number] [place] [address] [id number] May, Lumbago with sciatica, right side M54.41 ; Hyperlipidemia, unspecified hyperlipidemia type E78.5 and 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.01 [facility] [id number] [place] [address] [id number] May, Hyperlipidemia, unspecified hyperlipidemia type E78.5 [facility] [id number] [place] [address] [id number] April, Chronic congestive heart failure, unspecified congestive heart failure type I50.9 ; Lumbago with sciatica, right side M54.41 ; Other chronic pain G89.29 ; Chronic obstructive pulmonary disease, unspecified COPD type J44.9 ; Attention- deficit hyperactivity disorder, predominantly hyperactive type F90.1 and 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.01 [place] [address] [id number] Mar, [place] [address] [id number] Mar, 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.[address] [id number] Jan, jail current use of anticoagulant Z79.01 [place] [id number] [place] [address] [id number] Jan, Other chronic pain G89.29 [facility] [place] [address] [id number] Jan, jail current use of anticoagulant Z79.01 and Other chronic pain G89.29 [place] [id number] [place] [address] [id number] Dec, [facility] [place] [address] [id number] Dec, jail current use of anticoagulant Z79.[address] [id number] Nov, Other chronic pain G89.29 [facility] [address] [id number] Nov, Other chronic pain G89.29 ; Hx of mechanical aortic valve replacement Z95.2 ; lobsterman (current) use of anticoagulants Z79.01 and Long-term use of high-risk medication Z79.899 [address] [place] [address] [id number] Oct, Other chronic pain G89.29 ; jail current use of anticoagulant Z79.01 ; Bronchitis J40 and Penile discharge R36.9 [address] [place] [address] [id number] Sep, [place] [id number] [place] [address] [id number] Sep, [place] [id number] [place] [address] [id number] Sep, jail current use of anticoagulant Z79.01 [place] [id number] [place] [address] [id number] Aug, jail current use of anticoagulant therapy V58.[address] [facility] [address] [id number] [phone] Aug, [facility] [address] [id number] [phone] Aug, [address] [place] [address] [id number] Aug, 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 therapy V58.61 [address] [place] [address] [id number] Jul, 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 therapy V58.61 [address] [place] [address] [id number] Jul, Congestive heart failure, unspecified 428.0 [address] [place] [address] [id number] Jul, 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 therapy V58.61 [place] [id number] [place] [address] [id number] Jun, Other chronic pain 338.29 and Encounter for therapeutic drug monitoring V58.83 [address] [place] [address] [id number] May, Congestive heart failure, unspecified 428.0 and Encounter for long-term (current) use of other medications V58.69 [facility] [address] [facility] [id number] [phone] May, Congestive heart failure, unspecified 428.0 [facility] [address] [facility] [id number][place] [id number] April, Congestive heart failure, unspecified 428.0 [facility] [place] [id number][place] [id number] April, Congestive heart failure, unspecified 428.0 ; Other chronic pain 338.29 and Encounter for long-term (current) use of other medications V58.69 [facility] [id number], [place] [id number] April, [facility] [id number] [place] [phone] Mar, [facility] [id number] [address] Mar, [facility] [id number] [place] [phone] Jan, [facility] [id number], [place] [id number] Jan, [facility] [address] [place] [phone] Jan, [facility] [address]005[address] [address] Jan, [facility] [id number], [place] [id number] Jan, [facility] [place] [facility] [address] [address] Jan, [facility] [place] [facility] [id number] [place] [phone] Dec, [facility] [place] [facility] [address] [id number] [address] Dec, [facility] [id number], [place] [phone] Dec, [facility] [address] [id number] [phone] Nov, [facility] [place] [facility] [address] [facility] [id number] [place] [address] Nov, [facility] [place] [facility] [address] [facility] [id number] [address] Nov, [facility] [place] [facility] [address] [id number] [place] [address] Nov, [facility] [place] [facility] [address] [facility] [id number] [address] Oct, [facility] [address] [id number] [place] [phone] Oct, [facility] [address] [facility] [id number][place] [phone] Oct, [facility] [place] [facility] [address] [address] Oct, [facility] [place] [facility] [address] [facility] [id number] [address] Sep, [facility] [address] [facility] [id number], [place] [id number] Sep, [facility] [place] [facility] [address] [address] Sep, [facility] [id number], [place] [id number] Aug, [facility] [place] [facility] [address] [facility] [id number] [address] Aug, [facility] [place] [facility] [address] [facility] [id number] [address] Aug, [facility] [address] [facility] [id number], [place] [id number] Aug, [facility] [place] [facility] [address] [address] Aug, [facility] [place] [facility] [address] [address] Aug, [facility] [place] [address] [address] Aug, [facility] [address]005[address] [address] Aug, [facility] [id number], [place] [id number] Jul, [facility] [address]005[address] [address] Jul, [facility] [address]005[address], [place] [id number] Jun, [facility] [place] [address]005[address]100[place] [address] Jun, [facility] [id number], [place] [id number] May, [facility] [place] [address] [address] May, [facility] [address], [place] [phone] May, [facility] [place] [address] [address] May, IMMUNIZATIONS No Known Immunizations SOCIAL HISTORY Never Assessed REASON FOR VISIT ingrown hair on testicles Veronica OTERO PLAN OF CARE Activity Details Follow Up 6 Weeks Reason:pain mgement VITAL SIGNS Height 71 in 2017-05-15 Weight 214.8 lbs 2017-05-15 Temperature 97.8 degrees Fahrenheit 2017-05-15 Heart Rate 84 bpm 2017-05-15 Respiratory Rate 18 2017-05-15 BMI 29.96 kg/m2 2017-05-15 Blood pressure systolic 128 mmHg 2017-05-15 Blood pressure diastolic 74 mmHg 2017-05-15 MEDICATIONS Medication Instructions Dosage Frequency Start Date End Date Duration Status Wellbutrin 100 mg Orally Twice a day 1 tablet 12h Active Spiriva HandiHaler 18 MCG Inhalation Once a day 1 capsule 24h May, Active Spironolactone 25 MG Orally Once a day 1 tablet 24h Active Furosemide 40 mg Orally Once a day 1 tablet 24h Active Serevent Diskus 50 MCG/DOSE Inhalation Twice a day 1 puff 12h 07 May, 2017 Active Atorvastatin Calcium 20 mg Orally Once a day 1 tablet 24h May, Active Oxycodone-Acetaminophen 7.5-325 MG Orally 3 times a day, must last one month take 1 -2 tablet Active Gabapentin 300 mg 1 tablet 2 times a day Orally 0 days 0 Active Doc-Q-Lace orally Once a day 1 capsule 24h Active Lisinopril 10 mg Orally Once a day .5-1 tablet 24h Active Bactrim DS 800-160 MG Orally 2 times a day 1 tablet 12h 14 May, 2017 May, 10 day(s) Active Nitroglycerin 0.4 MG Sublingual PRN 1 tab prn cp q 5 m x 3 if needed Active Albuterol Sulfate HFA 108 (90 Base) MCG/ACT Inhalation every 4 hrs 2 puffs as needed 4h 0 days Active Warfarin Sodium 4 MG Orally Once a day 2 tablets 24h Active Oxygen 2 L/NC Active RESULTS No Results PROCEDURES No Known [...] 03/2013 Hospitalization History surgery 2013 Hospitalization History [facility] for chest pains 03/11/17
--- OUTSIDE RECORDS SUMMARY | 2019-06-23 02:34 | XMS REPORT | Continuity of Care Document ---
Author Organization Unknown Address Unknown Allergies There is no data. Medications There is no data. 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, APOLONIA E 338.29 OTHER CHRONIC PAIN 05/10/2014 HELLWIG SOLAR ELECTRIC/PHOTOVOLTAIC INSTALLER, APOLONIA E 428.0 CONGESTIVE HEART FAILURE UNSPECIFIED 05/10/2014 HELLWIG SOLAR ELECTRIC/PHOTOVOLTAIC INSTALLER APOLONIA E V58.69 LONG-TERM (CURRENT) USE OF OTHER MEDICATIONS 05/10/2014 HELLWIG SOLAR ELECTRIC/PHOTOVOLTAIC INSTALLER, APOLONIA E 338.29 OTHER CHRONIC PAIN 05/10/2014 HELLWIG SOLAR ELECTRIC/PHOTOVOLTAIC INSTALLER, APOLONIA E 428.0 CONGESTIVE HEART FAILURE UNSPECIFIED 05/10/2014 HELLWIG SOLAR ELECTRIC/PHOTOVOLTAIC INSTALLER, APOLONIA E V58.69 LONG-TERM (CURRENT) USE OF OTHER MEDICATIONS 05/10/2014 SIMPSON DO, MORE K 338.29 OTHER CHRONIC PAIN 05/10/2014 SIMPSON DO, MORE K 428.0 CONGESTIVE HEART FAILURE UNSPECIFIED 05/10/2014 SIMPSON DO, MORE K V58.69 LONG-TERM (CURRENT) USE OF OTHER MEDICATIONS 05/10/2014 SIMPSON DO, MORE K 338.29 OTHER CHRONIC PAIN 05/10/2014 SIMPSON DO, MORE K 428.0 CONGESTIVE HEART FAILURE UNSPECIFIED 05/10/2014 SIMPSON DO, MORE K V58.69 LONG-TERM (CURRENT) USE OF OTHER MEDICATIONS 05/10/2014 SIMPSON DO, MORE K 338.29 OTHER CHRONIC PAIN 05/10/2014 SIMPSON DO, MORE K 428.0 CONGESTIVE HEART FAILURE UNSPECIFIED 05/10/2014 SIMPSON DO, MORE K V58.69 LONG-TERM (CURRENT) USE OF OTHER MEDICATIONS 05/10/2014 ROSELINE SINGH APRN 338.29 OTHER CHRONIC PAIN 05/10/2014 ROSELINE SINGH APRN 428.0 CONGESTIVE HEART FAILURE UNSPECIFIED 05/10/2014 ROSELINE SINGH APRN V58.69 LONG-TERM (CURRENT) USE OF OTHER MEDICATIONS 05/10/2014 MORE SIMPSON DO 338.29 OTHER CHRONIC PAIN 05/10/2014 MORE SIMPSON DO 428.0 CONGESTIVE HEART FAILURE UNSPECIFIED 05/10/2014 MORE SIMPSON DO V58.69 LONG-TERM (CURRENT) USE OF OTHER MEDICATIONS 05/10/2014 APOLONIA LOPEZ APRN 338.29 OTHER CHRONIC PAIN 05/10/2014 APOLONIA LOPEZ APRN 428.0 CONGESTIVE HEART FAILURE UNSPECIFIED 05/10/2014 APOLONIA LOPEZ APRN V58.69 LONG-TERM (CURRENT) USE OF OTHER MEDICATIONS 08/26/2014 MORE SIMPSON DO 599.0 URINARY TRACT INFECTION SITE NOT SPECIFIED 08/26/2014 MORE SIMPSON DO 599.0 URINARY TRACT INFECTION SITE NOT SPECIFIED 08/26/2014 ROSELINE SINGH APRN 599.0 URINARY TRACT INFECTION SITE NOT SPECIFIED 08/26/2014 MORE SIMPSON DO 599.0 URINARY TRACT INFECTION SITE NOT SPECIFIED 08/26/2014 APOLONIA LOPEZ APRN 599.0 URINARY TRACT INFECTION SITE NOT SPECIFIED 11/22/2014 MORE SIMPSON DO 780.50 UNSPECIFIED SLEEP DISTURBANCE 11/22/2014 APOLONIA LOPEZ APRN 780.50 UNSPECIFIED SLEEP DISTURBANCE 12/22/2014 MORE SIMPSON DO 466.0 ACUTE BRONCHITIS 12/22/2014 APOLONIA LOPEZ APRN 466.0 ACUTE BRONCHITIS 02/02/2015 APOLONIA LOPEZ APRN 788.7 URETHRAL DISCHARGE Procedures Code [place] [address] INR (IN HOUSE) 05/10/2014 49701 INR (IN HOUSE) 05/26/2014 15560 INR (IN HOUSE) 06/28/2014 67530 INR (IN HOUSE) 07/05/2014 43319 ROUTINE VENIPUNCTURE 08/26/2014 94184 UA LONG DIP 08/26/2014 21587 TROPONIN, QUANT 08/26/2014 88424 CULTURE URINE 08/26/2014 82845 GC/CHLAM URINE (STATE) 08/26/2014 73211 INR (IN HOUSE) 09/24/2014 13557 INR (IN HOUSE) 10/19/2014 55615 UA W/MICROSCOPY 12/22/2014 76996 GC/CHLAM URINE (STATE) 12/22/2014 61804 OXIMETRY 12/22/2014 91354 UA LONG DIP 12/22/2014 Results Test Result Range HEP C PCR QUANT (Graph)-APPROVAL REQUIRED - 08/26/18 10:53 HCV RNA, QUANTITATIVE REAL TIME PCR <15 NOT DETECTED IU/mL NOT DETECTED HCV RNA, QUANTITATIVE REAL TIME PCR <1.18 NOT DETECTED Log IU/mL NOT DETECTED COMMENT NRG Encounters ACCT No. Visit Date/Time Discharge Status Pt. Type Provider Facility Loc./Unit Complaint [id number] 02/02/2015 09:01:00 02/02/2015 23:59:59 CLS Outpatient APOLONIA LOPEZ APRN [id number] 12/22/2014 08:47:00 12/22/2014 23:59:59 CLS Outpatient MORE SIMPSON DO [id number] 10/19/2014 09:30:00 10/19/2014 23:59:59 CLS Outpatient ROSELINE SINGH APRN [id number] 09/24/2014 08:02:00 09/24/2014 23:59:59 CLS Outpatient MORE SIMPSON DO [id number] 08/26/2014 10:49:00 08/26/2014 23:59:59 CLS Outpatient MORE SIMPSON DO [id number] 07/05/2014 11:05:00 07/05/2014 23:59:59 CLS Outpatient MORE SIMPSON DO [id number] 06/28/2014 09:13:00 06/28/2014 23:59:59 CLS Outpatient APOLONIA LOPEZ APRN [id number] 05/26/2014 10:32:00 05/26/2014 23:59:59 CLS Outpatient APOLONIA LOPEZ APRN [id number] 05/10/2014 13:48:00 05/10/2014 23:59:59 [place] [id number] 01/27/2019 11:00:00 01/27/2019 23:59:59 CLS Outpatient ROSELINE SINGH APRN [facility] [id number] 08/26/2018 11:00:00 Document Registration
--- NOTE | 2019-06-23 06:56 | Diagnostic Imaging Report ---
EXAM: KNEE, RIGHT, 3 VIEWS INDICATION: Right knee pain. COMPARISON: None. FINDINGS: Pretibial soft tissue swelling. No fracture or malalignment. No suspicious osteoblastic or lytic lesions. No radiopaque foreign bodies. IMPRESSION: Pretibial soft tissue swelling. Remainder negative. Dictated by: Dictated on workstation # [id number]
--- NOTE | 2019-06-23 06:56 | Diagnostic Imaging Report ---
EXAM: TIBIA/FIBULA, RIGHT, 2 VIEWS INDICATION: Right knee pain. COMPARISON: Right knee radiographs also performed today. FINDINGS: Pretibial soft tissue swelling. No radiopaque foreign bodies. No fracture or malalignment. No suspicious osteoblastic or lytic lesions. IMPRESSION: Pretibial soft tissue swelling. Remainder negative. Dictated by: Dictated on workstation # [id number]
--- NOTE | 2019-06-23 06:57 | Diagnostic Imaging Report ---
EXAM: ANKLE, RIGHT, 3 VIEWS INDICATION: Right lower extremity pain. COMPARISON: Right knee, tibia and fibula radiographs also performed today. FINDINGS: No fracture or malalignment. Soft tissue shadows are unremarkable. IMPRESSION: Negative right ankle radiographs. Dictated by: Dictated on workstation # [id number]
--- NOTE | 2019-06-23 07:02 | Diagnostic Imaging Report ---
EXAM: CHEST 1 VIEW, AP/PA ONLY INDICATION: Chest pain. COMPARISON: None. FINDINGS: Normal heart size and central pulmonary vascularity. Sternotomy. Cardiac valve prosthesis. No focal pulmonary opacity, pleural effusion or pneumothorax. No acute osseous findings. IMPRESSION: No acute cardiopulmonary findings. Dictated by: Dictated on workstation # [id number]
== END 2019-06-23 01:13 | disposition home or self-care (01) ==
LOC: ER 22:42
DX: S80.01XA Contusion of right knee, initial encounter (principal); N39.0 Urinary tract infection, site not specified; R82.5 Elevated urine levels of drugs, medicaments and biological substances; I10 Essential (primary) hypertension; E78.00 Pure hypercholesterolemia, unspecified; F17.210 Nicotine dependence, cigarettes, uncomplicated; Z95.2 Presence of prosthetic heart valve; Z79.01 Long term (current) use of 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s; W18.30XA Fall on same level, unspecified, initial encounter
CPT/HCPCS: 36415; 71045; 73562; 73590; 73610; 80053; 80306; 80320; 81000; 83735; 85025; 85610; 85730; 87077; 87088; 87491; 87591; 93005; 93041; 96374; 96375

== ENCOUNTER 2020-12-10 19:20 | Inpatient (IN) | payer MEDICAID ==
[~2020-12-10] VITALS: Ht 177.8 cm; Wt 93.8 kg
[~2020-12-10 19:20] MED LIST: ATOR40TA70; BUPR100T8; CEPH-507 PO; FURO40TA4; GABA-488; LISI10TA2; NITR0.4T42; RT-ALBUINH; WARF4TAB3
[2020-12-10] MEDS ORDERED: HEParin DRIP 25000 UNIT/500ML 0 ML IV ONE (19:23)
[2020-12-10] MEDS ORDERED: TICAGRELOR 90 MG TABLET (BRILINTA) PO ONE ×3 (19:24→19:30)
[2020-12-10] MEDS ORDERED: HEParin 1000 UNIT/ML (10ML VIAL) FOR BOLUS ONE ×2 (19:27→19:36)
[2020-12-10] MEDS ORDERED: ASPIRIN 81 MG CHEW (CHILDREN'S ASA) PO ONE (19:30)
[2020-12-10] MEDS ORDERED: HEParin 1000 UNIT/ML (10ML VIAL) FOR BOLUS IV PRN (19:30)
[2020-12-10] MEDS ORDERED: ASPIRIN 81 MG CHEW (CHILDREN'S ASA) GT ONE (19:30)
[2020-12-10] MEDS ORDERED: HEParin DRIP 25000 UNIT/500ML 500 ML IV SCH (19:30)
--- NOTE | 2020-12-10 19:33 | ED Chest Pain ---
General Chief Complaint: Chest Pain Stated Complaint: POSS STEMI Source: patient Exam Limitations: clinical condition History of Present Illness Date Seen by Provider: Dec 10, 2020 Time Seen by Provider: 19:15 Initial Comments Patient presents ER by EMS from home with chief complaint of altered mental status and chest pain. EMS says the found him to be obtunded and breathing shallow and rapid so they gave him some Narcan. They found methamphetamines in his wallet. Narcan did not help him so they got an EKG which demonstrated an anterior lateral STEMI and called and activated a code STEMI. They intubated him and brought him to the ER. Previous records demonstrates he is had a valve replacement and history of hypertension and smoking. Known to [facility]. People at his house tell EMS that he has a known recent exposure to Covid. He has not been tested. Allergies and Home Medications Allergies Coded Allergies: No Known Drug Allergies (Unverified , 06/22/19) Home Medications Cephalexin 500 Mg Capsule, 500 MG PO TID Prescribed by: SAYRA GUY on 06/23/19 0059 Patient Home Medication List Home Medication List Reviewed: Yes Review of Systems Review of Systems Constitutional: see HPI (No review of systems available since the patient is orotracheally intubated and unable to give any history to EMS) Past Rxecamh-Xwjlpb-Fukkvu Hx Patient Social History Recreational Drug Use: Yes Drug of Choice: meth Type Used: Cigarettes 2nd Hand Smoke Exposure: Yes Recent Hopitalizations: No Immunizations Up To Date Tetanus Booster (TDap): Unknown Seasonal Allergies Seasonal Allergies: No Past Medical History Surgeries: Yes (mitral valve replacement) Cardiac Respiratory: Yes Asthma Cardiac: Yes High Cholesterol, Hypertension Neurological: No Genitourinary: No Gastrointestinal: No Musculoskeletal: Yes Arthritis Endocrine: No HEENT: No Cancer: No Psychosocial: No Integumentary: No Blood Disorders: No Physical Exam Vital Signs Vital Signs - First Documented 12/10/20 19:22 Temp 36.8 Pulse 124 Resp 20 B/P (MAP) 137/95 (109) Pulse Ox 100 O2 Delivery Mechanical Ventilator Capillary Refill : Height, Weight, BMI Height: 5'11.00" Weight: 224lbs. oz. 101.616855vm; BMI Method:Stated General Appearance: Chronically ill, Severe Distress HEENT: PERRL/EOMI; No Pharynx Normal (Orotracheally intubated); Moist Mucous Membranes Neck: Full Range of Motion, Normal Inspection Respiratory: Lungs Clear, Normal Breath Sounds, No Accessory Muscle Use, No Respiratory Distress Cardiovascular: Regular Rate, Rhythm, No Edema, Normal Peripheral Pulses Gastrointestinal: Normal Bowel Sounds, Non Tender, Soft Extremity: Normal Capillary Refill, Normal Inspection Neurologic/Psychiatric: Other (GCS 3 T) Skin: Warm/Dry, Other (Acrocyanosis and some mottling appearance) Critical Care Note Critical Care Start Time: 19:07 Stop Time: 19:42 Total Time (minutes) 40 Progress 40 minutes critical care starting it before the patient arrived we assembled the [facility] team and reviewed the EKGs with the hourly manager. We had retail warehouse supervisor move beds around in the ICU to make space for him and managed his possible Covid exposure as well as had nursing staff establish an OG, crush aspirin, Brilinta was ordered but ultimately held because of his platelets. Heparin 5000 units bolus was given. Heparin drip was initiated. We communicated with lab to get a manual review of the platelets and with blood bank for platelet pack. We communicated with the [facility] and facilitated his smooth transfer out of the ER into [facility] and Dr. Hinton's care. Progress/Results/Core Measures Results/Orders Lab Results Laboratory Tests Test 12/10/20 19:26 Range/Units White Blood Count 15.9 H 4.3-11.0 10^3/uL Red Blood Count 4.82 4.30-5.52 10^6/uL Hemoglobin 15.2 13.3-17.7 g/dL Hematocrit 46 40-54 % Mean Corpuscular Volume 95 80-99 fL Mean Corpuscular Hemoglobin 32 25-34 pg Mean Corpuscular Hemoglobin Concent 33 32-36 g/dL Red Cell Distribution Width 14.4 10.0-14.5 % Platelet Count 27 *L 130-400 10^3/uL Mean Platelet Volume 9.0-12.2 fL Immature Granulocyte % (Auto) 1 % Neutrophils (%) (Auto) 90 H 42-75 % Lymphocytes (%) (Auto) 3 L 12-44 % Monocytes (%) (Auto) 6 0-12 % Eosinophils (%) (Auto) 0 0-10 % Basophils (%) (Auto) 0 0-10 % Neutrophils # (Auto) 14.3 H 1.8-7.8 10^3/uL Lymphocytes # (Auto) 0.5 L 1.0-4.0 10^3/uL Monocytes # (Auto) 0.9 0.0-1.0 10^3/uL Eosinophils # (Auto) 0.0 0.0-0.3 10^3/uL Basophils # (Auto) 0.1 0.0-0.1 10^3/uL Immature Granulocyte # (Auto) 0.1 0.0-0.1 10^3/uL Neutrophils % (Manual) 72 % Lymphocytes % (Manual) 8 % Monocytes % (Manual) 9 % Eosinophils % (Manual) 0 % Basophils % (Manual) 0 % Band Neutrophils 11 % Toxic Granulation 1+ Polychromasia SLIGHT Poikilocytosis SLIGHT Anisocytosis SLIGHT Prothrombin Time 27.7 H 12.2-14.7 SEC INR Comment 2.5 H 0.8-1.4 Activated Partial Thromboplast Time 38 H 24-35 SEC Sodium Level 137 135-145 MMOL/L Potassium Level 4.8 3.6-5.0 MMOL/L Chloride Level 102 98-107 MMOL/L Carbon Dioxide Level 21 21-32 MMOL/L Anion Gap 14 5-14 MMOL/L Blood Urea Nitrogen 83 H 7-18 MG/DL Creatinine 3.41 H 0.60-1.30 MG/DL Estimat Glomerular Filtration Rate 19 BUN/Creatinine Ratio 24 Glucose Level 200 H 70-105 MG/DL Calcium Level 8.1 L 8.5-10.1 MG/DL Corrected Calcium 9.1 8.5-10.1 MG/DL Magnesium Level 2.7 H 1.6-2.4 MG/DL Total Bilirubin 0.6 0.1-1.0 MG/DL Aspartate Amino Transf (AST/SGOT) 230 H 5-34 U/L Alanine Aminotransferase (ALT/SGPT) 143 H 0-55 U/L Alkaline Phosphatase 59 40-136 U/L Total Creatine Kinase 927 H 30-200 U/L Myoglobin 3292.2 H 10.0-92.0 NG/ML Troponin I 46.059 *H <0.028 NG/ML B-Type Natriuretic Peptide 804.4 H <100.0 PG/ML Total Protein 6.4 6.4-8.2 GM/DL Albumin 2.8 L 3.2-4.5 GM/DL Serum Alcohol < 10 <10 MG/DL My Orders Orders - SYLVIA SWIFT Alcohol (12/10/20 19:26) Covid 19 Inhouse Test (12/10/20 19:26) Heparin Drip [id number] Unit/500ml (Heparin (12/10/20 19:30) Heparin (Bolus Per Protocol) (Heparin (B (12/10/20 19:30) Initiate Heparin Acs Protocol (12/10/20 19:26) Ticagrelor Tablet (Brilinta Tablet) (12/10/20 19:30) Aspirin Chewable Tablet (Baby Aspirin Ch (12/10/20 19:30) Medications Given in ED Current Medications Medications Dose Ordered Sig/Keely Route Start Time Stop Time Status Last Admin Dose Admin Aspirin 324 mg ONCE ONCE GT 12/10/20 19:30 12/10/20 19:31 DC 12/10/20 19:42 324 MG Heparin Sodium (Porcine) 5,000 unit PRN PRN IV 12/10/20 19:30 12/10/20 19:38 5,000 UNIT Ticagrelor 180 mg ONCE ONCE PO 12/10/20 19:30 12/10/20 19:31 DC 12/10/20 19:42 180 MG Vital Signs/I&O 12/10/20 19:22 Temp 36.8 Pulse 124 Resp 20 B/P (MAP) 137/95 (109) Pulse Ox 100 O2 Delivery Mechanical Ventilator Progress Progress Note : Time: 20:06 Progress Note EMS states the patient called 911 himself but was unresponsive the time they arrived. He lives alone. He does not have any family nor does have any family and that his records listed for contacts. Because he has a STEMI we need to emergently take him to [facility] but because of his significantly low platelets without evidence of clumping he will be an exceptionally high risk for bleeds, bleeds in the brain, catastrophic worsening neurologic outcome or even including . Despite these exceptional risks the nature of his STEMI still makes the benefit of cardiac catheterization and the heparin used greater than the risk. We did hold off on the Brilinta and relayed that to Dr. Mack. We repeated a platelet count and manual review. We also ordered a platelet pack. The patient has already left the ER to go to the [facility]. This patient has unfortunately a very poor prognosis due to the risk of his low platelets and ST elevation myocardial ischemic attack. He is positive for methamphetamines which further worsen his prognosis. He has not required any sedation yet but propofol was ordered if necessary. He has been easy to ventilate. He was initially intubated secondary to altered mental status and poor respiratory effort according to EMS. On arrival after receiving fentanyl and morphine for his chest pain the patient's GCS was 3T. Initial ECG Impression Date: Dec 10, 2020 Initial ECG Impression Time: 18:56 Initial ECG Rate: 129 Initial ECG Rhythm: S.Tach Initial ECG Intervals: QT (571) Initial ECG Impression: Acute [place] Initial ECG Comparisson: Changed Comment Acute STEMI with ST elevation in the anterior lateral leads and some reciprocal depression in the inferior leads EKG : EKG Time: 19:20 Rate: 123 Rhythm: S.Tach Intervals: Normal ECG Comparisson: Unchanged ECG Impression: Acute [place] Comment Acute ST elevation [place] with anterior lateral lead elevation and reciprocal depression in the inferior leads. Diagnostic Imaging Diagonstic Imaging: Xray Plain Films/CT/US/NM/MRI: chest Comments NAME: [facility] REC#: [id number] PT STATUS: REG [facility] : 1970 PHYSICIAN: ABHIJEET SCHMIDT APRN ADMIT DATE: 12/10/20/CATH Draft Date of Exam:12/10/20 CHEST 1 VIEW, AP/PA ONLY INDICATION: Chest pain. EXAMINATION: Frontal chest was obtained at 7:36 p.m. COMPARISON: 06/22/2019. FINDINGS: There is poststernotomy change with cardiomegaly and prosthetic valve. There is a new ET tube in place with tip overlying the mid trachea. There is mild central vascular prominence. There is some minimal atelectatic change or infiltrate in the left lateral base. There is no pneumothorax or pleural fluid. IMPRESSION: Cardiomegaly and postoperative changes. Minimal left basilar atelectatic change or infiltrate. Mild central vascular congestion without machelle edema. ET tube tip overlies the mid trachea. Dictated on workstation # [id number] Dict: 12/10/201939 Trans: 12/10/201943 [facility] [id number] Interpreted by: MILES TEIXEIRA MD Electronically signed by: Reviewed: Reviewed by Me Departure Communication (Admissions) Time/Spoke to Admitting Phy: 20:10 Dr. Payne accepts the patient in admission for STEMI. Discussed the platelets and poor prognosis. Time/Spoke to Consulting Phy: 19:40 Discussed the case with Dr. Hinton and he agrees to consult on the case. We discussed the patient's very poor prognosis. He agrees with platelets and holding the Brilinta for now. Heparin and he will take the patient to [facility]. Impression Primary Impression: STEMI (ST elevation myocardial infarction) Qualified Codes: I21.3 - ST elevation (STEMI) myocardial infarction of unspecified site Additional Impressions: Methamphetamine abuse Person under investigation for COVID-19 Disposition: ADMITTED INPATIENT Condition: Critical Admissions Decision to Admit Reason: Admit from ER (General) Decision to Admit/Date: Dec 10, 2020 Time/Decision to Admit Time: 19:50 Departure-Patient Inst. Referrals: NO,LOCAL PHYSICIAN (PCP/Family) Primary Care Physician SYLVIA SWIFT Dec 10, 2020 19:33
[2020-12-10 19:36] LABS: BASOPHILS # (AUTO) 0.1 10^3/uL (0.0-0.1); BASOPHILS % (AUTO) 0 % (0-10); HEMOGLOBIN 15.2 g/dL (13.3-17.7)
[2020-12-10] MEDS ORDERED: fentaNYL INJECTION 100 MCG/2 ML AMP ONE (19:36)
[2020-12-10] MEDS ORDERED: LIDOCAINE 1% INJ 20 ML 20 ML VIAL ONE (19:36)
[2020-12-10] MEDS ORDERED: MIDAZOLAM 5 MG/5 ML (VERSED) VIAL ONE (19:36)
[2020-12-10] MEDS ORDERED: NITRO DRIP 25000 MCG/D5W 0 ML IV ONE (19:37)
[2020-12-10] MEDS ORDERED: EPTIFIBATIDE BOLUS 20 ML IV ONE (19:37)
[2020-12-10] MEDS ORDERED: HEParin (CATH LAB) 2,000 ML IV ONE (19:37)
[2020-12-10] MEDS ORDERED: NS IV 1000 ML 0 ML ONE (19:37)
[2020-12-10 19:38] LABS: EOSINOPHILS % (AUTO) 0 % (0-10); HEMATOCRIT 46 % (40-54); LYMPHOCYTES # (AUTO) 0.5 10^3/uL (1.0-4.0); LYMPHOCYTES % (AUTO) 3 % (12-44); MEAN CORPUSCULAR HEMOGLOBIN 32 pg (25-34); MEAN CORPUSCULAR HGB CONC 33 g/dL (32-36); MEAN CORPUSCULAR VOLUME 95 fL (80-99); MONOCYTES # (AUTO) 0.9 10^3/uL (0.0-1.0); MONOCYTES % (AUTO) 6 % (0-12); NEUTROPHILS # (AUTO) 14.3 10^3/uL (1.8-7.8); NEUTROPHILS % (AUTO) 90 % (42-75); WHITE BLOOD COUNT 15.9 10^3/uL (4.3-11.0)
[2020-12-10 19:42] LABS: PLATELET COUNT 27 10^3/uL (130-400)
--- NOTE | 2020-12-10 19:45 | Diagnostic Imaging Report ---
INDICATION: Chest pain. EXAMINATION: Frontal chest was obtained at 7:36 p.m. COMPARISON: 06/22/2019. FINDINGS: There is poststernotomy change with cardiomegaly and prosthetic valve. There is a new ET tube in place with tip overlying the mid trachea. There is mild central vascular prominence. There is some minimal atelectatic change or infiltrate in the left lateral base. There is no pneumothorax or pleural fluid. IMPRESSION: Cardiomegaly and postoperative changes. Minimal left basilar atelectatic change or infiltrate. Mild central vascular congestion without machelle edema. ET tube tip overlies the mid trachea. Dictated by: Dictated on workstation # [id number]
[2020-12-10 19:46] VITALS: BP_DIAS 114
[2020-12-10 19:47] LABS: INR 2.5 (0.8-1.4); PARTIAL THROMBOPLASTIN TIME 38 SEC (24-35); PROTHROMBIN TIME PATIENT 27.7 SEC (12.2-14.7)
[2020-12-10 19:52] LABS: ALBUMIN 2.8 GM/DL (3.2-4.5); BILIRUBIN,TOTAL 0.6 MG/DL (0.1-1.0); CALCIUM 8.1 MG/DL (8.5-10.1); CREATININE SERUM 3.41 MG/DL (0.60-1.30); MAGNESIUM 2.7 MG/DL (1.6-2.4); POTASSIUM 4.8 MMOL/L (3.6-5.0); TOTAL PROTEIN 6.4 GM/DL (6.4-8.2)
[2020-12-10 19:53] LABS: CREATINE KINASE 927 U/L (30-200)
[2020-12-10 19:54] LABS: AMPHETAMINE SCREEN, URINE POSITIVE (NEGATIVE); BARBITURATE SCREEN URINE NEGATIVE (NEGATIVE); BENZODIAZEPINES SCREEN URINE NEGATIVE (NEGATIVE); CANNABINOID SCREEN, URINE NEGATIVE (NEGATIVE); COCAINE SCREEN URINE NEGATIVE (NEGATIVE); METHADONE STAT NEGATIVE (NEGATIVE); METHAMPHETAMINE SCREEN URINE S POSITIVE (NEGATIVE); OPIATE SCREEN URINE NEGATIVE (NEGATIVE); OXYCODONE STAT NEGATIVE (NEGATIVE); PROPOXYPHENE STAT NEGATIVE (NEGATIVE); TRICYCLIC ANTIDEPRESSANTS SCRE NEGATIVE (NEGATIVE)
--- NOTE | 2020-12-10 19:54 | NUR ---
HEPARIN DRIP GIVEN TO [employer] STAFF AND TAKEN WITH PT. [employer] STATES THAT THEY WILL START THE HEPARIN DRIP.
[2020-12-10] MEDS ORDERED: PROPOFOL DRIP (ICU) 0 ML IV ONE (19:57)
[2020-12-10] MEDS ORDERED: NS IV 500 ML 500 ML IV SCH (20:00)
[2020-12-10 20:03] LABS: ANISOCYTOSIS SLIGHT; BAND NEUTROPHILS 11 %; BASOPHILS % (MANUAL) 0 %; EOSINOPHILS % (MANUAL) 0 %; LYMPHOCYTES % (MANUAL) 8 %; MONOCYTES % (MANUAL) 9 %; NEUTROPHILS % (MANUAL) 72 %; POIKILOCYTOSIS SLIGHT; POLYCHROMASIA SLIGHT; TOXIC GRANULATION/VACUOLAZATIO 1+
[2020-12-10] MEDS ORDERED: NS IV 1000 ML 1,000 ML ONE (20:43)
--- NOTE | 2020-12-10 21:07 | Consultation-Cardiology ---
HPI-Cardiology Cardiology Consultation: Date of Consultation 12/10/20 Date of Admission Attending Physician Nevaeh Payne DO Admitting Physician Prachi,Local Physician Consulting Physician Lindy HINTON MD HPI: Time Seen by a Provider: 20:05 Chief Complaint: chest pain This Is a 50-year-old gentleman who called EMS with complaints of chest pain. When EMS got to the patient he was obtunded with labored breathing. Active methamphetamine use therefore Narcan was given with no improvement. EKG showed anterolateral ST elevation therefore Waiter/Wait[facility] Room Service was called emergently. Intubation was done in the field. He has history of mitral valve replacement and hypertension. He also had known Covid exposure. Review of Systems-Cardiology Review of Systems Constitutional: As described under HPI; No As described under HPI, No no symptoms reported, No chills, No fever, No lightheadedness Eyes: No As described under HPI, No no symptoms reported, No blindness, No blurred vision, No contact lenses, No drainage, No decreased acuity, No foreign body sensation, No pain, No vision change Ears/Nose/Throat: No As described under HPI, No no symptoms reported, No chronic hearing loss, No ear discharge, No ear pain, No nasal drainage, No ulcerations Respiratory: No no symptoms reported; As described under HPI; No As described under HPI, No cough; orthopnea; No shortness of breath, No SOB with excertion Cardiovascular: No no symptoms reported; As described under HPI; No As described under HPI; chest pain; No edema, No irregular heart rate, No lightheadedness, No palpitations Gastrointestinal: No no symptoms reported, No As described under HPI, No abdomen distended, No abdominal pain, No blood streaked bowels, No constipation, No diarrhea, No nausea, No vomiting, No stool coloration changes Genitourinary: No As described under HPI, No burning, No dysuria, No discharge, No frequency, No flank pain, No hematuria, No urgency Skin: No rash, No skin related problems, No ulcerations Psychiatric/Neurological: As described under HPI; No anxiety, No depression, No seizure, No focal weakness, No syncope Hematologic: No bleeding abnormalities PPK-Lneawr-Oeqvvx Hx Patient Social History Recreational Drug Use: Yes Drug of Choice: meth Type Used: Cigarettes 2nd Hand Smoke Exposure: Yes Recent Foreign Travel: No Recent Infectious Disease Expo: No Hospitalization with Isolation: Denies Immunizations Up To Date Tetanus Booster (TDap): Unknown Past Medical History PMH As described under Assessment. Allergies and Home Medications Allergies Coded Allergies: No Known Drug Allergies (Unverified , 06/22/19) Home Medications Cephalexin 500 Mg Capsule, 500 MG PO TID Prescribed by: SAYRA GUY on 06/23/19 0059 Patient Home Medication List Home Medication List Reviewed: Yes Physical Exam-Cardiology Physical Exam Vital Signs/I&O 12/11/20 12/11/20 12/11/20 12/11/20 12:15 12:30 12:45 13:00 Temp 37.8 37.8 37.7 Pulse 102 101 100 101 Resp 21 21 17 B/P (MAP) Pulse Ox 99 99 99 12/11/20 12/11/20 12/11/20 12/11/20 13:00 13:05 13:05 13:15 Temp 37.7 37.7 Pulse 97 100 100 95 Resp 23 20 B/P (MAP) 105/58 105/58 Pulse Ox 100 100 O2 Delivery Mechanical Ventilator O2 Flow Rate 50.00 12/11/20 12/11/20 12/11/20 12/11/20 13:30 13:45 14:00 14:15 Temp 37.7 37.7 37.7 37.7 Pulse 92 92 91 90 Resp 23 22 20 20 B/P (MAP) Pulse Ox 100 100 100 100 O2 Delivery Mechanical Ventilator O2 Flow Rate 50.00 12/11/20 12/11/20 12/11/20 12/11/20 14:30 14:39 14:45 15:00 Temp 37.7 37.7 37.7 Pulse 90 91 89 89 Resp 20 31 20 22 B/P (MAP) Pulse Ox 99 100 100 100 O2 Delivery Mechanical Ventilator O2 Flow Rate 50.00 FiO2 21 12/11/20 12/11/20 12/11/20 12/11/20 15:15 15:30 15:45 16:00 Temp 37.7 37.7 37.7 37.6 Pulse 90 90 93 92 Resp 19 20 19 18 B/P (MAP) Pulse Ox 100 100 99 100 O2 Delivery Mechanical Ventilator O2 Flow Rate 50.00 12/11/20 12/11/20 12/11/20 12/11/20 16:15 16:30 16:45 17:00 Temp 37.6 37.6 37.6 37.6 Pulse 92 91 90 90 Resp 20 18 22 19 B/P (MAP) Pulse Ox 100 100 100 100 O2 Delivery Mechanical Ventilator O2 Flow Rate 50.00 12/11/20 12/11/20 12/11/20 12/11/20 17:15 17:30 17:45 17:47 Temp 37.6 37.5 37.5 Pulse 90 90 87 87 Resp 20 17 23 B/P (MAP) 131/57 Pulse Ox 100 100 100 12/11/20 12/11/20 12/11/20 12/11/20 17:47 17:51 18:00 18:52 Temp 37.9 37.4 37.6 37.5 Pulse 86 92 88 89 Resp 17 29 B/P (MAP) 129/57 Pulse Ox 100 100 O2 Delivery Mechanical Ventilator O2 Flow Rate 50.00 FiO2 21 12/11/20 12/11/20 12/11/20 12/11/20 19:00 19:00 19:00 20:00 Temp 37.4 37.4 Pulse 87 86 90 Resp 16 B/P (MAP) Pulse Ox 100 99 O2 Delivery Mechanical Ventilator Mechanical Ventilator Mechanical Ventilator O2 Flow Rate 21.00 50.00 21.00 12/11/20 12/11/20 12/11/20 12/11/20 20:08 20:12 20:15 21:00 Temp 37.4 37.3 Pulse 91 92 92 Resp 26 20 B/P (MAP) 110/54 Pulse Ox 98 95 99 O2 Delivery Mechanical Ventilator Mechanical Ventilator Mechanical Ventilator O2 Flow Rate 21.00 21.00 FiO2 21 12/11/20 12/11/20 12/11/20 12/11/20 21:20 21:21 22:00 22:59 Temp 37.2 Pulse 92 92 87 Resp 20 31 B/P (MAP) 103/52 110/54 Pulse Ox 100 100 O2 Delivery Mechanical Ventilator O2 Flow Rate 21.00 FiO2 21 12/12/20 00:00 Intake Total 600 ml Output Total 1100 ml Balance -500 ml Capillary Refill : Less Than 3 Seconds Constitutional: other (intubated/ventilated) Respiratory: accessory muscle use, respiratory distress, other (decreased breath sounds) Cardiovascular: regular rate-rhythm, tachycardia, click Gastrointestinal: soft, audible bowel sounds Rectal: deferred Neurologic/Psychiatric: other (intubated) Skin: cyanosis, cool, mottled Data Review Labs Laboratory Tests 12/11/20 00:17: Urine Color YELLOW, Urine Clarity CLOUDY, Urine pH 7.0, Urine Specific [place] 1.020, Urine Protein 2+H, Urine Glucose (UA) TRACEH, Urine Ketones NEGATIVE, Urine Nitrite NEGATIVE, Urine Bilirubin NEGATIVE, Urine Urobilinogen 0.2, Urine Leukocyte Esterase 1+H, Urine RBC (Auto) 3+H, Urine RBC 10-25H, Urine WBC RARE, Urine Squamous Epithelial Cells 5-10, Urine Crystals PRESENTH, Urine Amorphous Sediment LARGE KASSIE URATESH, Urine Bacteria TRACE, Urine Casts PRESENT, Urine Granular Casts 10-25H, Urine Mucus LARGEH, Urine Culture Indicated NO, Urine Random Sodium <20, Urine Random Potassium 59, Urine Random Chloride <20 12/11/20 02:43: White Blood Count 8.5, Red Blood Count 3.30L, Hemoglobin 10.4#L, Hematocrit 31L, Mean Corpuscular Volume 93, Mean Corpuscular Hemoglobin 32, Mean Corpuscular Hemoglobin Concent 34, Red Cell Distribution Width 14.5, Platelet Count 40L, Mean Platelet Volume 14.0H, Immature Granulocyte % (Auto) 1, Neutrophils (%) (Auto) 91H, Lymphocytes (%) (Auto) 3L, Monocytes (%) (Auto) 5, Eosinophils (%) (Auto) 0, Basophils (%) (Auto) 0, Neutrophils # (Auto) 7.8, Lymphocytes # (Auto) 0.3L, Monocytes # (Auto) 0.4, Eosinophils # (Auto) 0.0, Basophils # (Auto) 0.0, Immature Granulocyte # (Auto) 0.1, Blood Gas Puncture Site LEFT ART LINE, Blood Gas Patient Temperature 101.3, Arterial Blood pH 7.37, Arterial Blood Partial Pressure CO2 31L, Arterial Blood Partial Pressure O2 149H, Arterial Blood HCO3 17*L, Arterial Blood Total CO2 18.2L, Arterial Blood Oxygen Saturation 99, Arterial Blood Base Excess -6.7L, Arnoldo Test ART LINE, Blood Gas Ventilator Setting YES, Blood Gas Inspired Oxygen 50%, Sodium Level 140, Potassium Level 3.5L, Chloride Level 116#H, Carbon Dioxide Level 12L, Anion Gap 12, Blood Urea Nitrogen 77H, Creatinine 2.98#H, Estimat Glomerular Filtration Rate 22, BUN/Creatinine Ratio 26, Glucose Level 103, Lactic Acid Level 2.92*H, Calcium Level 5.1#*L, Corrected Calcium 7.0L, Phosphorus Level 2.3, Magnesium Level 2.1, Total Bilirubin 0.5, Aspartate Amino Transf (AST/SGOT) 279H, Alanine Aminotransferase (ALT/SGPT) 175H, Alkaline Phosphatase 33L, Total Protein 3.5L, Albumin 1.6#L, Triglycerides Level 181H, Cholesterol Level 77, LDL Cholesterol Direct 23, VLDL Cholesterol 36, HDL Cholesterol < 15L 12/11/20 05:39: Lactic Acid Level 4.91*H 12/11/20 08:25: Sodium Level 136, Potassium Level 3.6, Chloride Level 113H, Carbon Dioxide Level 13L, Anion Gap 10, Blood Urea Nitrogen 87H, Creatinine 4.01#H, Estimat Glomerular Filtration Rate 16, BUN/Creatinine Ratio 22, Glucose Level 146H, Lactic Acid Level 2.94*H, Calcium Level 5.4*L 12/11/20 11:15: White Blood Count 14.4H, Red Blood Count 3.60L, Hemoglobin 11.4L, Hematocrit 34L , Mean Corpuscular Volume 94, Mean Corpuscular Hemoglobin 32, Mean Corpuscular Hemoglobin Concent 34, Red Cell Distribution Width 14.8H, Platelet Count 24*L, Mean Platelet Volume , Prothrombin Time 38.2H, INR Comment 3.9H, Activated Partial Thromboplast Time 44H, Fibrinogen 452, D-Dimer >= 20.00*H, Blood Gas Puncture Site L RAD ART, Blood Gas Patient Temperature 38.0, Arterial Blood pH 7.27*L, Arterial Blood Partial Pressure CO2 34L, Arterial Blood Partial Pressure O2 86, Arterial Blood HCO3 15*L, Arterial Blood Total CO2 15.8L, Arterial Blood Oxygen Saturation 93L, Arterial Blood Base Excess -10.5L, Arnoldo Test NA, Blood Gas Ventilator Setting YES, Blood Gas Inspired Oxygen 50%, Lactic Acid Level 2.96*H 12/11/20 18:00: White Blood Count 10.0, Red Blood Count 2.63L, Hemoglobin 8.3#L, Hematocrit 25L, Mean Corpuscular Volume 95, Mean Corpuscular Hemoglobin 32, Mean Corpuscular Hemoglobin Concent 33, Red Cell Distribution Width 15.4H, Platelet Count 31*L, Mean Platelet Volume , Lactic Acid Level 2.37*H, Sodium Level 135, Potassium Level 4.8, Chloride Level 113H, Carbon Dioxide Level 10L, Anion Gap 12, Blood Urea Nitrogen 97H, Creatinine 4.65#H, Estimat Glomerular Filtration Rate 13, BUN/Creatinine Ratio 21, Glucose Level 383H, Calcium Level 5.1*L, Troponin I 111.112*H 12/11/20 20:46: Lactic Acid Level 2.36*H 12/11/20 23:11: Lactic Acid Level 1.64 12/11/20 23:13: Glucometer 215H Microbiology 12/10/20 Blood Culture - Preliminary, Resulted Staphylococcus aureus ECG Impression ECG Initial ECG Rhythm: S.Tach Initial ECG Impression: Acute MN A/P-Cardiology Assessment/Admission Diagnosis Cardiogenic shock, Acute coronary syndrome, previous mitral valve replacement with prosthetic valve, Active meth abuse, Acute kidney Injury, Severe thrombocytopenia, altered mental status and respiratory distress, Acute respiratory failure, Possible sepsis. Plan Cardiogenic/mixed shock, bedside echo - difficult to do in an intubated patient. however the few images we were able to view showed LVEF 20% with global hypokinesis. BP at the end of the procedure 99 mmhg. No pressors given yet. Acute coronary syndrome, EKG shows sinus tachycardia and st elevations in the anterior precordial leads. However, emergent cath showed patent proximal and mid LAD and RCA. Large LCX is patent. Distal small branch of the OM1 seems to be occluded. very distal LAD (small vessel) also seem to be occluded. ?embolic. however PCI cannot be done for such distal embolization. treatment is anticoagulation. Previous mitral valve replacement with metallic valve, INR 2.5. could be the source of embolization? Needs anticoagulation. Active meth abuse, meth found on the scene when EMS got there and he was ob tunded with laboured breathing. Acute kidney Injury, Severe thrombocytopenia, Plt transfusion is recommended. defer to hematology, icu and primary team. altered mental status and respiratory distress, likely sepsis due to pneumonia with leucocytosis with left shift and thrombocytopenia. however he is afebrile. defer to primary team. Acute respiratory failure, as above. intubated/ventilated. COVID PCR pending. rapid negative. Poor prognosis Thank you for your consultation. Please call me if you have any questions. Alysa Hinton MD, FACP, FACC, FSCAI, FHRS, CCDS Interventional Cardiology Cardiac Electrophysiology Vascular Medicine and Endovascular Interventions Lindy HINTON MD Dec 10, 2020 21:06
--- NOTE | 2020-12-10 21:13 | Coronary Angiography Report ---
Coronary Angiography Report DATE OF PROCEDURE: 12/10/20 INDICATION: STEMI PREOPERATIVE DIAGNOSIS: STEMI POSTOPERATIVE DIAGNOSIS: Cardiogenic shock, Acute coronary syndrome. HISTORY: altered mental status, chest pain. EKG shows sinus rhythm with anterior ST elevations. history of mitral valve replacement. Intubated in the field by EMS for obtundation and respiratory distress. emergent consent by two attendings including Dr Denise. PROCEDURES PERFORMED: 1.Coronary angiography. 2.Aortic arch angiogram: medical necessity; to rule out aortic dissection in a patient with no significant cad and hypotension. COMPLICATIONS: None. SPECIMENS: None. ESTIMATED BLOOD LOSS: 10 mL ANESTHESIA: Intubated ANTICOAGULATION: IV heparin CONTRAST: 64ml FLUOROSCOPY: 2.5 minutes. FLOUROSCOPY DOSE: 450 mgy. PROCEDURE DETAILS: The patient is a 50 male and was brought [place] the [place] [place] after emergent consent was taken. The patient was draped and prepped in the usual sterile fashion. Access was gained in the right femoral artery with a 6 [place] sheath. Coronary angiography was performed with JR 4 and EBU 3.5 and aortic arch angiogram with pigtail catheter. FINDINGS: 1.Left main: Patent 2.LAD: Patent proximal and mid segment. very distal segment seem to be occluded - likely embolic. 3.Left circumflex artery: Patent. A small branch of OM1 is occluded distally - likely embolic 4.RCA: Patent 5.Left heart catheterization: Not done due to FAIZA. 6. Aortic arch angiogram: no evidence of dissection. CONCLUSIONS: 1. Embolic Acute Coronary Syndrome in distal LAD and distal OM1 branch. No PCI. Given heparin IV. 2. Systolic BP 90-99 in the [employer] [employer] [place]. No pressors started. Mixed shock (Cardiogenic/Septic). 3. Bedside Echo - difficult with intubated patient showed poor LVEF with global hypokinesis. 4. Poor prognosis Alysa Hinton MD, FACP, FACC, [facility] Interventional Cardiology Lindy HINTON MD Dec 10, 2020 21:13
[2020-12-10] MEDS ORDERED: PATIENT MAY USE OWN MEDS, ALL PO SCH (21:15)
[2020-12-10] MEDS ORDERED: PHENYLEPHRINE INJ 10 MG/ML (FOR DRIP KITS ONLY) ONE (21:36)
[2020-12-10] MEDS ORDERED: NS (IVPB) 250 ML ONE ×2 (21:36→22:29)
[2020-12-10] MEDS ORDERED: PHENYLEPHRINE 100 MCG/ML 10 ML (ANESTHESIA) SYR IV ONE (21:45)
[2020-12-10] MEDS ORDERED: CEFEPIME INJECTION 1,000 MG in WATER (STERILE) FOR INJECTION 10 ML IV ONE (21:52)
[2020-12-10] MEDS ORDERED: VANCOMYCIN INJECTION 1,000 MG in NS (IVPB) 250 ML IV SCH (21:54)
[2020-12-10] MEDS: NS IV 500 ML 500 ML IV SCH (22:00)
[2020-12-10] MEDS: NS IV 1000 ML 1,000 ML IV SCH ×2 (22:00→23:33)
--- NOTE | 2020-12-10 22:15 | NUR ---
This RN talked with patient's , Cheryl. Cheryl states they are but she was present with patient when EMS was called. Stated he had been acting funny and different for the last couple of days. states that he recently was released from [facility]07 and is homeless. She states he stays with her when it is cold outside. Discussed code status and states DNR, EICU doctor contacted to discuss prognosis.
[2020-12-10] MEDS ORDERED: VANCOMYCIN 1000 MG/VIAL ONE (22:29)
[2020-12-10] MEDS: PROPOFOL DRIP (ICU) 100 ML IV SCH (22:29)
[2020-12-10] MEDS: PHENYLEPHRINE 10 MG/NS 250 ML IV SCH ×2 (22:32)
[2020-12-10 22:42] LABS: FIBRIN DEGRADATION PRODUCTS > 20.00 UG/ML (0.00-0.49)
[2020-12-10 23:37] LABS: ABG BASE EXCESS -3.3 MMOL/L (-2.5-2.5); ABG OXYGEN SATURATION 100 % (94-100); ABG PCO2 33 MMHG (35-45); ABG PH 7.41 (7.37-7.43); ABG PO2 326 MMHG (79-93); ABG TCO2 21.4 MMOL/L (21.0-31.0)
[2020-12-10 23:45] LABS: ALLENS TEST ART LINE; INSPIRED O2 100%; PATIENT TEMP 37.9; VENTILATOR YES
--- NOTE | 2020-12-10 23:59 | Consultation - Surgery ---
History of Present Illness History of Present Illness Patient Consulted On(meka/time) 12/10/20 23:54 Date Seen by Provider: Dec 10, 2020 Time Seen by Provider: 23:54 History of Present Illness Consult requested for central venous catheter placement and arterial line placement. Patient is a 50 year old male brought to er for altered mental status and chest pain. Had Meth on him and found to have STEMI. Patient was taken to laboratory inspector. He is currently intubated and sedated. Needing pressor support and needing central line and arterial line. He has been hypotensive. Allergies and Home Medications Allergies Coded Allergies: No Known Drug Allergies (Unverified , 06/22/19) Home Medications Cephalexin 500 Mg Capsule, 500 MG PO TID Prescribed by: SAYRA GUY on 06/23/19 0059 Patient Home Medication List Home Medication List Reviewed: Yes Past Wltjews-Itdzat-Demllb Hx Patient Social History Alcohol Use: Denies Use Recreational Drug Use: Yes Drug of Choice: meth Smoking Status: Current Everyday Smoker Type Used: Cigarettes 2nd Hand Smoke Exposure: Yes Recent Foreign Travel: No Contact w/Someone Who Travel: No Recent Infectious Disease Expo: No Recent Hopitalizations: No Immunizations Up To Date Tetanus Booster (TDap): Unknown Seasonal Allergies Seasonal Allergies: No Surgeries History of Surgeries: Yes (mitral valve replacement) Surgeries: Cardiac Respiratory History of Respiratory Disorde: Yes Respiratory Disorders: Asthma Cardiovascular History of Cardiac Disorders: Yes Cardiac Disorders: High Cholesterol, Hypertension Neurological History of Neurological Disord: No Genitourinary History of Genitourinary Disor: No Gastrointestinal History of Gastrointestinal Di: No Musculoskeletal History of Musculoskeletal Dis: Yes Musculoskeletal Disorders: Arthritis Endocrine History of Endocrine Disorders: No HEENT History of HEENT Disorders: No Cancer History of Cancer: No Psychosocial History of Psychiatric Problem: No Integumentary History of Skin or Integumenta: No Blood Transfusions History of Blood Disorders: No Reviewed Nursing Assessment Reviewed/Agree w Nursing PMH: Yes Family Medical History Significant Family History: No Pertinent Family Hx Review of Systems-General ROS-Unable to Obtain: intubated unable to provide Physical Exam-General Problems Physical Exam Vital Signs Vital Signs - First Documented 12/10/20 12/10/20 12/10/20 19:22 19:46 21:30 Temp 36.8 Pulse 124 Resp 20 B/P (MAP) 137/95 (109) Pulse Ox 100 O2 Delivery Mechanical Ventilator O2 Flow Rate 100.00 FiO2 100 Capillary Refill : Less Than 3 Seconds General Appearance: other (intubated sedated) HEENT: normal ENT inspection, other (et tube) Neck: supple, normal inspection Respiratory: other (equal chest rise) Cardiovascular: regular rate, rhythm, no JVD Gastrointestinal: soft, no organomegaly Rectal: deferred Back: normal inspection Extremities: normal inspection, no pedal edema Neurologic/Psychiatric: No alert, No normal mood/affect, No oriented x 3; other (intubated sedated) Skin: normal color, warm/dry Lymphatic: no adenopathy Data Review Labs Laboratory Tests 12/10/20 19:26: White Blood Count 15.9H, Red Blood Count 4.82, Hemoglobin 15.2, Hematocrit 46, Mean Corpuscular Volume 95, Mean Corpuscular Hemoglobin 32, Mean Corpuscular Hemoglobin Concent 33, Red Cell Distribution Width 14.4, Platelet Count 27*L, Mean Platelet Volume , Immature Granulocyte % (Auto) 1, Neutrophils (%) (Auto) 90H, Lymphocytes (%) (Auto) 3L, Monocytes (%) (Auto) 6, Eosinophils (%) (Auto) 0, Basophils (%) (Auto) 0, Neutrophils # (Auto) 14.3H, Lymphocytes # (Auto) 0.5L , Monocytes # (Auto) 0.9, Eosinophils # (Auto) 0.0, Basophils # (Auto) 0.1, Immature Granulocyte # (Auto) 0.1, Neutrophils % (Manual) 72, Lymphocytes % (Manual) 8, Monocytes % (Manual) 9, Eosinophils % (Manual) 0, Basophils % ( Manual) 0, Band Neutrophils 11, Toxic Granulation 1+, Polychromasia SLIGHT, Poikilocytosis SLIGHT, Anisocytosis SLIGHT, Prothrombin Time 27.7H, INR Comment 2.5H, Activated Partial Thromboplast Time 38H, D-Dimer > 20.00*H, Sodium Level 137, Potassium Level 4.8, Chloride Level 102, Carbon Dioxide Level 21, Anion Gap 14, Blood Urea Nitrogen 83H, Creatinine 3.41H, Estimat Glomerular Filtration Rate 19, BUN/Creatinine Ratio 24, Glucose Level 200H, Calcium Level 8.1L, Corre cted Calcium 9.1, Magnesium Level 2.7H, Total Bilirubin 0.6, Aspartate Amino Transf (AST/SGOT) 230H, Alanine Aminotransferase (ALT/SGPT) 143H, Alkaline Phosphatase 59, Total Creatine Kinase 927H, Myoglobin 3292.2H, Troponin I 46.059*H, B-Type Natriuretic Peptide 804.4H, Total Protein 6.4, Albumin 2.8L, Triglycerides Level 320H, Serum Alcohol < 10 12/10/20 19:37: Urine Opiates Screen NEGATIVE, Urine Oxycodone Screen NEGATIVE, Urine Methadone Screen NEGATIVE, Urine Propoxyphene Screen NEGATIVE, Urine Barbiturates Screen NEGATIVE, Ur Tricyclic Antidepressants Screen NEGATIVE, Urine Phencyclidine Screen NEGATIVE, Urine Amphetamines Screen POSITIVEH, Urine Methamphetamines Screen POSITIVEH, Urine Benzodiazepines Screen NEGATIVE, Urine Cocaine Screen NEGATIVE, Urine Cannabinoids Screen NEGATIVE, Coronavirus 2019 ([facility]) Negative 12/10/20 20:18: Platelet Count 27*L 12/10/20 22:05: Lactic Acid Level 4.63*H 12/10/20 23:27: Blood Gas Puncture Site LEFT RADIAL, Blood Gas Patient Temperature 37.9, Arterial Blood pH 7.41, Arterial Blood Partial Pressure CO2 33L, Arterial Blood Partial Pressure O2 326H, Arterial Blood HCO3 21L, Arterial Blood Total CO2 21.4, Arterial Blood Oxygen Saturation 100, Arterial Blood Base Excess -3.3L, Arnoldo Test ART LINE, Blood Gas Ventilator Setting YES, Blood Gas Inspired Oxygen 100% 12/10/20 23:38: Assessment/Plan Assessment/Plan Assessment/Plan STEMI Hypotension Methamphetamine use Poor venous access terminal operator anticoagulation Patient needing line placment. Left femoral central line placement u/s guided Left radial arterial line placed u/s guided Will sign off, call if needed. PROCEDURE: Left femoral vein ultrasound-guided central line placement Patient was prepped and draped in a sterile fashion. Timeout was performed. Ultrasound was used to isolate the left femoral vein. Under ultrasound guidance the left femoral vein vein was accessed dark nonpulsatile blood was withdrawn. The wire was inserted through the needle and the needle was removed. 11 blade scalpel was used to make a small skin incision at the insertion point. The dilator was then advanced over the wire and removed. The triple-lumen catheter was inserted over the guidewire and the wire was removed. The catheter was then secured using 3-0 silk suture. All ports were accessed and flushed without difficulty. The area was washed and dried and sterile bandage was applied. PROCEDURE: Left radial artery arterial line placement using ultrasound- guidance. Area was prepped and draped. U/s used to find left radial artery. Arrow 22 ga arterial needle and catheter advanced under u/s until bright red pulsatile flash produced. Wire was advanced and catheter was advance over wire. Needle and wire removed. Catheter hooked up to line and secured. Clinical Quality Measures AMI/AHF: ASA po Prior to arrival: CARLENE Cottrell DO Dec 10, 2020 23:59
[2020-12-11] VITALS (10 sets, daily range): BP systolic 66–126; BP diastolic 39–81
[2020-12-11] MEDS: PHENYLEPHRINE 10 MG/NS 250 ML IV SCH ×16 (00:30→07:00)
[2020-12-11 00:40] LABS: BILIRUBIN,URINE NEGATIVE (NEGATIVE); CLARITY,URINE CLOUDY; COLOR,URINE YELLOW; GLUCOSE, URINE (UA) TRACE (NEGATIVE); KETONES,URINE NEGATIVE (NEGATIVE); LEUKOCYTE ESTERASE ,URINE 1+ (NEGATIVE); NITRITE,URINE NEGATIVE (NEGATIVE); PROTEIN,URINE 2+ (NEGATIVE)
--- NOTE | 2020-12-11 00:45 | NUR ---
Patient taken to CT with Abbi Posada, RT and Guero Palma from radiology and this RN.
[2020-12-11 00:51] LABS: AMORPHOUS SEDIMENT,UR LARGE AMOR URATES /LPF; BACTERIA,URINE TRACE /HPF; WBC,URINE RARE /HPF
[2020-12-11] MEDS: NS IV 1000 ML 1,000 ML IV SCH (01:38)
[2020-12-11] MEDS ORDERED: NS (IVPB) 250 ML ONE (02:13)
[2020-12-11] MEDS ORDERED: PHENYLEPHRINE INJ 10 MG/ML (FOR DRIP KITS ONLY) ONE ×4 (02:13→05:17)
[2020-12-11 02:57] LABS: BASOPHILS % (AUTO) 0 % (0-10); EOSINOPHILS % (AUTO) 0 % (0-10); HEMATOCRIT 31 % (40-54); HEMOGLOBIN 10.4 g/dL (13.3-17.7); LYMPHOCYTES # (AUTO) 0.3 10^3/uL (1.0-4.0); LYMPHOCYTES % (AUTO) 3 % (12-44); MEAN CORPUSCULAR HEMOGLOBIN 32 pg (25-34); MEAN CORPUSCULAR HGB CONC 34 g/dL (32-36); MEAN CORPUSCULAR VOLUME 93 fL (80-99); MONOCYTES # (AUTO) 0.4 10^3/uL (0.0-1.0); MONOCYTES % (AUTO) 5 % (0-12); NEUTROPHILS # (AUTO) 7.8 10^3/uL (1.8-7.8); NEUTROPHILS % (AUTO) 91 % (42-75); WHITE BLOOD COUNT 8.5 10^3/uL (4.3-11.0)
[2020-12-11 02:58] LABS: ABG BASE EXCESS -6.7 MMOL/L (-2.5-2.5); ABG OXYGEN SATURATION 99 % (94-100); ABG PCO2 31 MMHG (35-45); ABG PH 7.37 (7.37-7.43); ABG PO2 149 MMHG (79-93); ABG TCO2 18.2 MMOL/L (21.0-31.0); PLATELET COUNT 40 10^3/uL (130-400)
[2020-12-11 03:00] LABS: ALLENS TEST ART LINE; INSPIRED O2 50%; PATIENT TEMP 101.3; VENTILATOR YES
[2020-12-11] MEDS ORDERED: VASOPRESSIN INJECTION 20 UNIT in NS (IVPB) 100 ML IV SCH (03:00)
[2020-12-11 03:09] LABS: CHLORIDE 116 MMOL/L (98-107); POTASSIUM 3.5 MMOL/L (3.6-5.0); SODIUM 140 MMOL/L (135-145)
[2020-12-11 03:11] LABS: TRIGLYCERIDES 181 MG/DL (<150); VLDL CHOLESTEROL 36 MG/DL (5-40)
[2020-12-11 03:12] LABS: GLUCOSE 103 MG/DL (70-105)
[2020-12-11 03:13] LABS: CARBON DIOXIDE 12 MMOL/L (21-32)
[2020-12-11 03:15] LABS: CREATININE SERUM 2.98 MG/DL (0.60-1.30); GFR ESTIMATED 22; PHOSPHORUS 2.3 MG/DL (2.3-4.7)
[2020-12-11 03:16] LABS: BUN/CREATININE RATIO 26; CHOLESTEROL 77 MG/DL (< 200)
[2020-12-11 03:17] LABS: HDL CHOLESTEROL < 15 MG/DL (40-60)
[2020-12-11 03:18] LABS: MAGNESIUM 2.1 MG/DL (1.6-2.4)
[2020-12-11 03:20] LABS: CALCIUM 5.1 MG/DL (8.5-10.1)
[2020-12-11] MEDS: PROPOFOL DRIP (ICU) 100 ML IV SCH ×4 (03:27→21:21)
--- NOTE | 2020-12-11 04:00 | NUR ---
Reported fever of 101 to EICU nurse as well as OG contents of dark, bloody appearing contents.
[2020-12-11] MEDS ORDERED: SODIUM CHLORIDE ONE (05:21)
[2020-12-11] MEDS ORDERED: NOREPINEPHRINE 4 MG/250 ML 250 ML IV ONE (05:22)
--- NOTE | 2020-12-11 05:30 | NUR ---
EICU doctor made aware of patient's low urine output. Will continue to monitor.
[2020-12-11] MEDS: NOREPINEPHRINE 4 MG/250 ML 250 ML IV SCH ×4 (05:32→17:47)
[2020-12-11 05:46] LABS: ALBUMIN 1.6 GM/DL (3.2-4.5)
[2020-12-11 05:48] LABS: BILIRUBIN,TOTAL 0.5 MG/DL (0.1-1.0)
[2020-12-11 05:49] LABS: TOTAL PROTEIN 3.5 GM/DL (6.4-8.2)
[2020-12-11 05:52] LABS: ALKALINE PHOSPHATASE 33 U/L (40-136)
[2020-12-11 05:55] LABS: ALANINE AMINOTRANSFERASE 175 U/L (0-55)
[2020-12-11] MEDS: D5 NS 1000 ML IV SOLUTION 1,000 ML IV SCH ×2 (06:38→17:48)
[2020-12-11] MEDS: HYDROCORTISONE 100 MG/2 ML (Solu-CORTEF) VIAL IV SCH ×4 (06:39→23:16)
--- NOTE | 2020-12-11 06:46 | History & Physical-Hospitalist ---
History of Present Illness HPI/Chief Complaint CC: VDRF with STEMI and now renal failure and hypotension HPI: This is a 50yoWM who has a h/o meth use who presented to the ER in resp failure and evidence of STEMI. Low platelets required platelet transfusion prior to cath procedure. Patient had meth in his wallet and recent use. Family made him DNR and currently is on 3 pressors to increase his BP but he is mottling and close to imminent . Source: RN/MD Exam Limitations: clinical condition Date Seen 12/11/20 Time Seen by a Provider: 11:00 Attending Physician Nevaeh Payne DO PCP No,Local Physician Referring Physician Date of Admission Dec 10, 2020 at 21:27 Home Medications & Allergies Home Medications Reviewed patient Home Medication Reconciliation performed by pharmacy medication reconciliations guitar repair technician and/or nursing. Patients Allergies have been reviewed. Allergies Allergies Coded Allergies No Known Drug Allergies (Unverified06/22/19) Past Prtzxkd-Vqbkju-Ebzzza Hx Past Med/Social Hx: Reviewed Nursing Past Med/Soc Hx, Reviewed and Corrections made Patient Social History Marrital Status: Alcohol Use: Denies Use Recreational Drug Use: Yes Drug of Choice: meth Smoking Status: Current Everyday Smoker Type Used: Cigarettes 2nd Hand Smoke Exposure: Yes Recent Foreign Travel: No Contact w/other who traveled: No Recent Hopitalizations: No Recent Infectious Disease Expo: No Immunizations Up To Date Tetanus Booster (TDap): Unknown Seasonal Allergies Seasonal Allergies: No Past Medical History Surgeries: Cardiac Cardiac: High Cholesterol, Hypertension Musculoskeletal: Arthritis History of Blood Disorders: No Family History No Pertinent Family Hx Review of Systems Constitutional: see HPI Physical Exam Physical Exam Vital Signs Vital Signs - First Documented 12/10/20 12/10/20 12/10/20 19:22 19:46 21:30 Temp 36.8 Pulse 124 Resp 20 B/P (MAP) 137/95 (109) Pulse Ox 100 O2 Delivery Mechanical Ventilator O2 Flow Rate 100.00 FiO2 100 Capillary Refill : Less Than 3 Seconds Height, Weight, BMI Height: 5'11.00" Weight: 224lbs. oz. 101.057417iw; 28.59 BMI Method:Stated General Appearance: Chronically ill, Other (intubated) Respiratory: Lungs Clear Cardiovascular: Regular Rate, Rhythm Skin: Mottled Results Results/Procedures Labs Laboratory Tests 12/10/20 19:26 12/10/20 20:18 12/11/20 02:43 12/11/20 08:25 12/11/20 11:15 12/11/20 18:00 Patient resulted labs reviewed. Assessment/Plan Admission Diagnosis Assessment: VDRF STEMI from embolic source per cath results CHF EF 10% Meth use ARF Hypotension cardiogenic in type Plan: Supportive care DNR Poor prognosis Admission Status: Inpatient Order (span 2 midnights) Reason for Inpatient Admission: vdrf Clinical Quality Measures AMI/AHF: ASA po Prior to arrival: NEVAEH Acosta DO Dec 11, 2020 06:46
--- NOTE | 2020-12-11 07:13 | Diagnostic Imaging Report ---
PROCEDURE: CT head without contrast. TECHNIQUE: Multiple contiguous axial images were obtained through the brain without the use of intravenous contrast. Auto Exposure Controls were utilized during the CT exam to meet ALARA standards for radiation dose reduction. INDICATION: CVA COMPARISON: There are no prior studies available for comparison. FINDINGS: There are vague but prominent areas of diminished density in both cerebral hemispheres and the left cerebellar hemisphere. The 2 most prominent of these areas are in the left frontoparietal lobe near the vertex of the skull and along the medial aspect of the right occipital lobe. These findings are most likely due to brain edema from an acute/subacute nonhemorrhagic infarct. MRI would be recommended for further study. There is no mass or hemorrhage identified and there is no shift of the midline. The ventricles are not abnormally dilated. The bone windows are unremarkable for a fracture or for a destructive lesion. The orbits are symmetrical and within normal limits. There is mucosal thickening of the ethmoid, sphenoid and left maxillary sinuses. The patient has been intubated as well. IMPRESSION: 1. There are multifocal areas of diminished density in both cerebral hemispheres and in the left cerebellar hemisphere. These findings are most likely due to brain edema from acute/subacute nonhemorrhagic infarcts. MRI would be recommended for further evaluation. 2. There is no mass or hemorrhage identified. 3. I agree with the [facility] interpretation of this exam. Dictated by: Dictated on workstation # [id number]
--- NOTE | 2020-12-11 07:45 | Diagnostic Imaging Report ---
EXAM: Portable semi-erect AP chest at 3:53 AM INDICATION: Respiratory distress FINDINGS: There is cardiomegaly. The sternotomy wires and valvular prosthesis seen on the prior exam of 12/10/2020 are again evident. Both the heart and the central pulmonary vasculature do seem less prominent than on the prior exam. The lungs are generally clear. There is no evidence for pneumonia or for a pleural effusion. The mediastinum is not widened. The osseous structures are intact. The ET tube seen previously remains in good position. In the interval since the prior exam, an NG line has been inserted. The tip of line is not visualized but the line does extend below the diaphragm. IMPRESSION: The appearance of the chest has improved as the heart has decreased in size and there is less pulmonary congestion. Dictated by: Dictated on workstation # [id number]
[2020-12-11] MEDS ORDERED: APAP 325 MG/10.15 ML LIQ (TYLENOL) UDC ONE (08:03)
[2020-12-11] MEDS ORDERED: APAP 325 MG/10.15 ML LIQ (TYLENOL) UDC PO PRN (08:15)
[2020-12-11] MEDS: NS IV SCH ×2 (08:49→20:12)
[2020-12-11] MEDS: PHENYLEPHRINE IV SCH ×2 (08:49→20:12)
[2020-12-11 09:02] LABS: CREATININE SERUM 4.01 MG/DL (0.60-1.30); POTASSIUM 3.6 MMOL/L (3.6-5.0)
--- NOTE | 2020-12-11 09:10 | NUR ---
SPOKE TO EICU REGARDING PT LABS ET CURRENT STATUS.
[2020-12-11 09:12] LABS: CALCIUM 5.4 MG/DL (8.5-10.1)
--- NOTE | 2020-12-11 10:43 | NUR ---
CALL PLACED TO EICU REGARDING PATIENT LABS, NEW ORDERS RECEIVED.
[2020-12-11] MEDS ORDERED: NS IV 500 ML 500 ML IV SCH (11:00)
[2020-12-11] MEDS: PANTOPRAZOLE 40 MG (PROTONIX) VIAL IV SCH (11:28)
--- NOTE | 2020-12-11 11:32 | Diagnostic Imaging Report ---
PROCEDURE: US Renal Bilateral. TECHNIQUE: Multiple real-time grayscale images were obtained over the kidneys in various projections bilaterally. INDICATION: Renal failure. FINDINGS: Both kidneys measure approximately 12.5 cm in length. The cortex is well maintained. There is a 1.8 cm low-density lesion in the lower pole of the right kidney which appears to be a cyst. No calculus or hydronephrosis is seen on either side. There is a Ulloa catheter in a decompressed bladder. IMPRESSION: No acute abnormality is seen. There is what appears to be a cyst in the lower pole of the right kidney. Dictated by: Dictated on workstation # [id number]
[2020-12-11 11:34] LABS: HEMATOCRIT 34 % (40-54); HEMOGLOBIN 11.4 g/dL (13.3-17.7); MEAN CORPUSCULAR HEMOGLOBIN 32 pg (25-34); MEAN CORPUSCULAR HGB CONC 34 g/dL (32-36); MEAN CORPUSCULAR VOLUME 94 fL (80-99); WHITE BLOOD COUNT 14.4 10^3/uL (4.3-11.0)
[2020-12-11 11:44] LABS: PLATELET COUNT 24 10^3/uL (130-400)
--- NOTE | 2020-12-11 12:00 | NUR ---
updated pt at this time on patient current condition et poor outcome. answered questions. to discuss further plans with remainder of family.
[2020-12-11 12:02] LABS: FIBRINOGEN 452 MG/DL (221-496); INR 3.9 (0.8-1.4); PARTIAL THROMBOPLASTIN TIME 44 SEC (24-35); PROTHROMBIN TIME PATIENT 38.2 SEC (12.2-14.7)
[2020-12-11 12:04] LABS: FIBRIN DEGRADATION PRODUCTS >= 20.00 UG/ML (0.00-0.49)
[2020-12-11 12:09] LABS: ABG BASE EXCESS -10.5 MMOL/L (-2.5-2.5); ABG OXYGEN SATURATION 93 % (94-100); ABG PCO2 34 MMHG (35-45); ABG PO2 86 MMHG (79-93); ABG TCO2 15.8 MMOL/L (21.0-31.0)
[2020-12-11 12:11] LABS: ABG PH 7.27 (7.37-7.43)
[2020-12-11 12:12] LABS: INSPIRED O2 50%; VENTILATOR YES
--- NOTE | 2020-12-11 13:35 | NUR ---
SPOKE WITH EICU REGARDING CRITICAL LABS, NO NEW ORDERS AT THIS TIME.
--- NOTE | 2020-12-11 15:05 | Cardiology Progress Note ---
Cardiology SOAP Progress Note Subjective: on mechanical ventilation Objective: I&O/Vital Signs 12/11/20 12/11/20 12/11/20 12/11/20 12:15 12:30 12:45 13:00 Temp 37.8 37.8 37.7 Pulse 102 101 100 101 Resp 21 21 17 B/P (MAP) Pulse Ox 99 99 99 12/11/20 12/11/20 12/11/20 12/11/20 13:00 13:05 13:05 13:15 Temp 37.7 37.7 Pulse 97 100 100 95 Resp 23 20 B/P (MAP) 105/58 105/58 Pulse Ox 100 100 O2 Delivery Mechanical Ventilator O2 Flow Rate 50.00 12/11/20 12/11/20 12/11/20 12/11/20 13:30 13:45 14:00 14:15 Temp 37.7 37.7 37.7 37.7 Pulse 92 92 91 90 Resp 23 22 20 20 B/P (MAP) Pulse Ox 100 100 100 100 O2 Delivery Mechanical Ventilator O2 Flow Rate 50.00 12/11/20 12/11/20 12/11/20 12/11/20 14:30 14:39 14:45 15:00 Temp 37.7 37.7 37.7 Pulse 90 91 89 89 Resp 20 31 20 22 B/P (MAP) Pulse Ox 99 100 100 100 O2 Delivery Mechanical Ventilator O2 Flow Rate 50.00 FiO2 21 12/11/20 12/11/20 12/11/20 12/11/20 15:15 15:30 15:45 16:00 Temp 37.7 37.7 37.7 37.6 Pulse 90 90 93 92 Resp 19 20 19 18 B/P (MAP) Pulse Ox 100 100 99 100 O2 Delivery Mechanical Ventilator O2 Flow Rate 50.00 12/11/20 12/11/20 12/11/20 12/11/20 16:15 16:30 16:45 17:00 Temp 37.6 37.6 37.6 37.6 Pulse 92 91 90 90 Resp 20 18 22 19 B/P (MAP) Pulse Ox 100 100 100 100 O2 Delivery Mechanical Ventilator O2 Flow Rate 50.00 12/11/20 12/11/20 12/11/20 12/11/20 17:15 17:30 17:45 17:47 Temp 37.6 37.5 37.5 Pulse 90 90 87 87 Resp 20 17 23 B/P (MAP) 131/57 Pulse Ox 100 100 100 12/11/20 12/11/20 12/11/20 12/11/20 17:47 17:51 18:00 18:52 Temp 37.9 37.4 37.6 37.5 Pulse 86 92 88 89 Resp 17 29 B/P (MAP) 129/57 Pulse Ox 100 100 O2 Delivery Mechanical Ventilator O2 Flow Rate 50.00 FiO2 21 12/11/20 12/11/20 12/11/20 12/11/20 19:00 19:00 19:00 20:00 Temp 37.4 37.4 Pulse 87 86 90 Resp 16 B/P (MAP) Pulse Ox 100 99 O2 Delivery Mechanical Ventilator Mechanical Ventilator Mechanical Ventilator O2 Flow Rate 21.00 50.00 21.00 12/11/20 12/11/20 12/11/20 12/11/20 20:08 20:12 20:15 21:00 Temp 37.4 37.3 Pulse 91 92 92 Resp 26 20 B/P (MAP) 110/54 Pulse Ox 98 95 99 O2 Delivery Mechanical Ventilator Mechanical Ventilator Mechanical Ventilator O2 Flow Rate 21.00 21.00 FiO2 21 12/11/20 12/11/20 12/11/20 12/11/20 21:20 21:21 22:00 22:59 Temp 37.2 Pulse 92 92 87 Resp 20 31 B/P (MAP) 103/52 110/54 Pulse Ox 100 100 O2 Delivery Mechanical Ventilator O2 Flow Rate 21.00 FiO2 21 12/12/20 00:00 Intake Total 600 ml Output Total 1100 ml Balance -500 ml Weight (Pounds): 224 Weight (Calculated Kilograms): 101.407463 Constitutional: other (intubated) Cardiovascular: regular rate-rhythm, tachycardia Results/Procedures: Labs Laboratory Tests 12/11/20 00:17: Urine Color YELLOW, Urine Clarity CLOUDY, Urine pH 7.0, Urine Specific Slater 1.020, Urine Protein 2+H, Urine Glucose (UA) TRACEH, Urine Ketones NEGATIVE, Urine Nitrite NEGATIVE, Urine Bilirubin NEGATIVE, Urine Urobilinogen 0.2, Urine Leukocyte Esterase 1+H, Urine RBC (Auto) 3+H, Urine RBC 10-25H, Urine WBC RARE, Urine Squamous Epithelial Cells 5-10, Urine Crystals PRESENTH, Urine Amorphous Sediment LARGE KASSIE URATESH, Urine Bacteria TRACE, Urine Casts PRESENT, Urine Granular Casts 10-25H, Urine Mucus LARGEH, Urine Culture Indicated NO, Urine Random Sodium <20, Urine Random Potassium 59, Urine Random Chloride <20 12/11/20 02:43: White Blood Count 8.5, Red Blood Count 3.30L, Hemoglobin 10.4#L, Hematocrit 31L, Mean Corpuscular Volume 93, Mean Corpuscular Hemoglobin 32, Mean Corpuscular Hemoglobin Concent 34, Red Cell Distribution Width 14.5, Platelet Count 40L, Vilma n Platelet Volume 14.0H, Immature Granulocyte % (Auto) 1, Neutrophils (%) (Auto) 91H, Lymphocytes (%) (Auto) 3L, Monocytes (%) (Auto) 5, Eosinophils (%) (Auto) 0, Basophils (%) (Auto) 0, Neutrophils # (Auto) 7.8, Lymphocytes # (Auto) 0.3L, Monocytes # (Auto) 0.4, Eosinophils # (Auto) 0.0, Basophils # (Auto) 0.0, Immature Granulocyte # (Auto) 0.1, Blood Gas Puncture Site LEFT ART LINE, Blood Gas Patient Temperature 101.3, Arterial Blood pH 7.37, Arterial Blood Partial Pressure CO2 31L, Arterial Blood Partial Pressure O2 149H, Arterial Blood HCO3 17*L, Arterial Blood Total CO2 18.2L, Arterial Blood Oxygen Saturation 99, Arterial Blood Base Excess -6.7L, Arnoldo Test ART LINE, Blood Gas Ventilator Setting YES, Blood Gas Inspired Oxygen 50%, Sodium Level 140, Potassium Level 3.5L, Chloride Level 116#H, Carbon Dioxide Level 12L, Anion Gap 12, Blood Urea Nitrogen 77H, Creatinine 2.98#H, Estimat Glomerular Filtration Rate 22, BUN/Creatinine Ratio 26, Glucose Level 103, Lactic Acid Level 2.92*H, Calcium Level 5.1#*L, Corrected Calcium 7.0L, Phosphorus Level 2.3, Magnesium Level 2.1, Total Bilirubin 0.5, Aspartate Amino Transf (AST/SGOT) 279H, Alanine Aminotransferase (ALT/SGPT) 175H, Alkaline Phosphatase 33L, Total Protein 3.5L, Albumin 1.6#L, Triglycerides Level 181H, Cholesterol Level 77, LDL Cholesterol Direct 23, VLDL Cholesterol 36, HDL Cholesterol < 15L 12/11/20 05:39: Lactic Acid Level 4.91*H 12/11/20 08:25: Sodium Level 136, Potassium Level 3.6, Chloride Level 113H, Carbon Dioxide Level 13L, Anion Gap 10, Blood Urea Nitrogen 87H, Creatinine 4.01#H, Estimat Glomerular Filtration Rate 16, BUN/Creatinine Ratio 22, Glucose Level 146H, Lactic Acid Level 2.94*H, Calcium Level 5.4*L 12/11/20 11:15: White Blood Count 14.4H, Red Blood Count 3.60L, Hemoglobin 11.4L, Hematocrit 34L , Mean Corpuscular Volume 94, Mean Corpuscular Hemoglobin 32, Mean Corpuscular Hemoglobin Concent 34, Red Cell Distribution Width 14.8H, Platelet Count 24*L, Mean Platelet Volume , Prothrombin Time 38.2H, INR Comment 3.9H, Activated Partial Thromboplast Time 44H, Fibrinogen 452, D-Dimer >= 20.00*H, Blood Gas Puncture Site L RAD ART, Blood Gas Patient Temperature 38.0, Arterial Blood pH 7.27*L, Arterial Blood Partial Pressure CO2 34L, Arterial Blood Partial Pressure O2 86, Arterial Blood HCO3 15*L, Arterial Blood Total CO2 15.8L, Arterial Blood Oxygen Saturation 93L, Arterial Blood Base Excess -10.5L, Arnoldo Test NA, Blood Gas Ventilator Setting YES, Blood Gas Inspired Oxygen 50%, Lactic Acid Level 2.96*H 12/11/20 18:00: White Blood Count 10.0, Red Blood Count 2.63L, Hemoglobin 8.3#L, Hematocrit 25L, Mean Corpuscular Volume 95, Mean Corpuscular Hemoglobin 32, Mean Corpuscular Hemoglobin Concent 33, Red Cell Distribution Width 15.4H, Platelet Count 31*L, Mean Platelet Volume , Lactic Acid Level 2.37*H, Sodium Level 135, Potassium Level 4.8, Chloride Level 113H, Carbon Dioxide Level 10L, Anion Gap 12, Blood Urea Nitrogen 97H, Creatinine 4.65#H, Estimat Glomerular Filtration Rate 13, BUN/Creatinine Ratio 21, Glucose Level 383H, Calcium Level 5.1*L, Troponin I 111.112*H 12/11/20 20:46: Lactic Acid Level 2.36*H 12/11/20 23:11: Lactic Acid Level 1.64 12/11/20 23:13: Glucometer 215H Microbiology 12/10/20 Blood Culture - Preliminary, Resulted Staphylococcus aureus A/P: Assessment/Dx: Cardiogenic shock, Acute coronary syndrome, previous mitral valve replacement with prosthetic valve, Active meth abuse, Acute kidney Injury, Severe thrombocytopenia, altered mental status and respiratory distress, Acute respiratory failure, Possible sepsis. Plan: Cardiogenic/mixed shock, bedside echo - difficult to do in an intubated patient. however the few images we were able to view showed LVEF 20% with global hypokinesis. BP at the end of the procedure 99 mmhg. No pressors given yet. however patient gradually developed significant hypotension which required multiple pressors. Acute coronary syndrome, EKG shows sinus tachycardia and st elevations in the anterior precordial leads. However, emergent cath showed patent proximal and mid LAD and RCA. Large LCX is patent. Distal small branch of the OM1 seems to be occluded. very distal LAD (small vessel) also seem to be occluded. ?embolic. however PCI cannot be done for such distal embolization. treatment is anticoagulation. Previous mitral valve replacement with metallic valve, INR 2.5. could be the source of embolization? Needs anticoagulation. Active meth abuse, meth found on the scene when EMS got there and he was obtunded with laboured breathing. Acute kidney Injury, Severe thrombocytopenia, Plt transfusion is recommended. defer to hematology, icu and primary team. altered mental status and respiratory distress, likely sepsis due to pneumonia with leucocytosis with left shift and thrombocytopenia. however he is afebrile. defer to primary team. Acute respiratory failure, as above. intubated/ventilated. COVID rapid negative. Poor prognosis Thank you for your consultation. Please call me if you have any questions. Alysa Hinton MD, FACP, FACC, FSCAI, FHRS, CCDS Interventional Cardiology Cardiac Electrophysiology Vascular Medicine and Endovascular Interventions Focused Exam Lactate Level 12/11/20 18:00: Lactic Acid Level 2.37*H 12/11/20 20:46: Lactic Acid Level 2.36*H 12/11/20 23:11: Lactic Acid Level 1.64 Lactic Acid Level Laboratory Tests Test 12/11/20 20:46 12/11/20 23:11 Lactic Acid Level 2.36 MMOL/L (0.50-2.00) *H 1.64 MMOL/L (0.50-2.00) Clinical Quality Measures AMI/AHF: ASA po Prior to arrival: Lindy Pate MD Dec 11, 2020 15:05
[2020-12-11] MEDS: NS IV 500 ML 500 ML IV SCH (16:08)
[2020-12-11] MEDS ORDERED: DEXTROSE 50% 50 ML (IMS) SYR ONE (17:28)
[2020-12-11 18:10] LABS: HEMATOCRIT 25 % (40-54); HEMOGLOBIN 8.3 g/dL (13.3-17.7); MEAN CORPUSCULAR HEMOGLOBIN 32 pg (25-34); MEAN CORPUSCULAR HGB CONC 33 g/dL (32-36); MEAN CORPUSCULAR VOLUME 95 fL (80-99)
[2020-12-11 18:24] LABS: POTASSIUM 4.8 MMOL/L (3.6-5.0)
[2020-12-11 18:25] LABS: PLATELET COUNT 31 10^3/uL (130-400)
[2020-12-11 18:30] LABS: CALCIUM 5.1 MG/DL (8.5-10.1); CREATININE SERUM 4.65 MG/DL (0.60-1.30)
[2020-12-11] MEDS ORDERED: inSUlin ASPART (NovoLOG) 1 UNIT/0.01 ML (CHARGE PER UNIT) ONE (18:40)
--- NOTE | 2020-12-11 18:42 | NUR ---
ATTEMPTED TO CALL EICU PHYSICIAN AT THIS TIME R/T CRITICAL LAB RESULTS, DR FELICIANO AT THIS TIME, MESSAGE GIVEN TO NURSE TO RELAY CRITICAL LABS ET MESSAGES ON TO DR EPSTEIN RETURN CALL TO FACILITY.
--- NOTE | 2020-12-11 20:51 | NUR ---
Patient's , Cheryl, called for an update on the patient. She states she has discussed patient's condition with patient's family and would like to proceed with comfort care tomorrow. Discussed the steps taken and that we will contact her in the morning to discuss time so the family can visit with the patient.
[2020-12-11] MEDS: VASOPRESSIN INJECTION 20 UNIT in NS (IVPB) 100 ML IV SCH (21:20)
[2020-12-11] MEDS: inSUlin ASPART (NovoLOG) 1 UNIT/0.01 ML (CHARGE PER UNIT) SC SCH (23:16)
[2020-12-12] MEDS: PROPOFOL DRIP (ICU) 100 ML IV SCH ×2 (01:37→06:54)
[2020-12-12] MEDS: D5 NS 1000 ML IV SOLUTION 1,000 ML IV SCH ×2 (01:37→05:57)
[2020-12-12] MEDS: NOREPINEPHRINE 4 MG/250 ML 250 ML IV SCH (02:11)
[2020-12-12 02:34] VITALS: BP 105/51
[2020-12-12 03:20] LABS: ABG BASE EXCESS -10.6 MMOL/L (-2.5-2.5); ABG OXYGEN SATURATION 96 % (94-100); ABG PCO2 30 MMHG (35-45); ABG PO2 92 MMHG (79-93); ABG TCO2 15.3 MMOL/L (21.0-31.0); EOSINOPHILS % (AUTO) 0 % (0-10); MEAN CORPUSCULAR VOLUME 94 fL (80-99)
[2020-12-12 03:22] LABS: BASOPHILS % (AUTO) 0 % (0-10); HEMATOCRIT 21 % (40-54); LYMPHOCYTES # (AUTO) 0.5 10^3/uL (1.0-4.0); LYMPHOCYTES % (AUTO) 6 % (12-44); MEAN CORPUSCULAR HEMOGLOBIN 31 pg (25-34); MEAN CORPUSCULAR HGB CONC 33 g/dL (32-36); MONOCYTES # (AUTO) 0.9 10^3/uL (0.0-1.0); MONOCYTES % (AUTO) 10 % (0-12); NEUTROPHILS # (AUTO) 7.4 10^3/uL (1.8-7.8); NEUTROPHILS % (AUTO) 83 % (42-75)
[2020-12-12 03:24] LABS: HEMOGLOBIN 6.8 g/dL (13.3-17.7)
[2020-12-12 03:25] LABS: PLATELET COUNT 13 10^3/uL (130-400)
[2020-12-12 03:26] LABS: ALLENS TEST ART LINE
[2020-12-12 03:27] LABS: INSPIRED O2 21%; PATIENT TEMP 37.3; VENTILATOR YES
[2020-12-12 03:46] LABS: POTASSIUM 3.8 MMOL/L (3.6-5.0)
[2020-12-12 03:51] LABS: PHOSPHORUS 4.7 MG/DL (2.3-4.7)
[2020-12-12 03:52] LABS: CREATININE SERUM 3.91 MG/DL (0.60-1.30)
[2020-12-12 04:14] LABS: CALCIUM 4.3 MG/DL (8.5-10.1)
[2020-12-12] MEDS: NS IV 1000 ML 1,000 ML IV SCH (04:49)
--- NOTE | 2020-12-12 05:30 | Pulmonary Consultation ---
History of Present Illness History of Present Illness Date Seen by Provider: Dec 12, 2020 Time Seen by Provider: 05:25 Date of Admission Allergies and Home Medications Allergies Coded Allergies: No Known Drug Allergies (Unverified , 06/22/19) Home Medications Cephalexin 500 Mg Capsule, 500 MG PO TID Prescribed by: SAYRA GUY on 06/23/19 0059 Past Pkgelzb-Yhbczs-Zyqkoj Hx Past Med/Social Hx: Reviewed Nursing Past Med/Soc Hx, Reviewed and Corrections made Patient Social History Alcohol Use: Denies Use Recreational Drug Use: Yes Drug of Choice: meth Smoking Status: Current Everyday Smoker Type Used: Cigarettes 2nd Hand Smoke Exposure: Yes Recent Foreign Travel: No Contact w/Someone Who Travel: No Recent Infectious Disease Expo: No Recent Hopitalizations: No Immunizations Up To Date Tetanus Booster (TDap): Unknown Seasonal Allergies Seasonal Allergies: No Past Medical History Surgeries: Yes (mitral valve replacement) Cardiac Respiratory: Yes Asthma Cardiac: Yes High Cholesterol, Hypertension Neurological: No Genitourinary: No Gastrointestinal: No Musculoskeletal: Yes Arthritis Endocrine: No HEENT: No Cancer: No Psychosocial: No Integumentary: No Blood Disorders: No Family Medical History No Pertinent Family Hx Review of Systems Time Seen by Provider: 05:30 Sepsis Event Evaluation Height, Weight, BMI Height: 5'11.00" Weight: 224lbs. oz. 101.507994pg; 28.59 BMI Method:Stated Exam Exam Vital Signs Date Time Temp Pulse Resp B/P (MAP) Pulse Ox O2 Delivery O2 Flow Rate FiO2 12/12/20 04:00 37.3 89 20 100 Mechanical Ventilator 21.00 12/12/20 03:00 89 20 100 Mechanical Ventilator 21.00 12/12/20 02:34 87 31 100 21 12/12/20 02:11 109/52 12/12/20 02:00 87 20 99 Mechanical Ventilator 21.00 12/12/20 01:37 116/59 12/12/20 01:04 85 12/12/20 01:00 85 20 99 Mechanical Ventilator 21.00 12/12/20 00:00 37.2 85 20 99 Mechanical Ventilator 21.00 12/11/20 23:00 88 20 100 Mechanical Ventilator 21.00 12/11/20 22:59 87 31 100 21 12/11/20 22:00 37.2 92 20 100 Mechanical Ventilator 21.00 12/11/20 21:21 92 110/54 12/11/20 21:20 103/52 12/11/20 21:00 37.3 92 20 99 Mechanical Ventilator 21.00 12/11/20 20:15 95 Mechanical Ventilator 21 12/11/20 20:12 92 110/54 12/11/20 20:08 37.4 91 26 98 Mechanical Ventilator 21.00 12/11/20 20:00 37.4 90 99 Mechanical Ventilator 21.00 12/11/20 19:00 86 12/11/20 19:00 37.4 87 16 100 Mechanical Ventilator 50.00 12/11/20 19:00 Mechanical Ventilator 21.00 12/11/20 18:52 89 29 100 21 12/11/20 18:00 37.4 88 17 100 Mechanical Ventilator 50.00 12/11/20 17:51 37.9 92 37.6 37.5 12/11/20 17:47 86 129/57 12/11/20 17:47 87 131/57 12/11/20 17:45 37.5 87 23 100 12/11/20 17:30 37.5 90 17 100 12/11/20 17:15 37.6 90 20 100 12/11/20 17:00 37.6 90 19 100 Mechanical Ventilator 50.00 12/11/20 16:45 37.6 90 22 100 12/11/20 16:30 37.6 91 18 100 12/11/20 16:15 37.6 92 20 100 12/11/20 16:00 37.6 92 18 100 Mechanical Ventilator 50.00 12/11/20 15:45 37.7 93 19 99 12/11/20 15:30 37.7 90 20 100 12/11/20 15:15 37.7 90 19 100 12/11/20 15:00 37.7 89 22 100 Mechanical Ventilator 50.00 12/11/20 14:45 37.7 89 20 100 12/11/20 14:39 91 31 100 21 12/11/20 14:30 37.7 90 20 99 12/11/20 14:15 37.7 90 20 100 12/11/20 14:00 37.7 91 20 100 Mechanical Ventilator 50.00 12/11/20 13:45 37.7 92 22 100 12/11/20 13:30 37.7 92 23 100 12/11/20 13:15 37.7 95 20 100 12/11/20 13:05 100 105/58 12/11/20 13:05 100 105/58 12/11/20 13:00 37.7 97 23 100 Mechanical Ventilator 50.00 12/11/20 13:00 101 12/11/20 12:45 37.7 100 17 99 12/11/20 12:30 37.8 101 21 99 12/11/20 12:15 37.8 102 21 99 12/11/20 12:00 37.9 100 17 99 Mechanical Ventilator 50.00 12/11/20 11:45 37.9 101 18 100 12/11/20 11:30 38 96 20 100 12/11/20 11:28 105/58 12/11/20 11:15 38 96 26 100 12/11/20 11:03 99 30 100 21 12/11/20 11:00 38.1 93 15 100 Mechanical Ventilator 50.00 12/11/20 10:45 38.1 93 24 100 12/11/20 10:30 38.1 93 13 100 12/11/20 10:15 38.2 95 24 100 12/11/20 10:00 38.2 96 27 100 Mechanical Ventilator 50.00 12/11/20 09:45 38.3 97 27 100 12/11/20 09:30 38.4 100 25 100 12/11/20 09:15 38.4 101 24 100 12/11/20 09:00 38.5 104 41 100 Mechanical Ventilator 50.00 12/11/20 09:00 95 Mechanical Ventilator 21 12/11/20 08:49 85/47 12/11/20 08:47 38.0 12/11/20 08:45 38.5 101 25 100 12/11/20 08:30 38.6 96 22 100 12/11/20 08:17 38.7 12/11/20 08:15 38.6 97 22 100 12/11/20 08:00 38.7 104 29 100 Mechanical Ventilator 50.00 12/11/20 07:45 109 24 99 12/11/20 07:30 110 29 99 12/11/20 07:15 109 28 99 12/11/20 07:00 109 30 100 Mechanical Ventilator 50.00 12/11/20 07:00 109 91/67 12/11/20 07:00 109 12/11/20 06:56 109 33 100 21 12/11/20 06:45 108 30 100 12/11/20 06:30 109 30 99 12/11/20 06:15 108 33 97 12/11/20 06:05 97 Mechanical Ventilator 50.00 12/11/20 06:00 108 32 97 Mechanical Ventilator 100.00 12/11/20 05:45 117 70/50 12/11/20 05:32 115 70/51 I & O 12/12/20 07:00 Intake Total 1110 ml Output Total 1700 ml Balance -590 ml Height & Weight Height: 5'11.00" Weight: 224lbs. oz. 101.750477ip; 28.59 BMI Method:Stated General Appearance: Chronically ill, Other (intubated) HEENT: PERRL/EOMI; No Pharynx Normal (Orotracheally intubated); Moist Mucous Membranes Neck: Full Range of Motion, Normal Inspection Respiratory: Lungs Clear Cardiovascular: Regular Rate, Rhythm Capillary Refill: Greater Than 3 Seconds Gastrointestinal: soft, no organomegaly Extremity: Normal Capillary Refill, Normal Inspection Neurologic/Psychiatric: Other (GCS 3 T) Skin: Mottled Results Lab Laboratory Tests 12/10/20 19:26 12/10/20 20:18 12/11/20 02:43 12/11/20 08:25 12/11/20 11:15 12/11/20 18:00 12/12/20 03:09 Assessment/Plan Assessment/Plan Acute respiratory -Currently intubated on vent -450/18/5 21% Severe cardiogenic shock -Pt is on 3 pressors Multiorgan failure Acute CVA per head CT Acute STEMI Acute GIB with anemia -Family is expected to make pt AIR BRUSH ARTIST today. Severe cardiomyopathy Hx of meth use ARF Severe thrombocytopenia s/p Platlets ARF Pt has very poor prognosis. I discussed with pt's family and they are planning on making AIR BRUSH ARTIST today at 11. Family agrees with withholding further transfusions. MARIO POPE DO Dec 12, 2020 05:30
[2020-12-12] MEDS ORDERED: LORazepam INJ 2 MG/ML (ATIVAN) VIAL IV PRN (05:45)
[2020-12-12] MEDS: HYDROCORTISONE 100 MG/2 ML (Solu-CORTEF) VIAL IV SCH ×2 (05:56→12:53)
[2020-12-12] MEDS: VASOPRESSIN INJECTION 20 UNIT in NS (IVPB) 100 ML IV SCH (05:56)
[2020-12-12] MEDS: inSUlin ASPART (NovoLOG) 1 UNIT/0.01 ML (CHARGE PER UNIT) SC SCH ×2 (06:54→12:53)
[2020-12-12 06:57] VITALS: BP 109/81
--- NOTE | 2020-12-12 07:01 | NUR ---
The , Cheryl, has made the decision to make patient comfort care and will arrive at the hospital at 1100 to be with patient.
[2020-12-12] MEDS: PANTOPRAZOLE 40 MG (PROTONIX) VIAL IV SCH (07:07)
[2020-12-12] MEDS: NS IV 500 ML 500 ML IV SCH (07:08)
--- NOTE | 2020-12-12 07:56 | Diagnostic Imaging Report ---
Indication: Coronary artery disease, STEMI, intubated. Comparison: 12/11/2020 Findings: Single view of the chest demonstrates cardiac enlargement without overt pulmonary edema. Lungs remain well aerated. There is no pneumothorax or effusion. Sternal wires midline. Support devices are stable. Impression: 1. Stable cardiac enlargement without pulmonary edema or acute infiltrate. 2. No pneumothorax. Dictated by: Dictated on workstation # [id number]
--- NOTE | 2020-12-12 09:00 | NUR ---
CALL PLACED TO [facility] AT THIS TIME FOR REFERRAL OF PATIENT DUE TO TERMINAL EXTUBATION PLANNED BY FAMILY AROUND 11AM. REFERRAL CODE [id number]. [facility] REQUEST THIS NURSE DECREASE PROPOFOL TO SEE PATIENT RESPONSIVENESS ET RR, CHECK FOR PT BREAKTHROUGH REFLEXES. PROPOFOL DECREASED TO 10 AT THIS TIME.
--- NOTE | 2020-12-12 09:17 | NUR ---
This Knitting Machine Operator Helper was notified by staff that extubation is scheduled for 11:00 today, and family is expected to be present. Knitting Machine Operator Helper will follow up at that time to provide support.
[2020-12-12 10:06] VITALS: BP 124/59
--- NOTE | 2020-12-12 10:52 | Cardiology Progress Note ---
Subjective Date Seen by Provider: Dec 12, 2020 Time Seen by Provider: 10:46 Subjective/Events-last exam Patient was seen and evaluated, intubated, ventilator dependent Review of Systems General: Other (unable to provide review of systems) Focused Exam Lactate Level 12/11/20 18:00: Lactic Acid Level 2.37*H 12/11/20 20:46: Lactic Acid Level 2.36*H 12/11/20 23:11: Lactic Acid Level 1.64 Objective-Cardiology Exam Last Set of Vital Signs Vital Signs 12/12/20 12/12/20 12/12/20 06:54 09:00 10:06 Temp 37.3 Pulse 93 Resp 34 B/P (MAP) 95/48 Pulse Ox 100 O2 Delivery Mechanical Ventilator O2 Flow Rate 21.00 FiO2 21 Capillary Refill : Greater Than 3 Seconds I&O Intake and Output 12/12/20 00:00 Intake Total 3865 ml Output Total 1950 ml Balance 1915 ml Intake Oral 60 ml IV Total 3805 ml Output Urine Total 550 ml Gastric Drainage Total 1400 ml # Bowel Movements 2 General: Other (sedated and intubated) HEENT: Atraumatic Lungs: Other (ventilator dependent) Heart: Regular Rate Extremities: Other (peripheral edema, mottled skin) Neuro: Other (sedated and intubated) Psych/Mental Status: Other (sedated and intubated) Results Lab Laboratory Tests 12/11/20 11:15 12/11/20 18:00 12/12/20 03:09 A/P-Cardiology Admission Diagnosis Acute respiratory failure Non-ST elevation myocardial infarctions Congestive heart failure acute left ventricular systolic dysfunction Hypotensive shock Assessment/Plan Acute respiratory failure, ventilator dependent, managed by Dr. Mcneal Cardiogenic shock, acute on chronic congestive heart failure left ventricular systolic dysfunction with ejection fraction 20 percent, ischemic cardiomyopathy, maintained on pressors. Continue to monitor Coronary artery disease, non-ST elevation myocardial infarction, cardiac catheterization showed patent proximal and mid LAD and RCA, large circumflex art lexi that is patent, distal small OM1 occlusion, very distal LAD is a small vessel also occluded, small vessel disease not amendable to intervention, treated medically Severe anemia, transfuse and monitor H&H Acute on chronic renal failure, worsening renal function, probably due to hypotensive shock, mitral require dialysis Thrombocytopenia, platelet transfusion recommended, managed by medical team and critical care team History of illicit drug use with methamphetamine use Overall poor prognosis Clinical Quality Measures AMI/AHF: ASA po Prior to arrival: No DVT/VTE Risk/Contraindication: Risk Factor Score Per Nursin RFS Level Per Nursing on Admit: 4+=Very High EILEEN RAPHAEL MD Dec 12, 2020 10:52
--- NOTE | 2020-12-12 11:05 | Progress Note ---
ALEKS MCDERMOTT MED STUDENT 12/12/20 1105: Progress Note Pt is a 50yo male who called EMS due to chest pain and AMS on 12/10/20. EMS found him obtunded and with shallow and rapid breathing so they gave him some Narcan. Methamphetamines were also found in his wallet by EMS. Narcan did not resolve symptoms and EKG demonstrated an anterior lateral STEMI and STEMI protocol was activated. Pt was then intubated and transported to [facility] ER. Pt was found to be homeless and have a history of substance abuse with methamphetamines, HTN, smoking, and mitral valve replacement. optical laboratory manager was called and Pt required plat elet transfusion prior to procedure due to severe thrombocytopenia. Cath found STEMI from an embolic source and cardiogenic shock. PCI was unsuccessful due to the very distal occlusion so Pt was treated with anticoagulation. Due to respiratory distress Pt remained intubated and sedated and was placed on a ventilator. Pt was also found to have acute kidney injury and respiratory di stress with possible sepsis secondary to pneumonia. Central line and art line were placed and 3 pressors initiated to maintain his BP as cardiogenic shock progressed. Pt stability continued to decline as CHF with an EF of 10% was measured. The Pt began to enter multi-organ failure with ARF, VDRF, and CHF. With his history of substance abuse, CAD, CHF, and current shock with multi-o rgan failure the Pt was deemed to have an extremely poor prognosis and placed on supportive care and comfort measures. Family made him DNR. Due to his imminent demise, ventilator support was removed on 12/12/20 and comfort measures were taken until eventual . NEVAEH KILGORE DO 12/12/202: Supervisory-Addendum Brief Verification & Attestation Participated in pt care: history, MDM, physical Personally performed: exam, history, MDM, supervision of care Care discussed with: Medical Student Procedures: n/a Results interpretation: Verified all documentation Verification and Attestation of Medical Student E/M Service A medical student performed and documented this service in my presence. I reviewed and verified all information documented by the medical student and made modifications to such information, when appropriate. I personally performed the physical exam and medical decision making. Nevaeh Kilgore, Dec 12, 2020,19:52 ALEKS MCDERMOTT MED STUDENT Dec 12, 2020 11:05 NEVAEH KILGORE DO Dec 12, 2020 19:52
--- NOTE | 2020-12-12 11:59 | NUR ---
This PALLIATIVE CARE RN to ICU to see patient. He is planned for compassionate extubation once his and mother have a chance to visit. This Rn then visited with family once they arrived to the ICU. They were educated on the process and they have no questions at this time. They are going to spend time with patient prior to compassionate extubation.
--- NOTE | 2020-12-12 12:12 | NUR ---
PATIENT REMOVED FROM VENTILATOR AT THIS TIME BY RT ET THIS NURSE, MADE COMFORT CARE PER FAMILY WISHES. IV MEDICATIONS REMOVED. PATIENT GIVEN PRN MEDICATION FOR COMFORT
[2020-12-12] MEDS ORDERED: morphine INJ 4 MG/ML 1 ML (VIAL/SYRINGE) ONE (12:22)
[2020-12-12] MEDS ORDERED: morphine INJ 4 MG/ML 1 ML (VIAL/SYRINGE) IVP PRN ×2 (12:30→13:15)
--- NOTE | 2020-12-12 12:45 | NUR ---
This Swedish Masseuse met the pt's and his mother at the ER entrance and accompanied them to the waiting area. Provided wheelchair for pt's mother. Notified nurse that family were present in the waiting area, and Sale[facility] Palliative Care Nurse joined our visit. She led the family into ICU and to the bedside. Family visited privately at the bedside. They FaceTimed the pt's brother in [place] on Cheryl's phone. This Swedish Masseuse remained with and mother outside the room as pt was extubated, then joined them at the bedside and offered prayer. Family remain at the bedside.
--- NOTE | 2020-12-12 13:18 | NUR ---
PATIENT AT THIS TIME, AUSCULTATED BY Zulema NARAYAN RN ET Zulema JORDAN RN. NO HEART TONES PRESENT. RESPIRATIONS CEASED. FAMILY AT BEDSIDE WITH PATIENT. NOTIFIED DR. KILGORE ET DR. POPE. FAMILY WISHES PATIENT TO BE SENT TO [facility]
--- NOTE | 2020-12-12 14:44 | NUR ---
PATIENT CLEANED, LINES D/C'D ET [employer] CONTACTED PER FAMILY WISHES. CONTACTED [employer] ET PATIENT IS NOT A CANDIDATE FOR DONATION.
--- NOTE | 2020-12-12 16:00 | NUR ---
PATIENT BODY LEFT WITH HOME AT THIS TIME.
--- NOTE | 2020-12-12 16:48 | NUR ---
Aquatics Coordinator met and mother who were still at the bedside. Pt at [id number] with this Aquatics Coordinator, and mother present. Provided grief support and assisted pt's mother in wheelchair, accompanying them back to the ER entrance.
--- NOTE | 2020-12-12 19:51 | Discharge Summary ---
Discharge Summary Hospital Course Was the Problem List Reviewed?: Yes Problems/Dx: (1) STEMI (ST elevation myocardial infarction) Status: Acute Qualifiers: Qualified Codes: I21.3 - ST elevation (STEMI) myocardial infarction of unspecified site (2) Methamphetamine abuse Status: Acute (3) Person under investigation for COVID-19 Status: Acute Hospital Course Date of Admission: Dec 10, 2020 at 21:27 Admission Diagnosis : Family Physician/Provider: No,Local Physician Date of Discharge: 12/12/20 Discharge Diagnosis: STEMI, Cardiogenic shock, meth use Hospital Course: Hospital course: Pt had a short hospital course in the ICU, he was intubated out in the field for respiratory failure, found to have a STEMI and meth use, acute renal failure, he was in DIC, underwent aggressive treatment but no hope of recovery so comfort care protocol was initiated and family was notified. Labs and Pending Lab Test: Laboratory Tests 12/11/20 20:46: Lactic Acid Level 2.36*H 12/11/20 23:11: Lactic Acid Level 1.64 12/11/20 23:13: Glucometer 215H 12/12/20 03:09: White Blood Count 9.0, Red Blood Count 2.18L, Hemoglobin 6.8*L, Hematocrit 21L, Mean Corpuscular Volume 94, Mean Corpuscular Hemoglobin 31, Mean Corpuscular Hemoglobin Concent 33, Red Cell Distribution Width 15.4H, Platelet Count 13*L, Mean Platelet Volume , Immature Granulocyte % (Auto) 1, Neutrophils (%) (Auto) 83H, Lymphocytes (%) (Auto) 6L, Monocytes (%) (Auto) 10, Eosinophils (%) (Auto) 0, Basophils (%) (Auto) 0, Neutrophils # (Auto) 7.4, Lymphocytes # (Auto) 0.5L, Monocytes # (Auto) 0.9, Eosinophils # (Auto) 0.0, Basophils # (Auto) 0.0, Immature Granulocyte # (Auto) 0.1, Blood Gas Puncture Site LEFT ART LINE, Blood Gas Patient Temperature 37.3, Arterial Blood pH 7.30*L, Arterial Blood Partial Pressure CO2 30L, Arterial Blood Partial Pressure O2 92, Arterial Blood HCO3 14*L, Arterial Blood Total CO2 15.3L, Arterial Blood Oxygen Saturation 96, Arterial Blood Base Excess -10.6L, Arnoldo Test ART LINE, Blood Gas Ventilator Setting YES, Blood Gas Inspired Oxygen 21%, Sodium Level 138, Potassium Level 3.8, Chloride Level 120H, Carbon Dioxide Level 7*L, Anion Gap 11, Blood Urea Nitrogen 90H, Creatinine 3.91#H, Estimat Glomerular Filtration Rate 16, BUN/Creatinine Ratio 23, Glucose Level 229H, Calcium Level 4.3*L, Phosphorus Level 4.7, Magnesium Level 2.0, Triglycerides Level 180H Microbiology 12/10/20 MRSA Screen - Final, Complete MRSA not isolated 12/10/20 Blood Culture - Preliminary, Resulted Staphylococcus aureus Home Meds Active Keflex (Cephalexin) 500 Mg Capsule 500 Mg PO TID Reported Furosemide 40 Mg Tablet Atorvastatin Calcium 40 Mg Tablet Gabapentin 300 Mg Capsule Lisinopril 10 Mg Tablet Nitroglycerin 0.4 Mg Tab.subl Proair Hfa (Albuterol Sulfate) 1 Puff Puff Bupropion HCl Sr (Bupropion HCl) 100 Mg Tablet.er Warfarin Sodium 4 Mg Tablet Assessment/Pt Instructions Discharge Planning: <30 minutes discharge planning Discharge Physical Examination Vital Signs Vital Signs Date Time Temp Pulse Resp B/P (MAP) Pulse Ox O2 Delivery O2 Flow Rate FiO2 12/12/20 12:00 37.5 105 41 99 Mechanical Ventilator 21.00 12/12/20 10:06 21 General Appearance: Other () Allergies: Coded Allergies: No Known Drug Allergies (Unverified , 06/22/19) Discharge Summary Date of Admission Dec 10, 2020 at 21:27 Date of Discharge Dec 12, 2020 at 13:18 Admission Diagnosis Assessment: VDRF STEMI from embolic source per cath results CHF EF 10% Meth use ARF Hypotension cardiogenic in type Plan: Supportive care DNR Poor prognosis Clinical Quality Measures AMI/AHF: ASA po Prior to arrival: No DVT/VTE Risk/Contraindication: Risk Factor Score Per Nursin RFS Level Per Nursing on Admit: 4+=Very High DONALD KILGORE DO Dec 12, 2020 19:51
== END 2020-12-12 13:18 | disposition expired | DRG 871 ==
LOC: EDUNIT# 19:20 → ER 19:21 → CATH 19:36 → ICU 21:27
PROVIDERS: ADMIT Internal Medicine; ATTEND Internal Medicine
PROC: B2111ZZ Fluoroscopy of Multiple Coronary Arteries using Low Osmolar Contrast (ICD-10-PCS; principal; 2020-12-10)
PROC: B3101ZZ Fluoroscopy of Thoracic Aorta using Low Osmolar Contrast (ICD-10-PCS; 2020-12-10)
PROC: 5A1945Z Respiratory Ventilation, 24-96 Consecutive Hours (ICD-10-PCS; 2020-12-10)
DX: A41.9 Sepsis, unspecified organism (principal); I21.09 ST elevation (STEMI) myocardial infarction involving other coronary artery of anterior wall; R65.21 Severe sepsis with septic shock; J96.00 Acute respiratory failure, unspecified whether with hypoxia or hypercapnia; I50.23 Acute on chronic systolic (congestive) heart failure; I63.9 Cerebral infarction, unspecified; Z66 Do not resuscitate; Z51.5 Encounter for palliative care; Z20.822 Contact with and (suspected) exposure to COVID-19; J18.9 Pneumonia, unspecified organism; N17.9 Acute kidney failure, unspecified; I13.0 Hypertensive heart and chronic kidney disease with heart failure and stage 1 through stage 4 chronic kidney disease, or unspecified chronic kidney disease; K92.2 Gastrointestinal hemorrhage, unspecified; R57.0 Cardiogenic shock; N18.9 Chronic kidney disease, unspecified; I25.5 Ischemic cardiomyopathy; D64.9 Anemia, unspecified; F17.210 Nicotine dependence, cigarettes, uncomplicated; F15.10 Other stimulant abuse, uncomplicated; J45.909 Unspecified asthma, uncomplicated; E78.00 Pure hypercholesterolemia, unspecified; M19.91 Primary osteoarthritis, unspecified site; D69.6 Thrombocytopenia, unspecified; Z95.2 Presence of prosthetic heart valve; Z59.0 Homelessness; Z79.2 Long term (current) use of antibiotics; Z79.01 Long term (current) use of 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s
CPT/HCPCS: 36221; 36415; 70450; 71045; 76770; 80048; 80053; 80061; 80306; 80320; 81000; 82436; 82550; 82805; 82962; 83605; 83735; 83874; 83880; 84100; 84133; 84300; 84478; 84484; 85007; 85025; 85027; 85049; 85379; 85384; 85610; 85730; 86850; 86900; 86901; 87040; 87081; 87635; 93005; 93041; 93306; 93454; 94002; 94003; 94799